=== PATIENT | female | born 1955 | race Caucasian/White ===

== ENCOUNTER → 2016-09-25 | Outpatient (CLI) | payer OTHER ==
[~2016-09-25] MED LIST: BUDE10.2 IH; FLUT1DIS IH; HYDR-2666 PO; LORA-434 PO; MULT-650 PO; TIZA4TAB PO; TRAZ100T12 PO; methylPREDNISolone ACETATE 40 MG/ML VIAL. ONE; methylPREDNISolone ACETATE 80 MG/ML VIAL. ONE
--- NOTE | 2016-09-26 04:43 | PAIN ---
DATE OF SERVICE: ADDENDUM DIAGNOSES: Lumbar radiculopathy with lumbar degenerative disk disease. PROCEDURE: Lumbar epidural steroid injection: translaminar approach at the L4-5 level using C-arm fluoroscopic guidance under sterile prep and drape using local anesthetic. MEDICATIONS INJECTED: Depo-Medrol 120 mg plus 10 mL of preservative-free normal saline and 2-mL of Isovue for contrast. CONDITION AT DISCHARGE: Stable. The patient tolerated the procedure well, had no complications. BAUDILIO SCHWARTZ MD DR: PASCALE/néstor JOB#: [id number] / [id number]
--- NOTE | 2016-09-26 04:46 | PAIN ---
DATE OF SERVICE: 09/25/2016 DIAGNOSES: Lumbar radiculopathy with lumbar degenerative disk disease. HISTORY OF PRESENT ILLNESS: The patient is a 61-year-old female who returns for followup status post previous epidural steroid injections, last seen on 04/01/2016. The patient did very well, about 80% improvement overall with her injections. She reports that about a month ago, she fell at work, hit her head, ____ her back as well as her neck, had been doing very well, but has significant pain after the fall and reports now pain in the low back radiating to the right lower extremity as it was previously, mostly in the lateral anterior thigh across the low back and into the tailbone with some numbness and tingling across the back as well as in the right lateral and anterior thigh to the level of the knee or just slightly medial and inferior to this. The patient reports a burning, stabbing, sharp and constant, rated anywhere from a 7-8 on a scale 10, currently 7 on a scale of 10. The patient has been doing some stretching at home, but has not been helping much. She is trying to walk, but is becoming more difficult for her to do this because of the pain. Also, having difficulty staying on her feet at work and that she is required to do a lot of physical activities ____ walking, standing, bending, flexing, stooping, so forth at work. The patient reports it is becoming more and more difficult, reports no complete loss of motor function, but significant pain radiating to the right leg, now again as it was previously. The patient reports no new motor or sensory deficits, no new bowel or bladder incontinence. PAST MEDICAL HISTORY: Significant for asthma, cigarette smoking, sinus congestions, and arthritis. PREVIOUS SURGERY: Include cervical diskectomy and fusion in 2011, ____ 1986, compound fracture of the forearm with ORIF. CURRENT MEDICATIONS: Include tizanidine, trazodone, Ativan, hydrocodone, Symbicort, multivitamins and Advair. ALLERGIES: THE PATIENT IS ALLERGIC TO CONTRAST, IODINE, SULFA AND FLEXERIL. FAMILY HISTORY: Significant for lung cancer, brain cancer, diabetes and gallbladder disease. SOCIAL HISTORY: The patient continues to smoke about a half pack a day as for the past 41 years or so. Does not drink alcohol or use any other illegal or illicit drugs, is and lives on her own. REVIEW OF SYSTEMS: The patient's review of systems is positive for those items mentioned in history of present illness. It is completed in full, well documented on the patient's chart. PHYSICAL EXAMINATION: VITAL SIGNS: Today, the patient's blood pressure is 160/86, pulse is 90, respirations 18, temperature is 98.2 degrees Fahrenheit, and weight is 110 pounds. GENERAL: The patient is awake, alert, oriented, appropriate, very pleasant demeanor. HEENT: Head shows normocephalic and atraumatic. Extraocular movements are intact and symmetrical. Oral cavity, mucous membranes are moist and pink. Dentition is intact. NECK: Shows anterior throat supple without palpable lymphadenopathy noted. CHEST: Shows normal on inspection. Breath sounds clear to auscultation bilaterally. HEART: Shows S1, S2 clear. No murmurs auscultated. ABDOMEN: Soft, flat, nontender, nondistended. No palpable organomegaly is noted. No rebound or guarding demonstrated. BACK: Shows spine grossly midline. Lumbar paraspinous musculature shows with inspection, no obvious abnormalities or asymmetries. With palpation shows moderate tenderness throughout the upper, middle and lower distribution. The paraspinous muscles are very firm and tender, but normal muscle girth and symmetrical. No radiation. No trigger points. No tenderness over the sacrum or sacroiliac regions over the spinous processes. With palpation, the patient shows good rotation motion both laterally as well as extension and flexion of lumbar spine without significant pain or limited mobility. EXTREMITIES: Lower extremities showed deep tendon reflexes at 1+ in the patellar and tendo calcaneus tendons. Motor exam is strong with approximately 4-5 motor on the right with dorsiflexion, extension, quadriceps and hamstring flexion and 5/5 on the left. Peripheral pulses are 1+ posterior tibial and dorsalis pedis pulses. No peripheral edema is noted. No clubbing, no cyanosis. Options were discussed with the patient including conservative medical management, physical therapies and interventional techniques. The patient's old chart was reviewed as her current medication regimen updated. Current review of systems updated today again as noted. The patient would like to pursue with interventional techniques as she has done very well with these in the past. We discussed a lumbar epidural steroid injection using the description as well as anatomical models. We described the procedure. Risks were then discussed including, but not limited to bleeding, infection, possibility of epidural hematoma and subsequent neurologic compromise, dural puncture, headaches, spinal cord and/or nerve damage, side effects of steroid medication and poor results regarding pain control. The patient understands and wishes to proceed. The patient will return to clinic in approximately 2 weeks for followup. She was counseled on return appointment, activity level and side effects to be aware of. BAUDILIO SCHWARTZ MD DR: PASCALE/néstor JOB#: [id number] / [id number]
== END | disposition home or self-care (01) ==
LOC: PNCL 13:12
PROVIDERS: ATTEND Anesthesiology
DX: M51.16 Intervertebral disc disorders with radiculopathy, lumbar region (principal)
CPT/HCPCS: 62323; J1030; J1040

== ENCOUNTER → 2016-10-15 | Outpatient (CLI) | payer OTHER ==
--- NOTE | 2016-10-16 09:42 | PAIN ---
DATE OF SERVICE: 10/15/2016 DIAGNOSES: Lumbar radiculopathy with lumbar degenerative disk disease. HISTORY OF PRESENT ILLNESS: The patient is a 61-year-old female who returns for followup status post lumbar epidural steroid injection x 1. The patient did very well after the first injection, but the pain is returning now over the past week in the low back, right and left lower extremity, worse on the right side, radiating to the posterior lateral thigh, anterior thigh, medial thigh, into the medial lower leg, mostly posterior. The patient reports it is waking her from sleep about 4-5 times at night, ____ repositioning, getting out of bed, changing positions, still doing some stretching exercises which seems to help ____ every morning. The pain ranges anywhere from 5-7 on a scale 10. It is currently at 5 today. The patient reports no new motor or sensory deficits, describes the pain as sharp and shooting, stabbing, burning, it can become unbearable and radiating, but is on and off with her daily activities, worse with walking and standing, better with sitting. PHYSICAL EXAMINATION: VITAL SIGNS: The patient's blood pressure is 136/78, pulse is 88, respirations are 18, and temperature 97.9 degrees Fahrenheit. Height is 5 feet, weight is 116 pounds. GENERAL: The patient is awake, alert, oriented, appropriate, very pleasant demeanor. HEENT: Head shows normocephalic and atraumatic. Extraocular movements are intact and symmetrical. Oral cavity shows mucous membranes moist and pink. Dentition is intact. NECK: Shows anterior throat supple without palpable lymphadenopathy noted. Swallow reflex is symmetrical. Neck shows full rotational motion of the cervical spine without difficulty. CHEST: Shows breath sounds clear to auscultation bilaterally. HEART: Shows S1 and S2 clear. ABDOMEN: Soft, nontender, and nondistended. BACK: Shows spine grossly midline. Lumbar lordotic curvature is normal in appearance. Lumbar paraspinous musculature shows some post-symmetrical in appearance. Palpation shows moderate tenderness in the low lumbar distribution bilaterally and is firm, but with normal muscle girth, good rotational motion both laterally as well as extension and flexion without exacerbation of pain. EXTREMITIES: Lower extremities show deep tendon reflexes at 1+/4 in the patellar tendons. Motor exam is strong with approximately 4 on a scale 5 with right dorsiflexion dorsal extension and 5/5 on the left. Options were discussed with the patient and the patient's old chart was reviewed as her current medication regimen and updated. Current review of systems updated today as well. We will proceed with a second lumbar epidural steroid injection today with fluoroscopic guidance. Risks were again discussed including, but not limited to bleeding, infection, possibility of epidural hematoma, subsequent neurologic compromise, dural puncture, headaches, spinal cord and/or nerve damage, side effects of steroid medication and poor results regarding pain control. The patient understands and wishes to proceed. The patient will return to clinic in approximately 2 weeks for followup. She was counseled on return appointment, activity level and side effects to be aware of. DIAGNOSIS: Lumbar radiculopathy with lumbar degenerative disk disease. PROCEDURE: Lumbar epidural steroid injection in translaminar approach at L4-L5 level using C-arm fluoroscopic guidance under sterile prep and drape using local anesthetic. MEDICATIONS INJECTED: Depo-Medrol 120 mg plus 10 mL of preservative-free normal saline and 2 mL of Isovue for contrast. CONDITION AT DISCHARGE: Stable. The patient tolerated procedure well, had no complications. BAUDILOI SCHWARTZ MD DR: PASCALE/néstor JOB#: [id number] / [id number]
== END | disposition home or self-care (01) ==
LOC: PNCL 08:39
PROVIDERS: ATTEND Anesthesiology
DX: M51.16 Intervertebral disc disorders with radiculopathy, lumbar region (principal)
CPT/HCPCS: 62323; J1030; J1040

== ENCOUNTER → 2018-01-18 | Outpatient (CLI) | payer OTHER ==
[~2018-01-18] MED LIST changes: -HYDR-2666 PO; +HYDR-2758 PO; +TRAZ-86 PO; -TRAZ100T12 PO; -methylPREDNISolone ACETATE 40 MG/ML VIAL. ONE; -methylPREDNISolone ACETATE 80 MG/ML VIAL. ONE
--- NOTE | 2018-01-18 10:07 | KCIC ---
MRI of the lumbar spine without contrast 01/18/2018 CLINICAL HISTORY: Low back pain for the last week. TECHNIQUE: Unenhanced T1-weighted and T2-weighted sagittal and axial and inversion recovery sagittal images of the lumbar spine were obtained. FINDINGS: Comparison study dated 12/20/2015. Minimal S-shaped curvature of the thoracolumbar spine is seen. Degenerative signal changes are seen involving all of the disks of the lumbar spine. Degenerative signal changes are seen within the marrow scattered throughout these discs. The conus medullaris is normal in position and and signal characteristics. The L1-2 disc space is within normal limits. At the L2-3 disc space there is a mild generalized disc bulge. Degenerative changes are seen involving the facet joints bilaterally. There is mild ligamentum flavum hypertrophy bilaterally. These findings when combined do not result in significant central spinal canal or neural foraminal stenosis. At the L3-4 disc space there is a mild generalized disc bulge. Degenerative changes are seen involving the facet joints bilaterally. There is mild ligamentum flavum hypertrophy bilaterally. There are small facet joint effusions bilaterally. These findings when combined do not result in significant central spinal canal or neural foraminal stenosis. At the L4-5 disc space there is a mild generalized disc bulge. Superimposed on this disc bulge is a focal central disc protrusion. This measures 2 mm in AP diameter. Degenerative changes are seen involving the facet joints bilaterally. There is mild ligamentum flavum hypertrophy bilaterally. These findings when combined do not result in significant central spinal canal or neural foraminal stenosis. At the L5-S1 disc space there is a mild generalized disc bulge. Degenerative changes are seen involving the facet joints bilaterally. These findings when combined do not result in significant central spinal canal or neural foraminal stenosis. Since the previous examination there has been no significant interval change. IMPRESSION: The changes of degenerative disc disease are seen involving the lumbar spine. These findings do not result in significant central spinal canal or neural foraminal stenosis at any level. Electronically signed by: Adarsh Banks MD (01/18/2018 10:03 AM) [id number]
== END | disposition home or self-care (01) ==
LOC: KCIC MRI 08:18
PROVIDERS: ATTEND Physician Assistant Medical
DX: M51.36 Other intervertebral disc degeneration, lumbar region (principal); M25.48 Effusion, other site; J45.909 Unspecified asthma, uncomplicated; Z87.891 Personal history of nicotine dependence
CPT/HCPCS: 72148

== ENCOUNTER 2019-11-01 08:46 | Inpatient (IN) | payer BC, OTHER ==
[~2019-11-01] VITALS: Ht 152.4 cm; Wt 68.5 kg
[~2019-11-01 08:46] MED LIST changes: -HYDR-2758 PO; +HYDR-2761 PO; -TIZA4TAB PO; +TIZA4TAB2 PO; +TRAZ-123 PO; -TRAZ-86 PO
[2019-11-01] MEDS ORDERED: MORPHINE SULFATE 10 MG/ML VIAL. IV ONE ×2 (09:30→10:30)
[2019-11-01 09:56] LABS: ALBUMIN 3.5 g/dL (3.4-5.0); ALBUMIN/GLOBULIN RATIO 1.2 (1.0-1.7); CALCIUM 8.6 mg/dL (8.5-10.1); CREATININE 0.8 mg/dL (0.6-1.0); GFR 72.7; POTASSIUM 4.1 mmol/L (3.5-5.1); TOTAL BILIRUBIN 0.7 mg/dL (0.2-1.0); TOTAL PROTEIN 6.5 g/dL (6.4-8.2)
--- NOTE | 2019-11-01 09:57 | RAD ---
Examination: CHEST AP ONLY History: Shortness of breath and cough Comparison: None. Findings: AP portable supine frontal view of the chest was obtained. Postoperative cervical spine fusion noted. The cardiomediastinal silhouette is normal. Lungs are clear. There is no pneumothorax. No pleural effusion is appreciated. No acute bone abnormality. IMPRESSION: No acute cardiopulmonary process. Electronically signed by: Ranjan Singh MD (11/01/2019 9:54 AM) [id number]
--- NOTE | 2019-11-01 09:58 | RAD ---
Examination: HIP RIGHT 2 VIEW History: Fall, right hip pain Comparison/Correlation: None Findings: Markedly displaced oblique fracture through the lower intertrochanteric region is present. Right hip joint space is unremarkable. Mild degenerative changes of the symphysis pubis. Impression: Displaced right intertrochanteric fracture. Electronically signed by: Ranjan Singh MD (11/01/2019 9:55 AM) [id number]
[2019-11-01 10:00] LABS: C-REACTIVE PROTEIN 23.4 mg/L (0-3.3)
[2019-11-01 10:39] LABS: BASO # 0.1 x10^3/uL (0.0-0.2); BASO % 1 % (0-3); EOS # 0.1 x10^3/uL (0.0-0.7); EOS % 1 % (0-3); HEMATOCRIT 36.4 % (36.0-47.0); HEMOGLOBIN 12.5 g/dL (12.0-15.5); LYMPH # 2.4 x10^3/uL (1.0-4.8); LYMPH % 22 % (24-48); MEAN CORPUSCULAR HEMOGLOBIN 32 pg (25-35); MEAN CORPUSCULAR HGB CONC 35 g/dL (31-37); MEAN CORPUSCULAR VOLUME 94 fL (79-100); MONO # 0.7 x10^3/uL (0.0-1.1); MONO % 6 % (0-9); NEUT # 7.8 x10^3/uL (1.8-7.7); NEUT % 71 % (31-73); PLATELET COUNT 179 x10^3/uL (140-400); RED BLOOD COUNT 3.87 x10^6/uL (3.50-5.40); RED CELL DISTRIBUTION WIDTH 13.9 % (11.5-14.5); WHITE BLOOD COUNT 10.9 x10^3/uL (4.0-11.0)
--- NOTE | 2019-11-01 11:10 | EKG ---
[facility] [address] [place] [address] Test Date: 2019-11-01 Test Time: 09:09:13 Pat Name: STONE PAVON Department: Room: Gender: F [employer]: : 1955 Requested By: JOSE SLATER Order Number: [id number] Reading MD: Francisco J Frias Measurements Intervals [place] Rate: 99 P: 90 AL: 144 QRS: 90 QRSD: 84 T: 71 QT: 344 QTc: 447 Interpretive Statements SINUS RHYTHM Electronically Signed On 11-01-2019 15:53:08 CDT by Francisco J Frias
--- NOTE | 2019-11-01 11:50 | PDOC1 ---
History and Physical Date of Admission Date of Admission DATE: 11/01/19 TIME: 11:49 Identification/Chief Complaint Chief Complaint SEEN IN ER WITH HIP FRACURE, FALL 64 year old female with a history of COPD who presents with severe right hip pain. Patient was walking to the bathroom and socks on and slipped falling and landing on her right hip. She has had severe pain since that time. She denies any other injuries. She has been having a hard time with her COPD for the last 6 weeks. 10/30 finished a 1 month prescription of prednisone. She does not typically require oxygen. NOTES increase in shortness of breath and wheezing. She recently was treated for pneumonia as well. She has not had any fever, cough, Past Medical History Past Medical History Past Medical History Past Medical History Past Medical History: Asthma, COPD, High Cholesterol, Hypertension Past Surgical History: Other Additional Past Surgical Histo: LOWER BACK Smoking Status: Current Every Day Smoker Alcohol Use: None FHX COPD Cardiovascular: Hyperlipidemia Pulmonary: COPD Family History Family History: Chronic Bronchitis, High Cholestrol, Hypertension Social History Smoke: 1 pack per day ALCOHOL: none Drugs: None Current Medications Current Medications Current Medications Morphine Sulfate (Morphine Sulfate) 5 mg 1X ONCE IV Last administered on 11/01/19at 09:24; Start 11/01/19 at 09:30; Stop 11/01/19 at 09:31; Status DC Morphine Sulfate (Morphine Sulfate) 5 mg 1X ONCE IV Last administered on 11/01/19at 10:33; Start 11/01/19 at 10:30; Stop 11/01/19 at 10:31; Status DC Active Scripts Active Reported Advair 100-50 Diskus (Fluticasone/Salmeterol) 1 Each Disk.w.dev 1 Puff IH BID Symbicort 160-4.5 Mcg Inhaler (Budesonide/Formoterol Fumarate) 10.2 Gm Hfa.aer.ad 2 Puff IH BID Centrum Silver Women Tablet (Multivits-Min/Iron/FA/Lutein) 1 Each Tablet 1 Each PO Hydrocodone-Apap 5-325 (Hydrocodone Bit/Acetaminophen) 1 Each Tablet 1 Tab PO PRN Q6HRS PRN Ativan (Lorazepam) 1 Mg Tablet 1 Mg PO TID Trazodone Hcl 100 Mg Tablet 100 Mg PO HS Tizanidine Hcl 4 Mg Tablet 1 Tab PO QHS Allergies Allergies: Coded Allergies: Iodine and Iodide Containing Produc (Verified Allergy, Severe, anaphalaxis, 02/26/16) Milk Containing Products (Verified Allergy, Intermediate, asthma, 02/26/16) Sulfa (Sulfonamide Antibiotics) (Verified Allergy, Intermediate, 02/26/16) cephalexin (Verified Allergy, Intermediate, 02/26/16) NSAIDS (Non-Steroidal Anti-Inflamma (Verified Adverse Reaction, Severe, esophageal erosion, 02/26/16) ROS Review of System Review of Systems: Review of Systems: General: Denies fever, chills, sweats, fatigue Eyes: Denies drainage, blurred vision HENT: Denies rhinorrhea, sore throat Respiratory: Reports cough, shortness of breath, wheezing Cardiac: Denies edema, palpitations, chest pain GI: Denies abdominal pain, N/V MSK: Denies back pain, neck pain reports hip pain Skin: Denies rash, jaundice Neuro: Denies headache, dizziness Psychiatric: Denies SI/HI 14 PT ROS OTHERWISE NEG PSYCHOLOGICAL ROS: No: Anxiety, Behavioral Disorder, Concentration difficultie, Decreased libido, Depression, Disorientation, Hallucinations, Hostility, Irritablity, Memory difficulties, Mood Swings, Obsessive thoughts, Physical abuse, Sexual abuse, Sleep disturbances, Suicidal ideation, Other Hematological and Lymphatic: No: Bleeding Problems, Blood Clots, Blood Transfusions, Brusing, Night Sweats, Pallor, Swollen Lymph Nodes, Other Respiratory: YES: Cough, Shortness of breath, SOB with excertion, Wheezing Gastrointestinal: No Nausea, No Vomiting, No Abdominal Pain, No Diarrhea, No Constipation, No Melena, No Hematochezia, No Other Musculoskeletal: Yes Gait Disturbance, Yes Joint Pain Neurological: Yes Gait Disturbance Physical Exam Physical Exam Physical Exam: PE: Constitutional: Well developed, well nourished, Cooperative, NAD, non-toxic appearing HEENT: Normocephalic, atraumatic, oropharynx moist, EOMI, PERRL, no drainage from eyes, normal conjunctiva Neck: Supple, normal range of motion, no stridor Cardiovascular: RRR, 2+ radial pulses bilaterally, no edema Respiratory: Decreased breath sounds with diffuse wheezing, normal effort Abdomen: Soft, nontender, nondistended, no masses Skin: Warm, dry, intact Extremities: Right hip deformity with internal rotation and shortening of the leg, intact sensation, distal movement intact, normal capillary refill Neurologic: Alert and Oriented x3, motor and sensory function grossly normal, no focal deficits Psychologic: Normal affect, normal judgment, normal mood. General: Alert, Oriented X3, Cooperative, mild distress HEENT: Atraumatic, EOMI, Mucous membr. moist/pink Lungs: Normal air movement Heart: RRR, no gallops Breasts: Not examined Abdomen: Normal bowel sounds, Soft Rectal Exam: not examined PELVIC: Examination not indicated Extremities: No cyanosis, No edema Neuro: Normal speech, Cranial nerves 3-12 NL Psych/Mental Status: Mental status NL, Mood NL Vitals Vitals Vital Signs Date Time Temp Pulse Resp B/P (MAP) Pulse Ox O2 Delivery O2 Flow Rate FiO2 11/01/19 11:24 104 18 97 11/01/19 10:33 Room Air 2.0 11/01/19 09:29 98.3 166/59 (94) 98.3 Labs Labs Laboratory Tests Test 11/01/19 09:10 11/01/19 10:25 D-Dimer (Luann) 3.11 ug/mlFEU (0.00-0.50) Sodium Level 133 mmol/L (136-145) Potassium Level 4.1 mmol/L (3.5-5.1) Chloride Level 101 mmol/L (98-107) Carbon Dioxide Level 26 mmol/L (21-32) Anion Gap 6 (6-14) Blood Urea Nitrogen 18 mg/dL (7-20) Creatinine 0.8 mg/dL (0.6-1.0) Estimated GFR (Cockcroft-Gault) 72.7 BUN/Creatinine Ratio 23 (6-20) Glucose Level 185 mg/dL (70-99) Calcium Level 8.6 mg/dL (8.5-10.1) Total Bilirubin 0.7 mg/dL (0.2-1.0) Aspartate Amino Transf (AST/SGOT) 21 U/L (15-37) Alanine Aminotransferase (ALT/SGPT) 42 U/L (14-59) Alkaline Phosphatase 107 U/L (46-116) Lactate Dehydrogenase 349 U/L (81-234) Creatine Kinase 137 U/L (26-192) C-Reactive Protein, Quantitative 23.4 mg/L (0-3.3) Total Protein 6.5 g/dL (6.4-8.2) Albumin 3.5 g/dL (3.4-5.0) Albumin/Globulin Ratio 1.2 (1.0-1.7) White Blood Count 10.9 x10^3/uL (4.0-11.0) Red Blood Count 3.87 x10^6/uL (3.50-5.40) Hemoglobin 12.5 g/dL (12.0-15.5) Hematocrit 36.4 % (36.0-47.0) Mean Corpuscular Volume 94 fL (79-100) Mean Corpuscular Hemoglobin 32 pg (25-35) Mean Corpuscular Hemoglobin Concent 35 g/dL (31-37) Red Cell Distribution Width 13.9 % (11.5-14.5) Platelet Count 179 x10^3/uL (140-400) Neutrophils (%) (Auto) 71 % (31-73) Lymphocytes (%) (Auto) 22 % (24-48) Monocytes (%) (Auto) 6 % (0-9) Eosinophils (%) (Auto) 1 % (0-3) Basophils (%) (Auto) 1 % (0-3) Neutrophils # (Auto) 7.8 x10^3/uL (1.8-7.7) Lymphocytes # (Auto) 2.4 x10^3/uL (1.0-4.8) Monocytes # (Auto) 0.7 x10^3/uL (0.0-1.1) Eosinophils # (Auto) 0.1 x10^3/uL (0.0-0.7) Basophils # (Auto) 0.1 x10^3/uL (0.0-0.2) Laboratory Tests Test 11/01/19 09:10 11/01/19 10:25 D-Dimer (Luann) 3.11 ug/mlFEU (0.00-0.50) Sodium Level 133 mmol/L (136-145) Potassium Level 4.1 mmol/L (3.5-5.1) Chloride Level 101 mmol/L (98-107) Carbon Dioxide Level 26 mmol/L (21-32) Anion Gap 6 (6-14) Blood Urea Nitrogen 18 mg/dL (7-20) Creatinine 0.8 mg/dL (0.6-1.0) Estimated GFR (Cockcroft-Gault) 72.7 BUN/Creatinine Ratio 23 (6-20) Glucose Level 185 mg/dL (70-99) Calcium Level 8.6 mg/dL (8.5-10.1) Total Bilirubin 0.7 mg/dL (0.2-1.0) Aspartate Amino Transf (AST/SGOT) 21 U/L (15-37) Alanine Aminotransferase (ALT/SGPT) 42 U/L (14-59) Alkaline Phosphatase 107 U/L (46-116) Lactate Dehydrogenase 349 U/L (81-234) Creatine Kinase 137 U/L (26-192) C-Reactive Protein, Quantitative 23.4 mg/L (0-3.3) Total Protein 6.5 g/dL (6.4-8.2) Albumin 3.5 g/dL (3.4-5.0) Albumin/Globulin Ratio 1.2 (1.0-1.7) White Blood Count 10.9 x10^3/uL (4.0-11.0) Red Blood Count 3.87 x10^6/uL (3.50-5.40) Hemoglobin 12.5 g/dL (12.0-15.5) Hematocrit 36.4 % (36.0-47.0) Mean Corpuscular Volume 94 fL (79-100) Mean Corpuscular Hemoglobin 32 pg (25-35) Mean Corpuscular Hemoglobin Concent 35 g/dL (31-37) Red Cell Distribution Width 13.9 % (11.5-14.5) Platelet Count 179 x10^3/uL (140-400) Neutrophils (%) (Auto) 71 % (31-73) Lymphocytes (%) (Auto) 22 % (24-48) Monocytes (%) (Auto) 6 % (0-9) Eosinophils (%) (Auto) 1 % (0-3) Basophils (%) (Auto) 1 % (0-3) Neutrophils # (Auto) 7.8 x10^3/uL (1.8-7.7) Lymphocytes # (Auto) 2.4 x10^3/uL (1.0-4.8) Monocytes # (Auto) 0.7 x10^3/uL (0.0-1.1) Eosinophils # (Auto) 0.1 x10^3/uL (0.0-0.7) Basophils # (Auto) 0.1 x10^3/uL (0.0-0.2) Images Images PATIENT: STONE PAVON ACCOUNT: [id number] : 1955 LOCATION: [address] [place] [address] AGE: 64 SEX: F EXAM STATUS: ADM IN ORD. PHYSICIAN: CARTER AMBROSIO MD REASON: elevated d- dimer PROCEDURE: PULMONARY PERFUSION IMG PARTIC PULMONARY PERFUSION IMG PARTIC History:Elevated d-dimer. Comparison: None Findings: Perfusion examination was performed. Ventilation imaging was not obtained due to Covid protocol. Perfusion images were acquired after the patient was injected with 5.3 mCi of technetium 99m MAA. Correlation with chest x-ray. Large mismatch perfusion defect within the right upper lobe. Heterogeneous perfusion bilaterally. Additional moderate perfusion defect within the left posterior lower lobe. Additional smaller perfusion defects bilaterally. Impression: 1. High probability for pulmonary embolic disease. FOR INTERNAL CODING PURPOSES Critical result: Findings discussed with patient's nurse at 11/01/2019 4:10 PM. RESULT CODE: (C) Electronically signed by: Alexx Nails DO (11/01/2019 4:11 PM) [id number] DICTATED and SIGNED BY: ALEXX NAILS DO DATE: 11/01/19 1611 Examination: CHEST AP ONLY History: Shortness of breath and cough Comparison: None. Findings: AP portable supine frontal view of the chest was obtained. Postoperative cervical spine fusion noted. The cardiomediastinal silhouette is normal. Lungs are clear. There is no pneumothorax. No pleural effusion is appreciated. No acute bone abnormality. IMPRESSION: No acute cardiopulmonary process. Electronically signed by: Ranjan Trevino MD (11/01/2019 9:54 AM) [id number] DICTATED and SIGNED BY: RANJAN TREVINO MD DATE: 11/01/19 0954 Examination: HIP RIGHT 2 VIEW History: Fall, right hip pain Comparison/Correlation: None Findings: Markedly displaced oblique fracture through the lower intertrochanteric region is present. Right hip joint space is unremarkable. Mild degenerative changes of the symphysis pubis. Impression: Displaced right intertrochanteric fracture. Electronically signed by: Ranjan Trevino MD (11/01/2019 9:55 AM) [id number] DICTATED and SIGNED BY: RANJAN TREVINO MD DATE: 11/01/19 0955 VTE Prophylaxis Ordered VTE Prophylaxis Devices: Yes VTE Pharmacological Prophylaxi: Yes Assessment/Plan Assessment/Plan Impression: Displaced right intertrochanteric fracture. severe COPD WITH HYPOXIC RESP FAILURE HYPERGLYCEMIA Elevated d- dimer R/O PE High probability for pulmonary embolic disease. by V/Q tobacco abuse disorder PLAN ADMIT NPO Consult PULM Consult ortho covid-19 screen v/q scan stat CVC BED HEPARIN // PE PROTOCOL gi prophylaxis 75 MIN PT exam, chart review, > 50% of time spent with exam, chart review, pt care coordination CARTER AMBROSIO MD November 01, 2019 11:50
[2019-11-01 12:04] LABS: BILIRUBIN,URINE NEGATIVE (NEG); CLARITY,URINE CLEAR; COLOR,URINE YELLOW; NITRITE,URINE NEGATIVE (NEG); PH,URINE 5.5 (<5.0-8.0); PROTEIN,URINE NEGATIVE (NEG-TRACE); UROBILINOGEN,URINE 0.2 mg/dL (0.2 mg/dL)
[2019-11-01 12:14] LABS: BACTERIA,URINE 0 /HPF (0-FEW); RBC,URINE 0 /HPF (0-2); WBC,URINE OCC /HPF (0-4)
[2019-11-01 12:30] VITALS: BP 180/87
[2019-11-01] MEDS ORDERED: HYDROmorphone 2 MG/ML VIAL IV ONE (12:30)
--- NOTE | 2019-11-01 13:25 | PHYS DOC ---
Past Medical History Past Medical History: Asthma, COPD, High Cholesterol, Hypertension Past Surgical History: Other Additional Past Surgical Histo: LOWER BACK Smoking Status: Current Every Day Smoker Alcohol Use: None General Adult EDM: Chief Complaint: MECHANICAL FALL HPI: HPI: Patient is a 64 year old female with a history of COPD who presents with severe right hip pain. Patient was walking to the bathroom and socks on and slipped falling and landing on her right hip. She has had severe pain since that time. She denies any other injuries. She has been having a hard time with her COPD for the last 6 weeks. Yesterday she finished a 1 month prescription of prednisone. She does not typically require oxygen. She has had an increase in shortness of breath and wheezing. She recently was treated for pneumonia as well. She has not had any fever, cough, URI symptoms. She does not have any numbness in her right leg. Review of Systems: Review of Systems: General: Denies fever, chills, sweats, fatigue Eyes: Denies drainage, blurred vision HENT: Denies rhinorrhea, sore throat Respiratory: Reports cough, shortness of breath, wheezing Cardiac: Denies edema, palpitations, chest pain GI: Denies abdominal pain, N/V MSK: Denies back pain, neck pain reports hip pain Skin: Denies rash, jaundice Neuro: Denies headache, dizziness Psychiatric: Denies SI/HI Heart Score: Risk Factors: Risk Factors: DM, Current or recent (<one month) smoker, HTN, HLP, family history of CAD, obesity. Risk Scores: Score 0 - 3: 2.5% MACE over next 6 weeks - Discharge Home Score 4 - 6: 20.3% MACE over next 6 weeks - Admit for Clinical Observation Score 7 - 10: 72.7% MACE over next 6 weeks - Early Invasive Strategies Current Medications: Current Medications Medications (Trade) Dose Ordered Sig/Lucía Start Time Stop Time Status Last Admin Dose Admin Morphine Sulfate (Morphine Sulfate) 5 mg 1X ONCE 11/01/19 10:30 11/01/19 10:31 DC 11/01/19 10:33 5 MG Allergies: Allergies: Allergies Coded Allergies Type Severity Reaction Last Updated Verified Iodine and Iodide Containing Produc Allergy Severe anaphalaxis 02/26/16 Yes Milk Containing Products Allergy Intermediate asthma 02/26/16 Yes Sulfa (Sulfonamide Antibiotics) Allergy Intermediate 02/26/16 Yes cephalexin Allergy Intermediate 02/26/16 Yes NSAIDS (Non-Steroidal Anti-Inflamma Adverse Reaction Severe esophageal erosion 02/26/16 Yes Physical Exam: PE: Constitutional: Well developed, well nourished, Cooperative, NAD, non-toxic appearing HEENT: Normocephalic, atraumatic, oropharynx moist, EOMI, PERRL, no drainage from eyes, normal conjunctiva Neck: Supple, normal range of motion, no stridor Cardiovascular: RRR, 2+ radial pulses bilaterally, no edema Respiratory: Decreased breath sounds with diffuse wheezing, normal effort Abdomen: Soft, nontender, nondistended, no masses Skin: Warm, dry, intact Extremities: Right hip deformity with internal rotation and shortening of the leg, intact sensation, distal movement intact, normal capillary refill Neurologic: Alert and Oriented x3, motor and sensory function grossly normal, no focal deficits Psychologic: Normal affect, normal judgment, normal mood. No SI/HI Current Patient Data: Labs: Laboratory Tests Test 11/01/19 09:05 11/01/19 09:10 11/01/19 10:25 Urine Collection Type U cath Urine Color Yellow Urine Clarity Clear Urine pH 5.5 (<5.0-8.0) Urine Specific [place] 1.010 (1.000-1.030) Urine Protein Negative mg/dL (NEG-TRACE) Urine Glucose (UA) Negative mg/dL (NEG) Urine Ketones (Stick) Negative mg/dL (NEG) Urine Blood Negative (NEG) Urine Nitrite Negative (NEG) Urine Bilirubin Negative (NEG) Urine Urobilinogen Dipstick 0.2 mg/dL (0.2 mg/dL) Urine Leukocyte Esterase Negative (NEG) Urine RBC 0 /HPF (0-2) Urine WBC Occ /HPF (0-4) Urine Bacteria 0 /HPF (0-FEW) D-Dimer (Luann) 3.11 ug/mlFEU (0.00-0.50) H Sodium Level 133 mmol/L (136-145) L Potassium Level 4.1 mmol/L (3.5-5.1) Chloride Level 101 mmol/L (98-107) Carbon Dioxide Level 26 mmol/L (21-32) Anion Gap 6 (6-14) Blood Urea Nitrogen 18 mg/dL (7-20) Creatinine 0.8 mg/dL (0.6-1.0) Estimated GFR (Cockcroft-Gault) 72.7 BUN/Creatinine Ratio 23 (6-20) H Glucose Level 185 mg/dL (70-99) H Calcium Level 8.6 mg/dL (8.5-10.1) Total Bilirubin 0.7 mg/dL (0.2-1.0) Aspartate Amino Transferase (AST) 21 U/L (15-37) Alanine Aminotransferase (ALT) 42 U/L (14-59) Alkaline Phosphatase 107 U/L (46-116) Lactate Dehydrogenase 349 U/L (81-234) H Creatine Kinase 137 U/L (26-192) C-Reactive Protein, Quantitative 23.4 mg/L (0-3.3) H Total Protein 6.5 g/dL (6.4-8.2) Albumin 3.5 g/dL (3.4-5.0) Albumin/Globulin Ratio 1.2 (1.0-1.7) White Blood Count 10.9 x10^3/uL (4.0-11.0) Red Blood Count 3.87 x10^6/uL (3.50-5.40) Hemoglobin 12.5 g/dL (12.0-15.5) Hematocrit 36.4 % (36.0-47.0) Mean Corpuscular Volume 94 fL (79-100) Mean Corpuscular Hemoglobin 32 pg (25-35) Mean Corpuscular Hemoglobin Concent 35 g/dL (31-37) Red Cell Distribution Width 13.9 % (11.5-14.5) Platelet Count 179 x10^3/uL (140-400) Neutrophils (%) (Auto) 71 % (31-73) Lymphocytes (%) (Auto) 22 % (24-48) L Monocytes (%) (Auto) 6 % (0-9) Eosinophils (%) (Auto) 1 % (0-3) Basophils (%) (Auto) 1 % (0-3) Neutrophils # (Auto) 7.8 x10^3/uL (1.8-7.7) H Lymphocytes # (Auto) 2.4 x10^3/uL (1.0-4.8) Monocytes # (Auto) 0.7 x10^3/uL (0.0-1.1) Eosinophils # (Auto) 0.1 x10^3/uL (0.0-0.7) Basophils # (Auto) 0.1 x10^3/uL (0.0-0.2) Laboratory Tests 11/01/19 10:25 Laboratory Tests 11/01/19 09:10 Vital Signs: Vital Signs Date Time Temp Pulse Resp B/P (MAP) Pulse Ox O2 Delivery O2 Flow Rate FiO2 11/01/19 12:30 18 98 Nasal Cannula 2.0 11/01/19 12:24 102 11/01/19 09:29 98.3 166/59 (94) 98.3 EKG: EKG: [] Radiology/Procedures: Radiology/Procedures: [] Course & Med Decision Making: Course & Med Decision Making Pertinent Labs and Imaging studies reviewed. (See chart for details) Patient is a 64-year-old female who presents to the emergency room with right hip pain. X-ray was done and patient has a hip fracture. Patient also appears to be having a COPD exacerbation. She is requiring oxygen and has diffuse wheezing at this time. This is been ongoing for several weeks. She has no concerns for coronavirus. She has not had any fever or cough. She will be swabbed for coronavirus as she will likely need surgery. D-dimer is elevated and a VQ scan will be done. Patient will be admitted to the hospitalist and orthopedic surgery will be consulted. Pulmonology was also consulted per recommendation of the hospitalist for surgical clearance. Dragon Disclaimer: Dragon Disclaimer: This electronic medical record was generated, in whole or in part, using a voice recognition dictation system. Departure Departure Impression: Primary Impression: Displaced intertrochanteric fracture of right femur Additional Impressions: COPD (chronic obstructive pulmonary disease) Hypoxia Disposition: ADMITTED INPATIENT Condition: STABLE Referrals: KEYONNA GILES (PCP) JOSE SLATER MD November 01, 2019 13:25
[2019-11-01] MEDS ORDERED: ONDANSETRON PF 4 MG/2 ML VIAL. IVP PRN (13:45)
[2019-11-01] MEDS ORDERED: ACETAMINOPHEN 325 MG TABLET. PO PRN ×2 (13:45→14:30)
[2019-11-01] MEDS: NICOTINE 21MG PATCH. TD SCH ×2 (13:53→13:59)
[2019-11-01] MEDS ORDERED: ALBUTEROL SULFATE 2.5 MG/3 ML NEBU. NEB SCH (14:00)
[2019-11-01] MEDS ORDERED: LORazepam 1 MG TABLET PO SCH (14:00)
[2019-11-01] MEDS ORDERED: ZOLPIDEM 5 MG TABLET. PO PRN (14:30)
[2019-11-01] MEDS ORDERED: SODIUM PHOSPHATES 19/7GM 133 ML ENEMA. PR PRN (14:30)
[2019-11-01] MEDS ORDERED: ONDANSETRON PF 4 MG/2 ML VIAL. IV PRN (14:30)
[2019-11-01] MEDS ORDERED: ENOXAPARIN 40 MG/0.4 ML SYRINGE. SQ SCH (14:30)
[2019-11-01] MEDS ORDERED: DOCUSATE SODIUM 100 MG CAPSULE. PO PRN (14:30)
[2019-11-01] MEDS ORDERED: 0.9 % SODIUM CHLORIDE 10 ML DISP.SYRIN. IV PRN (14:30)
[2019-11-01] MEDS ORDERED: hydrALAZINE 20 MG/ML VIAL. IVP PRN (14:30)
[2019-11-01] MEDS ORDERED: MAG HYDROX/ALUMINUM HYD/SIMETH 30 ML ORAL.SUSP PO PRN (14:30)
[2019-11-01] MEDS ORDERED: guaiFENesin ORAL 200 MG/10 ML LIQUID. PO PRN (14:30)
[2019-11-01] MEDS ORDERED: cloNIDine HCL 0.1 MG TABLET PO PRN (14:30)
[2019-11-01 15:00] VITALS: BP 197/86
--- NOTE | 2019-11-01 15:41 | RAD ---
Examination: Bilateral Lower Extremity Venous Doppler Ultrasound History: Bilateral lower extremity pain, elevated d-dimer Comparison: None Procedure: Leavitt scale, color flow 2D and spectal waveform analysis images are obtained with and without compression in the area of the common femoral vein, superficial femoral vein - femoral vein junction, main femoral vein (superficial femoral vein) and popliteal vein. Veins of the proximal calf are also imaged. Findings: There is normal duplex flow, color flow and compressibility of all visualized vein segments. No evidence of deep venous thrombus is present. Impression: No evidence of DVT in the bilateral lower extremity venous system. Electronically signed by: Vic Santamaria MD (11/01/2019 3:38 PM) [id number]
[2019-11-01] MEDS: IPRATRPIUM/ALBUTEROL 0.5/2.5MG 3 ML NEBU. NEB SCH ×2 (16:13→20:26)
--- NOTE | 2019-11-01 16:13 | RAD ---
PULMONARY PERFUSION IMG PARTIC History:Elevated d-dimer. Comparison: None Findings: Perfusion examination was performed. Ventilation imaging was not obtained due to Covid protocol. Perfusion images were acquired after the patient was injected with 5.3 mCi of technetium 99m MAA. Correlation with chest x-ray. Large mismatch perfusion defect within the right upper lobe. Heterogeneous perfusion bilaterally. Additional moderate perfusion defect within the left posterior lower lobe. Additional smaller perfusion defects bilaterally. Impression: 1. High probability for pulmonary embolic disease. FOR INTERNAL CODING PURPOSES Critical result: Findings discussed with patient's nurse at 11/01/2019 4:10 PM. RESULT CODE: (C) Electronically signed by: Alexx Nails DO (11/01/2019 4:11 PM) [id number]
[2019-11-01] MEDS: HEPARIN for IV BOLUS 10,000 UNIT/10 ML VIAL. IV ONE ×2 (16:30→17:04)
[2019-11-01] MEDS ORDERED: HEPARIN for IV BOLUS 10,000 UNIT/10 ML VIAL. IV PRN (16:30)
[2019-11-01] MEDS: IV NORMAL SALINE 1000ML BAG 1,000 ML IV SCH (16:36)
[2019-11-01] MEDS: HEPARIN 25,000UTS/250ML PREMIX 250 ML IV PRN (16:50)
[2019-11-01] MEDS ORDERED: CARV25TA PO (17:19)
[2019-11-01] MEDS ORDERED: ALPR0.254 PO (17:19)
[2019-11-01] MEDS ORDERED: HYDR-3135 PO (17:19)
[2019-11-01] MEDS ORDERED: BUDE10.2 IH (17:19)
[2019-11-01] MEDS ORDERED: GABA800T5 PO (17:19)
[2019-11-01] MEDS ORDERED: TRAM100T36 PO (17:19)
[2019-11-01] MEDS ORDERED: TRAMADOL HCL 50 MG PO SCH (17:30)
[2019-11-01] MEDS: CARVEDILOL 12.5 MG TABLET. PO SCH (17:46)
[2019-11-01] MEDS: HYDROmorphone 2 MG/ML VIAL IV PRN ×2 (17:48→21:01)
[2019-11-01 19:25] VITALS: BP 171/78
[2019-11-01] MEDS: tiZANidine 4 MG TABLET. PO SCH (20:14)
[2019-11-01] MEDS: GABAPENTIN 300 MG CAPSULE. PO SCH (20:15)
[2019-11-01] MEDS: HYDROcodone/APAP 7.5/325MG 1 TAB TABLET PO SCH (20:15)
[2019-11-01] MEDS: BUDESONIDE 0.5 MG/2 ML NEBU. NEB SCH (20:26)
[2019-11-01] MEDS ORDERED: ALBUTEROL SULFATE 2.5 MG/3 ML NEBU. NEB PRN (20:45)
[2019-11-01] MEDS ORDERED: HYDROcodone/APAP 10/325 1 TAB TABLET PO SCH (21:00)
[2019-11-01] MEDS ORDERED: NON FORMULARY ITEM (Budesonide/Formoterol Fumarate (Symbicort 160-4.5 Mcg Inhaler) 2 PUFF) IH SCH (21:00)
[2019-11-01] MEDS ORDERED: traZODone 100 MG TABLET. PO SCH (21:00)
[2019-11-01] MEDS ORDERED: NON FORMULARY ITEM (Fluticasone/Salmeterol (Advair 100-50 Diskus) 1 PUFF) IH SCH (21:00)
--- NOTE | 2019-11-01 21:33 | CONS ---
DATE OF CONSULTATION: 11/01/2019 EMERGENCY DEPARTMENT CONSULTATION REQUESTING PHYSICIAN: Dr. Sweeney, Emergency Department physician. REASON FOR CONSULTATION: Right hip fracture. HISTORY OF PRESENT ILLNESS: The patient is a 64-year-old female who was walking to the bathroom in socks and slipped, falling, landing on her right hip. She denies any other injury. Denies any head injury, loss of consciousness, other joint pain, but does have the median onset of severe right hip pain, inability to bear weight and a lot of muscle spasm. She is better, somewhat with rest, but still has some severe pain and spasm even lying in the bed at rest. PAST MEDICAL HISTORY: Significant for COPD, hypercholesterolemia, hypertension, asthma. PAST SURGICAL HISTORY: Significant for low back surgery in the past. ALLERGIES: INCLUDE KEFLEX, SULFA, IODINE, AND NONSTEROIDAL ANTI-INFLAMMATORIES WELL A FOOD ALLERGY TO MILK. MEDICATIONS: List is reviewed. FAMILY HISTORY: COPD, hyperlipidemia, chronic bronchitis, hypertension. SOCIAL HISTORY: She is a 1 pack per day smoker. Denies alcohol or drug use. REVIEW OF SYSTEMS: She denies any current chest pain. She does have what she explains is mildly exacerbated shortness of breath compared to her normal symptoms. She denies any recent fever or chills. No recent illness. No productive cough, loss of smell. She does, however, indicate some shortness of breath, which she thinks might be a combination of some of her pain medications. She denies focal weakness, numbness, tingling, radiating pain, change in bowel or bladder habits and chronic low back pain is at baseline. PHYSICAL EXAMINATION: VITAL SIGNS: Per her admission sheet. She is afebrile. HEENT: Atraumatic, normocephalic. MUSCULOSKELETAL: She can move both shoulders, elbow and wrists bilaterally without any difficulty. The right hip is held in some flexion and external rotation in a position of comfort. The left hip has normal range of motion. She has good ligament stability of both knees. She is tender over the left ankle somewhat globally, has no gross instability and some slight swelling and she has been wearing an ankle brace for some chronic left ankle injury. She has normal examination of the contralateral right ankle with overall intact motor function, distal pulses, sensation in both upper and lower extremities throughout. IMAGING: X-rays show a displaced subtrochanteric-intertrochanteric fracture of the right hip. IMPRESSION: 1. Right subtrochanteric intertrochanteric displaced hip fracture. 2. Exacerbation of baseline chronic obstructive pulmonary disease. TREATMENT PLAN: I did go over with her the hip fracture and the need for operative stabilization if this would not be expected to heal in a reasonable position, sometimes even with traction and nonoperative extensive immobilization. We talked about the risks of immobilization in her case, especially pulmonary and the risks, benefits, postoperative course of surgical treatment including the possibility of infection, nerve or blood vessel damage, nonhealing, medical or other and anesthetic complications among others. The need for possible anticoagulation as well and her higher risk for nonhealing based on her smoking history and pulmonary difficulties. She does wish to proceed with surgical evaluation and treatment as soon as possible. At this point, we are held up by policy regarding COVID testing. She was placed in the Emergency Department according to the Emergency Department doctor, but tentatively, I am going to plan on surgery tomorrow following medical workup and hopeful results of the COVID testing. All her questions were answered at this time. IVET MACIAS MD DR: LILY/néstor JOB#: [id number] / [id number]
[2019-11-01] MEDS ORDERED: PANTOPRAZOLE IV PUSH 40 MG VIAL. IVP ONE (22:00)
[2019-11-01 22:38] VITALS: BP 176/69
[2019-11-01] MEDS: traMADol 50 MG TABLET PO PRN (23:05)
[2019-11-02] MEDS: HYDROmorphone 2 MG/ML VIAL IV PRN ×6 (00:25→20:33)
[2019-11-02] MEDS: IPRATRPIUM/ALBUTEROL 0.5/2.5MG 3 ML NEBU. NEB SCH ×6 (00:35→20:00)
[2019-11-02 02:37] VITALS: BP 172/85
[2019-11-02] MEDS: IV NORMAL SALINE 1000ML BAG 1,000 ML IV SCH ×2 (03:28→22:24)
[2019-11-02 06:30] VITALS: BP 169/70
[2019-11-02 06:37] LABS: BASO % 0 % (0-3); EOS # 0.1 x10^3/uL (0.0-0.7); EOS % 1 % (0-3); HEMATOCRIT 29.9 % (36.0-47.0); HEMOGLOBIN 10.2 g/dL (12.0-15.5); LYMPH # 2.7 x10^3/uL (1.0-4.8); LYMPH % 23 % (24-48); MEAN CORPUSCULAR HEMOGLOBIN 32 pg (25-35); MEAN CORPUSCULAR HGB CONC 34 g/dL (31-37); MEAN CORPUSCULAR VOLUME 94 fL (79-100); MONO # 0.8 x10^3/uL (0.0-1.1); MONO % 7 % (0-9); NEUT # 8.1 x10^3/uL (1.8-7.7); NEUT % 69 % (31-73); PLATELET COUNT 136 x10^3/uL (140-400); RED BLOOD COUNT 3.17 x10^6/uL (3.50-5.40); RED CELL DISTRIBUTION WIDTH 14.3 % (11.5-14.5); WHITE BLOOD COUNT 11.7 x10^3/uL (4.0-11.0)
[2019-11-02 06:48] LABS: ALBUMIN 2.8 g/dL (3.4-5.0); ALBUMIN/GLOBULIN RATIO 1.1 (1.0-1.7); CALCIUM 7.7 mg/dL (8.5-10.1); CREATININE 0.9 mg/dL (0.6-1.0); GFR 63.4; POTASSIUM 3.9 mmol/L (3.5-5.1); TOTAL BILIRUBIN 0.6 mg/dL (0.2-1.0); TOTAL PROTEIN 5.3 g/dL (6.4-8.2)
[2019-11-02] MEDS ORDERED: PROCHLORPERAZINE 10 MG/2 ML VIAL. IV PRN (07:00)
[2019-11-02] MEDS ORDERED: fentaNYL PF VIAL 100 MCG/2 ML VIAL IV PRN ×2 (07:00)
[2019-11-02] MEDS ORDERED: HYDROmorphone 2 MG/ML VIAL IV PRN (07:00)
[2019-11-02] MEDS ORDERED: MORPHINE SULFATE 2 MG/ML VIAL. IV PRN (07:00)
[2019-11-02] MEDS ORDERED: IV RINGERS,LACTATED 1000ML 1,000 ML IV SCH (07:00)
[2019-11-02] MEDS ORDERED: LIDOCAINE 1% PF 2 ML VIAL. ID PRN (07:00)
[2019-11-02] MEDS ORDERED: ONDANSETRON PF 4 MG/2 ML VIAL. IV PRN (07:00)
[2019-11-02] MEDS: BUDESONIDE 0.5 MG/2 ML NEBU. NEB SCH ×2 (07:51→20:00)
[2019-11-02] MEDS ORDERED: CARVEDILOL 12.5 MG TABLET. PO SCH (09:00)
[2019-11-02] MEDS: CARVEDILOL 12.5 MG TABLET. PO SCH (09:00)
[2019-11-02] MEDS: ALPRAZolam 0.25 MG TABLET PO SCH (09:00)
[2019-11-02] MEDS: GABAPENTIN 300 MG CAPSULE. PO SCH ×3 (09:00→19:42)
[2019-11-02] MEDS: PANTOPRAZOLE IV PUSH 40 MG VIAL. IVP SCH (09:03)
[2019-11-02] MEDS: NICOTINE 21MG PATCH. TD SCH (09:05)
--- NOTE | 2019-11-02 09:08 | CONS ---
DATE OF CONSULTATION: PULMONARY CONSULTATION ATTENDING PHYSICIAN: Dr. Goldberg. REASON FOR CONSULTATION: Pulmonary embolism, COPD and preop clearance for hip fracture. HISTORY OF PRESENT ILLNESS: The patient is a 64-year-old female who has been a smoker since age 21 and continues to smoke cigarettes. She also has been on and off on steroids. She has recently finished a course yesterday. The patient presented to the hospital after she slipped and fell and suffered right hip fracture and surgery is scheduled for some time today. The patient states that 3 days prior to fall she was having increased shortness of breath. She was evaluated in the Emergency Room where a D-dimer was elevated at 3.11. As a result, a V/Q scan was performed. THE PATIENT HAS ALLERGY TO THE IODINE. I have reviewed the V/Q scan. There is a large mismatch defect within the right upper lobe. There is also additional moderate perfusion defect within the left posterior lower lobe as well as smaller perfusion defects bilaterally. The patient was started on heparin yesterday afternoon. Venous Dopplers did not reveal any definite clots. The patient has no prior history of thromboembolic disease. She says she has occasional exertional dyspnea. She is not on home oxygen. She had no chest pain, no headaches, no dizziness. No nausea, vomiting, no diarrhea. She did have hip pain. She wants to have the surgery done. PAST MEDICAL HISTORY: Suspected COPD with ongoing tobaccoism since age 21, history of hypercholesterolemia, hypertension. PAST SURGICAL HISTORY: Low back surgery. ALLERGIES: KEFLEX, SULFA, IODINE, NONSTEROIDAL ANTI-INFLAMMATORIES WELL ALLERGY TO MILK. MEDICATIONS: All reviewed as listed in the MRAD including heparin per protocol. REVIEW OF SYSTEMS: Twelve-point system obtained. Pertinent positives discussed in my present illness, otherwise noncontributory. All systems that were negative were reviewed as well. SOCIAL HISTORY: Smoker since age 21, less than 1 pack per day and still smokes cigarettes until coming to the hospital, currently on a nicotine patch. FAMILY HISTORY: Noncontributory to lungs. PHYSICAL EXAMINATION: VITAL SIGNS: Reviewed. T-max of 100.1, pulse ox 97% on 2 liters, blood pressure 169/70. NECK: Supple. LUNGS: With faint expiratory wheezes. CARDIOVASCULAR: With a regular rate. ABDOMEN: Soft, nontender. EXTREMITIES: With no pitting edema. LABORATORY DATA: Reviewed. Her white cell count 11.7, hemoglobin 10.2 and platelets are 136. BUN 15, creatinine 0.9. IMPRESSION: 1. Dyspnea with acute hypoxic respiratory failure secondary to combination of acute pulmonary embolism and chronic obstructive pulmonary disease with mild exacerbation. 2. Status post fall with right hip fracture, in need for surgery. 3. Long history of tobaccoism and on and off on steroids since age 21. Just quit tobacco a day before hospitalization. Suspect underlying chronic obstructive pulmonary disease, could be moderate with mild exacerbation. She has faint bronchospasm. 4. Acute pulmonary embolism. Risk factors being immobility. No known cancers. Not on any estrogen or hormonal pills. May benefit from a hypercoagulable workup as an outpatient. RECOMMENDATIONS: 1. I have discussed with the patient that she does carry moderate risk for postop hypoxia and risk for worsening pulmonary embolism post-surgery. She had to be kept off of anticoagulation 2 hours before surgery, and in addition, she was still smoking prior to surgery and still has faint wheezing. However, the benefits of surgery, does exceed the risk and I recommend to proceed with surgery and we will follow very closely postoperatively. She wants to go ahead and proceed with surgery and understands the risks and benefits. 2. We will increase the nebulizer treatments with DuoNeb to q.4 hours and add Pulmicort. 3. Hold systemic steroids at present. 4. Monitor fever. No respiratory symptoms to suggest acute infection. Add empiric antibiotic. 5. Follow orthopedic recommendations. Once the patient's COVID test is negative, she will be able to proceed with surgery. 6. Discussed with RN and we will follow up postoperatively. EVELYN HART MD DR: KHALIF/néstor JOB#: [id number] / [id number]
[2019-11-02] MEDS ORDERED: ANTI-COAG MONITOR BY PHARMACY. MC PRN (10:00)
[2019-11-02] MEDS: HYDROcodone/APAP 7.5/325MG 1 TAB TABLET PO SCH ×2 (10:18→19:43)
[2019-11-02 11:21] VITALS: BP 156/67
[2019-11-02] MEDS: DOXYCYCLINE HYCLATE 100 MG in IV DEXTROSE 5% 100ML 100 ML IV SCH ×2 (11:32→22:11)
--- NOTE | 2019-11-02 12:48 | PDOC ---
[facility] PROGRESS NOTE Chief Complaint Chief Complaint Displaced right intertrochanteric fracture. severe COPD WITH HYPOXIC RESP FAILURE HYPERGLYCEMIA Elevated d- dimer R/O PE High probability for pulmonary embolic disease. by V/Q tobacco abuse disorder History of Present Illness History of Present Illness 11/02/2019 Patient seen and examined Discussed with RN Chart reviewed Patient on heparin Vitals/I&O Vitals/I&O: Vital Signs Date Time Temp Pulse Resp B/P (MAP) Pulse Ox O2 Delivery O2 Flow Rate FiO2 11/02/19 11:27 Nasal Cannula 2.0 11/02/19 11:21 98.9 98 20 156/67 (96) 98 98.9 I & O 11/01/19 11/01/19 11/02/19 15:00 23:00 07:00 Intake Total 0 ml 1137 ml Output Total 0 ml Balance 0 ml 1137 ml Physical Exam General: Alert, Oriented X3, Cooperative, mild distress Heart: Regular rate Lungs: Clear, Other (Diminished breath sounds) Abdomen: Normal bowel sounds, Soft Extremities: No cyanosis, No edema, Other (Left lower extremity externally rotated right lower extremity internally rotated) Skin: No rashes Labs Labs: Laboratory Tests Test 11/01/19 22:50 11/02/19 06:15 Heparin Anti-Xa Act, Unfractionated > 1.10 IU/mL (0.30-0.70) 0.41 IU/mL (0.30-0.70) White Blood Count 11.7 x10^3/uL (4.0-11.0) Red Blood Count 3.17 x10^6/uL (3.50-5.40) Hemoglobin 10.2 g/dL (12.0-15.5) Hematocrit 29.9 % (36.0-47.0) Mean Corpuscular Volume 94 fL (79-100) Mean Corpuscular Hemoglobin 32 pg (25-35) Mean Corpuscular Hemoglobin Concent 34 g/dL (31-37) Red Cell Distribution Width 14.3 % (11.5-14.5) Platelet Count 136 x10^3/uL (140-400) Neutrophils (%) (Auto) 69 % (31-73) Lymphocytes (%) (Auto) 23 % (24-48) Monocytes (%) (Auto) 7 % (0-9) Eosinophils (%) (Auto) 1 % (0-3) Basophils (%) (Auto) 0 % (0-3) Neutrophils # (Auto) 8.1 x10^3/uL (1.8-7.7) Lymphocytes # (Auto) 2.7 x10^3/uL (1.0-4.8) Monocytes # (Auto) 0.8 x10^3/uL (0.0-1.1) Eosinophils # (Auto) 0.1 x10^3/uL (0.0-0.7) Basophils # (Auto) 0.0 x10^3/uL (0.0-0.2) Sodium Level 135 mmol/L (136-145) Potassium Level 3.9 mmol/L (3.5-5.1) Chloride Level 101 mmol/L (98-107) Carbon Dioxide Level 30 mmol/L (21-32) Anion Gap 4 (6-14) Blood Urea Nitrogen 15 mg/dL (7-20) Creatinine 0.9 mg/dL (0.6-1.0) Estimated GFR (Cockcroft-Gault) 63.4 BUN/Creatinine Ratio 17 (6-20) Glucose Level 174 mg/dL (70-99) Calcium Level 7.7 mg/dL (8.5-10.1) Total Bilirubin 0.6 mg/dL (0.2-1.0) Aspartate Amino Transf (AST/SGOT) 20 U/L (15-37) Alanine Aminotransferase (ALT/SGPT) 34 U/L (14-59) Alkaline Phosphatase 83 U/L (46-116) Total Protein 5.3 g/dL (6.4-8.2) Albumin 2.8 g/dL (3.4-5.0) Albumin/Globulin Ratio 1.1 (1.0-1.7) Review of Systems Review of Systems: Complains of pain Assessment and Plan Assessmemt and Plan Problems Medical Problems: (1) COPD (chronic obstructive pulmonary disease) Status: Acute (2) Displaced intertrochanteric fracture of right femur Status: Acute (3) Hypoxia Status: Acute Displaced right intertrochanteric fracture. Severe COPD Hypoxic respiratory failure Hyperglycemia Pulmonary embolism Elevated d- dimer R/O PE High probability for pulmonary embolic disease. by V/Q Continued tobacco abuse although she states she quit yesterday? Plan Heparin protocol We will stop the heparin later today if she is going to surgery Cigarette cessation education Steroids Duo nebs Oxygen Home meds Trend lab Appreciate subspecialist input Comment Review of Relevant I have reviewed the following items renee (where applicable) has been applied. Medications: Current Medications Medications (Trade) Dose Ordered Sig/Lucía Route PRN Reason Start Time Stop Time Status Last Admin Dose Admin Hydromorphone HCl (Dilaudid) 1 mg PRN Q3HRS PRN IV PAIN 11/01/19 13:45 11/02/19 06:54 Ondansetron HCl (Zofran) 4 mg PRN Q4HRS PRN IVP NAUSEA/VOMITING 11/01/19 13:45 11/01/19 13:54 Acetaminophen (Tylenol) 650 mg PRN Q6HRS PRN PO FEVER/HEADACHE 11/01/19 13:45 11/02/19 09:56 DC 11/01/19 13:54 Nicotine (Nicoderm Cq 21mg) 1 patch DAILY TD 11/01/19 14:00 11/02/19 09:05 Lorazepam (Ativan) 1 mg TID PO 11/01/19 14:00 11/01/19 17:22 DC 11/01/19 13:53 Tizanidine HCl (Zanaflex) 4 mg QHS PO 11/01/19 21:00 11/01/19 20:14 Budesonide (Pulmicort) 0.5 mg RTBID NEB 11/01/19 20:00 11/02/19 07:51 Sodium Chloride 1,000 ml @ 80 mls/hr [id number] IV 11/01/19 14:16 11/02/19 03:28 Albuterol/ Ipratropium (Duoneb) 3 ml Q4H NEB 11/01/19 14:30 11/02/19 11:27 Fentanyl Citrate (Fentanyl 2ml Vial) 25 mcg PRN Q5MIN PRN IV MILD PAIN 1-3 11/02/19 07:00 11/02/19 20:00 11/02/19 09:04 Hydralazine HCl (Apresoline Inj) 10 mg PRN Q4HRS PRN IVP ELEVATED BP, SEE COMMENTS 11/01/19 14:30 11/01/19 16:51 Heparin Sodium (Porcine) (Heparin Sodium) 4,800 unit 1X ONCE IV 11/01/19 16:30 11/01/19 16:31 DC 11/01/19 17:04 Heparin Sodium/ Dextrose 250 ml @ 9.568 mls/ hr CONT PRN IV PER PROTOCOL 11/01/19 16:30 11/01/19 16:50 Gabapentin (Neurontin) 900 mg TID PO 11/01/19 21:00 11/01/19 20:15 Carvedilol (Coreg) 25 mg DAILY PO 11/01/19 17:45 11/01/19 17:46 Tramadol HCl (Ultram) 50 mg PRN BID PRN PO PAIN 11/01/19 17:45 11/01/19 23:05 Acetaminophen/ Hydrocodone Bitart (Lortab 7.5/325) 1 tab BID PO 11/01/19 21:00 11/02/19 10:18 Pantoprazole Sodium (PROTONIX VIAL for IV PUSH) 40 mg DAILYAC IVP 11/02/19 07:30 11/02/19 09:03 Pantoprazole Sodium (PROTONIX VIAL for IV PUSH) 40 mg 1X ONCE IVP 11/01/19 22:00 11/01/19 22:01 DC 11/01/19 23:06 Doxycycline Hyclate 100 mg/ Dextrose 100 ml @ 50 mls/hr Q12HR IV 11/02/19 10:00 11/02/19 11:32 VJ CALLAHAN III DO November 02, 2019 12:48
[2019-11-02 14:40] VITALS: BP 148/64
--- NOTE | 2019-11-02 14:51 | NUR ---
SS following for discharge planning. SS reviewed pt chart and discussed with pt RN. Pt is from home and is currently requiring oxygen. PT/OT ordered. Pt having surgery tomorrow, 11/03/2019, for right hip fracture pending COVID19 test results. Pt is COVID19 pending at this time. SS will continue to follow for discharge planning.
[2019-11-02] MEDS: HYDROcodone/APAP 5/325MG 1 TAB TABLET PO PRN (16:05)
--- NOTE | 2019-11-02 18:20 | NUR ---
PATIENT TRANSFERRED TO ROOM 440 PER BED, ALL PERSONAL BELONGINGS SENT WITH PATIENT INCLUDING CELL PHONE AND EYEGLASSES, REPORT CALLED TO OLINDA MUÑOZ ON 4TH FLOOR, QUESTIONS AND CONCERNS ANSWERED, RECEIVING NURSE INFORMED TO STOP HEPARIN DRIP AT 0330 ON 11/03/19 AND TO MAKE PATIENT NPO AT MIDNIGHT TONIGHT.
--- NOTE | 2019-11-02 18:40 | NUR ---
Transferred from 202 to room 440 by bed. Received report from Mary MUÑOZ.
[2019-11-02] MEDS: tiZANidine 4 MG TABLET. PO SCH (19:42)
[2019-11-02 19:43] VITALS: BP 142/70
[2019-11-02] MEDS: HEPARIN 25,000UTS/250ML PREMIX 250 ML IV PRN (19:46)
[2019-11-02 22:40] VITALS: BP 155/61
[2019-11-03] VITALS (10 sets, daily range): BP systolic 128–160; BP diastolic 41–106
[2019-11-03] MEDS: HYDROmorphone 2 MG/ML VIAL IV PRN ×3 (00:16→10:39)
[2019-11-03] MEDS: IPRATRPIUM/ALBUTEROL 0.5/2.5MG 3 ML NEBU. NEB SCH ×6 (00:48→22:30)
[2019-11-03 05:39] LABS: HEMATOCRIT 25.2 % (36.0-47.0); HEMOGLOBIN 8.7 g/dL (12.0-15.5); RED BLOOD COUNT 2.66 x10^6/uL (3.50-5.40); RED CELL DISTRIBUTION WIDTH 14.1 % (11.5-14.5); WHITE BLOOD COUNT 7.9 x10^3/uL (4.0-11.0)
--- NOTE | 2019-11-03 06:49 | NUR ---
IP: Pt is COVID negative.
[2019-11-03] MEDS ORDERED: CLINDAMYCIN 900MG PREMIX 50 ML IV ONE (06:54)
[2019-11-03] MEDS ORDERED: fentaNYL PF VIAL 100 MCG/2 ML VIAL ONE ×2 (06:54→07:03)
[2019-11-03] MEDS ORDERED: CLINDAMYCIN PREMIX 900 MG/50 ML BAG IV ONE (07:00)
[2019-11-03] MEDS ORDERED: MIDAZOLAM HCL/PF 2 MG/2 ML VIAL. ONE (07:03)
[2019-11-03] MEDS ORDERED: SEVOFLURANE 61 TO 120 MINUTES. IH ONE (07:03)
[2019-11-03] MEDS ORDERED: PROPOFOL 10 MG/ML (20ML) VIAL. IV ONE (07:04)
[2019-11-03] MEDS ORDERED: LIDOCAINE 2% PF 5 ML VIAL. ONE (07:04)
[2019-11-03] MEDS ORDERED: DEXAMETHASONE SOD PHOS 4 MG/ML VIAL ONE (07:04)
[2019-11-03] MEDS ORDERED: ONDANSETRON PF 4 MG/2 ML VIAL. ONE (07:04)
[2019-11-03] MEDS ORDERED: fentaNYL PF VIAL 100 MCG/2 ML VIAL IVP ONE (07:15)
[2019-11-03] MEDS: PANTOPRAZOLE IV PUSH 40 MG VIAL. IVP SCH (07:30)
[2019-11-03] MEDS ORDERED: PHENYLEPHRINE in 0.9% NACL PF 1 MG/10 ML SYRINGE. IV ONE (07:33)
[2019-11-03] MEDS: BUDESONIDE 0.5 MG/2 ML NEBU. NEB SCH ×3 (07:44→20:16)
[2019-11-03] MEDS ORDERED: DEXTROSE 50% 25 GM / 50ML DISP.SYRIN. IV PRN ×2 (08:30→10:15)
--- NOTE | 2019-11-03 08:31 | PDOC ---
PROGRESS NOTES Chief Complaint Chief Complaint Displaced right intertrochanteric fracture. Severe COPD WITH HYPOXIC RESP FAILURE HYPERGLYCEMIA Elevated d- dimer - PE High probability for pulmonary embolic disease. by V/Q Tobacco abuse disorder History of Present Illness History of Present Illness Ms Bañuelos is a 64 yo F w/ PMHx HTN, HLD, smoker who presented to the hospital after she slipped and fell and suffered right hip fracture. With SOB and increased HR and d dimer she underwent VQ scan and noted a large mismatch defect within the right upper lobe. There is also additional moderate perfusion defect within the left posterior lower lobe as well as smaller perfusion defects bilat erally. The patient was started on heparin. Venous Dopplers did not reveal any definite clots. 11/01: Patient on heparin s/p ORIF displaced intertrochanteric subtrochanteric right hip fracture with long intramedullary nail this morning. Back on heparin GTT. She is upset about glucose checks. Advised hemoglobin A1c has been ordered. Counseled on smoking cessation. No CP or SOB. Some postop pain. Vitals Vitals Vital Signs Date Time Temp Pulse Resp B/P (MAP) Pulse Ox O2 Delivery O2 Flow Rate FiO2 11/03/19 07:21 99.4 124 15 187/84 93 Nasal Cannula 2.0 99.4 Physical Exam General: Alert, Oriented X3, Cooperative, mild distress Heart: Regular rate Lungs: Clear, Other (Diminished breath sounds) Abdomen: Normal bowel sounds, Soft Extremities: No cyanosis, No edema, Other (Left lower extremity externally rotated right lower extremity internally rotated) Skin: No rashes Labs LABS Laboratory Tests Test 11/02/19 12:00 11/03/19 04:43 Heparin Anti-Xa Act, Unfractionated 0.36 IU/mL (0.30-0.70) 0.13 IU/mL (0.30-0.70) White Blood Count 7.9 x10^3/uL (4.0-11.0) Red Blood Count 2.66 x10^6/uL (3.50-5.40) Hemoglobin 8.7 g/dL (12.0-15.5) Hematocrit 25.2 % (36.0-47.0) Mean Corpuscular Volume 95 fL (79-100) Mean Corpuscular Hemoglobin 33 pg (25-35) Mean Corpuscular Hemoglobin Concent 35 g/dL (31-37) Red Cell Distribution Width 14.1 % (11.5-14.5) Platelet Count 117 x10^3/uL (140-400) Assessment and Plan Assessmemt and Plan Problems Medical Problems: (1) COPD (chronic obstructive pulmonary disease) Status: Acute (2) Displaced intertrochanteric fracture of right femur Status: Acute (3) Hypoxia Status: Acute Comment Review of Relevant I have reviewed the following items renee (where applicable) has been applied. Labs Laboratory Tests Test 11/01/19 09:05 11/01/19 09:10 11/01/19 10:25 11/01/19 10:35 Urine Collection Type U cath Urine Color Yellow Urine Clarity Clear Urine pH 5.5 (<5.0-8.0) Urine Specific Gilbert 1.010 (1.000-1.030) Urine Protein Negative mg/dL (NEG-TRACE) Urine Glucose (UA) Negative mg/dL (NEG) Urine Ketones (Stick) Negative mg/dL (NEG) Urine Blood Negative (NEG) Urine Nitrite Negative (NEG) Urine Bilirubin Negative (NEG) Urine Urobilinogen Dipstick 0.2 mg/dL (0.2 mg/dL) Urine Leukocyte Esterase Negative (NEG) Urine RBC 0 /HPF (0-2) Urine WBC Occ /HPF (0-4) Urine Bacteria 0 /HPF (0-FEW) D-Dimer (Luann) 3.11 ug/mlFEU (0.00-0.50) Sodium Level 133 mmol/L (136-145) Potassium Level 4.1 mmol/L (3.5-5.1) Chloride Level 101 mmol/L (98-107) Carbon Dioxide Level 26 mmol/L (21-32) Anion Gap 6 (6-14) Blood Urea Nitrogen 18 mg/dL (7-20) Creatinine 0.8 mg/dL (0.6-1.0) Estimated GFR (Cockcroft-Gault) 72.7 BUN/Creatinine Ratio 23 (6-20) Glucose Level 185 mg/dL (70-99) Calcium Level 8.6 mg/dL (8.5-10.1) Total Bilirubin 0.7 mg/dL (0.2-1.0) Aspartate Amino Transf (AST/SGOT) 21 U/L (15-37) Alanine Aminotransferase (ALT/SGPT) 42 U/L (14-59) Alkaline Phosphatase 107 U/L (46-116) Lactate Dehydrogenase 349 U/L (81-234) Creatine Kinase 137 U/L (26-192) C-Reactive Protein, Quantitative 23.4 mg/L (0-3.3) Total Protein 6.5 g/dL (6.4-8.2) Albumin 3.5 g/dL (3.4-5.0) Albumin/Globulin Ratio 1.2 (1.0-1.7) White Blood Count 10.9 x10^3/uL (4.0-11.0) Red Blood Count 3.87 x10^6/uL (3.50-5.40) Hemoglobin 12.5 g/dL (12.0-15.5) Hematocrit 36.4 % (36.0-47.0) Mean Corpuscular Volume 94 fL (79-100) Mean Corpuscular Hemoglobin 32 pg (25-35) Mean Corpuscular Hemoglobin Concent 35 g/dL (31-37) Red Cell Distribution Width 13.9 % (11.5-14.5) Platelet Count 179 x10^3/uL (140-400) Neutrophils (%) (Auto) 71 % (31-73) Lymphocytes (%) (Auto) 22 % (24-48) Monocytes (%) (Auto) 6 % (0-9) Eosinophils (%) (Auto) 1 % (0-3) Basophils (%) (Auto) 1 % (0-3) Neutrophils # (Auto) 7.8 x10^3/uL (1.8-7.7) Lymphocytes # (Auto) 2.4 x10^3/uL (1.0-4.8) Monocytes # (Auto) 0.7 x10^3/uL (0.0-1.1) Eosinophils # (Auto) 0.1 x10^3/uL (0.0-0.7) Basophils # (Auto) 0.1 x10^3/uL (0.0-0.2) Coronavirus (COVID-19)(PCR) See separate report Test 11/01/19 22:50 11/02/19 06:15 11/02/19 12:00 11/03/19 04:43 Heparin Anti-Xa Act, Unfractionated > 1.10 IU/mL (0.30-0.70) 0.41 IU/mL (0.30-0.70) 0.36 IU/mL (0.30-0.70) 0.13 IU/mL (0.30-0.70) White Blood Count 11.7 x10^3/uL (4.0-11.0) 7.9 x10^3/uL (4.0-11.0) Red Blood Count 3.17 x10^6/uL (3.50-5.40) 2.66 x10^6/uL (3.50-5.40) Hemoglobin 10.2 g/dL (12.0-15.5) 8.7 g/dL (12.0-15.5) Hematocrit 29.9 % (36.0-47.0) 25.2 % (36.0-47.0) Mean Corpuscular Volume 94 fL (79-100) 95 fL (79-100) Mean Corpuscular Hemoglobin 32 pg (25-35) 33 pg (25-35) Mean Corpuscular Hemoglobin Concent 34 g/dL (31-37) 35 g/dL (31-37) Red Cell Distribution Width 14.3 % (11.5-14.5) 14.1 % (11.5-14.5) Platelet Count 136 x10^3/uL (140-400) 117 x10^3/uL (140-400) Neutrophils (%) (Auto) 69 % (31-73) Lymphocytes (%) (Auto) 23 % (24-48) Monocytes (%) (Auto) 7 % (0-9) Eosinophils (%) (Auto) 1 % (0-3) Basophils (%) (Auto) 0 % (0-3) Neutrophils # (Auto) 8.1 x10^3/uL (1.8-7.7) Lymphocytes # (Auto) 2.7 x10^3/uL (1.0-4.8) Monocytes # (Auto) 0.8 x10^3/uL (0.0-1.1) Eosinophils # (Auto) 0.1 x10^3/uL (0.0-0.7) Basophils # (Auto) 0.0 x10^3/uL (0.0-0.2) Sodium Level 135 mmol/L (136-145) Potassium Level 3.9 mmol/L (3.5-5.1) Chloride Level 101 mmol/L (98-107) Carbon Dioxide Level 30 mmol/L (21-32) Anion Gap 4 (6-14) Blood Urea Nitrogen 15 mg/dL (7-20) Creatinine 0.9 mg/dL (0.6-1.0) Estimated GFR (Cockcroft-Gault) 63.4 BUN/Creatinine Ratio 17 (6-20) Glucose Level 174 mg/dL (70-99) Calcium Level 7.7 mg/dL (8.5-10.1) Total Bilirubin 0.6 mg/dL (0.2-1.0) Aspartate Amino Transf (AST/SGOT) 20 U/L (15-37) Alanine Aminotransferase (ALT/SGPT) 34 U/L (14-59) Alkaline Phosphatase 83 U/L (46-116) Total Protein 5.3 g/dL (6.4-8.2) Albumin 2.8 g/dL (3.4-5.0) Albumin/Globulin Ratio 1.1 (1.0-1.7) Laboratory Tests Test 11/02/19 12:00 11/03/19 04:43 Heparin Anti-Xa Act, Unfractionated 0.36 IU/mL (0.30-0.70) 0.13 IU/mL (0.30-0.70) White Blood Count 7.9 x10^3/uL (4.0-11.0) Red Blood Count 2.66 x10^6/uL (3.50-5.40) Hemoglobin 8.7 g/dL (12.0-15.5) Hematocrit 25.2 % (36.0-47.0) Mean Corpuscular Volume 95 fL (79-100) Mean Corpuscular Hemoglobin 33 pg (25-35) Mean Corpuscular Hemoglobin Concent 35 g/dL (31-37) Red Cell Distribution Width 14.1 % (11.5-14.5) Platelet Count 117 x10^3/uL (140-400) Medications Current Medications Morphine Sulfate (Morphine Sulfate) 5 mg 1X ONCE IV Last administered on at 09:24; Start 11/01/19 at 09:30; Stop 11/01/19 at 09:31; Status DC Morphine Sulfate (Morphine Sulfate) 5 mg 1X ONCE IV Last administered on 11/01/19at 10:33; Start 11/01/19 at 10:30; Stop 11/01/19 at 10:31; Status DC Hydromorphone HCl (Dilaudid) 1 mg 1X ONCE IV Last administered on 11/01/19at 12:30; Start 11/01/19 at 12:30; Stop 11/01/19 at 12:31; Status DC Hydromorphone HCl (Dilaudid) 1 mg PRN Q3HRS PRN IV PAIN Last administered on 11/03/19at 03:23; Start 11/01/19 at 13:45 Enoxaparin Sodium (Lovenox 80mg Syringe) 70 mg Q12HR SQ ; Start 11/01/19 at 21:00; Stop 11/01/19 at 16:26; Status DC Ondansetron HCl (Zofran) 4 mg PRN Q4HRS PRN IVP NAUSEA/VOMITING Last administered on 11/01/19at 13:54; Start 11/01/19 at 13:45; Stop 11/02/19 at 12:52; Status DC Acetaminophen (Tylenol) 650 mg PRN Q6HRS PRN PO FEVER/HEADACHE Last administered on 11/01/19at 13:54; Start 11/01/19 at 13:45; Stop 11/02/19 at 09:56; Status DC Nicotine (Nicoderm Cq 21mg) 1 patch DAILY TD Last administered on 11/02/19at 09:05; Start 11/01/19 at 14:00 Acetaminophen/ Hydrocodone Bitart (Lortab 5/325) 1 tab PRN Q6HRS PRN PO SEVERE PAIN Last administered on 11/02/19at 16:05; Start 11/01/19 at 13:45 Lorazepam (Ativan) 1 mg TID PO Last administered on 11/01/19at 13:53; Start 11/01/19 at 14:00; Stop 11/01/19 at 17:22; Status DC Tizanidine HCl (Zanaflex) 4 mg QHS PO Last administered on 11/02/19at 19:42; Start 11/01/19 at 21:00 Trazodone HCl (Desyrel) 100 mg HS PO ; Start 11/01/19 at 21:00; Stop 11/01/19 at 17:22; Status DC Non-Formulary Medication (Budesonide/ Formoterol Fumarate (Symbicort 160-4.5 Mcg Inhaler)) 2 puff BID IH ; Start 11/01/19 at 21:00; Status UNV Non-Formulary Medication (Fluticasone/ Salmeterol (Advair 100-50 Diskus)) 1 puff BID IH ; Start 11/01/19 at 21:00; Status UNV Albuterol Sulfate (Ventolin Neb Soln) 2.5 mg Q6HRS NEB ; Start 11/01/19 at 14:00; Stop 11/01/19 at 20:35; Status DC Budesonide (Pulmicort) 0.5 mg RTBID NEB Last administered on 11/02/19at 20:00; Start 11/01/19 at 20:00 Sodium Chloride (Normal Saline Flush) 3 ml QSHIFT PRN IV AFTER MEDS AND BLOOD DRAWS; Start 11/01/19 at 14:30 Sodium Chloride 1,000 ml @ 80 mls/hr [id number] IV Last administered on 11/02/19at 22:24; Start 11/01/19 at 14:16 Ondansetron HCl (Zofran) 4 mg PRN Q4HRS PRN IV NAUSEA/VOMITING; Start 11/01/19 at 14:30 Zolpidem Tartrate (Ambien) 5 mg PRN QHS PRN PO INSOMNIA; Start 11/01/19 at 14:30 Acetaminophen (Tylenol) 650 mg PRN Q4HRS PRN PO TEMP OVER 100.4F OR MILD PAIN; Start 11/01/19 at 14:30 Al Hydroxide/Mg Hydroxide (Mylanta Plus Xs) 30 ml PRN DAILY PRN PO HEARTBURN / GAS; Start 11/01/19 at 14:30 Clonidine HCl (Catapres) 0.1 mg PRN Q6HRS PRN PO SBP>160 OR DBP>90; Start 11/01/19 at 14:30 Sodium Monofluorophosphate (Fleet Adult) 133 ml PRN DAILY PRN MI CONSTIPATION; Start 11/01/19 at 14:30 Docusate Sodium (Colace) 100 mg PRN BID PRN PO HARD STOOLS; Start 11/01/19 at 14:30 Albuterol/ Ipratropium (Duoneb) 3 ml Q4H NEB Last administered on 11/03/19at 07:13; Start 11/01/19 at 14:30 Guaifenesin (Robitussin) 200 mg PRN Q4HRS PRN PO COUGH; Start 11/01/19 at 14:30 Enoxaparin Sodium (Lovenox 40mg Syringe) 40 mg Q24H SQ ; Start 11/01/19 at 14:30; Stop 11/01/19 at 14:22; Status DC Ondansetron HCl (Zofran) 4 mg PRN Q6HRS PRN IV NAUSEA/VOMITING; Start 11/02/19 at 07:00; Stop 11/03/19 at 06:59; Status DC Fentanyl Citrate (Fentanyl 2ml Vial) 25 mcg PRN Q5MIN PRN IV MILD PAIN 1-3 Last administered on 11/02/19at 09:04; Start 11/02/19 at 07:00; Stop 11/02/19 at 20:00; Status DC Fentanyl Citrate (Fentanyl 2ml Vial) 50 mcg PRN Q5MIN PRN IV MODERATE TO SEVERE PAIN; Start 11/02/19 at 07:00; Stop 11/02/19 at 20:00; Status DC Morphine Sulfate (Morphine Sulfate) 1 mg PRN Q10MIN PRN IV SEVERE PAIN 7-10; Start 11/02/19 at 07:00; Stop 11/02/19 at 20:00; Status DC Ringer's Solution 1,000 ml @ 30 mls/hr Q24H IV ; Start 11/02/19 at 07:00; Stop 11/02/19 at 18:59; Status DC Lidocaine HCl (Xylocaine-Mpf 1% 2ml Vial) 2 ml PRN 1X PRN ID PRIOR TO IV START; Start 11/02/19 at 07:00; Stop 11/02/19 at 20:00; Status DC Hydromorphone HCl (Dilaudid) 0.5 mg PRN Q10MIN PRN IV SEV PAIN, Second choice; Start 11/02/19 at 07:00; Stop 11/02/19 at 20:00; Status DC Prochlorperazine Edisylate (Compazine) 5 mg PACU PRN PRN IV NAUSEA, MRX1; Start 11/02/19 at 07:00; Stop 11/02/19 at 20:00; Status DC Hydralazine HCl (Apresoline Inj) 10 mg PRN Q4HRS PRN IVP ELEVATED BP, SEE COMMENTS Last administered on 11/01/19at 16:51; Start 11/01/19 at 14:30; Stop 11/02/19 at 12:53; Status DC Hydralazine HCl (Apresoline Inj) 10 mg PRN Q4HRS PRN IVP ELEVATED BP, SEE COMMENTS; Start 11/01/19 at 16:00 Heparin Sodium (Porcine) (Heparin Sodium) 4,800 unit 1X ONCE IV Last administered on 11/01/19at 17:04; Start 11/01/19 at 16:30; Stop 11/01/19 at 16:31; Status DC Heparin Sodium/ Dextrose 250 ml @ 9.568 mls/ hr CONT PRN IV PER PROTOCOL Last administered on 11/02/19at 19:46; Start 11/01/19 at 16:30 Heparin Sodium (Porcine) (Heparin Sodium) 1,800 unit PRN Q6HRS PRN IV FOR UFH LEVEL LESS THAN 0.2; Start 11/01/19 at 16:30 Heparin Sodium (Porcine) (Heparin Sodium) 900 unit PRN Q6HRS PRN IV FOR UFH LEVEL 0.2 - 0.29; Start 11/01/19 at 16:30 Alprazolam (Xanax) 0.25 mg DAILY PO ; Start 11/02/19 at 09:00 Acetaminophen/ Hydrocodone Bitart (Lortab 10/325) 7.5 tab BID PO ; Start 11/01/19 at 21:00; Status Cancel Carvedilol (Coreg) 25 mg DAILY PO ; Start 11/02/19 at 09:00; Stop 11/01/19 at 17:34; Status DC Gabapentin (Neurontin) 900 mg TID PO Last administered on 11/02/19at 19:42; Start 11/01/19 at 21:00 Non-Formulary Medication (Tramadol HCl ) 50 mg PRN PO ; Start 11/01/19 at 17:30; Stop 11/01/19 at 17:37; Status DC Carvedilol (Coreg) 25 mg DAILY PO Last administered on 11/01/19at 17:46; Start 11/01/19 at 17:45 Tramadol HCl (Ultram) 50 mg PRN BID PRN PO MODERATE PAIN Last administered on 11/01/19at 23:05; Start 11/01/19 at 17:45 Acetaminophen/ Hydrocodone Bitart (Lortab 7.5/325) 1 tab BID PO Last administered on 11/02/19at 19:43; Start 11/01/19 at 21:00 Albuterol Sulfate (Ventolin Neb Soln) 2.5 mg PRN Q6HRS PRN NEB WHEEZING; Start 11/01/19 at 20:45 Pantoprazole Sodium (PROTONIX VIAL for IV PUSH) 40 mg DAILYAC IVP Last administered on 11/02/19at 09:03; Start 11/02/19 at 07:30 Pantoprazole Sodium (PROTONIX VIAL for IV PUSH) 40 mg 1X ONCE IVP Last administered on 11/01/19at 23:06; Start 11/01/19 at 22:00; Stop 11/01/19 at 22:01; Status DC Doxycycline Hyclate 100 mg/ Dextrose 100 ml @ 50 mls/hr Q12HR IV Last administered on 11/02/19at 22:11; Start 11/02/19 at 10:00 Info (Anti-Coagulation Monitoring By Pharmacy) 1 each PRN DAILY PRN MC SEE COMMENTS; Start 11/02/19 at 10:00 Clindamycin Phosphate 50 ml @ As Directed STK-MED ONCE IV ; Start 11/03/19 at 06:54; Stop 11/03/19 at 06:54; Status DC Fentanyl Citrate (Fentanyl 2ml Vial) 100 mcg STK-MED ONCE .ROUTE ; Start 11/03/19 at 06:54; Stop 11/03/19 at 06:54; Status DC Sevoflurane (Ultane) 60 ml STK-MED ONCE IH ; Start 11/03/19 at 07:03; Stop 11/03/19 at 07:03; Status DC Fentanyl Citrate (Fentanyl 2ml Vial) 100 mcg STK-MED ONCE .ROUTE ; Start 11/03/19 at 07:03; Stop 11/03/19 at 07:04; Status DC Midazolam HCl (Versed) 2 mg STK-MED ONCE .ROUTE ; Start 11/03/19 at 07:03; Stop 11/03/19 at 07:04; Status DC Propofol (Diprivan) 200 mg STK-MED ONCE IV ; Start 11/03/19 at 07:04; Stop 11/03/19 at 07:04; Status DC Lidocaine HCl (Lidocaine Pf 2% Vial) 5 ml STK-MED ONCE .ROUTE ; Start 11/03/19 at 07:04; Stop 11/03/19 at 07:04; Status DC Ondansetron HCl (Zofran) 4 mg STK-MED ONCE .ROUTE ; Start 11/03/19 at 07:04; Stop 11/03/19 at 07:04; Status DC Dexamethasone Sodium Phosphate (Decadron) 4 mg STK-MED ONCE .ROUTE ; Start 11/03/19 at 07:04; Stop 11/03/19 at 07:04; Status DC Fentanyl Citrate (Fentanyl 2ml Vial) 100 mcg 1X ONCE IVP Last administered on 11/03/19at 07:15; Start 11/03/19 at 07:15; Stop 11/03/19 at 07:16; Status DC Phenylephrine HCl (PHENYLEPHRINE in 0.9% NACL PF) 1 mg STK-MED ONCE IV ; Start 11/03/19 at 07:33; Stop 11/03/19 at 07:34; Status DC Active Scripts Active Reported [place] 10-325 Tablet (Acetaminophen/Hydrocodone Bitart) 1 Each Tablet 7.5 Mg PO BID Gabapentin 800 Mg Tablet 900 Mg PO TID Alprazolam 0.25 Mg Tablet 1 Tab PO DAILY Symbicort 160-4.5 Mcg Inhaler (Budesonide/Formoterol Fumarate) 10.2 Gm Hfa.aer.ad 2 Puff IH BID Tramadol HCl 100 Mg Tablet 50 Mg PO PRN Coreg (Carvedilol) 25 Mg Tablet 25 Mg PO DAILY Advair 100-50 Diskus (Fluticasone/Salmeterol) 1 Each Disk.w.dev 1 Puff IH BID Symbicort 160-4.5 Mcg Inhaler (Budesonide/Formoterol Fumarate) 10.2 Gm Hfa.aer.ad 2 Puff IH BID Centrum Silver Women Tablet (Multivits-Min/Iron/FA/Lutein) 1 Each Tablet 1 Each PO Tizanidine Hcl 4 Mg Tablet 1 Tab PO QHS Vitals/I & O Vital Sign - Last 24 Hours 511/02/19 11/02/19 11/02/19 09:00 09:04 09:45 10:18 Pulse 98 Resp 20 20 20 B/P (MAP) 148/64 Pulse Ox 93 94 93 O2 Delivery Nasal Cannula Nasal Cannula Nasal Cannula O2 Flow Rate 2.0 2.0 2.0 11/02/19 11/02/19 11/02/19 11/02/19 11:21 11:27 11:30 13:34 Temp 98.9 98.9 Pulse 98 Resp 20 20 20 B/P (MAP) 156/67 (96) Pulse Ox 98 94 O2 Delivery Nasal Cannula Nasal Cannula Nasal Cannula Nasal Cannula O2 Flow Rate 2.0 2.0 2.0 2.0 11/02/19 11/02/19 11/02/19 11/02/19 14:16 14:40 15:54 16:05 Temp 98.9 98.9 Pulse 98 Resp 19 18 20 B/P (MAP) 148/64 (92) Pulse Ox 93 98 2 O2 Delivery Nasal Cannula Nasal Cannula Nasal Cannula Nasal Cannula O2 Flow Rate 2.0 2.0 2.0 11/02/19 11/02/19 11/02/19 11/02/19 17:21 19:43 19:43 20:00 Temp 99.9 99.9 Pulse 111 Resp 20 18 20 B/P (MAP) 142/70 (94) Pulse Ox 94 98 94 O2 Delivery Nasal Cannula Nasal Cannula Nasal Cannula Nasal Cannula O2 Flow Rate 2.0 2.0 2.0 2.0 11/02/19 11/02/19 11/02/19 11/02/19 20:02 20:04 20:33 20:43 Resp 20 20 Pulse Ox 97 97 97 97 O2 Delivery Nasal Cannula Nasal Cannula Nasal Cannula Nasal Cannula O2 Flow Rate 2.0 2.0 2.0 2.0 11/02/19 11/02/19 11/03/19 11/03/19 21:03 22:40 00:16 00:46 Temp 99.6 99.6 Pulse 117 Resp 20 18 20 20 B/P (MAP) 155/61 (92) Pulse Ox 97 93 93 98 O2 Delivery Nasal Cannula Nasal Cannula Nasal Cannula Nasal Cannula O2 Flow Rate 2.0 2.0 2.0 2.0 11/03/19 11/03/19 11/03/19 11/03/19 00:48 02:52 03:23 03:53 Temp 99.4 99.4 Pulse 124 Resp 18 20 20 B/P (MAP) 160/74 (102) Pulse Ox 98 93 93 93 O2 Delivery Nasal Cannula Nasal Cannula Nasal Cannula Nasal Cannula O2 Flow Rate 2.0 2.0 2.0 2.0 11/03/19 11/03/19 07:15 07:21 Temp 99.4 99.4 Pulse 124 Resp 15 15 B/P (MAP) 187/84 Pulse Ox 93 93 O2 Delivery Nasal Cannula Nasal Cannula O2 Flow Rate 2.0 2.0 Intake and Output 11/02/19 11/02/19 11/03/19 15:00 23:00 07:00 Intake Total 240 ml 0 ml Balance 240 ml 0 ml ABDULAZIZ WILD MD November 03, 2019 08:31
[2019-11-03] MEDS: CARVEDILOL 12.5 MG TABLET. PO SCH (09:00)
[2019-11-03] MEDS: NICOTINE 21MG PATCH. TD SCH ×2 (09:00→10:39)
[2019-11-03] MEDS: HYDROcodone/APAP 7.5/325MG 1 TAB TABLET PO SCH ×2 (09:00→21:00)
[2019-11-03] MEDS: ALPRAZolam 0.25 MG TABLET PO SCH (09:00)
[2019-11-03] MEDS: DOXYCYCLINE HYCLATE 100 MG in IV DEXTROSE 5% 100ML 100 ML IV SCH ×2 (09:00→20:33)
[2019-11-03] MEDS: GABAPENTIN 300 MG CAPSULE. PO SCH ×3 (09:00→21:59)
[2019-11-03] MEDS ORDERED: PROCHLORPERAZINE 10 MG/2 ML VIAL. ONE (09:32)
[2019-11-03] MEDS ORDERED: HYDROmorphone 2 MG/ML VIAL ONE (09:32)
[2019-11-03] MEDS ORDERED: IV RINGERS,LACTATED 1000ML 1,000 ML IV SCH (09:53)
[2019-11-03] MEDS ORDERED: ONDANSETRON PF 4 MG/2 ML VIAL. IV PRN (10:00)
[2019-11-03] MEDS ORDERED: fentaNYL PF VIAL 100 MCG/2 ML VIAL IV PRN ×2 (10:00)
[2019-11-03] MEDS ORDERED: MORPHINE SULFATE 2 MG/ML VIAL. IV PRN (10:00)
[2019-11-03] MEDS ORDERED: PROCHLORPERAZINE 10 MG/2 ML VIAL. IV PRN (10:00)
[2019-11-03] MEDS ORDERED: HYDROmorphone 2 MG/ML VIAL IV PRN (10:00)
[2019-11-03] MEDS ORDERED: ONDANSETRON PF 4 MG/2 ML VIAL. IVP PRN (10:15)
--- NOTE | 2019-11-03 10:23 | PDOC4 ---
Operative Note Operative Note Date of surgery: 11/03/2019 Preoperative diagnosis: Displaced intertrochanteric subtrochanteric right hip fracture Postoperative diagnosis: Same with medial collateral ligament sprain left knee Operative procedure: Examination under anesthesia left knee and ORIF displaced intertrochanteric subtrochanteric right hip fracture with long intramedullary nail Surgeon: Esteban Sales Advisory Manager: Andrzej castañeda assist Anesthesia: General Estimated blood loss: 100 cc Complications: None Operative indications: Please see my orthopedic consultation for detailed operative indications and indicate that also patient complained of some left knee pain and I told her we would plan on examining her knee intraoperatively under anesthesia due to the extreme pain that she has with any movement of the right hip. We talked through the rationale of fixation of her hip fracture due to the poor alignment and muscle deforming forces and the desirability of getting her up and around with some stabilization of the fracture to alleviate some immobility concerns. All her questions were answered she wishes to proceed with surgical evaluation and treatment. Operative text: Patient was identified procedure verified patient placed in the supine position on the fracture table after adequate amounts of general anesthesia were administered. First the left knee was examined under anesthesia and found to have some grade 2 opening with valgus stress but otherwise ligamentously stable full range of motion normal patellofemoral tracking. The right lower extremity was placed in the traction boot and left lower extremity placed in the well-leg morales all bony prominences were well-padded and the subtrochanteric fracture was reduced under fluoroscopic guidance. The right hip was then prepped and draped in the standard sterile fashion and after timeout was performed patient procedure identified and verified an incision was made proximal to the greater trochanteric entry point and the entry awl was used to place a long guidewire across the reduced fracture site. Reaming was carried out to a size 13-1/2 mm and a [employer] nail 11-1/2 x 32 cm was inserted. Lateral incision was made and guidewire was placed centrally in the femoral head under multiple fluoroscopic views. Antirotation screw area cortex was drilled and the antirotation bar placed. Then the lag screw was drilled to a size 95 and a 95 lag screw with compression screw was placed for extra support but no compression indicated due to the subtrochanteric nature of the fracture. The lag screw was then locked down insertion hardware removed traction was removed and a distal locking screw placed in the dynamic hole under fluoroscopic guidance. Excellent alignment of the fracture and hardware were noted under multiple fluoroscopic views but note that there was some splaying of the lateral wall of one small lateral fragment around the area of the leg screws. Thorough irrigation carried out normal saline solution, fascial closure with #1 Vicryl subcutaneous closure with buried Vicryl suture skin closure with evens sterile dressings were applied patient was returned to recovery room in stable condition having tolerated procedure well. Andrzej lam was present for the procedure and assisted in the positioning reduction draping retraction and closure IVET MACIAS MD November 03, 2019 10:23
--- NOTE | 2019-11-03 10:31 | RAD ---
EXAM: Right hip, 12 views. HISTORY: Fracture fixation. COMPARISON: None. FINDINGS: 12 fluoroscopic images were obtained during internal fixation of a proximal right femoral fracture. The total fluoroscopy time is 0.6 minutes. IMPRESSION: Sonographic imaging for procedural guidance during internal fixation of a proximal femoral fracture. Electronically signed by: Jane Norton MD (11/03/2019 10:28 AM) [id number]
[2019-11-03] MEDS: INSULIN LISPRO 300 UNITS/3 ML VIAL. SQ SCH ×3 (11:30→21:00)
--- NOTE | 2019-11-03 11:34 | PDOC ---
PULMONARY PROGRESS NOTES Subjective s/p hip surgery no soa Vitals Vital Signs Date Time Temp Pulse Resp B/P (MAP) Pulse Ox O2 Delivery O2 Flow Rate FiO2 11/03/19 11:23 94 Nasal Cannula 3.0 11/03/19 10:20 98 18 128/106 (113) 11/03/19 10:03 99.4 99.4 ROS: No Chest Pain, No Abdominal Pain General: Alert, No acute distress Lungs: Wheezing (faint) Cardiovascular: S1 Abdomen: Soft Neuro Exam: Alert Extremities: No Edema Skin: Warm Labs Laboratory Tests Test 11/01/19 22:50 11/02/19 06:15 11/02/19 12:00 11/03/19 04:43 Heparin Anti-Xa Act, Unfractionated > 1.10 IU/mL (0.30-0.70) 0.41 IU/mL (0.30-0.70) 0.36 IU/mL (0.30-0.70) 0.13 IU/mL (0.30-0.70) White Blood Count 11.7 x10^3/uL (4.0-11.0) 7.9 x10^3/uL (4.0-11.0) Red Blood Count 3.17 x10^6/uL (3.50-5.40) 2.66 x10^6/uL (3.50-5.40) Hemoglobin 10.2 g/dL (12.0-15.5) 8.7 g/dL (12.0-15.5) Hematocrit 29.9 % (36.0-47.0) 25.2 % (36.0-47.0) Mean Corpuscular Volume 94 fL (79-100) 95 fL (79-100) Mean Corpuscular Hemoglobin 32 pg (25-35) 33 pg (25-35) Mean Corpuscular Hemoglobin Concent 34 g/dL (31-37) 35 g/dL (31-37) Red Cell Distribution Width 14.3 % (11.5-14.5) 14.1 % (11.5-14.5) Platelet Count 136 x10^3/uL (140-400) 117 x10^3/uL (140-400) Neutrophils (%) (Auto) 69 % (31-73) Lymphocytes (%) (Auto) 23 % (24-48) Monocytes (%) (Auto) 7 % (0-9) Eosinophils (%) (Auto) 1 % (0-3) Basophils (%) (Auto) 0 % (0-3) Neutrophils # (Auto) 8.1 x10^3/uL (1.8-7.7) Lymphocytes # (Auto) 2.7 x10^3/uL (1.0-4.8) Monocytes # (Auto) 0.8 x10^3/uL (0.0-1.1) Eosinophils # (Auto) 0.1 x10^3/uL (0.0-0.7) Basophils # (Auto) 0.0 x10^3/uL (0.0-0.2) Sodium Level 135 mmol/L (136-145) Potassium Level 3.9 mmol/L (3.5-5.1) Chloride Level 101 mmol/L (98-107) Carbon Dioxide Level 30 mmol/L (21-32) Anion Gap 4 (6-14) Blood Urea Nitrogen 15 mg/dL (7-20) Creatinine 0.9 mg/dL (0.6-1.0) Estimated GFR (Cockcroft-Gault) 63.4 BUN/Creatinine Ratio 17 (6-20) Glucose Level 174 mg/dL (70-99) Calcium Level 7.7 mg/dL (8.5-10.1) Total Bilirubin 0.6 mg/dL (0.2-1.0) Aspartate Amino Transf (AST/SGOT) 20 U/L (15-37) Alanine Aminotransferase (ALT/SGPT) 34 U/L (14-59) Alkaline Phosphatase 83 U/L (46-116) Total Protein 5.3 g/dL (6.4-8.2) Albumin 2.8 g/dL (3.4-5.0) Albumin/Globulin Ratio 1.1 (1.0-1.7) Laboratory Tests Test 11/02/19 12:00 11/03/19 04:43 Heparin Anti-Xa Act, Unfractionated 0.36 IU/mL (0.30-0.70) 0.13 IU/mL (0.30-0.70) White Blood Count 7.9 x10^3/uL (4.0-11.0) Red Blood Count 2.66 x10^6/uL (3.50-5.40) Hemoglobin 8.7 g/dL (12.0-15.5) Hematocrit 25.2 % (36.0-47.0) Mean Corpuscular Volume 95 fL (79-100) Mean Corpuscular Hemoglobin 33 pg (25-35) Mean Corpuscular Hemoglobin Concent 35 g/dL (31-37) Red Cell Distribution Width 14.1 % (11.5-14.5) Platelet Count 117 x10^3/uL (140-400) Medications Active Scripts Medications Dose Route/Sig Max Daily Dose Days Date Category [place] 10-325 Tablet (Acetaminophen/Hydrocodone Bitart) 1 Each Tablet 7.5 Mg PO BID 11/01/19 Reported Gabapentin 800 Mg Tablet 900 Mg PO TID 11/01/19 Reported Alprazolam 0.25 Mg Tablet 1 Tab PO DAILY 11/01/19 Reported Symbicort 160-4.5 Mcg Inhaler (Budesonide/Formoterol Fumarate) 10.2 Gm Hfa.aer.ad 2 Puff IH BID 11/01/19 Reported Tramadol HCl 100 Mg Tablet 50 Mg PO PRN 11/01/19 Reported Coreg (Carvedilol) 25 Mg Tablet 25 Mg PO DAILY 11/01/19 Reported Advair 100-50 Diskus (Fluticasone/Salmeterol) 1 Each Disk.w.dev 1 Puff IH BID 02/26/16 Reported Symbicort 160-4.5 Mcg Inhaler (Budesonide/Formoterol Fumarate) 10.2 Gm Hfa.aer.ad 2 Puff IH BID 02/26/16 Reported Centrum Silver Women Tablet (Multivits-Min/Iron/FA/Lutein) 1 Each Tablet 1 Each PO 02/26/16 Reported Tizanidine Hcl 4 Mg Tablet 1 Tab PO QHS 02/26/16 Reported Impression . 1. Dyspnea with acute hypoxic respiratory failure secondary to combination of acute pulmonary embolism and chronic obstructive pulmonary disease with mild exacerbation. 2. Status post fall with right hip fracture, in need for surgery. 3. Long history of tobaccoism and on and off on steroids since age 21. Just quit tobacco a day before hospitalization. Suspect underlying chronic obstructive pulmonary disease, could be moderate with mild exacerbation. She has faint bronchospasm. 4. Acute pulmonary embolism. Risk factors being immobility. No known cancers. Not on any estrogen or hormonal pills. May benefit from a hypercoagulable workup as an outpatient. Plan . 1. s/p hip surgery 2. DuoNeb /Pulmicort. 3. Hold systemic steroids at present. 4. Monitor fever. No respiratory symptoms to suggest acute infection. Added empiric antibiotic.11/01 5. Follow orthopedic recommendations. 6. Re start heparin.. will soon switched to Eliquis 6. Discussed with RN and we will follow up postoperatively. EVELYN HART MD November 03, 2019 11:34
[2019-11-03] MEDS: HEPARIN 25,000UTS/250ML PREMIX 250 ML IV PRN (11:43)
[2019-11-03] MEDS: HYDROcodone/APAP 5/325MG 1 TAB TABLET PO PRN ×2 (13:07→20:40)
[2019-11-03] MEDS: IV NORMAL SALINE 1000ML BAG 1,000 ML IV SCH (15:18)
[2019-11-03] MEDS: CLINDAMYCIN 900MG PREMIX 50 ML IV SCH ×2 (15:19→20:32)
[2019-11-03] MEDS ORDERED: WARFARIN 5 MG TABLET. PO SCH (16:00)
--- NOTE | 2019-11-03 16:08 | NUR ---
SS following up with discharge planning. SS reviewed pt chart and discussed with pt RN. Pt is currently requiring oxygen. PT/OT ordered and currently on hold. Pt had surgery today. SS will continue to follow for discharge planning.
[2019-11-03] MEDS: HEPARIN for IV BOLUS 10,000 UNIT/10 ML VIAL. IV PRN (20:30)
[2019-11-03] MEDS: tiZANidine 4 MG TABLET. PO SCH (20:32)
[2019-11-04] VITALS (7 sets, daily range): BP systolic 108–160; BP diastolic 47–62
[2019-11-04] MEDS: HYDROcodone/APAP 5/325MG 1 TAB TABLET PO PRN ×3 (01:41→12:43)
[2019-11-04] MEDS: IPRATRPIUM/ALBUTEROL 0.5/2.5MG 3 ML NEBU. NEB SCH ×6 (02:30→22:30)
[2019-11-04] MEDS: HYDROmorphone 2 MG/ML VIAL IV PRN ×2 (03:18→17:46)
[2019-11-04] MEDS: CLINDAMYCIN 900MG PREMIX 50 ML IV SCH (03:29)
[2019-11-04 04:08] LABS: HEMOGLOBIN A1C 7.4 % (4.8-5.6)
[2019-11-04] MEDS: HEPARIN for IV BOLUS 10,000 UNIT/10 ML VIAL. IV PRN (04:20)
[2019-11-04] MEDS ORDERED: MAG HYDROX/ALUMINUM HYD/SIMETH 30 ML ORAL.SUSP PO PRN (04:30)
[2019-11-04] MEDS: PANTOPRAZOLE IV PUSH 40 MG VIAL. IVP SCH (05:05)
[2019-11-04] MEDS: IV NORMAL SALINE 1000ML BAG 1,000 ML IV SCH ×2 (06:08→07:00)
[2019-11-04] MEDS: BUDESONIDE 0.5 MG/2 ML NEBU. NEB SCH ×2 (07:08→19:57)
[2019-11-04] MEDS: INSULIN LISPRO 300 UNITS/3 ML VIAL. SQ SCH ×4 (07:30→21:00)
[2019-11-04] MEDS: ALPRAZolam 0.25 MG TABLET PO SCH (08:00)
[2019-11-04] MEDS: NICOTINE 21MG PATCH. TD SCH (08:00)
[2019-11-04] MEDS: HYDROcodone/APAP 7.5/325MG 1 TAB TABLET PO SCH ×2 (08:01→21:00)
[2019-11-04] MEDS: GABAPENTIN 300 MG CAPSULE. PO SCH ×3 (08:01→21:00)
[2019-11-04] MEDS: CARVEDILOL 12.5 MG TABLET. PO SCH (08:01)
[2019-11-04] MEDS: DOXYCYCLINE HYCLATE 100 MG in IV DEXTROSE 5% 100ML 100 ML IV SCH ×2 (08:05→21:00)
--- NOTE | 2019-11-04 08:46 | PDOC ---
PROGRESS NOTES Chief Complaint Chief Complaint Displaced right intertrochanteric fracture - 11/02: ORIF displaced intertrochanteric subtrochanteric right hip fracture with long intramedullary nail Severe COPD WITH HYPOXIC RESP FAILURE DM2 with HYPERGLYCEMIA - A1c returned 7.4. Basal bolus plus insulin ordered Elevated d- dimer - PE High probability for pulmonary embolic disease. by V/Q Tobacco abuse disorder Thrombocytopenia History of Present Illness History of Present Illness Ms Bañuelos is a 64 yo F w/ PMHx HTN, HLD, smoker who presented to the hospital af ter she slipped and fell and suffered right hip fracture. With SOB and increased HR and d dimer she underwent VQ scan and noted a large mismatch defect within the right upper lobe. There is also additional moderate perfusion defect within the left posterior lower lobe as well as smaller perfusion defects bilaterally. The patient was started on heparin. Venous Dopplers did not reveal any definite clots. 11/01: Patient on heparin 11/02: s/p ORIF displaced intertrochanteric subtrochanteric right hip fracture with long intramedullary nail this morning. Back on heparin GTT. She is upset about glucose checks. Advised hemoglobin A1c has been ordered. Counseled on smoking cessation. No CP or SOB. Postop pain. A1c 7.4. Platelets 117 from 179. Hb 7.2. Counseled on diabetes, she is frustrated but amenable to insulin therapy and outpatient oral hypoglycemic agents. Discussed with pulmonology to change to Eliquis 10 mg twice daily for 7 days and then 5 mg twice daily thereafter for her pulmonary embolism. Vitals Vitals Vital Signs Date Time Temp Pulse Resp B/P (MAP) Pulse Ox O2 Delivery O2 Flow Rate FiO2 11/04/19 08:01 94 Nasal Cannula 3.0 11/04/19 08:01 132/53 11/04/19 07:00 97.9 93 18 97.9 Physical Exam General: Alert, Oriented X3, Cooperative, mild distress Heart: Regular rate Lungs: Wheezing (faint) Abdomen: Normal bowel sounds, Soft Extremities: No cyanosis, No edema, Other (Left lower extremity externally rotated right lower extremity internally rotated) Skin: No rashes Labs LABS Laboratory Tests Test 11/03/19 11:53 11/03/19 16:48 11/03/19 19:00 11/03/19 21:31 Glucose (Fingerstick) 214 mg/dL (70-99) 254 mg/dL (70-99) 268 mg/dL (70-99) Heparin Anti-Xa Act, Unfractionated < 0.10 IU/mL (0.30-0.70) Test 11/04/19 03:30 11/04/19 07:57 Heparin Anti-Xa Act, Unfractionated < 0.10 IU/mL (0.30-0.70) Glucose (Fingerstick) 191 mg/dL (70-99) Assessment and Plan Assessmemt and Plan Problems Medical Problems: (1) COPD (chronic obstructive pulmonary disease) Status: Acute (2) Displaced intertrochanteric fracture of right femur Status: Acute (3) Hypoxia Status: Acute Comment Review of Relevant I have reviewed the following items renee (where applicable) has been applied. Labs Laboratory Tests Test 11/02/19 12:00 11/03/19 04:43 11/03/19 11:53 11/03/19 16:48 Heparin Anti-Xa Act, Unfractionated 0.36 IU/mL (0.30-0.70) 0.13 IU/mL (0.30-0.70) White Blood Count 7.9 x10^3/uL (4.0-11.0) Red Blood Count 2.66 x10^6/uL (3.50-5.40) Hemoglobin 8.7 g/dL (12.0-15.5) Hematocrit 25.2 % (36.0-47.0) Mean Corpuscular Volume 95 fL (79-100) Mean Corpuscular Hemoglobin 33 pg (25-35) Mean Corpuscular Hemoglobin Concent 35 g/dL (31-37) Red Cell Distribution Width 14.1 % (11.5-14.5) Platelet Count 117 x10^3/uL (140-400) Hemoglobin A1c 7.4 % (4.8-5.6) Glucose (Fingerstick) 214 mg/dL (70-99) 254 mg/dL (70-99) Test 11/03/19 19:00 11/03/19 21:31 11/04/19 03:30 11/04/19 07:57 Heparin Anti-Xa Act, Unfractionated < 0.10 IU/mL (0.30-0.70) < 0.10 IU/mL (0.30-0.70) Glucose (Fingerstick) 268 mg/dL (70-99) 191 mg/dL (70-99) Laboratory Tests Test 11/03/19 11:53 11/03/19 16:48 11/03/19 19:00 11/03/19 21:31 Glucose (Fingerstick) 214 mg/dL (70-99) 254 mg/dL (70-99) 268 mg/dL (70-99) Heparin Anti-Xa Act, Unfractionated < 0.10 IU/mL (0.30-0.70) Test 11/04/19 03:30 11/04/19 07:57 Heparin Anti-Xa Act, Unfractionated < 0.10 IU/mL (0.30-0.70) Glucose (Fingerstick) 191 mg/dL (70-99) Medications Current Medications Morphine Sulfate (Morphine Sulfate) 5 mg 1X ONCE IV Last administered on 11/01/19at 09:24; Start 11/01/19 at 09:30; Stop 11/01/19 at 09:31; Status DC Morphine Sulfate (Morphine Sulfate) 5 mg 1X ONCE IV Last administered on 11/01/19at 10:33; Start 11/01/19 at 10:30; Stop 11/01/19 at 10:31; Status DC Hydromorphone HCl (Dilaudid) 1 mg 1X ONCE IV Last administered on 11/01/19at 12:30; Start 11/01/19 at 12:30; Stop 11/01/19 at 12:31; Status DC Hydromorphone HCl (Dilaudid) 1 mg PRN Q3HRS PRN IV PAIN Last administered on 11/04/19at 03:18; Start 11/01/19 at 13:45 Enoxaparin Sodium (Lovenox 80mg Syringe) 70 mg Q12HR SQ ; Start 11/01/19 at 21:00; Stop 11/01/19 at 16:26; Status DC Ondansetron HCl (Zofran) 4 mg PRN Q4HRS PRN IVP NAUSEA/VOMITING Last administered on 11/01/19at 13:54; Start 11/01/19 at 13:45; Stop 11/02/19 at 1 2:52; Status DC Acetaminophen (Tylenol) 650 mg PRN Q6HRS PRN PO FEVER/HEADACHE Last administered on 11/01/19at 13:54; Start 11/01/19 at 13:45; Stop 11/02/19 at 09:56; Status DC Nicotine (Nicoderm Cq 21mg) 1 patch DAILY TD Last administered on 11/04/19at 08:00; Start 11/01/19 at 14:00 Acetaminophen/ Hydrocodone Bitart (Lortab 5/325) 1 tab PRN Q6HRS PRN PO SEVERE PAIN Last administered on 11/04/19at 06:35; Start 11/01/19 at 13:45 Lorazepam (Ativan) 1 mg TID PO Last administered on 11/01/19at 13:53; Start at 14:00; Stop 11/01/19 at 17:22; Status DC Tizanidine HCl (Zanaflex) 4 mg QHS PO Last administered on 11/03/19at 20:32; Start 11/01/19 at 21:00 Trazodone HCl (Desyrel) 100 mg HS PO ; Start 11/01/19 at 21:00; Stop 11/01/19 at 17:22; Status DC Non-Formulary Medication (Budesonide/ Formoterol Fumarate (Symbicort 160-4.5 Mcg Inhaler)) 2 puff BID IH ; Start 11/01/19 at 21:00; Status UNV Non-Formulary Medication (Fluticasone/ Salmeterol (Advair 100-50 Diskus)) 1 puff BID IH ; Start 11/01/19 at 21:00; Status UNV Albuterol Sulfate (Ventolin Neb Soln) 2.5 mg Q6HRS NEB ; Start 11/01/19 at 14:00; Stop 11/01/19 at 20:35; Status DC Budesonide (Pulmicort) 0.5 mg RTBID NEB Last administered on 11/04/19at 07:08; Start 11/01/19 at 20:00 Sodium Chloride (Normal Saline Flush) 3 ml QSHIFT PRN IV AFTER MEDS AND BLOOD DRAWS; Start 11/01/19 at 14:30 Sodium Chloride 1,000 ml @ 80 mls/hr [id number] IV Last administered on 11/04/19at 07:00; Start 11/01/19 at 14:16 Ondansetron HCl (Zofran) 4 mg PRN Q4HRS PRN IV NAUSEA/VOMITING; Start 11/01/19 at 14:30 Zolpidem Tartrate (Ambien) 5 mg PRN QHS PRN PO INSOMNIA; Start 11/01/19 at 14:30 Acetaminophen (Tylenol) 650 mg PRN Q4HRS PRN PO TEMP OVER 100.4F OR MILD PAIN; Start 11/01/19 at 14:30 Al Hydroxide/Mg Hydroxide (Mylanta Plus Xs) 30 ml PRN DAILY PRN PO HEARTBURN / GAS; Start 11/01/19 at 14:30; Stop 11/04/19 at 04:31; Status DC Clonidine HCl (Catapres) 0.1 mg PRN Q6HRS PRN PO SBP>160 OR DBP>90; Start 11/01/19 at 14:30 Sodium Monofluorophosphate (Fleet Adult) 133 ml PRN DAILY PRN PA CONSTIPATION; Start 11/01/19 at 14:30 Docusate Sodium (Colace) 100 mg PRN BID PRN PO HARD STOOLS; Start 11/01/19 at 14:30 Albuterol/ Ipratropium (Duoneb) 3 ml Q4H NEB Last administered on 11/04/19at 07:08; Start 11/01/19 at 14:30 Guaifenesin (Robitussin) 200 mg PRN Q4HRS PRN PO COUGH; Start 11/01/19 at 14:30 Enoxaparin Sodium (Lovenox 40mg Syringe) 40 mg Q24H SQ ; Start 11/01/19 at 14:30; Stop 11/01/19 at 14:22; Status DC Ondansetron HCl (Zofran) 4 mg PRN Q6HRS PRN IV NAUSEA/VOMITING; Start 11/02/19 at 07:00; Stop 11/03/19 at 06:59; Status DC Fentanyl Citrate (Fentanyl 2ml Vial) 25 mcg PRN Q5MIN PRN IV MILD PAIN 1-3 Last administered on 11/02/19at 09:04; Start 11/02/19 at 07:00; Stop 11/02/19 at 20:00; Status DC Fentanyl Citrate (Fentanyl 2ml Vial) 50 mcg PRN Q5MIN PRN IV MODERATE TO SEVERE PAIN; Start 11/02/19 at 07:00; Stop 11/02/19 at 20:00; Status DC Morphine Sulfate (Morphine Sulfate) 1 mg PRN Q10MIN PRN IV SEVERE PAIN 7-10; Start 11/02/19 at 07:00; Stop 11/02/19 at 20:00; Status DC Ringer's Solution 1,000 ml @ 30 mls/hr Q24H IV ; Start 11/02/19 at 07:00; Stop 11/02/19 at 18:59; Status DC Lidocaine HCl (Xylocaine-Mpf 1% 2ml Vial) 2 ml PRN 1X PRN ID PRIOR TO IV START; Start 11/02/19 at 07:00; Stop 11/02/19 at 20:00; Status DC Hydromorphone HCl (Dilaudid) 0.5 mg PRN Q10MIN PRN IV SEV PAIN, Second choice; Start 11/02/19 at 07:00; Stop 11/02/19 at 20:00; Status DC Prochlorperazine Edisylate (Compazine) 5 mg PACU PRN PRN IV NAUSEA, MRX1; Start 11/02/19 at 07:00; Stop 11/02/19 at 20:00; Status DC Hydralazine HCl (Apresoline Inj) 10 mg PRN Q4HRS PRN IVP ELEVATED BP, SEE COMMENTS Last administered on 11/01/19at 16:51; Start 11/01/19 at 14:30; Stop 11/02/19 at 12:53; Status DC Hydralazine HCl (Apresoline Inj) 10 mg PRN Q4HRS PRN IVP ELEVATED BP, SEE COMMENTS; Start 11/01/19 at 16:00 Heparin Sodium (Porcine) (Heparin Sodium) 4,800 unit 1X ONCE IV Last administered on 11/01/19at 17:04; Start 11/01/19 at 16:30; Stop 11/01/19 at 16:31; Status DC Heparin Sodium/ Dextrose 250 ml @ 9.568 mls/ hr CONT PRN IV PER PROTOCOL Last administered on 11/03/19at 11:43; Start 11/01/19 at 16:30 Heparin Sodium (Porcine) (Heparin Sodium) 1,800 unit PRN Q6HRS PRN IV FOR UFH LEVEL LESS THAN 0.2 Last administered on 11/04/19at 04:20; Start 11/01/19 at 16:30 Heparin Sodium (Porcine) (Heparin Sodium) 900 unit PRN Q6HRS PRN IV FOR UFH LEVEL 0.2 - 0.29; Start 11/01/19 at 16:30 Alprazolam (Xanax) 0.25 mg DAILY PO Last administered on 11/04/19at 08:00; Start 11/02/19 at 09:00 Acetaminophen/ Hydrocodone Bitart (Lortab 10/325) 7.5 tab BID PO ; Start 11/01/19 at 21:00; Status Cancel Carvedilol (Coreg) 25 mg DAILY PO ; Start 11/02/19 at 09:00; Stop 11/01/19 at 17:34; Status DC Gabapentin (Neurontin) 900 mg TID PO Last administered on 11/03/19at 13:07; Start 11/01/19 at 21:00; Stop 11/03/19 at 17:13; Status DC Non-Formulary Medication (Tramadol HCl ) 50 mg PRN PO ; Start 11/01/19 at 17:30; Stop 11/01/19 at 17:37; Status DC Carvedilol (Coreg) 25 mg DAILY PO Last administered on 11/04/19at 08:01; Start 11/01/19 at 17:45 Tramadol HCl (Ultram) 50 mg PRN BID PRN PO MODERATE PAIN Last administered on 11/01/19at 23:05; Start 11/01/19 at 17:45 Acetaminophen/ Hydrocodone Bitart (Lortab 7.5/325) 1 tab BID PO Last administered on 11/04/19at 08:01; Start 11/01/19 at 21:00 Albuterol Sulfate (Ventolin Neb Soln) 2.5 mg PRN Q6HRS PRN NEB WHEEZING; Start 11/01/19 at 20:45 Pantoprazole Sodium (PROTONIX VIAL for IV PUSH) 40 mg DAILYAC IVP Last administered on 11/04/19at 05:05; Start 11/02/19 at 07:30 Pantoprazole Sodium (PROTONIX VIAL for IV PUSH) 40 mg 1X ONCE IVP Last administered on 11/01/19at 23:06; Start 11/01/19 at 22:00; Stop 5/26/20 at 22:01; Status DC Doxycycline Hyclate 100 mg/ Dextrose 100 ml @ 50 mls/hr Q12HR IV Last administered on 11/04/19at 08:05; Start 11/02/19 at 10:00 Info (Anti-Coagulation Monitoring By Pharmacy) 1 each PRN DAILY PRN MC SEE COMMENTS; Start 11/02/19 at 10:00 Clindamycin Phosphate 50 ml @ As Directed STK-MED ONCE IV ; Start 11/03/19 at 06:54; Stop 11/03/19 at 06:54; Status DC Fentanyl Citrate (Fentanyl 2ml Vial) 100 mcg STK-MED ONCE .ROUTE ; Start 11/03/19 at 06:54; Stop 11/03/19 at 06:54; Status DC Sevoflurane (Ultane) 60 ml STK-MED ONCE IH ; Start 11/03/19 at 07:03; Stop 11/03/19 at 07:03; Status DC Fentanyl Citrate (Fentanyl 2ml Vial) 100 mcg STK-MED ONCE .ROUTE ; Start 11/03/19 at 07:03; Stop 11/03/19 at 07:04; Status DC Midazolam HCl (Versed) 2 mg STK-MED ONCE .ROUTE ; Start 11/03/19 at 07:03; Stop 11/03/19 at 07:04; Status DC Propofol (Diprivan) 200 mg STK-MED ONCE IV ; Start 11/03/19 at 07:04; Stop 11/03/19 at 07:04; Status DC Lidocaine HCl (Lidocaine Pf 2% Vial) 5 ml STK-MED ONCE .ROUTE ; Start 11/03/19 at 07:04; Stop 11/03/19 at 07:04; Status DC Ondansetron HCl (Zofran) 4 mg STK-MED ONCE .ROUTE ; Start 11/03/19 at 07:04; Stop 11/03/19 at 07:04; Status DC Dexamethasone Sodium Phosphate (Decadron) 4 mg STK-MED ONCE .ROUTE ; Start 11/03/19 at 07:04; Stop 11/03/19 at 07:04; Status DC Fentanyl Citrate (Fentanyl 2ml Vial) 100 mcg 1X ONCE IVP Last administered on 11/03/19at 07:15; Start 11/03/19 at 07:15; Stop 11/03/19 at 07:16; Status DC Phenylephrine HCl (PHENYLEPHRINE in 0.9% NACL PF) 1 mg STK-MED ONCE IV ; Start 11/03/19 at 07:33; Stop 11/03/19 at 07:34; Status DC Insulin Human Lispro (HumaLOG) 0-7 UNITS TIDACHC SQ ; Start 11/03/19 at 11:30 Dextrose (Dextrose 50%-Water Syringe) 12.5 gm PRN Q15MIN PRN IV SEE COMMENTS; Start 11/03/19 at 08:30 Hydromorphone HCl (Dilaudid) 2 mg STK-MED ONCE .ROUTE ; Start 11/03/19 at 09:32; Stop 11/03/19 at 09:32; Status DC Prochlorperazine Edisylate (Compazine) 10 mg STK-MED ONCE .ROUTE ; Start 11/03/19 at 09:32; Stop 11/03/19 at 09:32; Status DC Ondansetron HCl (Zofran) 4 mg PRN Q6HRS PRN IV NAUSEA/VOMITING; Start 11/03/19 at 10:00; Stop 11/03/19 at 10:33; Status DC Fentanyl Citrate (Fentanyl 2ml Vial) 25 mcg PRN Q5MIN PRN IV MILD PAIN 1-3; Start 11/03/19 at 10:00; Stop 11/03/19 at 10:33; Status DC Fentanyl Citrate (Fentanyl 2ml Vial) 50 mcg PRN Q5MIN PRN IV MODERATE TO SEVERE PAIN; Start 11/03/19 at 10:00; Stop 11/03/19 at 10:33; Status DC Morphine Sulfate (Morphine Sulfate) 1 mg PRN Q10MIN PRN IV SEVERE PAIN 7-10; Start 11/03/19 at 10:00; Stop 11/03/19 at 10:33; Status DC Ringer's Solution 1,000 ml @ 30 mls/hr Q24H IV ; Start 11/03/19 at 09:53; Stop 11/03/19 at 10:33; Status DC Hydromorphone HCl (Dilaudid) 0.5 mg PRN Q10MIN PRN IV SEV PAIN, Second choice Last administered on 11/03/19at 10:10; Start 11/03/19 at 10:00; Stop 11/03/19 at 10:33; Status DC Prochlorperazine Edisylate (Compazine) 5 mg PACU PRN PRN IV NAUSEA, MRX1 Last administered on 11/03/19at 09:58; Start 11/03/19 at 10:00; Stop 11/03/19 at 10:33; Status DC Clindamycin Phosphate 50 ml @ 100 mls/hr Q6H IV Last administered on 11/04/19at 03:29; Start 11/03/19 at 15:00; Stop 11/04/19 at 03:29; Status DC Ondansetron HCl (Zofran) 4 mg PRN Q4HRS PRN IVP NAUSEA/VOMITING; Start 11/03/19 at 10:15 Dextrose (Dextrose 50%-Water Syringe) 12.5 gm PRN Q15MIN PRN IV SEE COMMENTS; Start 11/03/19 at 10:15 Warfarin Sodium (Coumadin Per Pharmacy) 1 each PRN DAILY PRN MC SEE COMMENTS; Start 11/03/19 at 14:00 Warfarin Sodium (Coumadin) 5 mg DAILY16 PO Last administered on 11/03/19at 16:20; Start 11/03/19 at 16:00 Gabapentin (Neurontin) 300 mg TID PO Last administered on 11/04/19at 08:01; Start 11/03/19 at 21:00 Al Hydroxide/Mg Hydroxide (Mylanta Plus Xs) 30 ml PRN Q6HRS PRN PO DYSPEPSIA Last administered on 11/04/19at 05:05; Start 11/04/19 at 04:30 Active Scripts Active Reported [place] 10-325 Tablet (Acetaminophen/Hydrocodone Bitart) 1 Each Tablet 7.5 Mg PO BID Gabapentin 800 Mg Tablet 900 Mg PO TID Alprazolam 0.25 Mg Tablet 1 Tab PO DAILY Symbicort 160-4.5 Mcg Inhaler (Budesonide/Formoterol Fumarate) 10.2 Gm Hfa.aer.ad 2 Puff IH BID Tramadol HCl 100 Mg Tablet 50 Mg PO PRN Coreg (Carvedilol) 25 Mg Tablet 25 Mg PO DAILY Advair 100-50 Diskus (Fluticasone/Salmeterol) 1 Each Disk.w.dev 1 Puff IH BID Symbicort 160-4.5 Mcg Inhaler (Budesonide/Formoterol Fumarate) 10.2 Gm Hfa.aer.ad 2 Puff IH BID Centrum Silver Women Tablet (Multivits-Min/Iron/FA/Lutein) 1 Each Tablet 1 Each PO Tizanidine Hcl 4 Mg Tablet 1 Tab PO QHS Vitals/I & O Vital Sign - Last 24 Hours 11/03/19 11/03/19 11/03/19 11/03/19 09:18 09:18 09:33 09:48 Temp 99.4 99.4 99.4 99.4 99.4 99.4 Pulse 110 112 112 Resp 15 15 15 B/P (MAP) 145/67 138/81 156/64 Pulse Ox 100 95 95 O2 Delivery Nasal Cannula Nasal Cannula Simple Mask Simple Mask O2 Flow Rate 2.0 2.0 2.0 2.0 11/03/19 11/03/19 11/03/19 11/03/19 10:03 10:10 10:20 10:35 Temp 99.4 99.4 Pulse 112 98 123 Resp 15 15 18 18 B/P (MAP) 158/68 128/106 (113) 155/67 (96) Pulse Ox 95 95 90 92 O2 Delivery Simple Mask Nasal Cannula Nasal Cannula Nasal Cannula O2 Flow Rate 3 2.0 3.0 3.0 11/03/19 11/03/19 11/03/19 11/03/19 10:41 10:55 11:10 11:23 Pulse 122 120 Resp 18 B/P (MAP) 148/78 (101) 152/80 (104) Pulse Ox 90 90 94 O2 Delivery Nasal Cannula Nasal Cannula Nasal Cannula Nasal Cannula O2 Flow Rate 3.0 3.0 2.0 3.0 11/03/19 11/03/19 11/03/19 11/03/19 11:25 11:55 15:00 15:30 Temp 98.2 98.2 Pulse 76 116 98 Resp 18 B/P (MAP) 140/76 (97) 152/68 (96) 154/80 (104) Pulse Ox 90 92 91 O2 Delivery Nasal Cannula Nasal Cannula Nasal Cannula Nasal Cannula O2 Flow Rate 3.0 3.0 3.0 3.0 11/03/19 11/03/19 11/03/19 11/03/19 19:30 20:00 20:16 20:19 Temp 99.6 99.6 Pulse 109 Resp 18 B/P (MAP) 133/41 (71) Pulse Ox 92 92 92 O2 Delivery Nasal Cannula Nasal Cannula Nasal Cannula Nasal Cannula O2 Flow Rate 3.0 3.0 3.0 3.0 11/03/19 11/03/19 11/03/19 11/04/19 20:40 21:40 23:00 00:03 Temp 98.7 98.7 98.7 98.7 Pulse 109 100 Resp 20 20 18 18 B/P (MAP) 130/62 (84) 130/62 (84) Pulse Ox 92 99 93 93 O2 Delivery Nasal Cannula Nasal Cannula Nasal Cannula Nasal Cannula O2 Flow Rate 3.0 2.0 3.0 2.0 11/04/19 11/04/19 11/04/19 11/04/19 00:41 01:41 02:41 03:18 Resp 20 20 20 Pulse Ox 92 92 99 92 O2 Delivery Nasal Cannula Nasal Cannula Nasal Cannula Nasal Cannula O2 Flow Rate 3.0 3.0 2.0 3.0 11/04/19 11/04/19 11/04/19 11/04/19 03:35 03:48 04:37 06:35 Temp 98.1 98.1 Pulse 59 Resp 18 20 18 B/P (MAP) 118/50 (72) Pulse Ox 99 99 92 92 O2 Delivery Nasal Cannula Nasal Cannula Nasal Cannula Nasal Cannula O2 Flow Rate 2.0 2.0 3.0 3.0 11/04/19 11/04/19 11/04/19 11/04/19 07:00 07:10 07:30 08:01 Temp 97.9 97.9 Pulse 93 Resp 18 B/P (MAP) 132/53 (79) 132/53 Pulse Ox 97 94 94 O2 Delivery Nasal Cannula Nasal Cannula Nasal Cannula O2 Flow Rate 2.0 3.0 3.0 11/04/19 08:01 Pulse Ox 94 O2 Delivery Nasal Cannula O2 Flow Rate 3.0 Intake and Output 11/03/19 11/03/19 11/04/19 15:00 23:00 07:00 Intake Total 1170 ml 0 ml 500 ml Output Total 700 ml 800 ml Balance 470 ml 0 ml -300 ml ABDULAZIZ WILD MD November 04, 2019 08:46
[2019-11-04] MEDS: HEPARIN 25,000UTS/250ML PREMIX 250 ML IV PRN (08:50)
--- NOTE | 2019-11-04 10:01 | PDOC ---
PULMONARY PROGRESS NOTES Subjective s/p hip surgery no soa Vitals Vital Signs Date Time Temp Pulse Resp B/P (MAP) Pulse Ox O2 Delivery O2 Flow Rate FiO2 11/04/19 09:00 94 Nasal Cannula 3.0 11/04/19 08:01 132/53 11/04/19 07:00 97.9 93 18 97.9 ROS: No Chest Pain, No Abdominal Pain General: Alert, No acute distress Lungs: Wheezing (faint) Cardiovascular: S1 Abdomen: Soft Neuro Exam: Alert Extremities: No Edema Skin: Warm Labs Laboratory Tests Test 11/02/19 12:00 11/03/19 04:43 11/03/19 11:53 11/03/19 16:48 Heparin Anti-Xa Act, Unfractionated 0.36 IU/mL (0.30-0.70) 0.13 IU/mL (0.30-0.70) White Blood Count 7.9 x10^3/uL (4.0-11.0) Red Blood Count 2.66 x10^6/uL (3.50-5.40) Hemoglobin 8.7 g/dL (12.0-15.5) Hematocrit 25.2 % (36.0-47.0) Mean Corpuscular Volume 95 fL (79-100) Mean Corpuscular Hemoglobin 33 pg (25-35) Mean Corpuscular Hemoglobin Concent 35 g/dL (31-37) Red Cell Distribution Width 14.1 % (11.5-14.5) Platelet Count 117 x10^3/uL (140-400) Hemoglobin A1c 7.4 % (4.8-5.6) Glucose (Fingerstick) 214 mg/dL (70-99) 254 mg/dL (70-99) Test 11/03/19 19:00 11/03/19 21:31 11/04/19 03:30 11/04/19 07:57 Heparin Anti-Xa Act, Unfractionated < 0.10 IU/mL (0.30-0.70) < 0.10 IU/mL (0.30-0.70) Glucose (Fingerstick) 268 mg/dL (70-99) 191 mg/dL (70-99) Laboratory Tests Test 11/03/19 11:53 11/03/19 16:48 11/03/19 19:00 11/03/19 21:31 Glucose (Fingerstick) 214 mg/dL (70-99) 254 mg/dL (70-99) 268 mg/dL (70-99) Heparin Anti-Xa Act, Unfractionated < 0.10 IU/mL (0.30-0.70) Test 11/04/19 03:30 11/04/19 07:57 Heparin Anti-Xa Act, Unfractionated < 0.10 IU/mL (0.30-0.70) Glucose (Fingerstick) 191 mg/dL (70-99) Medications Active Scripts Medications Dose Route/Sig Max Daily Dose Days Date Category Wheeler 10-325 Tablet (Acetaminophen/Hydrocodone Bitart) 1 Each Tablet 7.5 Mg PO BID 11/01/19 Reported Gabapentin 800 Mg Tablet 900 Mg PO TID 11/01/19 Reported Alprazolam 0.25 Mg Tablet 1 Tab PO DAILY 11/01/19 Reported Symbicort 160-4.5 Mcg Inhaler (Budesonide/Formoterol Fumarate) 10.2 Gm Hfa.aer.ad 2 Puff IH BID 11/01/19 Reported Tramadol HCl 100 Mg Tablet 50 Mg PO PRN 11/01/19 Reported Coreg (Carvedilol) 25 Mg Tablet 25 Mg PO DAILY 11/01/19 Reported Advair 100-50 Diskus (Fluticasone/Salmeterol) 1 Each Disk.w.dev 1 Puff IH BID 02/26/16 Reported Symbicort 160-4.5 Mcg Inhaler (Budesonide/Formoterol Fumarate) 10.2 Gm Hfa.aer.ad 2 Puff IH BID 02/26/16 Reported Centrum Silver Women Tablet (Multivits-Min/Iron/FA/Lutein) 1 Each Tablet 1 Each PO 02/26/16 Reported Tizanidine Hcl 4 Mg Tablet 1 Tab PO QHS 02/26/16 Reported Impression . 1. Dyspnea with acute hypoxic respiratory failure secondary to combination of acute pulmonary embolism and chronic obstructive pulmonary disease with mild exacerbation. 2. Status post fall with right hip fracture, in need for surgery. 3. Long history of tobaccoism and on and off on steroids since age 21. Just quit tobacco a day before hospitalization. Suspect underlying chronic obstructive pulmonary disease, could be moderate with mild exacerbation. She has faint bronchospasm. 4. Acute pulmonary embolism. Risk factors being immobility. No known cancers. Not on any estrogen or hormonal pills. May benefit from a hypercoagulable workup as an outpatient. 5. Post -op anemia Plan . 1. s/p hip surgery 2. DuoNeb /Pulmicort. 3. Hold systemic steroids at present. 4. Monitor fever. No respiratory symptoms to suggest acute infection. Added empiric antibiotic.11/01 5. Follow orthopedic recommendations. 6. heparin per protocol..Hb trending down. repeat level today. Hold off on Eliquis till Hb stable 7. Discussed with RN 8. repeat VQ in 4-6 weeks EVELYN HART MD November 04, 2019 10:01
[2019-11-04 10:43] LABS: HEMOGLOBIN 7.2 g/dL (12.0-15.5); RED BLOOD COUNT 2.2 x10^6/uL (3.50-5.40); RED CELL DISTRIBUTION WIDTH 14.4 % (11.5-14.5); WHITE BLOOD COUNT 7.8 x10^3/uL (4.0-11.0)
[2019-11-04 10:54] LABS: PROTHROMBIN TIME PATIENT 16.4 SEC (11.7-14.0)
[2019-11-04 10:55] LABS: UNFRACTIONATED HEPARIN TESTING 0.95 IU/mL (0.30-0.70)
[2019-11-04 11:00] LABS: HEMATOCRIT 20.9 % (36.0-47.0)
--- NOTE | 2019-11-04 12:08 | NUR ---
SS following up with discharge planning. SS reviewed pt chart and discussed with pt RN. PT/OT evaluated and recommended acute rehabilitation. SS met with pt and discussed acute rehabilitation and discharge planning. Pt reported that she was unsure. She reported that she would like her sister, Asya, , to decide. SS contacted pt's sister and left voicemail requesting return call. SS will continue to follow for discharge planning.
--- NOTE | 2019-11-04 13:18 | NUR ---
Critical hematocrit spoken to Dr Hayden around 1115 and other labs read off to him as well. Order to discontinue heparin drip and to discontinue coumadin placed. Eliquis to be started at 10mg for seven days BID. Patient accidently ripped out her IV in her right hand this afternoon around 1300, direct pressure held and bandaid placed. Another IV infusing in right forearm so the doctor stated to not start a new one at this time. No further complications. PRN pain medication given as well as scheduled medications. Will continue to monitor.
[2019-11-04] MEDS: APIXABAN 5 MG TABLET. PO SCH ×2 (13:22→21:01)
[2019-11-04] MEDS: INSULIN GLARGINE SYRINGE. SQ SCH (21:00)
[2019-11-04] MEDS: tiZANidine 4 MG TABLET. PO SCH (21:01)
[2019-11-04] MEDS: LACTOBACILLUS RHAMNOSUS GG 1 CAPSULE. PO SCH (21:01)
[2019-11-05] VITALS (12 sets, daily range): BP systolic 110–176; BP diastolic 42–75
[2019-11-05] MEDS: IV NORMAL SALINE 1000ML BAG 1,000 ML IV SCH ×3 (00:08→18:16)
[2019-11-05] MEDS: IPRATRPIUM/ALBUTEROL 0.5/2.5MG 3 ML NEBU. NEB SCH ×6 (02:30→22:30)
[2019-11-05 02:59] LABS: BASO % 0 % (0-3); EOS % 1 % (0-3); LYMPH # 1.5 x10^3/uL (1.0-4.8); LYMPH % 29 % (24-48); MEAN CORPUSCULAR HEMOGLOBIN 33 pg (25-35); MEAN CORPUSCULAR HGB CONC 34 g/dL (31-37); MEAN CORPUSCULAR VOLUME 95 fL (79-100); MONO # 0.5 x10^3/uL (0.0-1.1); MONO % 11 % (0-9); NEUT # 2.9 x10^3/uL (1.8-7.7); NEUT % 59 % (31-73); PLATELET COUNT 125 x10^3/uL (140-400); RED BLOOD COUNT 1.92 x10^6/uL (3.50-5.40); RED CELL DISTRIBUTION WIDTH 14.5 % (11.5-14.5)
[2019-11-05 03:02] LABS: HEMATOCRIT 18.3 % (36.0-47.0); HEMOGLOBIN 6.3 g/dL (12.0-15.5)
[2019-11-05 03:15] LABS: CALCIUM 7.3 mg/dL (8.5-10.1); CREATININE 0.8 mg/dL (0.6-1.0); GFR 72.7
[2019-11-05 05:00] LABS: PROTHROMBIN TIME PATIENT 19.3 SEC (11.7-14.0)
[2019-11-05] MEDS: PANTOPRAZOLE IV PUSH 40 MG VIAL. IVP SCH (07:30)
[2019-11-05] MEDS: INSULIN LISPRO 300 UNITS/3 ML VIAL. SQ SCH ×4 (07:30→21:00)
[2019-11-05] MEDS: BUDESONIDE 0.5 MG/2 ML NEBU. NEB SCH ×2 (07:31→19:55)
[2019-11-05 07:36] LABS: RED BLOOD COUNT 2.01 x10^6/uL (3.50-5.40); WHITE BLOOD COUNT 5.3 x10^3/uL (4.0-11.0)
--- NOTE | 2019-11-05 07:44 | PDOC ---
PROGRESS NOTES Chief Complaint Chief Complaint Displaced right intertrochanteric fracture - 11/02: ORIF displaced intertrochanteric subtrochanteric right hip fracture with long intramedullary nail Severe COPD WITH HYPOXIC RESP FAILURE DM2 with HYPERGLYCEMIA - A1c returned 7.4. Basal bolus plus insulin ordered Elevated d- dimer - PE High probability for pulmonary embolic disease. by V/Q - eliquis Bronchitis - nebs + doxycycline. Pulm consulted Tobacco abuse disorder Thrombocytopenia FEN - ADA diet PPX - eliquis FULL CODE Dispo - inpatient History of Present Illness History of Present Illness Ms Bañuelos is a 64 yo F w/ PMHx HTN, HLD, smoker who presented to the hospital after she slipped and fell and suffered right hip fracture. With SOB and increased HR and d dimer she underwent VQ scan and noted a large mismatch defect within the right upper lobe. There is also additional moderate perfusion defect within the left posterior lower lobe as well as smaller perfusion defects bilaterally. The patient was started on heparin. Venous Dopplers did not reveal any definite clots. 11/01: Patient on heparin 11/02: s/p ORIF displaced intertrochanteric subtrochanteric right hip fracture with long intramedullary nail this morning. Back on heparin GTT. She is upset about glucose checks. Advised hemoglobin A1c has been ordered. Counseled on smoking cessation. No CP or SOB. Postop pain. 11/03: A1c 7.4. Platelets 117 from 179. Hb 7.2. Counseled on DM2 she is frustrated but amenable to insulin therapy and outpatient oral hypoglycemic agents. D/w pulmonology to change to Eliquis 10 mg twice daily for 7 days and then 5 mg twice daily thereafter for her pulmonary embolism. Afebrile overnight, Hb 6.3, platelets 125. Glucose controlled. No CP. She is anxious about a blood transfusion, anxious about her new diagnosis of diabetes. She is asking for a shower, she is amenable to having her Falcon catheter removed today. Hip pain is reasonably controlled. Vitals Vitals Vital Signs Date Time Temp Pulse Resp B/P (MAP) Pulse Ox O2 Delivery O2 Flow Rate FiO2 11/05/19 07:33 99 Nasal Cannula 3.0 11/05/19 03:45 98.3 80 18 110/56 (74) 98.3 Physical Exam General: Alert, Oriented X3, Cooperative, mild distress Heart: Regular rate Lungs: Wheezing (faint) Abdomen: Normal bowel sounds, Soft Extremities: No cyanosis, No edema, Other (Left lower extremity externally rotated right lower extremity internally rotated) Skin: No rashes Labs LABS Laboratory Tests Test 11/04/19 07:57 11/04/19 10:20 11/04/19 11:33 11/04/19 16:56 Glucose (Fingerstick) 191 mg/dL (70-99) 174 mg/dL (70-99) 136 mg/dL (70-99) White Blood Count 7.8 x10^3/uL (4.0-11.0) Red Blood Count 2.20 x10^6/uL (3.50-5.40) Hemoglobin 7.2 g/dL (12.0-15.5) Hematocrit 20.9 % (36.0-47.0) Mean Corpuscular Volume 95 fL (79-100) Mean Corpuscular Hemoglobin 33 pg (25-35) Mean Corpuscular Hemoglobin Concent 34 g/dL (31-37) Red Cell Distribution Width 14.4 % (11.5-14.5) Platelet Count 118 x10^3/uL (140-400) Prothrombin Time 16.4 SEC (11.7-14.0) Prothromb Time International Ratio 1.4 (0.8-1.1) Heparin Anti-Xa Act, Unfractionated 0.95 IU/mL (0.30-0.70) Test 11/04/19 21:04 11/05/19 02:45 11/05/19 07:28 Glucose (Fingerstick) 166 mg/dL (70-99) 120 mg/dL (70-99) White Blood Count 5.0 x10^3/uL (4.0-11.0) Red Blood Count 1.92 x10^6/uL (3.50-5.40) Hemoglobin 6.3 g/dL (12.0-15.5) Hematocrit 18.3 % (36.0-47.0) Mean Corpuscular Volume 95 fL (79-100) Mean Corpuscular Hemoglobin 33 pg (25-35) Mean Corpuscular Hemoglobin Concent 34 g/dL (31-37) Red Cell Distribution Width 14.5 % (11.5-14.5) Platelet Count 125 x10^3/uL (140-400) Neutrophils (%) (Auto) 59 % (31-73) Lymphocytes (%) (Auto) 29 % (24-48) Monocytes (%) (Auto) 11 % (0-9) Eosinophils (%) (Auto) 1 % (0-3) Basophils (%) (Auto) 0 % (0-3) Neutrophils # (Auto) 2.9 x10^3/uL (1.8-7.7) Lymphocytes # (Auto) 1.5 x10^3/uL (1.0-4.8) Monocytes # (Auto) 0.5 x10^3/uL (0.0-1.1) Eosinophils # (Auto) 0.0 x10^3/uL (0.0-0.7) Basophils # (Auto) 0.0 x10^3/uL (0.0-0.2) Prothrombin Time 19.3 SEC (11.7-14.0) Prothromb Time International Ratio 1.7 (0.8-1.1) Sodium Level 140 mmol/L (136-145) Potassium Level 4.0 mmol/L (3.5-5.1) Chloride Level 106 mmol/L (98-107) Carbon Dioxide Level 30 mmol/L (21-32) Anion Gap 4 (6-14) Blood Urea Nitrogen 12 mg/dL (7-20) Creatinine 0.8 mg/dL (0.6-1.0) Estimated GFR (Cockcroft-Gault) 72.7 Glucose Level 142 mg/dL (70-99) Calcium Level 7.3 mg/dL (8.5-10.1) Assessment and Plan Assessmemt and Plan Problems Medical Problems: (1) COPD (chronic obstructive pulmonary disease) Status: Acute (2) Displaced intertrochanteric fracture of right femur Status: Acute (3) Hypoxia Status: Acute Comment Review of Relevant I have reviewed the following items renee (where applicable) has been applied. Labs Laboratory Tests Test 11/03/19 11:53 11/03/19 16:48 11/03/19 19:00 11/03/19 21:31 Glucose (Fingerstick) 214 mg/dL (70-99) 254 mg/dL (70-99) 268 mg/dL (70-99) Heparin Anti-Xa Act, Unfractionated < 0.10 IU/mL (0.30-0.70) Test 11/04/19 03:30 11/04/19 07:57 11/04/19 10:20 11/04/19 11:33 Heparin Anti-Xa Act, Unfractionated < 0.10 IU/mL (0.30-0.70) 0.95 IU/mL (0.30-0.70) Glucose (Fingerstick) 191 mg/dL (70-99) 174 mg/dL (70-99) White Blood Count 7.8 x10^3/uL (4.0-11.0) Red Blood Count 2.20 x10^6/uL (3.50-5.40) Hemoglobin 7.2 g/dL (12.0-15.5) Hematocrit 20.9 % (36.0-47.0) Mean Corpuscular Volume 95 fL (79-100) Mean Corpuscular Hemoglobin 33 pg (25-35) Mean Corpuscular Hemoglobin Concent 34 g/dL (31-37) Red Cell Distribution Width 14.4 % (11.5-14.5) Platelet Count 118 x10^3/uL (140-400) Prothrombin Time 16.4 SEC (11.7-14.0) Prothromb Time International Ratio 1.4 (0.8-1.1) Test 11/04/19 16:56 11/04/19 21:04 11/05/19 02:45 11/05/19 07:28 Glucose (Fingerstick) 136 mg/dL (70-99) 166 mg/dL (70-99) 120 mg/dL (70-99) White Blood Count 5.0 x10^3/uL (4.0-11.0) Red Blood Count 1.92 x10^6/uL (3.50-5.40) Hemoglobin 6.3 g/dL (12.0-15.5) Hematocrit 18.3 % (36.0-47.0) Mean Corpuscular Volume 95 fL (79-100) Mean Corpuscular Hemoglobin 33 pg (25-35) Mean Corpuscular Hemoglobin Concent 34 g/dL (31-37) Red Cell Distribution Width 14.5 % (11.5-14.5) Platelet Count 125 x10^3/uL (140-400) Neutrophils (%) (Auto) 59 % (31-73) Lymphocytes (%) (Auto) 29 % (24-48) Monocytes (%) (Auto) 11 % (0-9) Eosinophils (%) (Auto) 1 % (0-3) Basophils (%) (Auto) 0 % (0-3) Neutrophils # (Auto) 2.9 x10^3/uL (1.8-7.7) Lymphocytes # (Auto) 1.5 x10^3/uL (1.0-4.8) Monocytes # (Auto) 0.5 x10^3/uL (0.0-1.1) Eosinophils # (Auto) 0.0 x10^3/uL (0.0-0.7) Basophils # (Auto) 0.0 x10^3/uL (0.0-0.2) Prothrombin Time 19.3 SEC (11.7-14.0) Prothromb Time International Ratio 1.7 (0.8-1.1) Sodium Level 140 mmol/L (136-145) Potassium Level 4.0 mmol/L (3.5-5.1) Chloride Level 106 mmol/L (98-107) Carbon Dioxide Level 30 mmol/L (21-32) Anion Gap 4 (6-14) Blood Urea Nitrogen 12 mg/dL (7-20) Creatinine 0.8 mg/dL (0.6-1.0) Estimated GFR (Cockcroft-Gault) 72.7 Glucose Level 142 mg/dL (70-99) Calcium Level 7.3 mg/dL (8.5-10.1) Laboratory Tests Test 11/04/19 07:57 11/04/19 10:20 11/04/19 11:33 11/04/19 16:56 Glucose (Fingerstick) 191 mg/dL (70-99) 174 mg/dL (70-99) 136 mg/dL (70-99) White Blood Count 7.8 x10^3/uL (4.0-11.0) Red Blood Count 2.20 x10^6/uL (3.50-5.40) Hemoglobin 7.2 g/dL (12.0-15.5) Hematocrit 20.9 % (36.0-47.0) Mean Corpuscular Volume 95 fL (79-100) Mean Corpuscular Hemoglobin 33 pg (25-35) Mean Corpuscular Hemoglobin Concent 34 g/dL (31-37) Red Cell Distribution Width 14.4 % (11.5-14.5) Platelet Count 118 x10^3/uL (140-400) Prothrombin Time 16.4 SEC (11.7-14.0) Prothromb Time International Ratio 1.4 (0.8-1.1) Heparin Anti-Xa Act, Unfractionated 0.95 IU/mL (0.30-0.70) Test 11/04/19 21:04 11/05/19 02:45 11/05/19 07:28 Glucose (Fingerstick) 166 mg/dL (70-99) 120 mg/dL (70-99) White Blood Count 5.0 x10^3/uL (4.0-11.0) Red Blood Count 1.92 x10^6/uL (3.50-5.40) Hemoglobin 6.3 g/dL (12.0-15.5) Hematocrit 18.3 % (36.0-47.0) Mean Corpuscular Volume 95 fL (79-100) Mean Corpuscular Hemoglobin 33 pg (25-35) Mean Corpuscular Hemoglobin Concent 34 g/dL (31-37) Red Cell Distribution Width 14.5 % (11.5-14.5) Platelet Count 125 x10^3/uL (140-400) Neutrophils (%) (Auto) 59 % (31-73) Lymphocytes (%) (Auto) 29 % (24-48) Monocytes (%) (Auto) 11 % (0-9) Eosinophils (%) (Auto) 1 % (0-3) Basophils (%) (Auto) 0 % (0-3) Neutrophils # (Auto) 2.9 x10^3/uL (1.8-7.7) Lymphocytes # (Auto) 1.5 x10^3/uL (1.0-4.8) Monocytes # (Auto) 0.5 x10^3/uL (0.0-1.1) Eosinophils # (Auto) 0.0 x10^3/uL (0.0-0.7) Basophils # (Auto) 0.0 x10^3/uL (0.0-0.2) Prothrombin Time 19.3 SEC (11.7-14.0) Prothromb Time International Ratio 1.7 (0.8-1.1) Sodium Level 140 mmol/L (136-145) Potassium Level 4.0 mmol/L (3.5-5.1) Chloride Level 106 mmol/L (98-107) Carbon Dioxide Level 30 mmol/L (21-32) Anion Gap 4 (6-14) Blood Urea Nitrogen 12 mg/dL (7-20) Creatinine 0.8 mg/dL (0.6-1.0) Estimated GFR (Cockcroft-Gault) 72.7 Glucose Level 142 mg/dL (70-99) Calcium Level 7.3 mg/dL (8.5-10.1) Medications Current Medications Morphine Sulfate (Morphine Sulfate) 5 mg 1X ONCE IV Last administered on 11/01/19at 09:24; Start 11/01/19 at 09:30; Stop 11/01/19 at 09:31; Status DC Morphine Sulfate (Morphine Sulfate) 5 mg 1X ONCE IV Last administered on 11/01/19at 10:33; Start 11/01/19 at 10:30; Stop 11/01/19 at 10:31; Status DC Hydromorphone HCl (Dilaudid) 1 mg 1X ONCE IV Last administered on 11/01/19at 12:30; Start 11/01/19 at 12:30; Stop 11/01/19 at 12:31; Status DC Hydromorphone HCl (Dilaudid) 1 mg PRN Q3HRS PRN IV PAIN Last administered on 11/04/19at 17:46; Start 11/01/19 at 13:45 Enoxaparin Sodium (Lovenox 80mg Syringe) 70 mg Q12HR SQ ; Start 11/01/19 at 21:00; Stop 11/01/19 at 16:26; Status DC Ondansetron HCl (Zofran) 4 mg PRN Q4HRS PRN IVP NAUSEA/VOMITING Last administered on 11/01/19at 13:54; Start 11/01/19 at 13:45; Stop 11/02/19 at 12:52; Status DC Acetaminophen (Tylenol) 650 mg PRN Q6HRS PRN PO FEVER/HEADACHE Last administered on 11/01/19at 13:54; Start 11/01/19 at 13:45; Stop 11/02/19 at 09:56; Status DC Nicotine (Nicoderm Cq 21mg) 1 patch DAILY TD Last administered on 11/04/19at 08:00; Start 11/01/19 at 14:00 Acetaminophen/ Hydrocodone Bitart (Lortab 5/325) 1 tab PRN Q6HRS PRN PO SEVERE PAIN Last administered on 11/04/19at 12:43; Start 11/01/19 at 13:45 Lorazepam (Ativan) 1 mg TID PO Last administered on 11/01/19at 13:53; Start 11/01/19 at 14:00; Stop 11/01/19 at 17:22; Status DC Tizanidine HCl (Zanaflex) 4 mg QHS PO Last administered on 11/04/19at 21:01; Start 11/01/19 at 21:00 Trazodone HCl (Desyrel) 100 mg HS PO ; Start 11/01/19 at 21:00; Stop 11/01/19 at 17:22; Status DC Non-Formulary Medication (Budesonide/ Formoterol Fumarate (Symbicort 160-4.5 Mcg Inhaler)) 2 puff BID IH ; Start 11/01/19 at 21:00; Status UNV Non-Formulary Medication (Fluticasone/ Salmeterol (Advair 100-50 Diskus)) 1 puff BID IH ; Start 11/01/19 at 21:00; Status UNV Albuterol Sulfate (Ventolin Neb Soln) 2.5 mg Q6HRS NEB ; Start 11/01/19 at 14:00; Stop 11/01/19 at 20:35; Status DC Budesonide (Pulmicort) 0.5 mg RTBID NEB Last administered on 11/05/19at 07:31; Start 11/01/19 at 20:00 Sodium Chloride (Normal Saline Flush) 3 ml QSHIFT PRN IV AFTER MEDS AND BLOOD DRAWS; Start 11/01/19 at 14:30 Sodium Chloride 1,000 ml @ 80 mls/hr [id number] IV Last administered on 11/05/19at 00:08; Start 11/01/19 at 14:16 Ondansetron HCl (Zofran) 4 mg PRN Q4HRS PRN IV NAUSEA/VOMITING; Start 11/01/19 at 14:30 Zolpidem Tartrate (Ambien) 5 mg PRN QHS PRN PO INSOMNIA Last administered on 11/04/19at 22:09; Start 11/01/19 at 14:30 Acetaminophen (Tylenol) 650 mg PRN Q4HRS PRN PO TEMP OVER 100.4F OR MILD PAIN; Start 11/01/19 at 14:30 Al Hydroxide/Mg Hydroxide (Mylanta Plus Xs) 30 ml PRN DAILY PRN PO HEARTBURN / GAS; Start 11/01/19 at 14:30; Stop 11/04/19 at 04:31; Status DC Clonidine HCl (Catapres) 0.1 mg PRN Q6HRS PRN PO SBP>160 OR DBP>90; Start 11/01/19 at 14:30 Sodium Monofluorophosphate (Fleet Adult) 133 ml PRN DAILY PRN MO CONSTIPATION; Start 11/01/19 at 14:30 Docusate Sodium (Colace) 100 mg PRN BID PRN PO HARD STOOLS; Start 11/01/19 at 14:30 Albuterol/ Ipratropium (Duoneb) 3 ml Q4H NEB Last administered on 11/05/19at 07:31; Start 11/01/19 at 14:30 Guaifenesin (Robitussin) 200 mg PRN Q4HRS PRN PO COUGH; Start 11/01/19 at 14:30 Enoxaparin Sodium (Lovenox 40mg Syringe) 40 mg Q24H SQ ; Start 11/01/19 at 14:30; Stop 11/01/19 at 14:22; Status DC Ondansetron HCl (Zofran) 4 mg PRN Q6HRS PRN IV NAUSEA/VOMITING; Start 11/02/19 at 07:00; Stop 11/03/19 at 06:59; Status DC Fentanyl Citrate (Fentanyl 2ml Vial) 25 mcg PRN Q5MIN PRN IV MILD PAIN 1-3 Last administered on 11/02/19at 09:04; Start 11/02/19 at 07:00; Stop 11/02/19 at 20:00; Status DC Fentanyl Citrate (Fentanyl 2ml Vial) 50 mcg PRN Q5MIN PRN IV MODERATE TO SEVERE PAIN; Start 11/02/19 at 07:00; Stop 11/02/19 at 20:00; Status DC Morphine Sulfate (Morphine Sulfate) 1 mg PRN Q10MIN PRN IV SEVERE PAIN 7-10; Start 11/02/19 at 07:00; Stop 11/02/19 at 20:00; Status DC Ringer's Solution 1,000 ml @ 30 mls/hr Q24H IV ; Start 11/02/19 at 07:00; Stop 11/02/19 at 18:59; Status DC Lidocaine HCl (Xylocaine-Mpf 1% 2ml Vial) 2 ml PRN 1X PRN ID PRIOR TO IV START; Start 11/02/19 at 07:00; Stop 11/02/19 at 20:00; Status DC Hydromorphone HCl (Dilaudid) 0.5 mg PRN Q10MIN PRN IV SEV PAIN, Second choice; Start 11/02/19 at 07:00; Stop 11/02/19 at 20:00; Status DC Prochlorperazine Edisylate (Compazine) 5 mg PACU PRN PRN IV NAUSEA, MRX1; Start 11/02/19 at 07:00; Stop 11/02/19 at 20:00; Status DC Hydralazine HCl (Apresoline Inj) 10 mg PRN Q4HRS PRN IVP ELEVATED BP, SEE COMMENTS Last administered on 11/01/19at 16:51; Start 11/01/19 at 14:30; Stop 11/02/19 at 12:53; Status DC Hydralazine HCl (Apresoline Inj) 10 mg PRN Q4HRS PRN IVP ELEVATED BP, SEE COMMENTS; Start 11/01/19 at 16:00 Heparin Sodium (Porcine) (Heparin Sodium) 4,800 unit 1X ONCE IV Last admini stered on 11/01/19at 17:04; Start 11/01/19 at 16:30; Stop 11/01/19 at 16:31; Status DC Heparin Sodium/ Dextrose 250 ml @ 9.568 mls/ hr CONT PRN IV PER PROTOCOL Last administered on 11/04/19at 08:50; Start 11/01/19 at 16:30; Stop 11/04/19 at 11:30; Status DC Heparin Sodium (Porcine) (Heparin Sodium) 1,800 unit PRN Q6HRS PRN IV FOR UFH LEVEL LESS THAN 0.2 Last administered on 11/04/19at 04:20; Start 11/01/19 at 16:30; Stop 11/04/19 at 11:37; Status DC Heparin Sodium (Porcine) (Heparin Sodium) 900 unit PRN Q6HRS PRN IV FOR UFH LEVEL 0.2 - 0.29; Start 11/01/19 at 16:30; Stop 11/04/19 at 11:37; Status DC Alprazolam (Xanax) 0.25 mg DAILY PO Last administered on 11/04/19at 08:00; Start 11/02/19 at 09:00 Acetaminophen/ Hydrocodone Bitart (Lortab 10/325) 7.5 tab BID PO ; Start 11/01/19 at 21:00; Status Cancel Carvedilol (Coreg) 25 mg DAILY PO ; Start 11/02/19 at 09:00; Stop 11/01/19 at 17:34; Status DC Gabapentin (Neurontin) 900 mg TID PO Last administered on 11/03/19at 13:07; Start 11/01/19 at 21:00; Stop 11/03/19 at 17:13; Status DC Non-Formulary Medication (Tramadol HCl ) 50 mg PRN PO ; Start 11/01/19 at 17:30; Stop 11/01/19 at 17:37; Status DC Carvedilol (Coreg) 25 mg DAILY PO Last administered on 11/04/19at 08:01; Start 11/01/19 at 17:45 Tramadol HCl (Ultram) 50 mg PRN BID PRN PO MODERATE PAIN Last administered on 11/01/19at 23:05; Start 11/01/19 at 17:45 Acetaminophen/ Hydrocodone Bitart (Lortab 7.5/325) 1 tab BID PO Last administered on 11/04/19at 21:00; Start 11/01/19 at 21:00 Albuterol Sulfate (Ventolin Neb Soln) 2.5 mg PRN Q6HRS PRN NEB WHEEZING; Start 11/01/19 at 20:45 Pantoprazole Sodium (PROTONIX VIAL for IV PUSH) 40 mg DAILYAC IVP Last administered on 11/04/19at 05:05; Start 11/02/19 at 07:30 Pantoprazole Sodium (PROTONIX VIAL for IV PUSH) 40 mg 1X ONCE IVP Last administered on 11/01/19at 23:06; Start 11/01/19 at 22:00; Stop 11/01/19 at 22:01; Status DC Doxycycline Hyclate 100 mg/ Dextrose 100 ml @ 50 mls/hr Q12HR IV Last administered on 11/04/19at 21:00; Start 11/02/19 at 10:00 Info (Anti-Coagulation Monitoring By Pharmacy) 1 each PRN DAILY PRN MC SEE COMMENTS; Start 11/02/19 at 10:00 Clindamycin Phosphate 50 ml @ As Directed STK-MED ONCE IV ; Start 11/03/19 at 06:54; Stop 11/03/19 at 06:54; Status DC Fentanyl Citrate (Fentanyl 2ml Vial) 100 mcg STK-MED ONCE .ROUTE ; Start 11/03/19 at 06:54; Stop 11/03/19 at 06:54; Status DC Sevoflurane (Ultane) 60 ml STK-MED ONCE IH ; Start 11/03/19 at 07:03; Stop 11/03/19 at 07:03; Status DC Fentanyl Citrate (Fentanyl 2ml Vial) 100 mcg STK-MED ONCE .ROUTE ; Start 11/03/19 at 07:03; Stop 11/03/19 at 07:04; Status DC Midazolam HCl (Versed) 2 mg STK-MED ONCE .ROUTE ; Start 11/03/19 at 07:03; Stop 11/03/19 at 07:04; Status DC Propofol (Diprivan) 200 mg STK-MED ONCE IV ; Start 11/03/19 at 07:04; Stop 11/03/19 at 07:04; Status DC Lidocaine HCl (Lidocaine Pf 2% Vial) 5 ml STK-MED ONCE .ROUTE ; Start 11/03/19 at 07:04; Stop 11/03/19 at 07:04; Status DC Ondansetron HCl (Zofran) 4 mg STK-MED ONCE .ROUTE ; Start 11/03/19 at 07:04; Stop 11/03/19 at 07:04; Status DC Dexamethasone Sodium Phosphate (Decadron) 4 mg STK-MED ONCE .ROUTE ; Start 11/03/19 at 07:04; Stop 11/03/19 at 07:04; Status DC Fentanyl Citrate (Fentanyl 2ml Vial) 100 mcg 1X ONCE IVP Last administered on 11/03/19at 07:15; Start 11/03/19 at 07:15; Stop 11/03/19 at 07:16; Status DC Phenylephrine HCl (PHENYLEPHRINE in 0.9% NACL PF) 1 mg STK-MED ONCE IV ; Start 11/03/19 at 07:33; Stop 11/03/19 at 07:34; Status DC Insulin Human Lispro (HumaLOG) 0-7 UNITS TIDACHC SQ Last administered on 11/04/19at 12:50; Start 11/03/19 at 11:30 Dextrose (Dextrose 50%-Water Syringe) 12.5 gm PRN Q15MIN PRN IV SEE COMMENTS; Start 11/03/19 at 08:30; Status Cancel Hydromorphone HCl (Dilaudid) 2 mg STK-MED ONCE .ROUTE ; Start 11/03/19 at 09:32; Stop 11/03/19 at 09:32; Status DC Prochlorperazine Edisylate (Compazine) 10 mg STK-MED ONCE .ROUTE ; Start 11/03/19 at 09:32; Stop 11/03/19 at 09:32; Status DC Ondansetron HCl (Zofran) 4 mg PRN Q6HRS PRN IV NAUSEA/VOMITING; Start 11/03/19 at 10:00; Stop 11/03/19 at 10:33; Status DC Fentanyl Citrate (Fentanyl 2ml Vial) 25 mcg PRN Q5MIN PRN IV MILD PAIN 1-3; Start 11/03/19 at 10:00; Stop 11/03/19 at 10:33; Status DC Fentanyl Citrate (Fentanyl 2ml Vial) 50 mcg PRN Q5MIN PRN IV MODERATE TO SEVERE PAIN; Start 11/03/19 at 10:00; Stop 11/03/19 at 10:33; Status DC Morphine Sulfate (Morphine Sulfate) 1 mg PRN Q10MIN PRN IV SEVERE PAIN 7-10; Start 11/03/19 at 10:00; Stop 11/03/19 at 10:33; Status DC Ringer's Solution 1,000 ml @ 30 mls/hr Q24H IV ; Start 11/03/19 at 09:53; Stop 11/03/19 at 10:33; Status DC Hydromorphone HCl (Dilaudid) 0.5 mg PRN Q10MIN PRN IV SEV PAIN, Second choice Last administered on 11/03/19at 10:10; Start 11/03/19 at 10:00; Stop 11/03/19 at 10:33; Status DC Prochlorperazine Edisylate (Compazine) 5 mg PACU PRN PRN IV NAUSEA, MRX1 Last administered on 11/03/19at 09:58; Start 11/03/19 at 10:00; Stop 11/03/19 at 10:33; Status DC Clindamycin Phosphate 50 ml @ 100 mls/hr Q6H IV Last administered on 11/04/19at 03:29; Start 11/03/19 at 15:00; Stop 11/04/19 at 03:29; Status DC Ondansetron HCl (Zofran) 4 mg PRN Q4HRS PRN IVP NAUSEA/VOMITING; Start 11/03/19 at 10:15 Dextrose (Dextrose 50%-Water Syringe) 12.5 gm PRN Q15MIN PRN IV SEE COMMENTS; Start 11/03/19 at 10:15 Warfarin Sodium (Coumadin Per Pharmacy) 1 each PRN DAILY PRN MC SEE COMMENTS; Start 11/03/19 at 14:00; Stop 11/04/19 at 11:39; Status DC Warfarin Sodium (Coumadin) 5 mg DAILY16 PO Last administered on 11/03/19at 16:20; Start 11/03/19 at 16:00; Stop 11/04/19 at 11:15; Status DC Gabapentin (Neurontin) 300 mg TID PO Last administered on 11/04/19at 21:00; Start 11/03/19 at 21:00 Al Hydroxide/Mg Hydroxide (Mylanta Plus Xs) 30 ml PRN Q6HRS PRN PO DYSPEPSIA Last administered on 11/04/19at 05:05; Start 11/04/19 at 04:30 Insulin Glargine (Lantus Syringe) 10 unit QHS SQ ; Start 11/04/19 at 21:00 Clindamycin Phosphate (Cleocin 900mg Premix) 900 mg STK-MED ONCE IV ; Start 11/03/19 at 07:00; Stop 11/04/19 at 09:06; Status DC Apixaban (Eliquis) 10 mg BID PO Last administered on 11/04/19at 21:01; Start 11/04/19 at 13:03; Stop 11/10/19 at 21:01 Lactobacillus Rhamnosus (Culturelle) 1 cap BID PO Last administered on 11/04/19at 21:01; Start 11/04/19 at 21:00 Apixaban (Eliquis) 5 mg BID PO ; Start 11/11/19 at 21:00 Active Scripts Active Reported [place] 10-325 Tablet (Acetaminophen/Hydrocodone Bitart) 1 Each Tablet 7.5 Mg PO BID Gabapentin 800 Mg Tablet 900 Mg PO TID Alprazolam 0.25 Mg Tablet 1 Tab PO DAILY Symbicort 160-4.5 Mcg Inhaler (Budesonide/Formoterol Fumarate) 10.2 Gm Hfa.aer.ad 2 Puff IH BID Tramadol HCl 100 Mg Tablet 50 Mg PO PRN Coreg (Carvedilol) 25 Mg Tablet 25 Mg PO DAILY Advair 100-50 Diskus (Fluticasone/Salmeterol) 1 Each Disk.w.dev 1 Puff IH BID Symbicort 160-4.5 Mcg Inhaler (Budesonide/Formoterol Fumarate) 10.2 Gm Hfa.aer.ad 2 Puff IH BID Centrum Silver Women Tablet (Multivits-Min/Iron/FA/Lutein) 1 Each Tablet 1 Each PO Tizanidine Hcl 4 Mg Tablet 1 Tab PO QHS Vitals/I & O Vital Sign - Last 24 Hours 11/04/19 11/04/19 11/04/19 11/04/19 07:50 08:01 08:01 09:00 B/P (MAP) 132/53 Pulse Ox 94 94 O2 Delivery Nasal Cannula Nasal Cannula Nasal Cannula O2 Flow Rate 3.0 3.0 3.0 11/04/19 11/04/19 11/04/19 11/04/19 11:00 11:05 12:43 13:43 Temp 98.0 98.0 Pulse 86 Resp 18 B/P (MAP) 130/50 (76) Pulse Ox 94 93 93 93 O2 Delivery Nasal Cannula Nasal Cannula Nasal Cannula Nasal Cannula O2 Flow Rate 2.0 3.0 3.0 3.0 11/04/19 11/04/19 11/04/19 11/04/19 15:00 17:46 18:10 19:35 Temp 98.1 98.1 98.1 98.1 Pulse 82 101 Resp 18 22 B/P (MAP) 145/62 (89) 160/62 (94) Pulse Ox 94 94 94 99 O2 Delivery Room Air Nasal Cannula Nasal Cannula Nasal Cannula O2 Flow Rate 3.0 3.0 3.0 11/04/19 11/04/19 11/04/19 11/04/19 19:59 20:00 20:00 21:00 Resp 20 Pulse Ox 100 100 O2 Delivery Nasal Cannula Nasal Cannula Nasal Cannula Nasal Cannula O2 Flow Rate 3.0 3.0 3.0 2.0 11/04/19 11/04/19 11/05/19 11/05/19 22:00 23:34 00:01 03:45 Temp 98.3 98.3 98.3 98.3 Pulse 84 80 Resp 20 18 18 B/P (MAP) 108/47 (67) 110/56 (74) Pulse Ox 98 100 98 O2 Delivery Nasal Cannula Nasal Cannula Nasal Cannula Room Air O2 Flow Rate 3.0 3.0 11/05/19 07:33 Pulse Ox 99 O2 Delivery Nasal Cannula O2 Flow Rate 3.0 Intake and Output 11/04/19 11/04/19 11/05/19 15:00 23:00 07:00 Intake Total 640 ml 100 ml 1720 ml Output Total 1350 ml Balance 640 ml 100 ml 370 ml ABDULAZIZ WILD MD November 05, 2019 07:44
[2019-11-05 07:56] LABS: HEMATOCRIT 19.2 % (36.0-47.0); HEMOGLOBIN 6.6 g/dL (12.0-15.5)
[2019-11-05] MEDS: DOXYCYCLINE HYCLATE 100 MG in IV DEXTROSE 5% 100ML 100 ML IV SCH ×2 (08:46→21:25)
[2019-11-05] MEDS: NICOTINE 21MG PATCH. TD SCH (08:46)
[2019-11-05] MEDS: LACTOBACILLUS RHAMNOSUS GG 1 CAPSULE. PO SCH ×2 (08:47→21:22)
[2019-11-05] MEDS: ALPRAZolam 0.25 MG TABLET PO SCH (08:47)
[2019-11-05] MEDS: GABAPENTIN 300 MG CAPSULE. PO SCH ×3 (08:47→21:21)
[2019-11-05] MEDS: APIXABAN 5 MG TABLET. PO SCH ×2 (08:48→21:21)
[2019-11-05] MEDS: HYDROcodone/APAP 7.5/325MG 1 TAB TABLET PO SCH ×2 (08:48→21:00)
[2019-11-05] MEDS: CARVEDILOL 12.5 MG TABLET. PO SCH (08:49)
[2019-11-05] MEDS ORDERED: traZODone 50 MG TABLET. PO PRN (11:00)
--- NOTE | 2019-11-05 11:18 | PDOC ---
PULMONARY PROGRESS NOTES Subjective s/p hip surgery no soa, on RA, has occ cough Vitals Vital Signs Date Time Temp Pulse Resp B/P (MAP) Pulse Ox O2 Delivery O2 Flow Rate FiO2 11/05/19 09:50 Room Air 11/05/19 08:49 92 130/55 11/05/19 08:48 3.0 11/05/19 07:53 98.2 18 98 98.2 ROS: No Chest Pain, No Abdominal Pain General: Alert, No acute distress Lungs: Crackles Cardiovascular: S1, S2 Abdomen: Soft Neuro Exam: Alert Extremities: No Edema Skin: Warm Labs Laboratory Tests Test 11/03/19 11:53 11/03/19 16:48 11/03/19 19:00 11/03/19 21:31 Glucose (Fingerstick) 214 mg/dL (70-99) 254 mg/dL (70-99) 268 mg/dL (70-99) Heparin Anti-Xa Act, Unfractionated < 0.10 IU/mL (0.30-0.70) Test 11/04/19 03:30 11/04/19 07:57 11/04/19 10:20 11/04/19 11:33 Heparin Anti-Xa Act, Unfractionated < 0.10 IU/mL (0.30-0.70) 0.95 IU/mL (0.30-0.70) Glucose (Fingerstick) 191 mg/dL (70-99) 174 mg/dL (70-99) White Blood Count 7.8 x10^3/uL (4.0-11.0) Red Blood Count 2.20 x10^6/uL (3.50-5.40) Hemoglobin 7.2 g/dL (12.0-15.5) Hematocrit 20.9 % (36.0-47.0) Mean Corpuscular Volume 95 fL (79-100) Mean Corpuscular Hemoglobin 33 pg (25-35) Mean Corpuscular Hemoglobin Concent 34 g/dL (31-37) Red Cell Distribution Width 14.4 % (11.5-14.5) Platelet Count 118 x10^3/uL (140-400) Prothrombin Time 16.4 SEC (11.7-14.0) Prothromb Time International Ratio 1.4 (0.8-1.1) Test 11/04/19 16:56 11/04/19 21:04 11/05/19 02:45 11/05/19 06:38 Glucose (Fingerstick) 136 mg/dL (70-99) 166 mg/dL (70-99) White Blood Count 5.0 x10^3/uL (4.0-11.0) 5.3 x10^3/uL (4.0-11.0) Red Blood Count 1.92 x10^6/uL (3.50-5.40) 2.01 x10^6/uL (3.50-5.40) Hemoglobin 6.3 g/dL (12.0-15.5) 6.6 g/dL (12.0-15.5) Hematocrit 18.3 % (36.0-47.0) 19.2 % (36.0-47.0) Mean Corpuscular Volume 95 fL (79-100) 96 fL (79-100) Mean Corpuscular Hemoglobin 33 pg (25-35) 33 pg (25-35) Mean Corpuscular Hemoglobin Concent 34 g/dL (31-37) 34 g/dL (31-37) Red Cell Distribution Width 14.5 % (11.5-14.5) 15.0 % (11.5-14.5) Platelet Count 125 x10^3/uL (140-400) 135 x10^3/uL (140-400) Neutrophils (%) (Auto) 59 % (31-73) Lymphocytes (%) (Auto) 29 % (24-48) Monocytes (%) (Auto) 11 % (0-9) Eosinophils (%) (Auto) 1 % (0-3) Basophils (%) (Auto) 0 % (0-3) Neutrophils # (Auto) 2.9 x10^3/uL (1.8-7.7) Lymphocytes # (Auto) 1.5 x10^3/uL (1.0-4.8) Monocytes # (Auto) 0.5 x10^3/uL (0.0-1.1) Eosinophils # (Auto) 0.0 x10^3/uL (0.0-0.7) Basophils # (Auto) 0.0 x10^3/uL (0.0-0.2) Prothrombin Time 19.3 SEC (11.7-14.0) Prothromb Time International Ratio 1.7 (0.8-1.1) Sodium Level 140 mmol/L (136-145) Potassium Level 4.0 mmol/L (3.5-5.1) Chloride Level 106 mmol/L (98-107) Carbon Dioxide Level 30 mmol/L (21-32) Anion Gap 4 (6-14) Blood Urea Nitrogen 12 mg/dL (7-20) Creatinine 0.8 mg/dL (0.6-1.0) Estimated GFR (Cockcroft-Gault) 72.7 Glucose Level 142 mg/dL (70-99) Calcium Level 7.3 mg/dL (8.5-10.1) Test 11/05/19 07:28 Glucose (Fingerstick) 120 mg/dL (70-99) Laboratory Tests Test 11/04/19 11:33 11/04/19 16:56 11/04/19 21:04 11/05/19 02:45 Glucose (Fingerstick) 174 mg/dL (70-99) 136 mg/dL (70-99) 166 mg/dL (70-99) White Blood Count 5.0 x10^3/uL (4.0-11.0) Red Blood Count 1.92 x10^6/uL (3.50-5.40) Hemoglobin 6.3 g/dL (12.0-15.5) Hematocrit 18.3 % (36.0-47.0) Mean Corpuscular Volume 95 fL (79-100) Mean Corpuscular Hemoglobin 33 pg (25-35) Mean Corpuscular Hemoglobin Concent 34 g/dL (31-37) Red Cell Distribution Width 14.5 % (11.5-14.5) Platelet Count 125 x10^3/uL (140-400) Neutrophils (%) (Auto) 59 % (31-73) Lymphocytes (%) (Auto) 29 % (24-48) Monocytes (%) (Auto) 11 % (0-9) Eosinophils (%) (Auto) 1 % (0-3) Basophils (%) (Auto) 0 % (0-3) Neutrophils # (Auto) 2.9 x10^3/uL (1.8-7.7) Lymphocytes # (Auto) 1.5 x10^3/uL (1.0-4.8) Monocytes # (Auto) 0.5 x10^3/uL (0.0-1.1) Eosinophils # (Auto) 0.0 x10^3/uL (0.0-0.7) Basophils # (Auto) 0.0 x10^3/uL (0.0-0.2) Prothrombin Time 19.3 SEC (11.7-14.0) Prothromb Time International Ratio 1.7 (0.8-1.1) Sodium Level 140 mmol/L (136-145) Potassium Level 4.0 mmol/L (3.5-5.1) Chloride Level 106 mmol/L (98-107) Carbon Dioxide Level 30 mmol/L (21-32) Anion Gap 4 (6-14) Blood Urea Nitrogen 12 mg/dL (7-20) Creatinine 0.8 mg/dL (0.6-1.0) Estimated GFR (Cockcroft-Gault) 72.7 Glucose Level 142 mg/dL (70-99) Calcium Level 7.3 mg/dL (8.5-10.1) Test 11/05/19 06:38 11/05/19 07:28 White Blood Count 5.3 x10^3/uL (4.0-11.0) Red Blood Count 2.01 x10^6/uL (3.50-5.40) Hemoglobin 6.6 g/dL (12.0-15.5) Hematocrit 19.2 % (36.0-47.0) Mean Corpuscular Volume 96 fL (79-100) Mean Corpuscular Hemoglobin 33 pg (25-35) Mean Corpuscular Hemoglobin Concent 34 g/dL (31-37) Red Cell Distribution Width 15.0 % (11.5-14.5) Platelet Count 135 x10^3/uL (140-400) Glucose (Fingerstick) 120 mg/dL (70-99) Medications Active Scripts Medications Dose Route/Sig Max Daily Dose Days Date Category Sparks 10-325 Tablet (Acetaminophen/Hydrocodone Bitart) 1 Each Tablet 7.5 Mg PO BID 11/01/19 Reported Gabapentin 800 Mg Tablet 900 Mg PO TID 11/01/19 Reported Alprazolam 0.25 Mg Tablet 1 Tab PO DAILY 11/01/19 Reported Symbicort 160-4.5 Mcg Inhaler (Budesonide/Formoterol Fumarate) 10.2 Gm Hfa.aer.ad 2 Puff IH BID 11/01/19 Reported Tramadol HCl 100 Mg Tablet 50 Mg PO PRN 11/01/19 Reported Coreg (Carvedilol) 25 Mg Tablet 25 Mg PO DAILY 11/01/19 Reported Advair 100-50 Diskus (Fluticasone/Salmeterol) 1 Each Disk.w.dev 1 Puff IH BID 02/26/16 Reported Symbicort 160-4.5 Mcg Inhaler (Budesonide/Formoterol Fumarate) 10.2 Gm Hfa.aer.ad 2 Puff IH BID 02/26/16 Reported Centrum Silver Women Tablet (Multivits-Min/Iron/FA/Lutein) 1 Each Tablet 1 Each PO 02/26/16 Reported Tizanidine Hcl 4 Mg Tablet 1 Tab PO QHS 02/26/16 Reported Impression . 1. Dyspnea with acute hypoxic respiratory failure secondary to combination of acute pulmonary embolism and chronic obstructive pulmonary disease with mild exacerbation. 2. Status post fall with right hip fracture, in need for surgery. 3. Long history of tobaccoism and on and off on steroids since age 21. Just quit tobacco a day before hospitalization. Suspect underlying chronic obstructive pulmonary disease, could be moderate with mild exacerbation. She has faint bronchospasm. 4. Acute pulmonary embolism. Risk factors being immobility. No known cancers. Not on any estrogen or hormonal pills. May benefit from a hypercoagulable workup as an outpatient. 5. Post -op anemia Plan . 1. s/p hip surgery 2. DuoNeb /Pulmicort. 3. Hold systemic steroids at present. 4. Monitor fever. No respiratory symptoms to suggest acute infection. Added empiric antibiotic.11/01 5. Follow orthopedic recommendations. 6. back on Eliquis by primary monitor h/h 7. Discussed with RN, pt 8. repeat VQ in 4-6 weeks CHARI FREEMAN MD November 05, 2019 11:18
[2019-11-05] MEDS: HYDROcodone/APAP 5/325MG 1 TAB TABLET PO PRN ×2 (14:17→20:23)
[2019-11-05 16:53] LABS: HEMATOCRIT 25.7 % (36.0-47.0); HEMOGLOBIN 8.9 g/dL (12.0-15.5)
[2019-11-05] MEDS: INSULIN GLARGINE SYRINGE. SQ SCH (21:00)
[2019-11-05] MEDS: diphenhydrAMINE HCL 25 MG CAPSULE PO PRN (21:21)
[2019-11-05] MEDS: tiZANidine 4 MG TABLET. PO SCH (21:22)
[2019-11-06] VITALS (17 sets, daily range): BP systolic 131–211; BP diastolic 59–97
[2019-11-06] MEDS: IPRATRPIUM/ALBUTEROL 0.5/2.5MG 3 ML NEBU. NEB SCH ×6 (00:34→19:13)
[2019-11-06] MEDS: HYDROcodone/APAP 5/325MG 1 TAB TABLET PO PRN ×2 (04:27→12:58)
[2019-11-06] MEDS: IV NORMAL SALINE 1000ML BAG 1,000 ML IV SCH ×2 (06:46→21:31)
[2019-11-06 07:16] LABS: PROTHROMBIN TIME PATIENT 19.1 SEC (11.7-14.0)
[2019-11-06] MEDS: PANTOPRAZOLE IV PUSH 40 MG VIAL. IVP SCH ×2 (07:30→07:32)
[2019-11-06] MEDS: INSULIN LISPRO 300 UNITS/3 ML VIAL. SQ SCH ×4 (07:30→21:29)
[2019-11-06] MEDS: BUDESONIDE 0.5 MG/2 ML NEBU. NEB SCH ×4 (07:40→20:00)
--- NOTE | 2019-11-06 07:57 | PDOC ---
PROGRESS NOTES Chief Complaint Chief Complaint A/P: Displaced right intertrochanteric fracture - 11/02: ORIF displaced intertrochanteric subtrochanteric right hip fracture with long intramedullary nail Severe COPD WITH HYPOXIC RESP FAILURE DM2 with HYPERGLYCEMIA - A1c returned 7.4. Basal bolus plus insulin ordered Elevated d- dimer - PE High probability for pulmonary embolic disease. by V/Q - eliquis Bronchitis - nebs + doxycycline. Pulm consulted Tobacco abuse disorder Thrombocytopenia Acute anemia - required transfusion. FEN - ADA diet PPX - eliquis FULL CODE Dispo - inpatient. Transferred to ICU 11/06/2019 History of Present Illness History of Present Illness Ms Bañuelos is a 64 yo F w/ PMHx HTN, HLD, smoker who presented to the hospital after she slipped and fell and suffered right hip fracture. With SOB and increased HR and d dimer she underwent VQ scan and noted a large mismatch defect within the right upper lobe. There is also additional moderate perfusion defect within the left posterior lower lobe as well as smaller perfusion defects bilaterally. The patient was started on heparin. Venous Dopplers did not reveal any definite clots. 11/01: Patient on heparin 11/02: s/p ORIF displaced intertrochanteric subtrochanteric right hip fracture with long intramedullary nail this morning. Back on heparin GTT. She is upset about glucose checks. Advised hemoglobin A1c has been ordered. Counseled on smoking cessation. No CP or SOB. Postop pain. 11/03: A1c 7.4. Platelets 117 from 179. Hb 7.2. Counseled on DM2 she is frustrated but amenable to insulin therapy and outpatient oral hypoglycemic agents. D/w pulmonology to change to Eliquis 10 mg twice daily for 7 days and then 5 mg twice daily thereafter for her pulmonary embolism. 11/04: Afebrile overnight, Hb 6.3, platelets 125. Glucose controlled. No CP. She is anxious about a blood transfusion, anxious about her new diagnosis of diabetes. She is asking for a shower, she is amenable to having her Falcon catheter removed today. Hip pain is reasonably controlled. Afebrile overnight. Posttransfusion hemoglobin 8.9. This morning with very elevated BP 211/81, still on 3 L NC O2, very short of breath. Plethora noted, in obvious respiratory distress. Rapid response called. CXR unchanged. ABG pH 7.36/ PCO2 46/ PO2 64. Hydralazine 10mg IV given for BP. Given 125mg solumedrol and 25mg benadryl. Vasotec 1.25mg ordered for BP 240/96. EKG sinus tachycardia Placed on 05/12 BiPAP at 35% FiO2 and rate 12bpm with patient increasingly comfortable. Transferred to ICU with nursing staff and RT. CC time 73 minutes Vitals Vitals Vital Signs Date Time Temp Pulse Resp B/P (MAP) Pulse Ox O2 Delivery O2 Flow Rate FiO2 11/06/19 07:45 98 Nasal Cannula 3.0 11/06/19 03:00 98.3 85 18 158/59 (92) 98.3 Physical Exam General: Alert, Oriented X3, Cooperative, mild distress Heart: Regular rate Lungs: Crackles Abdomen: Normal bowel sounds, Soft Extremities: No cyanosis, No edema, Other (Left lower extremity externally rotated right lower extremity internally rotated) Skin: No rashes Labs LABS Laboratory Tests Test 11/05/19 12:02 11/05/19 16:45 11/05/19 16:50 11/05/19 19:49 Glucose (Fingerstick) 139 mg/dL (70-99) 145 mg/dL (70-99) 152 mg/dL (70-99) Hemoglobin 8.9 g/dL (12.0-15.5) Hematocrit 25.7 % (36.0-47.0) Mean Corpuscular Hemoglobin Concent 35 g/dL (31-37) Test 11/06/19 06:15 11/06/19 07:43 Prothrombin Time 19.1 SEC (11.7-14.0) Prothromb Time International Ratio 1.6 (0.8-1.1) Glucose (Fingerstick) 116 mg/dL (70-99) Assessment and Plan Assessmemt and Plan Problems Medical Problems: (1) COPD (chronic obstructive pulmonary disease) Status: Acute (2) Displaced intertrochanteric fracture of right femur Status: Acute (3) Hypoxia Status: Acute Comment Review of Relevant I have reviewed the following items renee (where applicable) has been applied. Labs Laboratory Tests Test 11/04/19 07:57 11/04/19 10:20 11/04/19 11:33 11/04/19 16:56 Glucose (Fingerstick) 191 mg/dL (70-99) 174 mg/dL (70-99) 136 mg/dL (70-99) White Blood Count 7.8 x10^3/uL (4.0-11.0) Red Blood Count 2.20 x10^6/uL (3.50-5.40) Hemoglobin 7.2 g/dL (12.0-15.5) Hematocrit 20.9 % (36.0-47.0) Mean Corpuscular Volume 95 fL (79-100) Mean Corpuscular Hemoglobin 33 pg (25-35) Mean Corpuscular Hemoglobin Concent 34 g/dL (31-37) Red Cell Distribution Width 14.4 % (11.5-14.5) Platelet Count 118 x10^3/uL (140-400) Prothrombin Time 16.4 SEC (11.7-14.0) Prothromb Time International Ratio 1.4 (0.8-1.1) Heparin Anti-Xa Act, Unfractionated 0.95 IU/mL (0.30-0.70) Test 11/04/19 21:04 11/05/19 02:45 11/05/19 06:38 11/05/19 07:28 Glucose (Fingerstick) 166 mg/dL (70-99) 120 mg/dL (70-99) White Blood Count 5.0 x10^3/uL (4.0-11.0) 5.3 x10^3/uL (4.0-11.0) Red Blood Count 1.92 x10^6/uL (3.50-5.40) 2.01 x10^6/uL (3.50-5.40) Hemoglobin 6.3 g/dL (12.0-15.5) 6.6 g/dL (12.0-15.5) Hematocrit 18.3 % (36.0-47.0) 19.2 % (36.0-47.0) Mean Corpuscular Volume 95 fL (79-100) 96 fL (79-100) Mean Corpuscular Hemoglobin 33 pg (25-35) 33 pg (25-35) Mean Corpuscular Hemoglobin Concent 34 g/dL (31-37) 34 g/dL (31-37) Red Cell Distribution Width 14.5 % (11.5-14.5) 15.0 % (11.5-14.5) Platelet Count 125 x10^3/uL (140-400) 135 x10^3/uL (140-400) Neutrophils (%) (Auto) 59 % (31-73) Lymphocytes (%) (Auto) 29 % (24-48) Monocytes (%) (Auto) 11 % (0-9) Eosinophils (%) (Auto) 1 % (0-3) Basophils (%) (Auto) 0 % (0-3) Neutrophils # (Auto) 2.9 x10^3/uL (1.8-7.7) Lymphocytes # (Auto) 1.5 x10^3/uL (1.0-4.8) Monocytes # (Auto) 0.5 x10^3/uL (0.0-1.1) Eosinophils # (Auto) 0.0 x10^3/uL (0.0-0.7) Basophils # (Auto) 0.0 x10^3/uL (0.0-0.2) Prothrombin Time 19.3 SEC (11.7-14.0) Prothromb Time International Ratio 1.7 (0.8-1.1) Sodium Level 140 mmol/L (136-145) Potassium Level 4.0 mmol/L (3.5-5.1) Chloride Level 106 mmol/L (98-107) Carbon Dioxide Level 30 mmol/L (21-32) Anion Gap 4 (6-14) Blood Urea Nitrogen 12 mg/dL (7-20) Creatinine 0.8 mg/dL (0.6-1.0) Estimated GFR (Cockcroft-Gault) 72.7 Glucose Level 142 mg/dL (70-99) Calcium Level 7.3 mg/dL (8.5-10.1) Test 11/05/19 12:02 11/05/19 16:45 11/05/19 16:50 11/05/19 19:49 Glucose (Fingerstick) 139 mg/dL (70-99) 145 mg/dL (70-99) 152 mg/dL (70-99) Hemoglobin 8.9 g/dL (12.0-15.5) Hematocrit 25.7 % (36.0-47.0) Mean Corpuscular Hemoglobin Concent 35 g/dL (31-37) Test 11/06/19 06:15 11/06/19 07:43 Prothrombin Time 19.1 SEC (11.7-14.0) Prothromb Time International Ratio 1.6 (0.8-1.1) Glucose (Fingerstick) 116 mg/dL (70-99) Laboratory Tests Test 11/05/19 12:02 11/05/19 16:45 11/05/19 16:50 11/05/19 19:49 Glucose (Fingerstick) 139 mg/dL (70-99) 145 mg/dL (70-99) 152 mg/dL (70-99) Hemoglobin 8.9 g/dL (12.0-15.5) Hematocrit 25.7 % (36.0-47.0) Mean Corpuscular Hemoglobin Concent 35 g/dL (31-37) Test 11/06/19 06:15 11/06/19 07:43 Prothrombin Time 19.1 SEC (11.7-14.0) Prothromb Time International Ratio 1.6 (0.8-1.1) Glucose (Fingerstick) 116 mg/dL (70-99) Medications Current Medications Morphine Sulfate (Morphine Sulfate) 5 mg 1X ONCE IV Last administered on 11/01/19at 09:24; Start 11/01/19 at 09:30; Stop 11/01/19 at 09:31; Status DC Morphine Sulfate (Morphine Sulfate) 5 mg 1X ONCE IV Last administered on 11/01/19at 10:33; Start 11/01/19 at 10:30; Stop 11/01/19 at 10:31; Status DC Hydromorphone HCl (Dilaudid) 1 mg 1X ONCE IV Last administered on 11/01/19at 12:30; Start 11/01/19 at 12:30; Stop 11/01/19 at 12:31; Status DC Hydromorphone HCl (Dilaudid) 1 mg PRN Q3HRS PRN IV PAIN Last administered on 11/04/19at 17:46; Start 11/01/19 at 13:45 Enoxaparin Sodium (Lovenox 80mg Syringe) 70 mg Q12HR SQ ; Start 11/01/19 at 21:00; Stop 11/01/19 at 16:26; Status DC Ondansetron HCl (Zofran) 4 mg PRN Q4HRS PRN IVP NAUSEA/VOMITING Last administered on 11/01/19at 13:54; Start 11/01/19 at 13:45; Stop 11/02/19 at 12:52; Status DC Acetaminophen (Tylenol) 650 mg PRN Q6HRS PRN PO FEVER/HEADACHE Last adm inistered on 11/01/19at 13:54; Start 11/01/19 at 13:45; Stop 11/02/19 at 09:56; Status DC Nicotine (Nicoderm Cq 21mg) 1 patch DAILY TD Last administered on 11/05/19at 08:46; Start 11/01/19 at 14:00 Acetaminophen/ Hydrocodone Bitart (Lortab 5/325) 1 tab PRN Q6HRS PRN PO SEVERE PAIN Last administered on 11/06/19at 04:27; Start 11/01/19 at 13:45 Lorazepam (Ativan) 1 mg TID PO Last administered on 11/01/19at 13:53; Start 11/01/19 at 14:00; Stop 11/01/19 at 17:22; Status DC Tizanidine HCl (Zanaflex) 4 mg QHS PO Last administered on 11/05/19at 21:22; Start 11/01/19 at 21:00 Trazodone HCl (Desyrel) 100 mg HS PO ; Start 11/01/19 at 21:00; Stop 11/01/19 at 17:22; Status DC Non-Formulary Medication (Budesonide/ Formoterol Fumarate (Symbicort 160-4.5 Mcg Inhaler)) 2 puff BID IH ; Start 11/01/19 at 21:00; Status UNV Non-Formulary Medication (Fluticasone/ Salmeterol (Advair 100-50 Diskus)) 1 puff BID IH ; Start 11/01/19 at 21:00; Status UNV Albuterol Sulfate (Ventolin Neb Soln) 2.5 mg Q6HRS NEB ; Start 11/01/19 at 14: 00; Stop 11/01/19 at 20:35; Status DC Budesonide (Pulmicort) 0.5 mg RTBID NEB Last administered on 11/06/19at 07:40; Start 11/01/19 at 20:00 Sodium Chloride (Normal Saline Flush) 3 ml QSHIFT PRN IV AFTER MEDS AND BLOOD DRAWS; Start 11/01/19 at 14:30 Sodium Chloride 1,000 ml @ 80 mls/hr [id number] IV Last administered on 11/05/19at 18:16; Start 11/01/19 at 14:16 Ondansetron HCl (Zofran) 4 mg PRN Q4HRS PRN IV NAUSEA/VOMITING; Start 11/01/19 at 14:30; Stop 11/05/19 at 12:44; Status DC Zolpidem Tartrate (Ambien) 5 mg PRN QHS PRN PO INSOMNIA Last administered on 11/04/19at 22:09; Start 11/01/19 at 14:30; Stop 11/05/19 at 10:58; Status DC Acetaminophen (Tylenol) 650 mg PRN Q4HRS PRN PO TEMP OVER 100.4F OR MILD PAIN; Start 11/01/19 at 14:30 Al Hydroxide/Mg Hydroxide (Mylanta Plus Xs) 30 ml PRN DAILY PRN PO HEARTBURN / GAS; Start 11/01/19 at 14:30; Stop 11/04/19 at 04:31; Status DC Clonidine HCl (Catapres) 0.1 mg PRN Q6HRS PRN PO SBP>160 OR DBP>90; Start 11/01/19 at 14:30 Sodium Monofluorophosphate (Fleet Adult) 133 ml PRN DAILY PRN MT CONSTIPATION; Start 11/01/19 at 14:30 Docusate Sodium (Colace) 100 mg PRN BID PRN PO HARD STOOLS; Start 11/01/19 at 14:30 Albuterol/ Ipratropium (Duoneb) 3 ml Q4H NEB Last administered on 11/06/19at 06:30; Start 11/01/19 at 14:30 Guaifenesin (Robitussin) 200 mg PRN Q4HRS PRN PO COUGH; Start 11/01/19 at 14:30 Enoxaparin Sodium (Lovenox 40mg Syringe) 40 mg Q24H SQ ; Start 11/01/19 at 14:30; Stop 11/01/19 at 14:22; Status DC Ondansetron HCl (Zofran) 4 mg PRN Q6HRS PRN IV NAUSEA/VOMITING; Start 11/02/19 at 07:00; Stop 11/03/19 at 06:59; Status DC Fentanyl Citrate (Fentanyl 2ml Vial) 25 mcg PRN Q5MIN PRN IV MILD PAIN 1-3 Last administered on 11/02/19at 09:04; Start 11/02/19 at 07:00; Stop 11/02/19 at 20:00; Status DC Fentanyl Citrate (Fentanyl 2ml Vial) 50 mcg PRN Q5MIN PRN IV MODERATE TO SEVERE PAIN; Start 11/02/19 at 07:00; Stop 11/02/19 at 20:00; Status DC Morphine Sulfate (Morphine Sulfate) 1 mg PRN Q10MIN PRN IV SEVERE PAIN 7-10; Start 11/02/19 at 07:00; Stop 11/02/19 at 20:00; Status DC Ringer's Solution 1,000 ml @ 30 mls/hr Q24H IV ; Start 11/02/19 at 07:00; Stop 11/02/19 at 18:59; Status DC Lidocaine HCl (Xylocaine-Mpf 1% 2ml Vial) 2 ml PRN 1X PRN ID PRIOR TO IV START; Start 11/02/19 at 07:00; Stop 11/02/19 at 20:00; Status DC Hydromorphone HCl (Dilaudid) 0.5 mg PRN Q10MIN PRN IV SEV PAIN, Second choice; Start 11/02/19 at 07:00; Stop 11/02/19 at 20:00; Status DC Prochlorperazine Edisylate (Compazine) 5 mg PACU PRN PRN IV NAUSEA, MRX1; Start 11/02/19 at 07:00; Stop 11/02/19 at 20:00; Status DC Hydralazine HCl (Apresoline Inj) 10 mg PRN Q4HRS PRN IVP ELEVATED BP, SEE COMMENTS Last administered on 11/01/19at 16:51; Start 11/01/19 at 14:30; Stop 11/02/19 at 12:53; Status DC Hydralazine HCl (Apresoline Inj) 10 mg PRN Q4HRS PRN IVP ELEVATED BP, SEE COMMENTS; Start 11/01/19 at 16:00 Heparin Sodium (Porcine) (Heparin Sodium) 4,800 unit 1X ONCE IV Last administered on 11/01/19at 17:04; Start 11/01/19 at 16:30; Stop 11/01/19 at 16:31; Status DC Heparin Sodium/ Dextrose 250 ml @ 9.568 mls/ hr CONT PRN IV PER PROTOCOL Last administered on 11/04/19at 08:50; Start 11/01/19 at 16:30; Stop 11/04/19 at 11:30; Status DC Heparin Sodium (Porcine) (Heparin Sodium) 1,800 unit PRN Q6HRS PRN IV FOR UFH LEVEL LESS THAN 0.2 Last administered on 11/04/19at 04:20; Start 11/01/19 at 16:30; Stop 11/04/19 at 11:37; Status DC Heparin Sodium (Porcine) (Heparin Sodium) 900 unit PRN Q6HRS PRN IV FOR UFH LEVEL 0.2 - 0.29; Start 11/01/19 at 16:30; Stop 11/04/19 at 11:37; Status DC Alprazolam (Xanax) 0.25 mg DAILY PO Last administered on 11/05/19at 08:47; Start 11/02/19 at 09:00 Acetaminophen/ Hydrocodone Bitart (Lortab 10/325) 7.5 tab BID PO ; Start 11/01/19 at 21:00; Status Cancel Carvedilol (Coreg) 25 mg DAILY PO ; Start 11/02/19 at 09:00; Stop 11/01/19 at 17:34; Status DC Gabapentin (Neurontin) 900 mg TID PO Last administered on 11/03/19at 13:07; Start 11/01/19 at 21:00; Stop 11/03/19 at 17:13; Status DC Non-Formulary Medication (Tramadol HCl ) 50 mg PRN PO ; Start 11/01/19 at 17:30; Stop 11/01/19 at 17:37; Status DC Carvedilol (Coreg) 25 mg DAILY PO Last administered on 11/05/19at 08:49; Start 11/01/19 at 17:45 Tramadol HCl (Ultram) 50 mg PRN BID PRN PO MODERATE PAIN Last administered on 11/01/19at 23:05; Start 11/01/19 at 17:45 Acetaminophen/ Hydrocodone Bitart (Lortab 7.5/325) 1 tab BID PO Last administered on 11/05/19at 08:48; Start 11/01/19 at 21:00 Albuterol Sulfate (Ventolin Neb Soln) 2.5 mg PRN Q6HRS PRN NEB WHEEZING; Start 11/01/19 at 20:45 Pantoprazole Sodium (PROTONIX VIAL for IV PUSH) 40 mg DAILYAC IVP Last administered on 11/04/19at 05:05; Start 11/02/19 at 07:30 Pantoprazole Sodium (PROTONIX VIAL for IV PUSH) 40 mg 1X ONCE IVP Last administered on 11/01/19at 23:06; Start 11/01/19 at 22:00; Stop 11/01/19 at 22:01; Status DC Doxycycline Hyclate 100 mg/ Dextrose 100 ml @ 50 mls/hr Q12HR IV Last administered on 11/05/19at 21:25; Start 11/02/19 at 10:00 Info (Anti-Coagulation Monitoring By Pharmacy) 1 each PRN DAILY PRN MC SEE COMMENTS; Start 11/02/19 at 10:00 Clindamycin Phosphate 50 ml @ As Directed STK-MED ONCE IV ; Start 11/03/19 at 06:54; Stop 11/03/19 at 06:54; Status DC Fentanyl Citrate (Fentanyl 2ml Vial) 100 mcg STK-MED ONCE .ROUTE ; Start 11/03/19 at 06:54; Stop 11/03/19 at 06:54; Status DC Sevoflurane (Ultane) 60 ml STK-MED ONCE IH ; Start 11/03/19 at 07:03; Stop 11/03/19 at 07:03; Status DC Fentanyl Citrate (Fentanyl 2ml Vial) 100 mcg STK-MED ONCE .ROUTE ; Start 11/03/19 at 07:03; Stop 11/03/19 at 07:04; Status DC Midazolam HCl (Versed) 2 mg STK-MED ONCE .ROUTE ; Start 11/03/19 at 07:03; Stop 11/03/19 at 07:04; Status DC Propofol (Diprivan) 200 mg STK-MED ONCE IV ; Start 11/03/19 at 07:04; Stop 11/03/19 at 07:04; Status DC Lidocaine HCl (Lidocaine Pf 2% Vial) 5 ml STK-MED ONCE .ROUTE ; Start 11/03/19 at 07:04; Stop 11/03/19 at 07:04; Status DC Ondansetron HCl (Zofran) 4 mg STK-MED ONCE .ROUTE ; Start 11/03/19 at 07:04; Stop 11/03/19 at 07:04; Status DC Dexamethasone Sodium Phosphate (Decadron) 4 mg STK-MED ONCE .ROUTE ; Start 11/03/19 at 07:04; Stop 11/03/19 at 07:04; Status DC Fentanyl Citrate (Fentanyl 2ml Vial) 100 mcg 1X ONCE IVP Last administered on 11/03/19at 07:15; Start 11/03/19 at 07:15; Stop 11/03/19 at 07:16; Status DC Phenylephrine HCl (PHENYLEPHRINE in 0.9% NACL PF) 1 mg STK-MED ONCE IV ; Start 11/03/19 at 07:33; Stop 11/03/19 at 07:34; Status DC Insulin Human Lispro (HumaLOG) 0-7 UNITS TIDACHC SQ Last administered on 11/03at 12:50; Start 11/03/19 at 11:30 Dextrose (Dextrose 50%-Water Syringe) 12.5 gm PRN Q15MIN PRN IV SEE COMMENTS; Start 11/03/19 at 08:30; Status Cancel Hydromorphone HCl (Dilaudid) 2 mg STK-MED ONCE .ROUTE ; Start 11/03/19 at 09:32; Stop 11/03/19 at 09:32; Status DC Prochlorperazine Edisylate (Compazine) 10 mg STK-MED ONCE .ROUTE ; Start 11/03/19 at 09:32; Stop 11/03/19 at 09:32; Status DC Ondansetron HCl (Zofran) 4 mg PRN Q6HRS PRN IV NAUSEA/VOMITING; Start 11/03/19 at 10:00; Stop 11/03/19 at 10:33; Status DC Fentanyl Citrate (Fentanyl 2ml Vial) 25 mcg PRN Q5MIN PRN IV MILD PAIN 1-3; Start 11/03/19 at 10:00; Stop 11/03/19 at 10:33; Status DC Fentanyl Citrate (Fentanyl 2ml Vial) 50 mcg PRN Q5MIN PRN IV MODERATE TO SEVERE PAIN; Start 11/03/19 at 10:00; Stop 11/03/19 at 10:33; Status DC Morphine Sulfate (Morphine Sulfate) 1 mg PRN Q10MIN PRN IV SEVERE PAIN 7-10; Start 11/03/19 at 10:00; Stop 11/03/19 at 10:33; Status DC Ringer's Solution 1,000 ml @ 30 mls/hr Q24H IV ; Start 11/03/19 at 09:53; Stop 11/03/19 at 10:33; Status DC Hydromorphone HCl (Dilaudid) 0.5 mg PRN Q10MIN PRN IV SEV PAIN, Second choice Last administered on 11/03/19at 10:10; Start 11/03/19 at 10:00; Stop 11/03/19 at 10:33; Status DC Prochlorperazine Edisylate (Compazine) 5 mg PACU PRN PRN IV NAUSEA, MRX1 Last administered on 11/03/19at 09:58; Start 11/03/19 at 10:00; Stop 11/03/19 at 10:33; Status DC Clindamycin Phosphate 50 ml @ 100 mls/hr Q6H IV Last administered on 11/04/19at 03:29; Start 11/03/19 at 15:00; Stop 11/04/19 at 03:29; Status DC Ondansetron HCl (Zofran) 4 mg PRN Q4HRS PRN IVP NAUSEA/VOMITING; Start 11/03/19 at 10:15 Dextrose (Dextrose 50%-Water Syringe) 12.5 gm PRN Q15MIN PRN IV SEE COMMENTS; Start 11/03/19 at 10:15 Warfarin Sodium (Coumadin Per Pharmacy) 1 each PRN DAILY PRN MC SEE COMMENTS; Start 11/03/19 at 14:00; Stop 11/04/19 at 11:39; Status DC Warfarin Sodium (Coumadin) 5 mg DAILY16 PO Last administered on 11/03/19at 16:20; Start 11/03/19 at 16:00; Stop 11/04/19 at 11:15; Status DC Gabapentin (Neurontin) 300 mg TID PO Last administered on 11/05/19at 21:21; Start 11/03/19 at 21:00 Al Hydroxide/Mg Hydroxide (Mylanta Plus Xs) 30 ml PRN Q6HRS PRN PO DYSPEPSIA Last administered on 11/04/19at 05:05; Start 11/04/19 at 04:30 Insulin Glargine (Lantus Syringe) 10 unit QHS SQ ; Start 11/04/19 at 21:00 Clindamycin Phosphate (Cleocin 900mg Premix) 900 mg STK-MED ONCE IV ; Start 11/03/19 at 07:00; Stop 11/04/19 at 09:06; Status DC Apixaban (Eliquis) 10 mg BID PO Last administered on 11/05/19at 21:21; Start 11/04/19 at 13:03; Stop 11/10/19 at 21:01 Lactobacillus Rhamnosus (Culturelle) 1 cap BID PO Last administered on 11/05/19at 21:22; Start 11/04/19 at 21:00 Apixaban (Eliquis) 5 mg BID PO ; Start 11/11/19 at 21:00 Diphenhydramine HCl (Benadryl) 25 mg PRN QHS PRN PO INSOMNIA Last administered on 11/05/19at 21:21; Start 11/05/19 at 11:00 Trazodone HCl (Desyrel) 50 mg PRN QHS PRN PO INSOMNIA; Start 11/05/19 at 11:00 Active Scripts Active Reported [place] 10-325 Tablet (Acetaminophen/Hydrocodone Bitart) 1 Each Tablet 7.5 Mg PO BID Gabapentin 800 Mg Tablet 900 Mg PO TID Alprazolam 0.25 Mg Tablet 1 Tab PO DAILY Symbicort 160-4.5 Mcg Inhaler (Budesonide/Formoterol Fumarate) 10.2 Gm Hfa.aer.ad 2 Puff IH BID Tramadol HCl 100 Mg Tablet 50 Mg PO PRN Coreg (Carvedilol) 25 Mg Tablet 25 Mg PO DAILY Advair 100-50 Diskus (Fluticasone/Salmeterol) 1 Each Disk.w.dev 1 Puff IH BID Symbicort 160-4.5 Mcg Inhaler (Budesonide/Formoterol Fumarate) 10.2 Gm Hfa.aer.ad 2 Puff IH BID Centrum Silver Women Tablet (Multivits-Min/Iron/FA/Lutein) 1 Each Tablet 1 Each PO Tizanidine Hcl 4 Mg Tablet 1 Tab PO QHS Vitals/I & O Vital Sign - Last 24 Hours 11/05/19 11/05/19 11/05/19 11/05/19 08:00 08:48 08:49 09:50 Pulse 92 B/P (MAP) 130/55 O2 Delivery Nasal Cannula Nasal Cannula Room Air O2 Flow Rate 3.0 3.0 11/05/19 11/05/19 11/05/19 11/05/19 11:40 11:43 12:10 12:25 Temp 98.0 98.8 98.2 98.0 98.8 98.2 Pulse 88 93 94 Resp 18 16 B/P (MAP) 131/52 (78) 135/42 140/62 Pulse Ox 99 98 O2 Delivery Nasal Cannula Room Air O2 Flow Rate 3.0 11/05/19 11/05/19 11/05/19 11/05/19 13:10 14:10 14:17 15:00 Temp 98.7 98.5 98.0 98.7 98.5 98.0 Pulse 88 90 94 Resp 16 18 B/P (MAP) 121/52 141/62 122/65 (84) Pulse Ox 94 O2 Delivery Room Air Room Air 11/05/19 11/05/19 11/05/19 11/05/19 15:10 15:17 15:27 16:10 Temp 98.0 98.1 98.0 98.1 Pulse 92 Resp 16 B/P (MAP) 122/65 151/75 Pulse Ox 95 O2 Delivery Room Air Nasal Cannula O2 Flow Rate 3.0 11/05/19 11/05/19 11/05/19 11/05/19 19:40 19:55 20:00 20:23 Temp 98.5 98.5 Pulse 97 Resp 18 B/P (MAP) 158/70 (99) Pulse Ox 95 98 O2 Delivery Nasal Cannula Nasal Cannula Room Air Nasal Cannula O2 Flow Rate 3.0 3.0 2.0 11/05/19 11/05/19 11/06/19 11/06/19 21:28 23:00 00:21 03:00 Temp 98.8 98.3 98.8 98.3 Pulse 96 85 Resp 18 18 B/P (MAP) 176/71 (106) 158/59 (92) Pulse Ox 97 99 98 O2 Delivery Nasal Cannula Room Air Nasal Cannula Room Air O2 Flow Rate 2.0 3.0 5/31/11/06/19 11/06/19 11/06/19 04:09 04:27 05:27 07:42 Pulse Ox 97 O2 Delivery Nasal Cannula Nasal Cannula Nasal Cannula Nasal Cannula O2 Flow Rate 3.0 3.0 3.0 3.0 11/06/19 11/06/19 07:44 07:45 Pulse Ox 98 98 O2 Delivery Nasal Cannula Nasal Cannula O2 Flow Rate 3.0 3.0 Intake and Output 11/05/19 11/05/19 11/06/19 15:00 23:00 07:00 Intake Total 100 ml 300 ml Balance 100 ml 300 ml ABDULAZIZ WILD MD November 06, 2019 07:57
[2019-11-06] MEDS ORDERED: hydrALAZINE 20 MG/ML VIAL. IVP PRN (08:00)
[2019-11-06] MEDS: hydrALAZINE 20 MG/ML VIAL. IVP PRN ×2 (08:03→16:11)
[2019-11-06] MEDS: CARVEDILOL 12.5 MG TABLET. PO SCH (08:09)
[2019-11-06] MEDS: DOXYCYCLINE HYCLATE 100 MG in IV DEXTROSE 5% 100ML 100 ML IV SCH ×2 (08:09→21:31)
[2019-11-06] MEDS: LACTOBACILLUS RHAMNOSUS GG 1 CAPSULE. PO SCH ×2 (08:11→21:35)
[2019-11-06] MEDS: GABAPENTIN 300 MG CAPSULE. PO SCH ×4 (08:12→21:35)
[2019-11-06 08:13] LABS: ALBUMIN 2.3 g/dL (3.4-5.0); CALCIUM 7.7 mg/dL (8.5-10.1); CREATININE 0.7 mg/dL (0.6-1.0); GFR 84.8; POTASSIUM 3.8 mmol/L (3.5-5.1); TOTAL BILIRUBIN 0.6 mg/dL (0.2-1.0); TOTAL PROTEIN 4.6 g/dL (6.4-8.2)
[2019-11-06 08:20] LABS: BASO % 0 % (0-3); EOS % 1 % (0-3); HEMATOCRIT 23.9 % (36.0-47.0); HEMOGLOBIN 8.2 g/dL (12.0-15.5); LYMPH # 1.7 x10^3/uL (1.0-4.8); LYMPH % 29 % (24-48); MEAN CORPUSCULAR HEMOGLOBIN 32 pg (25-35); MEAN CORPUSCULAR HGB CONC 35 g/dL (31-37); MEAN CORPUSCULAR VOLUME 93 fL (79-100); MONO # 0.5 x10^3/uL (0.0-1.1); MONO % 10 % (0-9); NEUT # 3.4 x10^3/uL (1.8-7.7); NEUT % 60 % (31-73); PLATELET COUNT 146 x10^3/uL (140-400); RED BLOOD COUNT 2.56 x10^6/uL (3.50-5.40); RED CELL DISTRIBUTION WIDTH 15.5 % (11.5-14.5); WHITE BLOOD COUNT 5.7 x10^3/uL (4.0-11.0)
--- NOTE | 2019-11-06 08:29 | RAD ---
Examination: CHEST AP ONLY History: Reason: Shortness of breath / Spl. Instructions: / History: Comparison: 11/01/2019 AP view of the chest. Findings: AP portable upright frontal view of the chest was obtained. Postoperative cervical spine fusion noted. The cardiomediastinal silhouette is normal. No focal infiltrate. Subtle interstitial thickening in the lung morrell is noted especially at the upper thoracic level similar to the prior exam. There is no pneumothorax. No pleural effusion is appreciated. No acute bone abnormality. IMPRESSION: No focal infiltrate. No significant change. Electronically signed by: Ranjan Singh MD (11/06/2019 8:26 AM) [id number]
[2019-11-06] MEDS ORDERED: methylPREDNISolone SOD SUCC PF 125 MG/2 ML VIAL. IV ONE (08:45)
[2019-11-06] MEDS ORDERED: diphenhydrAMINE 50 MG/ML VIAL IVP PRN (08:45)
[2019-11-06 08:46] LABS: BASE EXCESS ABG 0 mmol/L (-3-3); FIO2 ABG 3L NC; HCO3 ABG 25 mmol/L (21-28); PCO2 ABG 46 mmHg (35-46); PO2 ABG 64 mmHg (65-108); SAT O2 ABG 91 % (92-99)
[2019-11-06] MEDS ORDERED: ENALAPRILAT 1.25 MG/ML VIAL. IVP ONE (09:15)
[2019-11-06] MEDS: APIXABAN 5 MG TABLET. PO SCH ×2 (09:25→21:35)
[2019-11-06] MEDS: ALPRAZolam 0.25 MG TABLET PO SCH (09:25)
[2019-11-06] MEDS: HYDROcodone/APAP 7.5/325MG 1 TAB TABLET PO SCH ×2 (09:26→21:35)
[2019-11-06] MEDS: NICOTINE 21MG PATCH. TD SCH (09:26)
--- NOTE | 2019-11-06 09:30 | NUR ---
Rapid response called. Pt is having severe difficulty breathing. BP 207/114 HR 128 93% on 3L. EKG ST; ABG drawn. Pt transferred to CVICU. Report given to WANDA Sky. All belongings were packed and taken to new room.
--- NOTE | 2019-11-06 11:55 | PDOC ---
PULMONARY PROGRESS NOTES Subjective s/p hip surgery transferred to icu due to resp distress, ? stridor, started on bipap, now better, has chest tightness Vitals Vital Signs Date Time Temp Pulse Resp B/P (MAP) Pulse Ox O2 Delivery O2 Flow Rate FiO2 11/06/19 11:24 98 BiPAP/CPAP 11/06/19 11:00 87 13 135/62 (86) 11/06/19 07:45 3.0 11/06/19 07:00 98.0 98.0 Comments ros as mentioned as above other sys otherwise neg ROS: No Nausea General: Alert, Mild Distress HEENT: Other (nc at perrl nose throat clear neck no lad no thyromegaly) Lungs: Wheezing, Other (deminshed bs) Cardiovascular: S1, S2 Abdomen: Soft, Non-tender, Other (no mass) Neuro Exam: Alert, Oriented Extremities: No Edema Skin: Warm Labs Laboratory Tests Test 11/04/19 16:56 11/04/19 21:04 11/05/19 02:45 11/05/19 06:38 Glucose (Fingerstick) 136 mg/dL (70-99) 166 mg/dL (70-99) White Blood Count 5.0 x10^3/uL (4.0-11.0) 5.3 x10^3/uL (4.0-11.0) Red Blood Count 1.92 x10^6/uL (3.50-5.40) 2.01 x10^6/uL (3.50-5.40) Hemoglobin 6.3 g/dL (12.0-15.5) 6.6 g/dL (12.0-15.5) Hematocrit 18.3 % (36.0-47.0) 19.2 % (36.0-47.0) Mean Corpuscular Volume 95 fL (79-100) 96 fL (79-100) Mean Corpuscular Hemoglobin 33 pg (25-35) 33 pg (25-35) Mean Corpuscular Hemoglobin Concent 34 g/dL (31-37) 34 g/dL (31-37) Red Cell Distribution Width 14.5 % (11.5-14.5) 15.0 % (11.5-14.5) Platelet Count 125 x10^3/uL (140-400) 135 x10^3/uL (140-400) Neutrophils (%) (Auto) 59 % (31-73) Lymphocytes (%) (Auto) 29 % (24-48) Monocytes (%) (Auto) 11 % (0-9) Eosinophils (%) (Auto) 1 % (0-3) Basophils (%) (Auto) 0 % (0-3) Neutrophils # (Auto) 2.9 x10^3/uL (1.8-7.7) Lymphocytes # (Auto) 1.5 x10^3/uL (1.0-4.8) Monocytes # (Auto) 0.5 x10^3/uL (0.0-1.1) Eosinophils # (Auto) 0.0 x10^3/uL (0.0-0.7) Basophils # (Auto) 0.0 x10^3/uL (0.0-0.2) Prothrombin Time 19.3 SEC (11.7-14.0) Prothromb Time International Ratio 1.7 (0.8-1.1) Sodium Level 140 mmol/L (136-145) Potassium Level 4.0 mmol/L (3.5-5.1) Chloride Level 106 mmol/L (98-107) Carbon Dioxide Level 30 mmol/L (21-32) Anion Gap 4 (6-14) Blood Urea Nitrogen 12 mg/dL (7-20) Creatinine 0.8 mg/dL (0.6-1.0) Estimated GFR (Cockcroft-Gault) 72.7 Glucose Level 142 mg/dL (70-99) Calcium Level 7.3 mg/dL (8.5-10.1) Test 11/05/19 07:28 11/05/19 12:02 11/05/19 16:45 11/05/19 16:50 Glucose (Fingerstick) 120 mg/dL (70-99) 139 mg/dL (70-99) 145 mg/dL (70-99) Hemoglobin 8.9 g/dL (12.0-15.5) Hematocrit 25.7 % (36.0-47.0) Mean Corpuscular Hemoglobin Concent 35 g/dL (31-37) Test 11/05/19 19:49 11/06/19 06:15 11/06/19 07:43 11/06/19 08:35 Glucose (Fingerstick) 152 mg/dL (70-99) 116 mg/dL (70-99) White Blood Count 5.7 x10^3/uL (4.0-11.0) Red Blood Count 2.56 x10^6/uL (3.50-5.40) Hemoglobin 8.2 g/dL (12.0-15.5) Hematocrit 23.9 % (36.0-47.0) Mean Corpuscular Volume 93 fL (79-100) Mean Corpuscular Hemoglobin 32 pg (25-35) Mean Corpuscular Hemoglobin Concent 35 g/dL (31-37) Red Cell Distribution Width 15.5 % (11.5-14.5) Platelet Count 146 x10^3/uL (140-400) Neutrophils (%) (Auto) 60 % (31-73) Lymphocytes (%) (Auto) 29 % (24-48) Monocytes (%) (Auto) 10 % (0-9) Eosinophils (%) (Auto) 1 % (0-3) Basophils (%) (Auto) 0 % (0-3) Neutrophils # (Auto) 3.4 x10^3/uL (1.8-7.7) Lymphocytes # (Auto) 1.7 x10^3/uL (1.0-4.8) Monocytes # (Auto) 0.5 x10^3/uL (0.0-1.1) Eosinophils # (Auto) 0.0 x10^3/uL (0.0-0.7) Basophils # (Auto) 0.0 x10^3/uL (0.0-0.2) Prothrombin Time 19.1 SEC (11.7-14.0) Prothromb Time International Ratio 1.6 (0.8-1.1) Sodium Level 144 mmol/L (136-145) Potassium Level 3.8 mmol/L (3.5-5.1) Chloride Level 107 mmol/L (98-107) Carbon Dioxide Level 29 mmol/L (21-32) Anion Gap 8 (6-14) Blood Urea Nitrogen 12 mg/dL (7-20) Creatinine 0.7 mg/dL (0.6-1.0) Estimated GFR (Cockcroft-Gault) 84.8 BUN/Creatinine Ratio 17 (6-20) Glucose Level 119 mg/dL (70-99) Calcium Level 7.7 mg/dL (8.5-10.1) Total Bilirubin 0.6 mg/dL (0.2-1.0) Aspartate Amino Transf (AST/SGOT) 40 U/L (15-37) Alanine Aminotransferase (ALT/SGPT) 50 U/L (14-59) Alkaline Phosphatase 86 U/L (46-116) Troponin I Quantitative 0.020 ng/mL (0.000-0.055) Total Protein 4.6 g/dL (6.4-8.2) Albumin 2.3 g/dL (3.4-5.0) Albumin/Globulin Ratio 1.0 (1.0-1.7) O2 Saturation 91 % (92-99) Arterial Blood pH 7.36 (7.35-7.45) Arterial Blood pCO2 at Patient Temp 46 mmHg (35-46) Arterial Blood pO2 at Patient Temp 64 mmHg (65-108) Arterial Blood HCO3 25 mmol/L (21-28) Arterial Blood Base Excess 0 mmol/L (-3-3) FiO2 3l nc Laboratory Tests Test 11/05/19 12:02 11/05/19 16:45 11/05/19 16:50 11/05/19 19:49 Glucose (Fingerstick) 139 mg/dL (70-99) 145 mg/dL (70-99) 152 mg/dL (70-99) Hemoglobin 8.9 g/dL (12.0-15.5) Hematocrit 25.7 % (36.0-47.0) Mean Corpuscular Hemoglobin Concent 35 g/dL (31-37) Test 11/06/19 06:15 11/06/19 07:43 11/06/19 08:35 White Blood Count 5.7 x10^3/uL (4.0-11.0) Red Blood Count 2.56 x10^6/uL (3.50-5.40) Hemoglobin 8.2 g/dL (12.0-15.5) Hematocrit 23.9 % (36.0-47.0) Mean Corpuscular Volume 93 fL (79-100) Mean Corpuscular Hemoglobin 32 pg (25-35) Mean Corpuscular Hemoglobin Concent 35 g/dL (31-37) Red Cell Distribution Width 15.5 % (11.5-14.5) Platelet Count 146 x10^3/uL (140-400) Neutrophils (%) (Auto) 60 % (31-73) Lymphocytes (%) (Auto) 29 % (24-48) Monocytes (%) (Auto) 10 % (0-9) Eosinophils (%) (Auto) 1 % (0-3) Basophils (%) (Auto) 0 % (0-3) Neutrophils # (Auto) 3.4 x10^3/uL (1.8-7.7) Lymphocytes # (Auto) 1.7 x10^3/uL (1.0-4.8) Monocytes # (Auto) 0.5 x10^3/uL (0.0-1.1) Eosinophils # (Auto) 0.0 x10^3/uL (0.0-0.7) Basophils # (Auto) 0.0 x10^3/uL (0.0-0.2) Prothrombin Time 19.1 SEC (11.7-14.0) Prothromb Time International Ratio 1.6 (0.8-1.1) Sodium Level 144 mmol/L (136-145) Potassium Level 3.8 mmol/L (3.5-5.1) Chloride Level 107 mmol/L (98-107) Carbon Dioxide Level 29 mmol/L (21-32) Anion Gap 8 (6-14) Blood Urea Nitrogen 12 mg/dL (7-20) Creatinine 0.7 mg/dL (0.6-1.0) Estimated GFR (Cockcroft-Gault) 84.8 BUN/Creatinine Ratio 17 (6-20) Glucose Level 119 mg/dL (70-99) Calcium Level 7.7 mg/dL (8.5-10.1) Total Bilirubin 0.6 mg/dL (0.2-1.0) Aspartate Amino Transf (AST/SGOT) 40 U/L (15-37) Alanine Aminotransferase (ALT/SGPT) 50 U/L (14-59) Alkaline Phosphatase 86 U/L (46-116) Troponin I Quantitative 0.020 ng/mL (0.000-0.055) Total Protein 4.6 g/dL (6.4-8.2) Albumin 2.3 g/dL (3.4-5.0) Albumin/Globulin Ratio 1.0 (1.0-1.7) Glucose (Fingerstick) 116 mg/dL (70-99) O2 Saturation 91 % (92-99) Arterial Blood pH 7.36 (7.35-7.45) Arterial Blood pCO2 at Patient Temp 46 mmHg (35-46) Arterial Blood pO2 at Patient Temp 64 mmHg (65-108) Arterial Blood HCO3 25 mmol/L (21-28) Arterial Blood Base Excess 0 mmol/L (-3-3) FiO2 3l nc Medications Active Scripts Medications Dose Route/Sig Max Daily Dose Days Date Category [place] 10-325 Tablet (Acetaminophen/Hydrocodone Bitart) 1 Each Tablet 7.5 Mg PO BID 11/01/19 Reported Gabapentin 800 Mg Tablet 900 Mg PO TID 11/01/19 Reported Alprazolam 0.25 Mg Tablet 1 Tab PO DAILY 11/01/19 Reported Symbicort 160-4.5 Mcg Inhaler (Budesonide/Formoterol Fumarate) 10.2 Gm Hfa.aer.ad 2 Puff IH BID 11/01/19 Reported Tramadol HCl 100 Mg Tablet 50 Mg PO PRN 11/01/19 Reported Coreg (Carvedilol) 25 Mg Tablet 25 Mg PO DAILY 11/01/19 Reported Advair 100-50 Diskus (Fluticasone/Salmeterol) 1 Each Disk.w.dev 1 Puff IH BID 02/26/16 Reported Symbicort 160-4.5 Mcg Inhaler (Budesonide/Formoterol Fumarate) 10.2 Gm Hfa.aer.ad 2 Puff IH BID 02/26/16 Reported Centrum Silver Women Tablet (Multivits-Min/Iron/FA/Lutein) 1 Each Tablet 1 Each PO 02/26/16 Reported Tizanidine Hcl 4 Mg Tablet 1 Tab PO QHS 02/26/16 Reported Comments cxr reviewed no infilt Impression . 1. Dyspnea with acute hypoxic respiratory failure secondary to combination of acute pulmonary embolism and chronic obstructive pulmonary disease with exacerbation. suspect worsening is due to ae of copd and bronchospasm, will add steroid 2. Status post fall with right hip fracture, s/p surgery. 3. Long history of tobaccoism and on and off on steroids since age 21. Just quit tobacco a day before hospitalization. Suspect underlying chronic obstructive pulmonary disease, 4. Acute pulmonary embolism. Risk factors being immobility. No known cancers. Not on any estrogen or hormonal pills. May benefit from a hypercoagulable workup as an outpatient. 5. Post -op anemia Plan . 1. cont bipap prn during day, cont at night. 02 titration 2. DuoNeb /Pulmicort. 3. add solumedrol. use bipap prn during day, cont at night 4. Monitor fever. resolved. on empiric antibiotic.11/01 5. Follow orthopedic recommendations. 6. back on Eliquis by primary monitor h/h 7. Discussed with RN, pt 8. repeat VQ in 4-6 weeks CHARI FREEMAN MD November 06, 2019 11:55
[2019-11-06] MEDS: methylPREDNISolone SOD SUCC PF 40 MG/ML VIAL. IV SCH ×2 (12:20→21:34)
--- NOTE | 2019-11-06 14:45 | EKG ---
[facility] [address] [place] [address] Test Date: 2019-11-06 Test Time: 08:38:18 Pat Name: STONE PAVON Department: Room: 271 1 Gender: F [employer] Captain: : 1955 Requested By: ABDULAZIZ WILD Order Number: [id number] Reading MD: Jeff Rivers MD Measurements Intervals [place] Rate: 127 P: 56 HI: 134 QRS: 100 QRSD: 74 T: 47 QT: 284 QTc: 418 Interpretive Statements SINUS TACHYCARDIA NON-SPECIFIC ST/T CHANGES Electronically Signed On 11-07-2019 12:22:45 CDT by Jeff Rivers MD
[2019-11-06] MEDS: traMADol 50 MG TABLET PO PRN (20:12)
[2019-11-06] MEDS: INSULIN GLARGINE SYRINGE. SQ SCH (21:29)
[2019-11-06] MEDS: tiZANidine 4 MG TABLET. PO SCH (21:35)
[2019-11-07] VITALS (13 sets, daily range): BP systolic 138–171; BP diastolic 56–78
[2019-11-07] MEDS: HYDROcodone/APAP 5/325MG 1 TAB TABLET PO PRN ×3 (00:56→15:47)
[2019-11-07] MEDS: IPRATRPIUM/ALBUTEROL 0.5/2.5MG 3 ML NEBU. NEB SCH ×5 (04:40→19:36)
[2019-11-07 04:52] LABS: HEMATOCRIT 23.9 % (36.0-47.0); HEMOGLOBIN 8.4 g/dL (12.0-15.5); RED BLOOD COUNT 2.58 x10^6/uL (3.50-5.40); RED CELL DISTRIBUTION WIDTH 15.1 % (11.5-14.5); WHITE BLOOD COUNT 7.8 x10^3/uL (4.0-11.0)
[2019-11-07] MEDS: traMADol 50 MG TABLET PO PRN ×2 (05:00→14:15)
[2019-11-07] MEDS: PANTOPRAZOLE IV PUSH 40 MG VIAL. IVP SCH ×2 (07:30→08:36)
[2019-11-07] MEDS: IV NORMAL SALINE 1000ML BAG 1,000 ML IV SCH ×2 (07:46→22:03)
[2019-11-07] MEDS ORDERED: POLYVINYL ALCOHOL 1.4% OPHTH SOLUTION 15ML BOTTLE. OU PRN (08:00)
[2019-11-07] MEDS: BUDESONIDE 0.5 MG/2 ML NEBU. NEB SCH ×3 (08:05→19:36)
[2019-11-07] MEDS: HYDROcodone/APAP 7.5/325MG 1 TAB TABLET PO SCH ×2 (08:33→21:50)
[2019-11-07] MEDS: CARVEDILOL 12.5 MG TABLET. PO SCH (08:34)
[2019-11-07] MEDS: ALPRAZolam 0.25 MG TABLET PO SCH (08:34)
[2019-11-07] MEDS: LACTOBACILLUS RHAMNOSUS GG 1 CAPSULE. PO SCH ×2 (08:34→21:51)
[2019-11-07] MEDS: GABAPENTIN 300 MG CAPSULE. PO SCH ×3 (08:34→21:52)
[2019-11-07] MEDS: APIXABAN 5 MG TABLET. PO SCH ×2 (08:35→21:52)
[2019-11-07] MEDS: methylPREDNISolone SOD SUCC PF 40 MG/ML VIAL. IV SCH ×2 (08:35→21:53)
[2019-11-07] MEDS: NICOTINE 21MG PATCH. TD SCH (08:36)
[2019-11-07] MEDS: DOXYCYCLINE HYCLATE 100 MG in IV DEXTROSE 5% 100ML 100 ML IV SCH ×2 (08:36→21:53)
[2019-11-07] MEDS: INSULIN LISPRO 300 UNITS/3 ML VIAL. SQ SCH ×4 (08:51→22:00)
--- NOTE | 2019-11-07 11:17 | PDOC ---
[employer] PROGRESS NOTE Chief Complaint Chief Complaint Displaced right intertrochanteric fracture Severe COPD WITH HYPOXIC RESP FAILURE DM2 with HYPERGLYCEMIA Elevated d- dimer - PE Bronchitis Tobacco abuse disorder Thrombocytopenia Acute anemia Left Achilles tendon pain History of Present Illness History of Present Illness 11/07/2019 Patient seen and examined in the ICU Chart reviewed Discussed with RN Patient complains of left Achilles tendon pain Consulted Dr. Braun Patient on O2 per nasal cannula and getting nebulizers Ms Bañuelos is a 64 yo F w/ PMHx HTN, HLD, smoker who presented to the hospital after she slipped and fell and suffered right hip fracture. With SOB and incre ased HR and d dimer she underwent VQ scan and noted a large mismatch defect within the right upper lobe. There is also additional moderate perfusion defect within the left posterior lower lobe as well as smaller perfusion defects bilaterally. The patient was started on heparin. Venous Dopplers did not reveal any definite clots. 11/01: Patient on heparin 11/02: s/p ORIF displaced intertrochanteric subtrochanteric right hip fracture with long intramedullary nail this morning. Back on heparin GTT. She is upset about glucose checks. Advised hemoglobin A1c has been ordered. Counseled on smoking cessation. No CP or SOB. Postop pain. 11/03: A1c 7.4. Platelets 117 from 179. Hb 7.2. Counseled on DM2 she is frustrated but amenable to insulin therapy and outpatient oral hypoglycemic agents. D/w pulmonology to change to Eliquis 10 mg twice daily for 7 days and then 5 mg twice daily thereafter for her pulmonary embolism. 11/04: Afebrile overnight, Hb 6.3, platelets 125. Glucose controlled. No CP. She is anxious about a blood transfusion, anxious about her new diagnosis of diabetes. She is asking for a shower, she is amenable to having her Falcon catheter removed today. Hip pain is reasonably controlled. Afebrile overnight. Posttransfusion hemoglobin 8.9. This morning with very elevated BP 211/81, still on 3 L NC O2, very short of breath. Plethora noted, in obvious respiratory distress. Rapid response called. CXR unchanged. ABG pH 7.36/ PCO2 46/ PO2 64. Hydralazine 10mg IV given for BP. Given 125mg solumedrol and 25mg benadryl. Vasotec 1.25mg ordered for BP 240/96. EKG sinus tachycardia Placed on 05/12 BiPAP at 35% FiO2 and rate 12bpm with patient increasingly comfortable. Transferred to ICU with nursing staff and RT. CC time 73 minutes Vitals/I&O Vitals/I&O: Vital Signs Date Time Temp Pulse Resp B/P (MAP) Pulse Ox O2 Delivery O2 Flow Rate FiO2 11/07/19 08:34 100 166/67 11/07/19 08:22 98.3 98.3 11/07/19 08:20 41 96 Nasal Cannula 2.0 I & O 11/06/19 11/06/19 11/07/19 15:00 23:00 07:00 Intake Total 100 ml 400 ml Output Total 875 ml 400 ml Balance 100 ml -475 ml -400 ml Physical Exam General: Alert, Oriented X3, Cooperative, mild distress Heart: Regular rate Lungs: Wheezing, Other (deminshed bs) Abdomen: Normal bowel sounds, Soft Extremities: No cyanosis, No edema, Other (Left lower extremity externally rotated right lower extremity internally rotated) Skin: No rashes Labs Labs: Laboratory Tests Test 11/06/19 12:12 11/06/19 16:20 11/06/19 21:27 11/07/19 04:40 Glucose (Fingerstick) 164 mg/dL (70-99) 234 mg/dL (70-99) 214 mg/dL (70-99) White Blood Count 7.8 x10^3/uL (4.0-11.0) Red Blood Count 2.58 x10^6/uL (3.50-5.40) Hemoglobin 8.4 g/dL (12.0-15.5) Hematocrit 23.9 % (36.0-47.0) Mean Corpuscular Volume 93 fL (79-100) Mean Corpuscular Hemoglobin 33 pg (25-35) Mean Corpuscular Hemoglobin Concent 35 g/dL (31-37) Red Cell Distribution Width 15.1 % (11.5-14.5) Platelet Count 171 x10^3/uL (140-400) Prothrombin Time 18.0 SEC (11.7-14.0) Prothromb Time International Ratio 1.5 (0.8-1.1) Test 11/07/19 08:18 Glucose (Fingerstick) 213 mg/dL (70-99) Assessment and Plan Assessmemt and Plan Problems Medical Problems: (1) COPD (chronic obstructive pulmonary disease) Status: Acute (2) Displaced intertrochanteric fracture of right femur Status: Acute (3) Hypoxia Status: Acute Displaced right intertrochanteric fracture - 11/02: ORIF displaced intertrochanteric subtrochanteric right hip fracture with long intramedullary nail Severe COPD WITH HYPOXIC RESP FAILURE DM2 with HYPERGLYCEMIA - A1c returned 7.4. Basal bolus plus insulin ordered Elevated d- dimer - PE High probability for pulmonary embolic disease. by V/Q - eliquis Bronchitis - nebs + doxycycline. Pulm consulted Tobacco abuse disorder Thrombocytopenia Acute anemia - required transfusion. Left Achilles tendon pain will consult Dr. Sepideh st DVT prophylaxis Trend labs Appreciate subspecialist input Comment Review of Relevant I have reviewed the following items renee (where applicable) has been applied. Medications: Current Medications Medications (Trade) Dose Ordered Sig/Lucía Route PRN Reason Start Time Stop Time Status Last Admin Dose Admin Methylprednisolone Sodium Succinate (SOLU-Medrol 40MG VIAL) 40 mg Q12HR IV 11/06/19 12:00 11/07/19 08:35 Artificial Tears (Artificial Tears) 1 drop PRN Q15MIN PRN OU DRY EYE 11/07/19 08:00 11/07/19 08:33 Justicifation of Admission Dx: Justifications for Admission: Justification of Admission Dx: Yes CHF: Hemodynamic Instability Respiratory Failure: Airway Obstruction VJ CALLAHAN III DO Nov 07, 2019 11:16
--- NOTE | 2019-11-07 12:45 | NUR ---
SS following for discharge planning. SS reviewed pt chart and discussed with pt RN. Pt's sister notified SS that they would like pt to go to [facility], ; fax [phone]. SS phoned and faxed referral. Pt accepted pending insurance authorization. Pt had rapid last night and was transferred to CVICU. Per RN, pt should transfer back up today. SS will continue to follow for discharge planning.
--- NOTE | 2019-11-07 13:40 | PDOC ---
PULMONARY PROGRESS NOTES Subjective s/p hip surgery transferred to icu due to resp distress,used BIPAP, much better now Vitals Vital Signs Date Time Temp Pulse Resp B/P (MAP) Pulse Ox O2 Delivery O2 Flow Rate FiO2 11/07/19 11:55 97 Nasal Cannula 3.0 11/07/19 11:00 100 18 161/67 (98) 11/07/19 08:22 98.3 98.3 Comments ros as mentioned as above other sys otherwise neg ROS: No Nausea General: Alert, Mild Distress HEENT: Other (nc at perrl nose throat clear neck no lad no thyromegaly) Lungs: Other (deminshed bs) Cardiovascular: S1, S2 Abdomen: Soft, Non-tender, Other (no mass) Neuro Exam: Alert, Oriented Extremities: No Edema Skin: Warm Labs Laboratory Tests Test 11/05/19 16:45 11/05/19 16:50 11/05/19 19:49 11/06/19 06:15 Hemoglobin 8.9 g/dL (12.0-15.5) 8.2 g/dL (12.0-15.5) Hematocrit 25.7 % (36.0-47.0) 23.9 % (36.0-47.0) Mean Corpuscular Hemoglobin Concent 35 g/dL (31-37) 35 g/dL (31-37) Glucose (Fingerstick) 145 mg/dL (70-99) 152 mg/dL (70-99) White Blood Count 5.7 x10^3/uL (4.0-11.0) Red Blood Count 2.56 x10^6/uL (3.50-5.40) Mean Corpuscular Volume 93 fL (79-100) Mean Corpuscular Hemoglobin 32 pg (25-35) Red Cell Distribution Width 15.5 % (11.5-14.5) Platelet Count 146 x10^3/uL (140-400) Neutrophils (%) (Auto) 60 % (31-73) Lymphocytes (%) (Auto) 29 % (24-48) Monocytes (%) (Auto) 10 % (0-9) Eosinophils (%) (Auto) 1 % (0-3) Basophils (%) (Auto) 0 % (0-3) Neutrophils # (Auto) 3.4 x10^3/uL (1.8-7.7) Lymphocytes # (Auto) 1.7 x10^3/uL (1.0-4.8) Monocytes # (Auto) 0.5 x10^3/uL (0.0-1.1) Eosinophils # (Auto) 0.0 x10^3/uL (0.0-0.7) Basophils # (Auto) 0.0 x10^3/uL (0.0-0.2) Prothrombin Time 19.1 SEC (11.7-14.0) Prothromb Time International Ratio 1.6 (0.8-1.1) Sodium Level 144 mmol/L (136-145) Potassium Level 3.8 mmol/L (3.5-5.1) Chloride Level 107 mmol/L (98-107) Carbon Dioxide Level 29 mmol/L (21-32) Anion Gap 8 (6-14) Blood Urea Nitrogen 12 mg/dL (7-20) Creatinine 0.7 mg/dL (0.6-1.0) Estimated GFR (Cockcroft-Gault) 84.8 BUN/Creatinine Ratio 17 (6-20) Glucose Level 119 mg/dL (70-99) Calcium Level 7.7 mg/dL (8.5-10.1) Total Bilirubin 0.6 mg/dL (0.2-1.0) Aspartate Amino Transf (AST/SGOT) 40 U/L (15-37) Alanine Aminotransferase (ALT/SGPT) 50 U/L (14-59) Alkaline Phosphatase 86 U/L (46-116) Troponin I Quantitative 0.020 ng/mL (0.000-0.055) Total Protein 4.6 g/dL (6.4-8.2) Albumin 2.3 g/dL (3.4-5.0) Albumin/Globulin Ratio 1.0 (1.0-1.7) Test 11/06/19 07:43 11/06/19 08:35 11/06/19 12:12 11/06/19 16:20 Glucose (Fingerstick) 116 mg/dL (70-99) 164 mg/dL (70-99) 234 mg/dL (70-99) O2 Saturation 91 % (92-99) Arterial Blood pH 7.36 (7.35-7.45) Arterial Blood pCO2 at Patient Temp 46 mmHg (35-46) Arterial Blood pO2 at Patient Temp 64 mmHg (65-108) Arterial Blood HCO3 25 mmol/L (21-28) Arterial Blood Base Excess 0 mmol/L (-3-3) FiO2 3l nc Test 11/06/19 21:27 11/07/19 04:40 11/07/19 08:18 11/07/19 12:23 Glucose (Fingerstick) 214 mg/dL (70-99) 213 mg/dL (70-99) 209 mg/dL (70-99) White Blood Count 7.8 x10^3/uL (4.0-11.0) Red Blood Count 2.58 x10^6/uL (3.50-5.40) Hemoglobin 8.4 g/dL (12.0-15.5) Hematocrit 23.9 % (36.0-47.0) Mean Corpuscular Volume 93 fL (79-100) Mean Corpuscular Hemoglobin 33 pg (25-35) Mean Corpuscular Hemoglobin Concent 35 g/dL (31-37) Red Cell Distribution Width 15.1 % (11.5-14.5) Platelet Count 171 x10^3/uL (140-400) Prothrombin Time 18.0 SEC (11.7-14.0) Prothromb Time International Ratio 1.5 (0.8-1.1) Laboratory Tests Test 11/06/19 16:20 11/06/19 21:27 11/07/19 04:40 11/07/19 08:18 Glucose (Fingerstick) 234 mg/dL (70-99) 214 mg/dL (70-99) 213 mg/dL (70-99) White Blood Count 7.8 x10^3/uL (4.0-11.0) Red Blood Count 2.58 x10^6/uL (3.50-5.40) Hemoglobin 8.4 g/dL (12.0-15.5) Hematocrit 23.9 % (36.0-47.0) Mean Corpuscular Volume 93 fL (79-100) Mean Corpuscular Hemoglobin 33 pg (25-35) Mean Corpuscular Hemoglobin Concent 35 g/dL (31-37) Red Cell Distribution Width 15.1 % (11.5-14.5) Platelet Count 171 x10^3/uL (140-400) Prothrombin Time 18.0 SEC (11.7-14.0) Prothromb Time International Ratio 1.5 (0.8-1.1) Test 11/07/19 12:23 Glucose (Fingerstick) 209 mg/dL (70-99) Medications Active Scripts Medications Dose Route/Sig Max Daily Dose Days Date Category [place] 10-325 Tablet (Acetaminophen/Hydrocodone Bitart) 1 Each Tablet 7.5 Mg PO BID 11/01/19 Reported Gabapentin 800 Mg Tablet 900 Mg PO TID 11/01/19 Reported Alprazolam 0.25 Mg Tablet 1 Tab PO DAILY 11/01/19 Reported Symbicort 160-4.5 Mcg Inhaler (Budesonide/Formoterol Fumarate) 10.2 Gm Hfa.aer.ad 2 Puff IH BID 11/01/19 Reported Tramadol HCl 100 Mg Tablet 50 Mg PO PRN 11/01/19 Reported Coreg (Carvedilol) 25 Mg Tablet 25 Mg PO DAILY 11/01/19 Reported Advair 100-50 Diskus (Fluticasone/Salmeterol) 1 Each Disk.w.dev 1 Puff IH BID 02/26/16 Reported Symbicort 160-4.5 Mcg Inhaler (Budesonide/Formoterol Fumarate) 10.2 Gm Hfa.aer.ad 2 Puff IH BID 02/26/16 Reported Centrum Silver Women Tablet (Multivits-Min/Iron/FA/Lutein) 1 Each Tablet 1 Each PO 02/26/16 Reported Tizanidine Hcl 4 Mg Tablet 1 Tab PO QHS 02/26/16 Reported Comments cxr reviewed no infilt Impression . 1. Dyspnea with acute hypoxic respiratory failure secondary to combination of acute pulmonary embolism and chronic obstructive pulmonary disease with exacerbation. suspect worsening is due to ae of copd and bronchospasm, on steroid 2. Status post fall with right hip fracture, s/p surgery. 3. Long history of tobaccoism and on and off on steroids since age 21. Just quit tobacco a day before hospitalization. Suspect underlying chronic obstructive pulmonary disease, 4. Acute pulmonary embolism. Risk factors being immobility. No known cancers. Not on any estrogen or hormonal pills. May benefit from a hypercoagulable workup as an outpatient. 5. Post -op anemia Plan . 1. off bipap. will use prn during day, cont at night. 02 titration 2. DuoNeb /Pulmicort. 3. solumedrol. 4. Monitor fever. resolved. on empiric antibiotic.11/01 5. Follow orthopedic recommendations. 6. back on Eliquis by primary monitor h/h 7. Discussed with RN, pt 8. repeat VQ in 4-6 weeks EVELYN HART MD Nov 07, 2019 13:39
[2019-11-07] MEDS: HYDROmorphone 2 MG/ML VIAL IV PRN (17:35)
--- NOTE | 2019-11-07 18:00 | NUR ---
Report given to WANDA Parker. pt transferred to room 428.
[2019-11-07] MEDS: diphenhydrAMINE HCL 25 MG CAPSULE PO PRN (21:51)
[2019-11-07] MEDS: tiZANidine 4 MG TABLET. PO SCH (21:52)
[2019-11-07] MEDS: INSULIN GLARGINE SYRINGE. SQ SCH (22:03)
[2019-11-08 03:00] VITALS: BP 138/68
[2019-11-08] MEDS: IPRATRPIUM/ALBUTEROL 0.5/2.5MG 3 ML NEBU. NEB SCH ×6 (04:30→15:36)
[2019-11-08] MEDS: HYDROcodone/APAP 5/325MG 1 TAB TABLET PO PRN ×2 (06:40→14:31)
[2019-11-08 07:00] VITALS: BP 152/67
[2019-11-08 07:22] LABS: BASO % 0 % (0-3); EOS % 0 % (0-3); HEMATOCRIT 25.2 % (36.0-47.0); HEMOGLOBIN 8.4 g/dL (12.0-15.5); LYMPH # 0.9 x10^3/uL (1.0-4.8); LYMPH % 9 % (24-48); MEAN CORPUSCULAR HEMOGLOBIN 32 pg (25-35); MEAN CORPUSCULAR HGB CONC 34 g/dL (31-37); MEAN CORPUSCULAR VOLUME 94 fL (79-100); MONO # 0.6 x10^3/uL (0.0-1.1); MONO % 6 % (0-9); NEUT # 8.7 x10^3/uL (1.8-7.7); NEUT % 85 % (31-73); PLATELET COUNT 224 x10^3/uL (140-400); RED BLOOD COUNT 2.67 x10^6/uL (3.50-5.40); RED CELL DISTRIBUTION WIDTH 15.3 % (11.5-14.5); WHITE BLOOD COUNT 10.3 x10^3/uL (4.0-11.0)
[2019-11-08] MEDS: PANTOPRAZOLE IV PUSH 40 MG VIAL. IVP SCH (07:30)
[2019-11-08] MEDS: BUDESONIDE 0.5 MG/2 ML NEBU. NEB SCH (07:32)
[2019-11-08 07:33] LABS: PROTHROMBIN TIME PATIENT 15.3 SEC (11.7-14.0)
[2019-11-08 08:01] LABS: % BANDS 2 % (0-9); % LYMPHS 13 % (24-48); % MONOS 4 % (0-10); % SEGS 81 % (35-66); PLT ESTIMATE ADEQUATE (ADEQUATE)
[2019-11-08] MEDS: APIXABAN 5 MG TABLET. PO SCH (08:30)
[2019-11-08] MEDS: LACTOBACILLUS RHAMNOSUS GG 1 CAPSULE. PO SCH (08:30)
[2019-11-08] MEDS: GABAPENTIN 300 MG CAPSULE. PO SCH ×2 (08:30→14:31)
[2019-11-08] MEDS: ALPRAZolam 0.25 MG TABLET PO SCH (08:30)
[2019-11-08] MEDS: HYDROcodone/APAP 7.5/325MG 1 TAB TABLET PO SCH (08:30)
[2019-11-08] MEDS: NICOTINE 21MG PATCH. TD SCH (08:31)
[2019-11-08] MEDS: CARVEDILOL 12.5 MG TABLET. PO SCH (08:31)
[2019-11-08] MEDS: methylPREDNISolone SOD SUCC PF 40 MG/ML VIAL. IV SCH (08:31)
[2019-11-08] MEDS: IV NORMAL SALINE 1000ML BAG 1,000 ML IV SCH (08:32)
[2019-11-08] MEDS: DOXYCYCLINE HYCLATE 100 MG in IV DEXTROSE 5% 100ML 100 ML IV SCH (08:32)
[2019-11-08] MEDS: INSULIN LISPRO 300 UNITS/3 ML VIAL. SQ SCH ×2 (08:37→12:17)
[2019-11-08 10:42] VITALS: BP 149/68
--- NOTE | 2019-11-08 11:21 | PDOC ---
PROGRESS NOTES Chief Complaint Chief Complaint DISCHARGE DX Displaced right intertrochanteric fracture Severe COPD WITH HYPOXIC RESP FAILURE DM2 with HYPERGLYCEMIA Elevated d- dimer - PE Bronchitis Tobacco abuse disorder Thrombocytopenia Acute anemia Left Achilles tendon pain 11/07 ok to d/c today per dr sánchez D/W RN D/C PLANNING 34 MIN History of Present Illness History of Present Illness 11/08/2019 Patient seen and examined Chart reviewed Discussed with RN Patient complains of left Achilles tendon pain Consulted Dr. Braun Patient on O2 per nasal cannula and getting nebulizers Ms Bañuelos is a 64 yo F w/ PMHx HTN, HLD, smoker who presented to the hospital a fter she slipped and fell and suffered right hip fracture. With SOB and increased HR and d dimer she underwent VQ scan and noted a large mismatch defect within the right upper lobe. There is also additional moderate perfusion defect within the left posterior lower lobe as well as smaller perfusion defects bilaterally. The patient was started on heparin. Venous Dopplers did not reveal any definite clots. 11/01: Patient on heparin 11/02: s/p ORIF displaced intertrochanteric subtrochanteric right hip fracture with long intramedullary nail this morning. Back on heparin GTT. She is upset about glucose checks. Advised hemoglobin A1c has been ordered. Counseled on smoking cessation. No CP or SOB. Postop pain. 11/03: A1c 7.4. Platelets 117 from 179. Hb 7.2. Counseled on DM2 she is frustrated but amenable to insulin therapy and outpatient oral hypoglycemic agents. D/w pulmonology to change to Eliquis 10 mg twice daily for 7 days and then 5 mg twice daily thereafter for her pulmonary embolism. 11/04: Afebrile overnight, Hb 6.3, platelets 125. Glucose controlled. No CP. She is anxious about a blood transfusion, anxious about her new diagnosis of diabetes. She is asking for a shower, she is amenable to having her Falcon catheter removed today. Hip pain is reasonably controlled. Afebrile overnight. Posttransfusion hemoglobin 8.9. This morning with very elevated BP 211/81, still on 3 L NC O2, very short of breath. Plethora noted, in obvious respiratory distress. Rapid response called. CXR unchanged. ABG pH 7.36/ PCO2 46/ PO2 64. Hydralazine 10mg IV given for BP. Given 125mg solumedrol and 25mg benadryl. Vasotec 1.25mg ordered for BP 240/96. EKG sinus tachycardia Placed on 12/5 BiPAP at 35% FiO2 and rate 12bpm with patient increasingly comfortable. Transferred to ICU with nursing staff and RT. CC time 73 minutes Vitals Vitals Vital Signs Date Time Temp Pulse Resp B/P (MAP) Pulse Ox O2 Delivery O2 Flow Rate FiO2 11/08/19 10:42 97.9 78 18 149/68 (95) 98 Nasal Cannula 3.0 97.9 Physical Exam General: Alert, Oriented X3, Cooperative, No acute distress Heart: Regular rate, Normal S1, Normal S2 Lungs: Other (deminshed bs) Abdomen: Normal bowel sounds, Soft Extremities: No clubbing, No cyanosis, No edema, Other (Left lower extremity externally rotated right lower extremity internally rotated) Skin: No rashes Labs LABS Laboratory Tests Test 11/07/19 12:23 11/07/19 16:38 11/07/19 21:18 11/08/19 06:25 Glucose (Fingerstick) 209 mg/dL (70-99) 178 mg/dL (70-99) 228 mg/dL (70-99) White Blood Count 10.3 x10^3/uL (4.0-11.0) Red Blood Count 2.67 x10^6/uL (3.50-5.40) Hemoglobin 8.4 g/dL (12.0-15.5) Hematocrit 25.2 % (36.0-47.0) Mean Corpuscular Volume 94 fL (79-100) Mean Corpuscular Hemoglobin 32 pg (25-35) Mean Corpuscular Hemoglobin Concent 34 g/dL (31-37) Red Cell Distribution Width 15.3 % (11.5-14.5) Platelet Count 224 x10^3/uL (140-400) Neutrophils (%) (Auto) 85 % (31-73) Lymphocytes (%) (Auto) 9 % (24-48) Monocytes (%) (Auto) 6 % (0-9) Eosinophils (%) (Auto) 0 % (0-3) Basophils (%) (Auto) 0 % (0-3) Neutrophils # (Auto) 8.7 x10^3/uL (1.8-7.7) Lymphocytes # (Auto) 0.9 x10^3/uL (1.0-4.8) Monocytes # (Auto) 0.6 x10^3/uL (0.0-1.1) Eosinophils # (Auto) 0.0 x10^3/uL (0.0-0.7) Basophils # (Auto) 0.0 x10^3/uL (0.0-0.2) Segmented Neutrophils % 81 % (35-66) Band Neutrophils % 2 % (0-9) Lymphocytes % 13 % (24-48) Monocytes % 4 % (0-10) Platelet Estimate Adequate (ADEQUATE) Prothrombin Time 15.3 SEC (11.7-14.0) Prothromb Time International Ratio 1.3 (0.8-1.1) Test 11/08/19 07:21 11/08/19 07:51 Glucose (Fingerstick) 182 mg/dL (70-99) 195 mg/dL (70-99) Assessment and Plan Assessmemt and Plan Problems Medical Problems: (1) COPD (chronic obstructive pulmonary disease) Status: Acute (2) Displaced intertrochanteric fracture of right femur Status: Acute (3) Hypoxia Status: Acute Comment Review of Relevant I have reviewed the following items renee (where applicable) has been applied. Labs Laboratory Tests Test 11/06/19 12:12 11/06/19 16:20 11/06/19 21:27 11/07/19 04:40 Glucose (Fingerstick) 164 mg/dL (70-99) 234 mg/dL (70-99) 214 mg/dL (70-99) White Blood Count 7.8 x10^3/uL (4.0-11.0) Red Blood Count 2.58 x10^6/uL (3.50-5.40) Hemoglobin 8.4 g/dL (12.0-15.5) Hematocrit 23.9 % (36.0-47.0) Mean Corpuscular Volume 93 fL (79-100) Mean Corpuscular Hemoglobin 33 pg (25-35) Mean Corpuscular Hemoglobin Concent 35 g/dL (31-37) Red Cell Distribution Width 15.1 % (11.5-14.5) Platelet Count 171 x10^3/uL (140-400) Prothrombin Time 18.0 SEC (11.7-14.0) Prothromb Time International Ratio 1.5 (0.8-1.1) Test 11/07/19 08:18 11/07/19 12:23 11/07/19 16:38 11/07/19 21:18 Glucose (Fingerstick) 213 mg/dL (70-99) 209 mg/dL (70-99) 178 mg/dL (70-99) 228 mg/dL (70-99) Test 11/08/19 06:25 11/08/19 07:21 11/08/19 07:51 White Blood Count 10.3 x10^3/uL (4.0-11.0) Red Blood Count 2.67 x10^6/uL (3.50-5.40) Hemoglobin 8.4 g/dL (12.0-15.5) Hematocrit 25.2 % (36.0-47.0) Mean Corpuscular Volume 94 fL (79-100) Mean Corpuscular Hemoglobin 32 pg (25-35) Mean Corpuscular Hemoglobin Concent 34 g/dL (31-37) Red Cell Distribution Width 15.3 % (11.5-14.5) Platelet Count 224 x10^3/uL (140-400) Neutrophils (%) (Auto) 85 % (31-73) Lymphocytes (%) (Auto) 9 % (24-48) Monocytes (%) (Auto) 6 % (0-9) Eosinophils (%) (Auto) 0 % (0-3) Basophils (%) (Auto) 0 % (0-3) Neutrophils # (Auto) 8.7 x10^3/uL (1.8-7.7) Lymphocytes # (Auto) 0.9 x10^3/uL (1.0-4.8) Monocytes # (Auto) 0.6 x10^3/uL (0.0-1.1) Eosinophils # (Auto) 0.0 x10^3/uL (0.0-0.7) Basophils # (Auto) 0.0 x10^3/uL (0.0-0.2) Segmented Neutrophils % 81 % (35-66) Band Neutrophils % 2 % (0-9) Lymphocytes % 13 % (24-48) Monocytes % 4 % (0-10) Platelet Estimate Adequate (ADEQUATE) Prothrombin Time 15.3 SEC (11.7-14.0) Prothromb Time International Ratio 1.3 (0.8-1.1) Glucose (Fingerstick) 182 mg/dL (70-99) 195 mg/dL (70-99) Laboratory Tests Test 11/07/19 12:23 11/07/19 16:38 11/07/19 21:18 11/08/19 06:25 Glucose (Fingerstick) 209 mg/dL (70-99) 178 mg/dL (70-99) 228 mg/dL (70-99) White Blood Count 10.3 x10^3/uL (4.0-11.0) Red Blood Count 2.67 x10^6/uL (3.50-5.40) Hemoglobin 8.4 g/dL (12.0-15.5) Hematocrit 25.2 % (36.0-47.0) Mean Corpuscular Volume 94 fL (79-100) Mean Corpuscular Hemoglobin 32 pg (25-35) Mean Corpuscular Hemoglobin Concent 34 g/dL (31-37) Red Cell Distribution Width 15.3 % (11.5-14.5) Platelet Count 224 x10^3/uL (140-400) Neutrophils (%) (Auto) 85 % (31-73) Lymphocytes (%) (Auto) 9 % (24-48) Monocytes (%) (Auto) 6 % (0-9) Eosinophils (%) (Auto) 0 % (0-3) Basophils (%) (Auto) 0 % (0-3) Neutrophils # (Auto) 8.7 x10^3/uL (1.8-7.7) Lymphocytes # (Auto) 0.9 x10^3/uL (1.0-4.8) Monocytes # (Auto) 0.6 x10^3/uL (0.0-1.1) Eosinophils # (Auto) 0.0 x10^3/uL (0.0-0.7) Basophils # (Auto) 0.0 x10^3/uL (0.0-0.2) Segmented Neutrophils % 81 % (35-66) Band Neutrophils % 2 % (0-9) Lymphocytes % 13 % (24-48) Monocytes % 4 % (0-10) Platelet Estimate Adequate (ADEQUATE) Prothrombin Time 15.3 SEC (11.7-14.0) Prothromb Time International Ratio 1.3 (0.8-1.1) Test 11/08/19 07:21 11/08/19 07:51 Glucose (Fingerstick) 182 mg/dL (70-99) 195 mg/dL (70-99) Medications Current Medications Morphine Sulfate (Morphine Sulfate) 5 mg 1X ONCE IV Last administered on 11/01/19at 09:24; Start 11/01/19 at 09:30; Stop 11/01/19 at 09:31; Status DC Morphine Sulfate (Morphine Sulfate) 5 mg 1X ONCE IV Last administered on 11/01/19at 10:33; Start 11/01/19 at 10:30; Stop 11/01/19 at 10:31; Status DC Hydromorphone HCl (Dilaudid) 1 mg 1X ONCE IV Last administered on 11/01/19at 12:30; Start 11/01/19 at 12:30; Stop 11/01/19 at 12:31; Status DC Hydromorphone HCl (Dilaudid) 1 mg PRN Q3HRS PRN IV PAIN Last administered on 11/07/19at 17:35; Start 11/01/19 at 13:45 Enoxaparin Sodium (Lovenox 80mg Syringe) 70 mg Q12HR SQ ; Start 11/01/19 at 21:00; Stop 11/01/19 at 16:26; Status DC Ondansetron HCl (Zofran) 4 mg PRN Q4HRS PRN IVP NAUSEA/VOMITING Last administered on 11/01/19at 13:54; Start 11/01/19 at 13:45; Stop 11/02/19 at 12:52; Status DC Acetaminophen (Tylenol) 650 mg PRN Q6HRS PRN PO FEVER/HEADACHE Last administered on 11/01/19at 13:54; Start 11/01/19 at 13:45; Stop 11/02/19 at 09:56; Status DC Nicotine (Nicoderm Cq 21mg) 1 patch DAILY TD Last administered on 11/08/19at 08:31; Start 11/01/19 at 14:00 Acetaminophen/ Hydrocodone Bitart (Lortab 5/325) 1 tab PRN Q6HRS PRN PO SEVERE PAIN Last administered on 11/08/19at 06:40; Start 11/01/19 at 13:45 Lorazepam (Ativan) 1 mg TID PO Last administered on 11/01/19at 13:53; Start 11/01/19 at 14:00; Stop 11/01/19 at 17:22; Status DC Tizanidine HCl (Zanaflex) 4 mg QHS PO Last administered on 11/07/19at 21:52; Start 11/01/19 at 21:00 Trazodone HCl (Desyrel) 100 mg HS PO ; Start 11/01/19 at 21:00; Stop 11/01/19 at 17:22; Status DC Non-Formulary Medication (Budesonide/ Formoterol Fumarate (Symbicort 160-4.5 Mcg Inhaler)) 2 puff BID IH ; Start 11/01/19 at 21:00; Status UNV Non-Formulary Medication (Fluticasone/ Salmeterol (Advair 100-50 Diskus)) 1 puff BID IH ; Start 11/01/19 at 21:00; Status UNV Albuterol Sulfate (Ventolin Neb Soln) 2.5 mg Q6HRS NEB ; Start 11/01/19 at 14:00; Stop 11/01/19 at 20:35; Status DC Budesonide (Pulmicort) 0.5 mg RTBID NEB Last administered on 11/07/19at 08:05; Start 11/01/19 at 20:00; Stop 11/07/19 at 09:38; Status DC Sodium Chloride (Normal Saline Flush) 3 ml QSHIFT PRN IV AFTER MEDS AND BLOOD DRAWS; Start 11/01/19 at 14:30 Sodium Chloride 1,000 ml @ 80 mls/hr [id number] IV Last administered on 11/07/19at 22:03; Start 11/01/19 at 14:16 Ondansetron HCl (Zofran) 4 mg PRN Q4HRS PRN IV NAUSEA/VOMITING; Start 11/01/19 at 14:30; Stop 11/05/19 at 12:44; Status DC Zolpidem Tartrate (Ambien) 5 mg PRN QHS PRN PO INSOMNIA Last administered on 11/04/19at 22:09; Start 11/01/19 at 14:30; Stop 11/05/19 at 10:58; Status DC Acetaminophen (Tylenol) 650 mg PRN Q4HRS PRN PO TEMP OVER 100.4F OR MILD PAIN Last administered on 11/07/19at 23:48; Start 11/01/19 at 14:30 Al Hydroxide/Mg Hydroxide (Mylanta Plus Xs) 30 ml PRN DAILY PRN PO HEARTBURN / GAS; Start 11/01/19 at 14:30; Stop 11/04/19 at 04:31; Status DC Clonidine HCl (Catapres) 0.1 mg PRN Q6HRS PRN PO SBP>160 OR DBP>90 Last administered on 11/07/19at 23:44; Start 11/01/19 at 14:30 Sodium Monofluorophosphate (Fleet Adult) 133 ml PRN DAILY PRN OK CONSTIPATION; Start 11/01/19 at 14:30 Docusate Sodium (Colace) 100 mg PRN BID PRN PO HARD STOOLS; Start 11/01/19 at 14:30 Albuterol/ Ipratropium (Duoneb) 3 ml Q4H NEB Last administered on 11/08/19at 11:19; Start 11/01/19 at 14:30 Guaifenesin (Robitussin) 200 mg PRN Q4HRS PRN PO COUGH; Start 11/01/19 at 14:30 Enoxaparin Sodium (Lovenox 40mg Syringe) 40 mg Q24H SQ ; Start 11/01/19 at 14:30; Stop 11/01/19 at 14:22; Status DC Ondansetron HCl (Zofran) 4 mg PRN Q6HRS PRN IV NAUSEA/VOMITING; Start 11/02/19 at 07:00; Stop 11/03/19 at 06:59; Status DC Fentanyl Citrate (Fentanyl 2ml Vial) 25 mcg PRN Q5MIN PRN IV MILD PAIN 1-3 Last administered on 11/02/19at 09:04; Start 11/02/19 at 07:00; Stop 11/02/19 at 20:00; Status DC Fentanyl Citrate (Fentanyl 2ml Vial) 50 mcg PRN Q5MIN PRN IV MODERATE TO SEVERE PAIN; Start 11/02/19 at 07:00; Stop 11/02/19 at 20:00; Status DC Morphine Sulfate (Morphine Sulfate) 1 mg PRN Q10MIN PRN IV SEVERE PAIN 7-10; Start 11/02/19 at 07:00; Stop 11/02/19 at 20:00; Status DC Ringer's Solution 1,000 ml @ 30 mls/hr Q24H IV ; Start 11/02/19 at 07:00; Stop 11/02/19 at 18:59; Status DC Lidocaine HCl (Xylocaine-Mpf 1% 2ml Vial) 2 ml PRN 1X PRN ID PRIOR TO IV START; Start 11/02/19 at 07:00; Stop 11/02/19 at 20:00; Status DC Hydromorphone HCl (Dilaudid) 0.5 mg PRN Q10MIN PRN IV SEV PAIN, Second choice; Start 11/02/19 at 07:00; Stop 11/02/19 at 20:00; Status DC Prochlorperazine Edisylate (Compazine) 5 mg PACU PRN PRN IV NAUSEA, MRX1; Start 11/02/19 at 07:00; Stop 11/02/19 at 20:00; Status DC Hydralazine HCl (Apresoline Inj) 10 mg PRN Q4HRS PRN IVP ELEVATED BP, SEE COMMENTS Last administered on 11/01/19at 16:51; Start 11/01/19 at 14:30; Stop 11/02/19 at 12:53; Status DC Hydralazine HCl (Apresoline Inj) 10 mg PRN Q4HRS PRN IVP ELEVATED BP, SEE COMMENTS Last administered on 11/06/19at 16:11; Start 11/01/19 at 16:00; Stop 11/07/19 at 09:39; Status DC Heparin Sodium (Porcine) (Heparin Sodium) 4,800 unit 1X ONCE IV Last administered on 11/01/19at 17:04; Start 11/01/19 at 16:30; Stop 11/01/19 at 16:31; Status DC Heparin Sodium/ Dextrose 250 ml @ 9.568 mls/ hr CONT PRN IV PER PROTOCOL Last administered on 11/04/19at 08:50; Start 11/01/19 at 16:30; Stop 11/04/19 at 11:30; Status DC Heparin Sodium (Porcine) (Heparin Sodium) 1,800 unit PRN Q6HRS PRN IV FOR UFH LEVEL LESS THAN 0.2 Last administered on 11/04/19at 04:20; Start 11/01/19 at 16:30; Stop 11/04/19 at 11:37; Status DC Heparin Sodium (Porcine) (Heparin Sodium) 900 unit PRN Q6HRS PRN IV FOR UFH LEV EL 0.2 - 0.29; Start 11/01/19 at 16:30; Stop 11/04/19 at 11:37; Status DC Alprazolam (Xanax) 0.25 mg DAILY PO Last administered on 11/08/19at 08:30; Start 11/02/19 at 09:00 Acetaminophen/ Hydrocodone Bitart (Lortab 10/325) 7.5 tab BID PO ; Start 11/01/19 at 21:00; Status Cancel Carvedilol (Coreg) 25 mg DAILY PO ; Start 11/02/19 at 09:00; Stop 11/01/19 at 17:34; Status DC Gabapentin (Neurontin) 900 mg TID PO Last administered on 11/03/19at 13:07; Start 11/01/19 at 21:00; Stop 11/03/19 at 17:13; Status DC Non-Formulary Medication (Tramadol HCl ) 50 mg PRN PO ; Start 11/01/19 at 17:30; Stop 11/01/19 at 17:37; Status DC Carvedilol (Coreg) 25 mg DAILY PO Last administered on 11/08/19at 08:31; Start 11/01/19 at 17:45 Tramadol HCl (Ultram) 50 mg PRN BID PRN PO MODERATE PAIN Last administered on 11/07/19at 14:15; Start 11/01/19 at 17:45 Acetaminophen/ Hydrocodone Bitart (Lortab 7.5/325) 1 tab BID PO Last administered on 11/08/19at 08:30; Start 11/01/19 at 21:00 Albuterol Sulfate (Ventolin Neb Soln) 2.5 mg PRN Q6HRS PRN NEB WHEEZING; Start 11/01/19 at 20:45 Pantoprazole Sodium (PROTONIX VIAL for IV PUSH) 40 mg DAILYAC IVP Last administered on 11/04/19at 05:05; Start 11/02/19 at 07:30 Pantoprazole Sodium (PROTONIX VIAL for IV PUSH) 40 mg 1X ONCE IVP Last administered on 11/01/19at 23:06; Start 11/01/19 at 22:00; Stop 11/01/19 at 22:01; Status DC Doxycycline Hyclate 100 mg/ Dextrose 100 ml @ 50 mls/hr Q12HR IV Last administered on 11/08/19at 08:32; Start 11/02/19 at 10:00 Info (Anti-Coagulation Monitoring By Pharmacy) 1 each PRN DAILY PRN MC SEE COMMENTS; Start 11/02/19 at 10:00 Clindamycin Phosphate 50 ml @ As Directed STK-MED ONCE IV ; Start 11/03/19 at 06:54; Stop 11/03/19 at 06:54; Status DC Fentanyl Citrate (Fentanyl 2ml Vial) 100 mcg STK-MED ONCE .ROUTE ; Start 11/03/19 at 06:54; Stop 11/03/19 at 06:54; Status DC Sevoflurane (Ultane) 60 ml STK-MED ONCE IH ; Start 11/03/19 at 07:03; Stop 11/03/19 at 07:03; Status DC Fentanyl Citrate (Fentanyl 2ml Vial) 100 mcg STK-MED ONCE .ROUTE ; Start 11/03/19 at 07:03; Stop 11/03/19 at 07:04; Status DC Midazolam HCl (Versed) 2 mg STK-MED ONCE .ROUTE ; Start 11/03/19 at 07:03; Stop 11/03/19 at 07:04; Status DC Propofol (Diprivan) 200 mg STK-MED ONCE IV ; Start 11/03/19 at 07:04; Stop 11/03/19 at 07:04; Status DC Lidocaine HCl (Lidocaine Pf 2% Vial) 5 ml STK-MED ONCE .ROUTE ; Start 11/03/19 at 07:04; Stop 11/03/19 at 07:04; Status DC Ondansetron HCl (Zofran) 4 mg STK-MED ONCE .ROUTE ; Start 11/03/19 at 07:04; Stop 11/03/19 at 07:04; Status DC Dexamethasone Sodium Phosphate (Decadron) 4 mg STK-MED ONCE .ROUTE ; Start 11/03/19 at 07:04; Stop 5/28/20 at 07:04; Status DC Fentanyl Citrate (Fentanyl 2ml Vial) 100 mcg 1X ONCE IVP Last administered on 11/03/19at 07:15; Start 11/03/19 at 07:15; Stop 11/03/19 at 07:16; Status DC Phenylephrine HCl (PHENYLEPHRINE in 0.9% NACL PF) 1 mg STK-MED ONCE IV ; Start 11/03/19 at 07:33; Stop 11/03/19 at 07:34; Status DC Insulin Human Lispro (HumaLOG) 0-7 UNITS TIDACHC SQ Last administered on 11/08/19at 08:37; Start 11/03/19 at 11:30 Dextrose (Dextrose 50%-Water Syringe) 12.5 gm PRN Q15MIN PRN IV SEE COMMENTS; Start 11/03/19 at 08:30; Status Cancel Hydromorphone HCl (Dilaudid) 2 mg STK-MED ONCE .ROUTE ; Start 11/03/19 at 09:32; Stop 11/03/19 at 09:32; Status DC Prochlorperazine Edisylate (Compazine) 10 mg STK-MED ONCE .ROUTE ; Start 11/03/19 at 09:32; Stop 11/03/19 at 09:32; Status DC Ondansetron HCl (Zofran) 4 mg PRN Q6HRS PRN IV NAUSEA/VOMITING; Start 11/03/19 at 10:00; Stop 11/03/19 at 10:33; Status DC Fentanyl Citrate (Fentanyl 2ml Vial) 25 mcg PRN Q5MIN PRN IV MILD PAIN 1-3; Start 11/03/19 at 10:00; Stop 11/03/19 at 10:33; Status DC Fentanyl Citrate (Fentanyl 2ml Vial) 50 mcg PRN Q5MIN PRN IV MODERATE TO SEVERE PAIN; Start 11/03/19 at 10:00; Stop 11/03/19 at 10:33; Status DC Morphine Sulfate (Morphine Sulfate) 1 mg PRN Q10MIN PRN IV SEVERE PAIN 7-10; Start 11/03/19 at 10:00; Stop 11/03/19 at 10:33; Status DC Ringer's Solution 1,000 ml @ 30 mls/hr Q24H IV ; Start 11/03/19 at 09:53; Stop 11/03/19 at 10:33; Status DC Hydromorphone HCl (Dilaudid) 0.5 mg PRN Q10MIN PRN IV SEV PAIN, Second choice Last administered on 11/03/19at 10:10; Start 11/03/19 at 10:00; Stop 11/03/19 at 10:33; Status DC Prochlorperazine Edisylate (Compazine) 5 mg PACU PRN PRN IV NAUSEA, MRX1 Last administered on 11/03/19at 09:58; Start 11/03/19 at 10:00; Stop 11/03/19 at 10:33; Status DC Clindamycin Phosphate 50 ml @ 100 mls/hr Q6H IV Last administered on 11/04/19at 03:29; Start 11/03/19 at 15:00; Stop 11/04/19 at 03:29; Status DC Ondansetron HCl (Zofran) 4 mg PRN Q4HRS PRN IVP NAUSEA/VOMITING; Start 11/03/19 at 10:15 Dextrose (Dextrose 50%-Water Syringe) 12.5 gm PRN Q15MIN PRN IV SEE COMMENTS; Start 11/03/19 at 10:15 Warfarin Sodium (Coumadin Per Pharmacy) 1 each PRN DAILY PRN MC SEE COMMENTS; Start 11/03/19 at 14:00; Stop 11/04/19 at 11:39; Status DC Warfarin Sodium (Coumadin) 5 mg DAILY16 PO Last administered on 11/03/19at 16:20; Start 11/03/19 at 16:00; Stop 11/04/19 at 11:15; Status DC Gabapentin (Neurontin) 300 mg TID PO Last administered on 11/08/19at 08:30; Start 11/03/19 at 21:00 Al Hydroxide/Mg Hydroxide (Mylanta Plus Xs) 30 ml PRN Q6HRS PRN PO DYSPEPSIA Last administered on 11/04/19at 05:05; Start 11/04/19 at 04:30 Insulin Glargine (Lantus Syringe) 10 unit QHS SQ Last administered on 11/07/19at 22:03; Start 11/04/19 at 21:00 Clindamycin Phosphate (Cleocin 900mg Premix) 900 mg STK-MED ONCE IV ; Start 11/03/19 at 07:00; Stop 11/04/19 at 09:06; Status DC Apixaban (Eliquis) 10 mg BID PO Last administered on 11/08/19at 08:30; Start 11/04/19 at 13:03; Stop 11/10/19 at 21:01 Lactobacillus Rhamnosus (Culturelle) 1 cap BID PO Last administered on 11/08/19at 08:30; Start 11/04/19 at 21:00 Apixaban (Eliquis) 5 mg BID PO ; Start 11/11/19 at 21:00 Diphenhydramine HCl (Benadryl) 25 mg PRN QHS PRN PO INSOMNIA, 1st choice Last administered on 11/07/19at 21:51; Start 11/05/19 at 11:00 Trazodone HCl (Desyrel) 50 mg PRN QHS PRN PO INSOMNIA, 2nd choice; Start 11/05/19 at 11:00 Hydralazine HCl (Apresoline Inj) 10 mg PRN Q4HRS PRN IVP ELEVATED BP, SEE COMMENTS; Start 11/06/19 at 08:00 Budesonide (Pulmicort) 0.5 mg RTBID NEB Last administered on 11/08/19at 07:32; Start 11/06/19 at 08:00 Diphenhydramine HCl (Benadryl) 25 mg PRN Q6HRS PRN IVP ITCHING; Start 11/06/19 at 08:45 Methylprednisolone Sodium Succinate (SOLU-Medrol 125MG VIAL) 125 mg 1X ONCE IV Last administered on 11/06/19at 09:24; Start 11/06/19 at 08:45; Stop 11/06/19 at 08:46; Status DC Enalaprilat (Vasotec Inj) 1.25 mg 1X ONCE IVP Last administered on 11/06/19at 09:25; Start 11/06/19 at 09:15; Stop 11/06/19 at 09:17; Status DC Methylprednisolone Sodium Succinate (SOLU-Medrol 40MG VIAL) 40 mg Q12HR IV Last administered on 11/08/19at 08:31; Start 11/06/19 at 12:00 Artificial Tears (Artificial Tears) 1 drop PRN Q15MIN PRN OU DRY EYE Last administered on 11/07/19at 08:33; Start 11/07/19 at 08:00 Diclofenac Sodium (Voltaren) 1 mavis BID TP ; Start 11/08/19 at 21:00 Active Scripts Active Reported [place] 10-325 Tablet (Acetaminophen/Hydrocodone Bitart) 1 Each Tablet 7.5 Mg PO BID Gabapentin 800 Mg Tablet 900 Mg PO TID Alprazolam 0.25 Mg Tablet 1 Tab PO DAILY Symbicort 160-4.5 Mcg Inhaler (Budesonide/Formoterol Fumarate) 10.2 Gm Hfa.aer.ad 2 Puff IH BID Tramadol HCl 100 Mg Tablet 50 Mg PO PRN Coreg (Carvedilol) 25 Mg Tablet 25 Mg PO DAILY Advair 100-50 Diskus (Fluticasone/Salmeterol) 1 Each Disk.w.dev 1 Puff IH BID Symbicort 160-4.5 Mcg Inhaler (Budesonide/Formoterol Fumarate) 10.2 Gm Hfa.aer.ad 2 Puff IH BID Centrum Silver Women Tablet (Multivits-Min/Iron/FA/Lutein) 1 Each Tablet 1 Each PO Tizanidine Hcl 4 Mg Tablet 1 Tab PO QHS Vitals/I & O Vital Sign - Last 24 Hours 11/07/19 11/07/19 11/07/19 11/07/19 11:55 14:54 16:08 17:04 Pulse 100 Resp 18 B/P (MAP) 161/62 (95) Pulse Ox 97 96 96 O2 Delivery Nasal Cannula Nasal Cannula Nasal Cannula Room Air O2 Flow Rate 3.0 3.0 2.0 11/07/19 11/07/19 11/07/19 11/07/19 17:35 18:30 19:00 19:39 Temp 98.3 98.3 Pulse 105 Resp 16 B/P (MAP) 166/78 (107) Pulse Ox 99 92 O2 Delivery Room Air Room Air Nasal Cannula O2 Flow Rate 4.0 11/07/19 11/07/19 11/07/19 11/07/19 20:00 21:50 22:50 23:00 Temp 98.2 98.2 Pulse 73 Resp 16 B/P (MAP) 154/74 (100) Pulse Ox 100 O2 Delivery Nasal Cannula Room Air Room Air O2 Flow Rate 3.0 11/07/19 11/08/19 11/08/19 11/08/19 23:44 00:00 03:00 04:30 Temp 98.4 98.4 Pulse 105 71 Resp 16 B/P (MAP) 166/78 138/68 (91) Pulse Ox 95 O2 Delivery Nasal Cannula Nasal Cannula O2 Flow Rate 4.0 11/08/19 11/08/19 11/08/19 11/08/19 06:40 07:00 07:25 07:32 Temp 97.9 97.9 Pulse 75 Resp 18 B/P (MAP) 152/67 (95) Pulse Ox 97 100 O2 Delivery Room Air Nasal Cannula Nasal Cannula Nasal Cannula O2 Flow Rate 3.0 3.0 4.0 11/08/19 11/08/19 11/08/19 11/08/19 07:45 08:30 08:31 10:14 Pulse 75 B/P (MAP) 152/67 O2 Delivery Nasal Cannula Nasal Cannula Nasal Cannula O2 Flow Rate 3.0 3.0 3.0 11/08/19 10:42 Temp 97.9 97.9 Pulse 78 Resp 18 B/P (MAP) 149/68 (95) Pulse Ox 98 O2 Delivery Nasal Cannula O2 Flow Rate 3.0 Intake and Output 11/07/19 11/07/19 11/08/19 15:00 23:00 07:00 Intake Total 285 ml 300 ml Output Total 500 ml Balance -215 ml 300 ml CARTER AMBROSIO MD Nov 08, 2019 11:21
--- NOTE | 2019-11-08 11:45 | NUR ---
SW following. Discussed with RN, [facility] received insurance approval for pt to go to acute rehab. GRACIE met with pt (no isolation precautions at the time) to discuss difference between acute rehab, group home and home health. Pt would like to still go to [facility]. Awaiting confirmation of whether IV solumedrol can be stopped today. GRACIE will continue to follow. Discussed with RN and Dr. Goldberg. Addendum: 11/08/19 at 1524 by BLADIMIR BOWMAN Pt discharging between [id number] to [facility], all discharge paperwork faxed. RN notified.
--- NOTE | 2019-11-08 12:12 | PDOC ---
PULMONARY PROGRESS NOTES Subjective s/p hip surgery no soa doing well Vitals Vital Signs Date Time Temp Pulse Resp B/P (MAP) Pulse Ox O2 Delivery O2 Flow Rate FiO2 11/08/19 11:20 100 Nasal Cannula 3.0 11/08/19 10:42 97.9 78 18 149/68 (95) 97.9 Comments ros as mentioned as above other sys otherwise neg General: Alert, No acute distress HEENT: Other (nc at perrl nose throat clear neck no lad no thyromegaly) Lungs: Other (deminshed bs) Cardiovascular: S1, S2 Abdomen: Soft, Non-tender, Other (no mass) Neuro Exam: Alert, Oriented Extremities: No Edema Skin: Warm Labs Laboratory Tests Test 11/06/19 12:12 11/06/19 16:20 11/06/19 21:27 11/07/19 04:40 Glucose (Fingerstick) 164 mg/dL (70-99) 234 mg/dL (70-99) 214 mg/dL (70-99) White Blood Count 7.8 x10^3/uL (4.0-11.0) Red Blood Count 2.58 x10^6/uL (3.50-5.40) Hemoglobin 8.4 g/dL (12.0-15.5) Hematocrit 23.9 % (36.0-47.0) Mean Corpuscular Volume 93 fL (79-100) Mean Corpuscular Hemoglobin 33 pg (25-35) Mean Corpuscular Hemoglobin Concent 35 g/dL (31-37) Red Cell Distribution Width 15.1 % (11.5-14.5) Platelet Count 171 x10^3/uL (140-400) Prothrombin Time 18.0 SEC (11.7-14.0) Prothromb Time International Ratio 1.5 (0.8-1.1) Test 11/07/19 08:18 11/07/19 12:23 11/07/19 16:38 11/07/19 21:18 Glucose (Fingerstick) 213 mg/dL (70-99) 209 mg/dL (70-99) 178 mg/dL (70-99) 228 mg/dL (70-99) Test 11/08/19 06:25 11/08/19 07:21 11/08/19 07:51 11/08/19 11:26 White Blood Count 10.3 x10^3/uL (4.0-11.0) Red Blood Count 2.67 x10^6/uL (3.50-5.40) Hemoglobin 8.4 g/dL (12.0-15.5) Hematocrit 25.2 % (36.0-47.0) Mean Corpuscular Volume 94 fL (79-100) Mean Corpuscular Hemoglobin 32 pg (25-35) Mean Corpuscular Hemoglobin Concent 34 g/dL (31-37) Red Cell Distribution Width 15.3 % (11.5-14.5) Platelet Count 224 x10^3/uL (140-400) Neutrophils (%) (Auto) 85 % (31-73) Lymphocytes (%) (Auto) 9 % (24-48) Monocytes (%) (Auto) 6 % (0-9) Eosinophils (%) (Auto) 0 % (0-3) Basophils (%) (Auto) 0 % (0-3) Neutrophils # (Auto) 8.7 x10^3/uL (1.8-7.7) Lymphocytes # (Auto) 0.9 x10^3/uL (1.0-4.8) Monocytes # (Auto) 0.6 x10^3/uL (0.0-1.1) Eosinophils # (Auto) 0.0 x10^3/uL (0.0-0.7) Basophils # (Auto) 0.0 x10^3/uL (0.0-0.2) Segmented Neutrophils % 81 % (35-66) Band Neutrophils % 2 % (0-9) Lymphocytes % 13 % (24-48) Monocytes % 4 % (0-10) Platelet Estimate Adequate (ADEQUATE) Prothrombin Time 15.3 SEC (11.7-14.0) Prothromb Time International Ratio 1.3 (0.8-1.1) Glucose (Fingerstick) 182 mg/dL (70-99) 195 mg/dL (70-99) 151 mg/dL (70-99) Laboratory Tests Test 11/07/19 12:23 11/07/19 16:38 11/07/19 21:18 11/08/19 06:25 Glucose (Fingerstick) 209 mg/dL (70-99) 178 mg/dL (70-99) 228 mg/dL (70-99) White Blood Count 10.3 x10^3/uL (4.0-11.0) Red Blood Count 2.67 x10^6/uL (3.50-5.40) Hemoglobin 8.4 g/dL (12.0-15.5) Hematocrit 25.2 % (36.0-47.0) Mean Corpuscular Volume 94 fL (79-100) Mean Corpuscular Hemoglobin 32 pg (25-35) Mean Corpuscular Hemoglobin Concent 34 g/dL (31-37) Red Cell Distribution Width 15.3 % (11.5-14.5) Platelet Count 224 x10^3/uL (140-400) Neutrophils (%) (Auto) 85 % (31-73) Lymphocytes (%) (Auto) 9 % (24-48) Monocytes (%) (Auto) 6 % (0-9) Eosinophils (%) (Auto) 0 % (0-3) Basophils (%) (Auto) 0 % (0-3) Neutrophils # (Auto) 8.7 x10^3/uL (1.8-7.7) Lymphocytes # (Auto) 0.9 x10^3/uL (1.0-4.8) Monocytes # (Auto) 0.6 x10^3/uL (0.0-1.1) Eosinophils # (Auto) 0.0 x10^3/uL (0.0-0.7) Basophils # (Auto) 0.0 x10^3/uL (0.0-0.2) Segmented Neutrophils % 81 % (35-66) Band Neutrophils % 2 % (0-9) Lymphocytes % 13 % (24-48) Monocytes % 4 % (0-10) Platelet Estimate Adequate (ADEQUATE) Prothrombin Time 15.3 SEC (11.7-14.0) Prothromb Time International Ratio 1.3 (0.8-1.1) Test 11/08/19 07:21 11/08/19 07:51 11/08/19 11:26 Glucose (Fingerstick) 182 mg/dL (70-99) 195 mg/dL (70-99) 151 mg/dL (70-99) Medications Active Scripts Medications Dose Route/Sig Max Daily Dose Days Date Category [place] 10-325 Tablet (Acetaminophen/Hydrocodone Bitart) 1 Each Tablet 7.5 Mg PO BID 11/01/19 Reported Gabapentin 800 Mg Tablet 900 Mg PO TID 11/01/19 Reported Alprazolam 0.25 Mg Tablet 1 Tab PO DAILY 11/01/19 Reported Symbicort 160-4.5 Mcg Inhaler (Budesonide/Formoterol Fumarate) 10.2 Gm Hfa.aer.ad 2 Puff IH BID 11/01/19 Reported Tramadol HCl 100 Mg Tablet 50 Mg PO PRN 11/01/19 Reported Coreg (Carvedilol) 25 Mg Tablet 25 Mg PO DAILY 11/01/19 Reported Advair 100-50 Diskus (Fluticasone/Salmeterol) 1 Each Disk.w.dev 1 Puff IH BID 02/26/16 Reported Symbicort 160-4.5 Mcg Inhaler (Budesonide/Formoterol Fumarate) 10.2 Gm Hfa.aer.ad 2 Puff IH BID 02/26/16 Reported Centrum Silver Women Tablet (Multivits-Min/Iron/FA/Lutein) 1 Each Tablet 1 Each PO 02/26/16 Reported Tizanidine Hcl 4 Mg Tablet 1 Tab PO QHS 02/26/16 Reported Comments cxr reviewed no infilt Impression . 1. Dyspnea with acute hypoxic respiratory failure secondary to combination of acute pulmonary embolism and chronic obstructive pulmonary disease with exacerbation. resolved 2. Status post fall with right hip fracture, s/p surgery. 3. Long history of tobaccoism and on and off on steroids since age 21. Just quit tobacco a day before hospitalization. Suspect underlying chronic obstructive pulmonary disease, 4. Acute pulmonary embolism. Risk factors being immobility. No known cancers. Not on any estrogen or hormonal pills. May benefit from a hypercoagulable workup as an outpatient. 5. Post -op anemia, stable Plan . 1. nasal canula 2. DuoNeb /Pulmicort. 3. change to PO steroid taper 4. Monitor fever. resolved. on empiric antibiotic.11/01 5. Follow orthopedic recommendations. 6. on Eliquis, H/H stable 7. Discussed with RN, pt 8. f/u with me on November 22, V/Q prior to visit/ will order hypercoag w/u as EVELYN CAMPOS MD Nov 08, 2019 12:12
[2019-11-08] MEDS: traMADol 50 MG TABLET PO PRN ×2 (12:14→15:56)
--- NOTE | 2019-11-08 12:30 | NUR ---
Text page sent to Dr. Goldberg re: ok for d/c from Pulmonology.
--- NOTE | 2019-11-08 13:56 | CONS ---
DATE OF CONSULTATION: 11/08/2019 PULMONARY CONSULTATION ATTENDING PHYSICIAN: Dr. Goldberg. REASON FOR CONSULTATION: The patient was seen at the request of Dr. Goldberg for rehab evaluation. 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 The patient with known chronic obstructive pulmonary disease and also chronic lower back pain. She also had recent sprain of her left heel cord, had received a Cam boot, but does not feel comfortable to walk with it. On 11/01/2019 while walking to the bathroom with socks on, she slipped, falling on her right hip, had severe pain. The patient is dealing also with increased problems with her chronic obstructive pulmonary disease for the past 6 weeks prior to the hospitalization. The patient since admission was found with a displaced fractured neck, right hip intertrochanteric and had hip nailing done. Postop, she was on 50% weightbearing on her right foot. The patient also had some problems with the chest pain and she was found with questionable pulmonary emboli, and on anticoagulation. The patient admits pain in the right hip and left heel cord. She is participating in physical therapy and occupational therapy until she had a rapid response 2 days ago for which she was transferred to ICU. She is back on the orthopedic floor. PAST MEDICAL HISTORY: Also includes asthmatic bronchitis, hyperlipidemia, hypertension, chronic obstructive pulmonary disease. The patient is a current every day smoker. ALLERGIES: SHE IS KNOWN ALLERGIC TO IODINE AND IODIDE CONTAINING PRODUCTS AND MILK CONTAINING PRODUCTS, NONSTEROIDAL ANTI-INFLAMMATORY MEDICATION AND SULFA. FAMILY HISTORY: Chronic bronchitis, hypercholesterolemia and hypertension. REVIEW OF SYSTEMS: The patient denies any trouble with her bowel or bladder control. PHYSICAL EXAMINATION: Physical examination today revealed a middle-aged female. She is alert, oriented to time, place, person and circumstance, follows commands appropriately, moves all 4 extremities voluntarily where she had 4+/5 grade muscle strength. Deep tendon reflexes are 2+ and symmetrical and she had equal perception of touch and pinprick sensation bilaterally. She had edema and bruising of the skin around the right hip and thigh and both upper extremities. She had pain on attempted movement of her right hip and she had tenderness to palpation of left heel cord without any significant pain on range of motion of left ankle itself. The patient requires minimal assistance with bed mobility and transfers. Once up, she can walk using a roller walker. She limps on her feet. She gets tired easily with left ankle pain and right hip pain while weightbearing. She is using oxygen by nasal cannula. ASSESSMENT: A middle-aged female with chronic obstructive pulmonary disease with recent exacerbation, also being treated for probable pulmonary emboli. The patient with known hypertension, hyperlipidemia, chronic lower back pain and also recent sprain, left tendo Achilles and recent fall and displaced fracture of right hip intertrochanteric, status post nailing with 50% weightbearing status on her right foot. RECOMMENDATIONS: Agree with the plans for physical therapy and occupational therapy to get her up as tolerated. Hopefully, home with home health followup when medically stable in the next few days. She can go to inpatient rehab, but with her left ankle and right hip pain, I am not sure it might be too much on her to participate in the intensive rehab efforts. residential care facility might be a better option if she does not feel comfortable to go home at present time. Dr. Goldberg, I appreciate asking me to participate in the care of this interesting patient. I will be glad to see her for followup with you on as needed basis. VALERIANO WARNER MD DR: ELIOT/néstor JOB#: [id number] / [id number]
--- NOTE | 2019-11-08 14:03 | PDOC3 ---
Discharge Summary Date of Admission: November 01, 2019 Date of Discharge: Nov 08, 2019 Follow-Up: 1-2 days Admitting Diagnosis comment: DISCHARGE DX Displaced right intertrochanteric fracture Severe COPD WITH HYPOXIC RESP FAILURE DM2 with HYPERGLYCEMIA Elevated d- dimer - PE Bronchitis Tobacco abuse disorder Thrombocytopenia Acute anemia Left Achilles tendon pain 11/07 ok to d/c today per dr sánchez D/W RN D/C PLANNING 34 MIN History of Present Illness History of Present Illness 11/08/2019 Patient seen and examined Chart reviewed Discussed with RN Patient complains of left Achilles tendon pain Consulted Dr. Braun Patient on O2 per nasal cannula and getting nebulizers Ms Bañuelos is a 64 yo F w/ PMHx HTN, HLD, smoker who presented to the hospital after she slipped and fell and suffered right hip fracture. With SOB and increased HR and d dimer she underwent VQ scan and noted a large mismatch defect within the right upper lobe. There is also additional moderate perfusion defect within the left posterior lower lobe as well as smaller perfusion defects bilaterally. The patient was started on heparin. Venous Dopplers did not reveal any definite clots. 11/01: Patient on heparin 11/02: s/p ORIF displaced intertrochanteric subtrochanteric right hip fracture with long intramedullary nail this morning. Back on heparin GTT. She is upset about glucose checks. Advised hemoglobin A1c has been ordered. Counseled on smoking cessation. No CP or SOB. Postop pain. 11/03: A1c 7.4. Platelets 117 from 179. Hb 7.2. Counseled on DM2 she is frustrated but amenable to insulin therapy and outpatient oral hypoglycemic agents. D/w pulmonology to change to Eliquis 10 mg twice daily for 7 days and then 5 mg twice daily thereafter for her pulmonary embolism. 11/04: Afebrile overnight, Hb 6.3, platelets 125. Glucose controlled. No CP. She is anxious about a blood transfusion, anxious about her new diagnosis of diabetes. She is asking for a shower, she is amenable to having her Falcon catheter removed today. Hip pain is reasonably controlled. Afebrile overnight. Posttransfusion hemoglobin 8.9. This morning with very elevated BP 211/81, still on 3 L NC O2, very short of breath. Plethora noted, in obvious respiratory distress. Rapid response called. CXR unchanged. ABG pH 7.36/ PCO2 46/ PO2 64. Hydralazine 10mg IV given for BP. Given 125mg solumedrol and 25mg benadryl. Vasotec 1.25mg ordered for BP 240/96. EKG sinus tachycardia Placed on 05/12 BiPAP at 35% FiO2 and rate 12bpm with patient increasingly comfortable. Transferred to ICU with nursing staff and RT. Vitals Vitals Vital Signs Date Time Temp Pulse Resp B/P (MAP) Pulse Ox O2 Delivery O2 Flow Rate FiO2 11/08/19 10:42 97.9 78 18 149/68 (95) 98 Nasal Cannula 3.0 97.9 Physical Exam General: Alert, Oriented X3, Cooperative, No acute distress Heart: Regular rate, Normal S1, Normal S2 Lungs: Other (deminshed bs) Abdomen: Normal bowel sounds, Soft Extremities: No clubbing, No cyanosis, No edema, Other (Left lower extremity externally rotated right lower extremity internally rotated) Skin: No rashes FINAL DIAGNOSIS Problems Medical Problems: (1) COPD (chronic obstructive pulmonary disease) Status: Acute (2) Displaced intertrochanteric fracture of right femur Status: Acute (3) Hypoxia Status: Acute Brief Hospital Course Ms. Bañuelos is a 64 old [sex] who presented with [ACUTE HIP FRACTURE ] CONDITION AT DISCHARGE: Improved Discharge Medications Current Medications Morphine Sulfate (Morphine Sulfate) 5 mg 1X ONCE IV Last administered on 11/01/19at 09:24; Start 11/01/19 at 09:30; Stop 11/01/19 at 09:31; Status DC Morphine Sulfate (Morphine Sulfate) 5 mg 1X ONCE IV Last administered on 11/01/19at 10:33; Start 11/01/19 at 10:30; Stop 11/01/19 at 10:31; Status DC Hydromorphone HCl (Dilaudid) 1 mg 1X ONCE IV Last administered on 11/01/19at 12:30; Start 11/01/19 at 12:30; Stop 11/01/19 at 12:31; Status DC Hydromorphone HCl (Dilaudid) 1 mg PRN Q3HRS PRN IV PAIN Last administered on 11/07/19at 17:35; Start 11/01/19 at 13:45 Enoxaparin Sodium (Lovenox 80mg Syringe) 70 mg Q12HR SQ ; Start 11/01/19 at 21 :00; Stop 11/01/19 at 16:26; Status DC Ondansetron HCl (Zofran) 4 mg PRN Q4HRS PRN IVP NAUSEA/VOMITING Last administered on 11/01/19at 13:54; Start 11/01/19 at 13:45; Stop 11/02/19 at 12:52; Status DC Acetaminophen (Tylenol) 650 mg PRN Q6HRS PRN PO FEVER/HEADACHE Last administered on 11/01/19at 13:54; Start 11/01/19 at 13:45; Stop 11/02/19 at 09:56; Status DC Nicotine (Nicoderm Cq 21mg) 1 patch DAILY TD Last administered on 11/08/19at 08:31; Start 11/01/19 at 14:00 Acetaminophen/ Hydrocodone Bitart (Lortab 5/325) 1 tab PRN Q6HRS PRN PO SEVERE PAIN Last administered on 11/08/19at 06:40; Start 11/01/19 at 13:45 Lorazepam (Ativan) 1 mg TID PO Last administered on 11/01/19at 13:53; Start 11/01/19 at 14:00; Stop 11/01/19 at 17:22; Status DC Tizanidine HCl (Zanaflex) 4 mg QHS PO Last administered on 11/07/19at 21:52; Start 11/01/19 at 21:00 Trazodone HCl (Desyrel) 100 mg HS PO ; Start 11/01/19 at 21:00; Stop 11/01/19 at 17:22; Status DC Non-Formulary Medication (Budesonide/ Formoterol Fumarate (Symbicort 160-4.5 Mcg Inhaler)) 2 puff BID IH ; Start 11/01/19 at 21:00; Status UNV Non-Formulary Medication (Fluticasone/ Salmeterol (Advair 100-50 Diskus)) 1 puff BID IH ; Start 11/01/19 at 21:00; Status UNV Albuterol Sulfate (Ventolin Neb Soln) 2.5 mg Q6HRS NEB ; Start 11/01/19 at 14:00; Stop 11/01/19 at 20:35; Status DC Budesonide (Pulmicort) 0.5 mg RTBID NEB Last administered on 11/07/19at 08:05; Start 11/01/19 at 20:00; Stop 11/07/19 at 09:38; Status DC Sodium Chloride (Normal Saline Flush) 3 ml QSHIFT PRN IV AFTER MEDS AND BLOOD DRAWS; Start 11/01/19 at 14:30 Sodium Chloride 1,000 ml @ 80 mls/hr [id number] IV Last administered on 11/07/19at 22:03; Start 11/01/19 at 14:16 Ondansetron HCl (Zofran) 4 mg PRN Q4HRS PRN IV NAUSEA/VOMITING; Start 11/01/19 at 14:30; Stop 11/05/19 at 12:44; Status DC Zolpidem Tartrate (Ambien) 5 mg PRN QHS PRN PO INSOMNIA Last administered on 11/04/19at 22:09; Start 11/01/19 at 14:30; Stop 11/05/19 at 10:58; Status DC Acetaminophen (Tylenol) 650 mg PRN Q4HRS PRN PO TEMP OVER 100.4F OR MILD PAIN Last administered on 11/07/19at 23:48; Start 11/01/19 at 14:30 Al Hydroxide/Mg Hydroxide (Mylanta Plus Xs) 30 ml PRN DAILY PRN PO HEARTBURN / GAS; Start 11/01/19 at 14:30; Stop 11/04/19 at 04:31; Status DC Clonidine HCl (Catapres) 0.1 mg PRN Q6HRS PRN PO SBP>160 OR DBP>90 Last administered on 11/07/19at 23:44; Start 11/01/19 at 14:30 Sodium Monofluorophosphate (Fleet Adult) 133 ml PRN DAILY PRN OK CONSTIPATION; Start 11/01/19 at 14:30 Docusate Sodium (Colace) 100 mg PRN BID PRN PO HARD STOOLS; Start 11/01/19 at 14:30 Albuterol/ Ipratropium (Duoneb) 3 ml Q4H NEB Last administered on 11/08/19at 11:19; Start 11/01/19 at 14:30 Guaifenesin (Robitussin) 200 mg PRN Q4HRS PRN PO COUGH; Start 11/01/19 at 14:30 Enoxaparin Sodium (Lovenox 40mg Syringe) 40 mg Q24H SQ ; Start 11/01/19 at 14:30; Stop 11/01/19 at 14:22; Status DC Ondansetron HCl (Zofran) 4 mg PRN Q6HRS PRN IV NAUSEA/VOMITING; Start 11/02/19 at 07:00; Stop 11/03/19 at 06:59; Status DC Fentanyl Citrate (Fentanyl 2ml Vial) 25 mcg PRN Q5MIN PRN IV MILD PAIN 1-3 Last administered on 11/02/19at 09:04; Start 11/02/19 at 07:00; Stop 11/02/19 at 20:00; Status DC Fentanyl Citrate (Fentanyl 2ml Vial) 50 mcg PRN Q5MIN PRN IV MODERATE TO SEVERE PAIN; Start 11/02/19 at 07:00; Stop 11/02/19 at 20:00; Status DC Morphine Sulfate (Morphine Sulfate) 1 mg PRN Q10MIN PRN IV SEVERE PAIN 7-10; Start 11/02/19 at 07:00; Stop 11/02/19 at 20:00; Status DC Ringer's Solution 1,000 ml @ 30 mls/hr Q24H IV ; Start 11/02/19 at 07:00; Stop 11/02/19 at 18:59; Status DC Lidocaine HCl (Xylocaine-Mpf 1% 2ml Vial) 2 ml PRN 1X PRN ID PRIOR TO IV START; Start 11/02/19 at 07:00; Stop 11/02/19 at 20:00; Status DC Hydromorphone HCl (Dilaudid) 0.5 mg PRN Q10MIN PRN IV SEV PAIN, Second choice; Start 11/02/19 at 07:00; Stop 11/02/19 at 20:00; Status DC Prochlorperazine Edisylate (Compazine) 5 mg PACU PRN PRN IV NAUSEA, MRX1; Start 11/02/19 at 07:00; Stop 11/02/19 at 20:00; Status DC Hydralazine HCl (Apresoline Inj) 10 mg PRN Q4HRS PRN IVP ELEVATED BP, SEE COMMENTS Last administered on 11/01/19at 16:51; Start 11/01/19 at 14:30; Stop 11/02/19 at 12:53; Status DC Hydralazine HCl (Apresoline Inj) 10 mg PRN Q4HRS PRN IVP ELEVATED BP, SEE COMMENTS Last administered on 11/06/19at 16:11; Start 11/01/19 at 16:00; Stop 11/07/19 at 09:39; Status DC Heparin Sodium (Porcine) (Heparin Sodium) 4,800 unit 1X ONCE IV Last administered on 11/01/19at 17:04; Start 11/01/19 at 16:30; Stop 11/01/19 at 16:31; Status DC Heparin Sodium/ Dextrose 250 ml @ 9.568 mls/ hr CONT PRN IV PER PROTOCOL Last administered on 11/04/19at 08:50; Start 11/01/19 at 16:30; Stop 11/04/19 at 11:30; Status DC Heparin Sodium (Porcine) (Heparin Sodium) 1,800 unit PRN Q6HRS PRN IV FOR UFH LEVEL LESS THAN 0.2 Last administered on 11/04/19at 04:20; Start 11/01/19 at 16:30; Stop 11/04/19 at 11:37; Status DC Heparin Sodium (Porcine) (Heparin Sodium) 900 unit PRN Q6HRS PRN IV FOR UFH LEVEL 0.2 - 0.29; Start 11/01/19 at 16:30; Stop 11/04/19 at 11:37; Status DC Alprazolam (Xanax) 0.25 mg DAILY PO Last administered on 11/08/19at 08:30; Start 11/02/19 at 09:00 Acetaminophen/ Hydrocodone Bitart (Lortab 10/325) 7.5 tab BID PO ; Start 11/01/19 at 21:00; Status Cancel Carvedilol (Coreg) 25 mg DAILY PO ; Start 11/02/19 at 09:00; Stop 11/01/19 at 17:34; Status DC Gabapentin (Neurontin) 900 mg TID PO Last administered on 11/03/19at 13:07; Start 11/01/19 at 21:00; Stop 11/03/19 at 17:13; Status DC Non-Formulary Medication (Tramadol HCl ) 50 mg PRN PO ; Start 11/01/19 at 17:30; Stop 11/01/19 at 17:37; Status DC Carvedilol (Coreg) 25 mg DAILY PO Last administered on 11/08/19at 08:31; Start 11/01/19 at 17:45 Tramadol HCl (Ultram) 50 mg PRN BID PRN PO MODERATE PAIN Last administered on 11/08/19at 12:14; Start 11/01/19 at 17:45 Acetaminophen/ Hydrocodone Bitart (Lortab 7.5/325) 1 tab BID PO Last adminis tered on 11/08/19at 08:30; Start 11/01/19 at 21:00 Albuterol Sulfate (Ventolin Neb Soln) 2.5 mg PRN Q6HRS PRN NEB WHEEZING; Start 11/01/19 at 20:45 Pantoprazole Sodium (PROTONIX VIAL for IV PUSH) 40 mg DAILYAC IVP Last administered on 11/04/19at 05:05; Start 11/02/19 at 07:30 Pantoprazole Sodium (PROTONIX VIAL for IV PUSH) 40 mg 1X ONCE IVP Last administered on 11/01/19at 23:06; Start 11/01/19 at 22:00; Stop 11/01/19 at 22:01; Status DC Doxycycline Hyclate 100 mg/ Dextrose 100 ml @ 50 mls/hr Q12HR IV Last administered on 11/08/19at 08:32; Start 11/02/19 at 10:00 Info (Anti-Coagulation Monitoring By Pharmacy) 1 each PRN DAILY PRN MC SEE COMMENTS Last administered on 11/08/19at 12:39; Start 11/02/19 at 10:00 Clindamycin Phosphate 50 ml @ As Directed STK-MED ONCE IV ; Start 11/03/19 at 06:54; Stop 11/03/19 at 06:54; Status DC Fentanyl Citrate (Fentanyl 2ml Vial) 100 mcg STK-MED ONCE .ROUTE ; Start 11/03/19 at 06:54; Stop 11/03/19 at 06:54; Status DC Sevoflurane (Ultane) 60 ml STK-MED ONCE IH ; Start 11/03/19 at 07:03; Stop 11/03/19 at 07:03; Status DC Fentanyl Citrate (Fentanyl 2ml Vial) 100 mcg STK-MED ONCE .ROUTE ; Start 5/28/20 at 07:03; Stop 11/03/19 at 07:04; Status DC Midazolam HCl (Versed) 2 mg STK-MED ONCE .ROUTE ; Start 11/03/19 at 07:03; Stop 11/03/19 at 07:04; Status DC Propofol (Diprivan) 200 mg STK-MED ONCE IV ; Start 11/03/19 at 07:04; Stop 11/03/19 at 07:04; Status DC Lidocaine HCl (Lidocaine Pf 2% Vial) 5 ml STK-MED ONCE .ROUTE ; Start 11/03/19 at 07:04; Stop 11/03/19 at 07:04; Status DC Ondansetron HCl (Zofran) 4 mg STK-MED ONCE .ROUTE ; Start 11/03/19 at 07:04; Stop 11/03/19 at 07:04; Status DC Dexamethasone Sodium Phosphate (Decadron) 4 mg STK-MED ONCE .ROUTE ; Start 11/03/19 at 07:04; Stop 11/03/19 at 07:04; Status DC Fentanyl Citrate (Fentanyl 2ml Vial) 100 mcg 1X ONCE IVP Last administered on 11/03/19at 07:15; Start 11/03/19 at 07:15; Stop 11/03/19 at 07:16; Status DC Phenylephrine HCl (PHENYLEPHRINE in 0.9% NACL PF) 1 mg STK-MED ONCE IV ; Start 11/03/19 at 07:33; Stop 11/03/19 at 07:34; Status DC Insulin Human Lispro (HumaLOG) 0-7 UNITS TIDACHC SQ Last administered on 11/08/19at 12:17; Start 11/03/19 at 11:30 Dextrose (Dextrose 50%-Water Syringe) 12.5 gm PRN Q15MIN PRN IV SEE COMMENTS; Start 11/03/19 at 08:30; Status Cancel Hydromorphone HCl (Dilaudid) 2 mg STK-MED ONCE .ROUTE ; Start 11/03/19 at 09:32; Stop 11/03/19 at 09:32; Status DC Prochlorperazine Edisylate (Compazine) 10 mg STK-MED ONCE .ROUTE ; Start 11/03/19 at 09:32; Stop 11/03/19 at 09:32; Status DC Ondansetron HCl (Zofran) 4 mg PRN Q6HRS PRN IV NAUSEA/VOMITING; Start 11/03/19 at 10:00; Stop 11/03/19 at 10:33; Status DC Fentanyl Citrate (Fentanyl 2ml Vial) 25 mcg PRN Q5MIN PRN IV MILD PAIN 1-3; Start 11/03/19 at 10:00; Stop 11/03/19 at 10:33; Status DC Fentanyl Citrate (Fentanyl 2ml Vial) 50 mcg PRN Q5MIN PRN IV MODERATE TO SEVERE PAIN; Start 11/03/19 at 10:00; Stop 11/03/19 at 10:33; Status DC Morphine Sulfate (Morphine Sulfate) 1 mg PRN Q10MIN PRN IV SEVERE PAIN 7-10; Start 11/03/19 at 10:00; Stop 11/03/19 at 10:33; Status DC Ringer's Solution 1,000 ml @ 30 mls/hr Q24H IV ; Start 11/03/19 at 09:53; Stop 11/03/19 at 10:33; Status DC Hydromorphone HCl (Dilaudid) 0.5 mg PRN Q10MIN PRN IV SEV PAIN, Second choice Last administered on 11/03/19at 10:10; Start 11/03/19 at 10:00; Stop 11/03/19 at 10:33; Status DC Prochlorperazine Edisylate (Compazine) 5 mg PACU PRN PRN IV NAUSEA, MRX1 Last administered on 11/03/19at 09:58; Start 11/03/19 at 10:00; Stop 11/03/19 at 10:33; Status DC Clindamycin Phosphate 50 ml @ 100 mls/hr Q6H IV Last administered on 11/04/19at 03:29; Start 11/03/19 at 15:00; Stop 11/04/19 at 03:29; Status DC Ondansetron HCl (Zofran) 4 mg PRN Q4HRS PRN IVP NAUSEA/VOMITING; Start 11/03/19 at 10:15 Dextrose (Dextrose 50%-Water Syringe) 12.5 gm PRN Q15MIN PRN IV SEE COMMENTS; Start 11/03/19 at 10:15 Warfarin Sodium (Coumadin Per Pharmacy) 1 each PRN DAILY PRN MC SEE COMMENTS; Start 11/03/19 at 14:00; Stop 11/04/19 at 11:39; Status DC Warfarin Sodium (Coumadin) 5 mg DAILY16 PO Last administered on 11/03/19at 16:20; Start 11/03/19 at 16:00; Stop 11/04/19 at 11:15; Status DC Gabapentin (Neurontin) 300 mg TID PO Last administered on 11/08/19at 08:30; Start 11/03/19 at 21:00 Al Hydroxide/Mg Hydroxide (Mylanta Plus Xs) 30 ml PRN Q6HRS PRN PO DYSPEPSIA Last administered on 11/04/19at 05:05; Start 11/04/19 at 04:30 Insulin Glargine (Lantus Syringe) 10 unit QHS SQ Last administered on 11/07/19at 22:03; Start 11/04/19 at 21:00 Clindamycin Phosphate (Cleocin 900mg Premix) 900 mg STK-MED ONCE IV ; Start 11/03/19 at 07:00; Stop 11/04/19 at 09:06; Status DC Apixaban (Eliquis) 10 mg BID PO Last administered on 11/08/19at 08:30; Start 11/04/19 at 13:03; Stop 11/10/19 at 21:01 Lactobacillus Rhamnosus (Culturelle) 1 cap BID PO Last administered on 11/08/19at 08:30; Start 11/04/19 at 21:00 Apixaban (Eliquis) 5 mg BID PO ; Start 11/11/19 at 21:00 Diphenhydramine HCl (Benadryl) 25 mg PRN QHS PRN PO INSOMNIA, 1st choice Last administered on 11/07/19at 21:51; Start 11/05/19 at 11:00 Trazodone HCl (Desyrel) 50 mg PRN QHS PRN PO INSOMNIA, 2nd choice; Start 11/05/19 at 11:00 Hydralazine HCl (Apresoline Inj) 10 mg PRN Q4HRS PRN IVP ELEVATED BP, SEE COMMENTS; Start 11/06/19 at 08:00 Budesonide (Pulmicort) 0.5 mg RTBID NEB Last administered on 11/08/19at 07:32; Start 11/06/19 at 08:00 Diphenhydramine HCl (Benadryl) 25 mg PRN Q6HRS PRN IVP ITCHING; Start 11/06/19 at 08:45 Methylprednisolone Sodium Succinate (SOLU-Medrol 125MG VIAL) 125 mg 1X ONCE IV Last administered on 11/06/19at 09:24; Start 11/06/19 at 08:45; Stop 11/06/19 at 08:46; Status DC Enalaprilat (Vasotec Inj) 1.25 mg 1X ONCE IVP Last administered on 11/06/19at 09:25; Start 11/06/19 at 09:15; Stop 11/06/19 at 09:17; Status DC Methylprednisolone Sodium Succinate (SOLU-Medrol 40MG VIAL) 40 mg Q12HR IV Last administered on 11/08/19at 08:31; Start 11/06/19 at 12:00 Artificial Tears (Artificial Tears) 1 drop PRN Q15MIN PRN OU DRY EYE Last administered on 11/07/19at 08:33; Start 11/07/19 at 08:00 Diclofenac Sodium (Voltaren) 1 mavis BID TP ; Start 11/08/19 at 21:00 Active Scripts Active Reported [place] 10-325 Tablet (Acetaminophen/Hydrocodone Bitart) 1 Each Tablet 7.5 Mg PO BID Gabapentin 800 Mg Tablet 900 Mg PO TID Alprazolam 0.25 Mg Tablet 1 Tab PO DAILY Symbicort 160-4.5 Mcg Inhaler (Budesonide/Formoterol Fumarate) 10.2 Gm Hfa.aer.ad 2 Puff IH BID Tramadol HCl 100 Mg Tablet 50 Mg PO PRN Coreg (Carvedilol) 25 Mg Tablet 25 Mg PO DAILY Advair 100-50 Diskus (Fluticasone/Salmeterol) 1 Each Disk.w.dev 1 Puff IH BID Symbicort 160-4.5 Mcg Inhaler (Budesonide/Formoterol Fumarate) 10.2 Gm Hfa.aer.ad 2 Puff IH BID Centrum Silver Women Tablet (Multivits-Min/Iron/FA/Lutein) 1 Each Tablet 1 Each PO Tizanidine Hcl 4 Mg Tablet 1 Tab PO QHS Vital Signs Vital Signs Date Time Temp Pulse Resp B/P (MAP) Pulse Ox O2 Delivery O2 Flow Rate FiO2 11/08/19 13:14 Nasal Cannula 3.0 11/08/19 11:20 100 11/08/19 10:42 97.9 78 18 149/68 (95) 97.9 Labs Laboratory Tests Test 11/06/19 16:20 11/06/19 21:27 11/07/19 04:40 11/07/19 08:18 Glucose (Fingerstick) 234 mg/dL (70-99) 214 mg/dL (70-99) 213 mg/dL (70-99) White Blood Count 7.8 x10^3/uL (4.0-11.0) Red Blood Count 2.58 x10^6/uL (3.50-5.40) Hemoglobin 8.4 g/dL (12.0-15.5) Hematocrit 23.9 % (36.0-47.0) Mean Corpuscular Volume 93 fL (79-100) Mean Corpuscular Hemoglobin 33 pg (25-35) Mean Corpuscular Hemoglobin Concent 35 g/dL (31-37) Red Cell Distribution Width 15.1 % (11.5-14.5) Platelet Count 171 x10^3/uL (140-400) Prothrombin Time 18.0 SEC (11.7-14.0) Prothromb Time International Ratio 1.5 (0.8-1.1) Test 11/07/19 12:23 11/07/19 16:38 11/07/19 21:18 11/08/19 06:25 Glucose (Fingerstick) 209 mg/dL (70-99) 178 mg/dL (70-99) 228 mg/dL (70-99) White Blood Count 10.3 x10^3/uL (4.0-11.0) Red Blood Count 2.67 x10^6/uL (3.50-5.40) Hemoglobin 8.4 g/dL (12.0-15.5) Hematocrit 25.2 % (36.0-47.0) Mean Corpuscular Volume 94 fL (79-100) Mean Corpuscular Hemoglobin 32 pg (25-35) Mean Corpuscular Hemoglobin Concent 34 g/dL (31-37) Red Cell Distribution Width 15.3 % (11.5-14.5) Platelet Count 224 x10^3/uL (140-400) Neutrophils (%) (Auto) 85 % (31-73) Lymphocytes (%) (Auto) 9 % (24-48) Monocytes (%) (Auto) 6 % (0-9) Eosinophils (%) (Auto) 0 % (0-3) Basophils (%) (Auto) 0 % (0-3) Neutrophils # (Auto) 8.7 x10^3/uL (1.8-7.7) Lymphocytes # (Auto) 0.9 x10^3/uL (1.0-4.8) Monocytes # (Auto) 0.6 x10^3/uL (0.0-1.1) Eosinophils # (Auto) 0.0 x10^3/uL (0.0-0.7) Basophils # (Auto) 0.0 x10^3/uL (0.0-0.2) Segmented Neutrophils % 81 % (35-66) Band Neutrophils % 2 % (0-9) Lymphocytes % 13 % (24-48) Monocytes % 4 % (0-10) Platelet Estimate Adequate (ADEQUATE) Prothrombin Time 15.3 SEC (11.7-14.0) Prothromb Time International Ratio 1.3 (0.8-1.1) Test 11/08/19 07:21 11/08/19 07:51 11/08/19 11:26 Glucose (Fingerstick) 182 mg/dL (70-99) 195 mg/dL (70-99) 151 mg/dL (70-99) Laboratory Tests Test 11/07/19 16:38 11/07/19 21:18 11/08/19 06:25 11/08/19 07:21 Glucose (Fingerstick) 178 mg/dL (70-99) 228 mg/dL (70-99) 182 mg/dL (70-99) White Blood Count 10.3 x10^3/uL (4.0-11.0) Red Blood Count 2.67 x10^6/uL (3.50-5.40) Hemoglobin 8.4 g/dL (12.0-15.5) Hematocrit 25.2 % (36.0-47.0) Mean Corpuscular Volume 94 fL (79-100) Mean Corpuscular Hemoglobin 32 pg (25-35) Mean Corpuscular Hemoglobin Concent 34 g/dL (31-37) Red Cell Distribution Width 15.3 % (11.5-14.5) Platelet Count 224 x10^3/uL (140-400) Neutrophils (%) (Auto) 85 % (31-73) Lymphocytes (%) (Auto) 9 % (24-48) Monocytes (%) (Auto) 6 % (0-9) Eosinophils (%) (Auto) 0 % (0-3) Basophils (%) (Auto) 0 % (0-3) Neutrophils # (Auto) 8.7 x10^3/uL (1.8-7.7) Lymphocytes # (Auto) 0.9 x10^3/uL (1.0-4.8) Monocytes # (Auto) 0.6 x10^3/uL (0.0-1.1) Eosinophils # (Auto) 0.0 x10^3/uL (0.0-0.7) Basophils # (Auto) 0.0 x10^3/uL (0.0-0.2) Segmented Neutrophils % 81 % (35-66) Band Neutrophils % 2 % (0-9) Lymphocytes % 13 % (24-48) Monocytes % 4 % (0-10) Platelet Estimate Adequate (ADEQUATE) Prothrombin Time 15.3 SEC (11.7-14.0) Prothromb Time International Ratio 1.3 (0.8-1.1) Test 11/08/19 07:51 11/08/19 11:26 Glucose (Fingerstick) 195 mg/dL (70-99) 151 mg/dL (70-99) Allergies Allergies Coded Allergies Type Severity Reaction Last Updated Verified Iodine and Iodide Containing Produc Allergy Severe anaphalaxis 02/26/16 Yes Milk Containing Products Allergy Intermediate asthma 02/26/16 Yes Sulfa (Sulfonamide Antibiotics) Allergy Intermediate 02/26/16 Yes cephalexin Allergy Intermediate 02/26/16 Yes NSAIDS (Non-Steroidal Anti-Inflamma Adverse Reaction Severe esophageal erosion 02/26/16 Yes Disposition/Orders: Other (D/C TO REHAB) Justicifation of Admission Dx: Justifications for Admission: Justification of Admission Dx: Yes CHF: Hemodynamic Instability Respiratory Failure: Airway Obstruction CARTER AMBROSIO MD Nov 08, 2019 14:03
[2019-11-08] MEDS ORDERED: LACT1CAP19 PO (14:13)
[2019-11-08] MEDS ORDERED: POLY15DR27 OU (14:13)
[2019-11-08] MEDS ORDERED: ACET325T9 PO (14:13)
[2019-11-08] MEDS ORDERED: GUAI100L12 PO (14:13)
[2019-11-08] MEDS ORDERED: INSU100V8 SQ (14:13)
[2019-11-08] MEDS ORDERED: APIX5TAB PO (14:13)
[2019-11-08] MEDS ORDERED: IPRA3AMP29 NEB (14:13)
[2019-11-08] MEDS ORDERED: TRAZ-118 PO (14:13)
[2019-11-08] MEDS ORDERED: DOCU-153 PO (14:13)
[2019-11-08] MEDS ORDERED: GABA300C18 PO (14:13)
[2019-11-08] MEDS ORDERED: Nicotine 21MG TD (14:13)
[2019-11-08] MEDS ORDERED: INSU100I11 SQ (14:13)
[2019-11-08] MEDS ORDERED: MAG30ORA2 PO (14:13)
[2019-11-08] MEDS ORDERED: DOXY100C2 PO (14:13)
[2019-11-08 15:01] VITALS: BP 142/62
--- NOTE | 2019-11-08 16:26 | NUR ---
Pt. discharged to [facility] via per transportation service. R hip drsg CDI.
[2019-11-08] MEDS ORDERED: DICLOFENAC SODIUM 1% TOPICAL GEL 100GM TUBE. TP SCH (21:00)
[2019-11-11] MEDS ORDERED: APIXABAN 5 MG TABLET. PO SCH (21:00)
== END 2019-11-08 16:00 | DRG 480 ==
LOC: ER 08:46 → 2 NORTH 11:51 → 4 NORTH 11-02 18:40 → CVICU 11-06 08:50 → 4 NORTH 11-07 17:29
PROVIDERS: ADMIT Family Medicine; ATTEND Family Medicine
PROC: 0QS606Z Reposition Right Upper Femur with Intramedullary Internal Fixation Device, Open Approach (ICD-10-PCS; principal; 2019-11-03 07:30)
PROC: 5A09357 Assistance with Respiratory Ventilation, Less than 24 Consecutive Hours, Continuous Positive Airway Pressure (ICD-10-PCS; 2019-11-06)
PROC: 5A09357 Assistance with Respiratory Ventilation, Less than 24 Consecutive Hours, Continuous Positive Airway Pressure (ICD-10-PCS; 2019-11-07)
PROC: 30233N1 Transfusion of Nonautologous Red Blood Cells into Peripheral Vein, Percutaneous Approach (ICD-10-PCS; 2019-11-08)
DX: S72.141A Displaced intertrochanteric fracture of right femur, initial encounter for closed fracture (principal); J96.01 Acute respiratory failure with hypoxia; J44.0 Chronic obstructive pulmonary disease with (acute) lower respiratory infection; J44.1 Chronic obstructive pulmonary disease with (acute) exacerbation; E78.00 Pure hypercholesterolemia, unspecified; I10 Essential (primary) hypertension; F17.210 Nicotine dependence, cigarettes, uncomplicated; E11.65 Type 2 diabetes mellitus with hyperglycemia; G89.29 Other chronic pain; E78.5 Hyperlipidemia, unspecified; J44.9 Chronic obstructive pulmonary disease, unspecified; D69.6 Thrombocytopenia, unspecified; D64.9 Anemia, unspecified; J40 Bronchitis, not specified as acute or chronic; Z20.828 Contact with and (suspected) exposure to other viral communicable diseases; S83.92XA Sprain of unspecified site of left knee, initial encounter; W01.0XXA Fall on same level from slipping, tripping and stumbling without subsequent striking against object, initial encounter; Y93.01 Activity, walking, marching and hiking; Y92.098 Other place in other non-institutional residence as the place of occurrence of the external cause; Y99.8 Other external cause status; Z88.1 Allergy status to other antibiotic agents; Z88.2 Allergy status to sulfonamides; Z88.8 Allergy status to other drugs, medicaments and biological substances; Z91.041 Radiographic dye allergy status; Z79.01 Long term (current) use of anticoagulants; Z86.711 Personal history of pulmonary embolism; Z98.1 Arthrodesis status; Z91.011 Allergy to milk products; Z82.5 Family history of asthma and other chronic lower respiratory diseases; Z82.49 Family history of ischemic heart disease and other diseases of the circulatory system
CPT/HCPCS: 36415; 36600; 71045; 73502; 76000; 78580; 80048; 80053; 81001; 82550; 82805; 82962; 83036; 83615; 84484; 85007; 85014; 85018; 85025; 85027; 85379; 85520; 85610; 86140; 86850; 86900; 86901; 86920; 93005; 93970; 94640; 94660; 94760; 96374; 96376; 99285; A7015; A9540; C1713; C1887; C9113; J0360; J0780; J1100; J1170; J1644; J1815; J2250; J2270; J2370; J2405; J2704; J2920; J2930; J3010; J3490; J7030; J7060; J7120; P9016; 97110-GP; 97116-GP; 97530-GO; 97530-GP; 97535-GO; G0378; J7626; Q0163; U0003-CS

== ENCOUNTER → 2019-12-12 | Outpatient (CLI) | payer BC ==
[~2019-12-12] MED LIST changes: +ACET325T9 PO; +ALPR0.254 PO; +APIX5TAB PO; +CARV25TA PO; +DOCU-153 PO; +DOXY100C2 PO; +GABA300C18 PO; +GABA800T5 PO; +GUAI100L12 PO; +HYDR-3135 PO; +INSU100I11 SQ; +INSU100V8 SQ; +IPRA3AMP29 NEB; +LACT1CAP19 PO; +MAG30ORA2 PO; +Nicotine 21MG TD; +POLY15DR27 OU; +TRAM100T36 PO; +TRAZ-118 PO
--- NOTE | 2019-12-12 10:43 | RAD ---
NUCLEAR MEDICINE PERFUSION ONLY SCAN History: Pulmonary embolus November 03, 2019 after hip fracture. Comparison: Two-view chest, same day. Nuclear medicine pulmonary perfusion scan November 01, 2019. Technique: Perfusion portion performed after intravenous administration of 5.5 mCi Technetium 99m MAA. Multiple projection planar images of the lungs were obtained. Findings: Ventilation imaging is not performed due to aerosolized droplet precautions. Large perfusion defect in the posterior right upper lobe is unchanged. Small perfusion defect in the superior segment of the left lower lobe is unchanged. No correlate is seen on chest radiograph. Interpretation is limited without ventilation imaging. If the perfusion defects are matched the study is considered low probability for pulmonary embolus. If the perfusion defects are mismatched the study is considered intermediate probability. IMPRESSION: Pulmonary perfusion is unchanged. Electronically signed by: Max Luciano MD (12/12/2019 10:39 AM) [id number]
--- NOTE | 2019-12-12 14:15 | RAD ---
PA and lateral chest radiographs 12/12/2019 CLINICAL HISTORY: Chest pain. History of pulmonary embolism. PA and lateral digital radiographs of the chest were obtained. Comparison study dated 11/06/2019. An anterior plate and bone screws along with bone graft material is seen within the lower cervical spine, unchanged. The cardiac silhouette is normal in size. The thoracic aorta is minimally tortuous. No acute pulmonary infiltrate is seen. No pleural effusion or pneumothorax is noted. The osseous structures are unchanged. IMPRESSION: No acute abnormality is seen. Electronically signed by: Adarsh Banks MD (12/12/2019 2:12 PM) [id number]
== END | disposition home or self-care (01) ==
LOC: NM 08:51
PROVIDERS: ATTEND Internal Medicine Critical Care Medicine
DX: Q25.46 Tortuous aortic arch (principal); Z86.711 Personal history of pulmonary embolism
CPT/HCPCS: 71046; 78580; A9540

== ENCOUNTER → 2020-01-23 | Outpatient (CLI) | payer BC ==
[~2020-01-23] MED LIST changes: +IOHEXOL 350 MG/ML 100 ML VIAL. IV ONE; +diphenhydrAMINE HCL 25 MG CAPSULE PO ONE
--- NOTE | 2020-01-23 09:37 | RAD ---
CT angiography of the chest 01/23/2020 8:30 AM Indication: Reason: PULMONARY EMBOLI. / Spl. Instructions: IV OMNI 350 90 MLS / History: Technique: Multiple contiguous axial images were obtained through the chest after administration of intravenous iodinated contrast. Coronal, sagittal, and 3-D MIP reformations were created. Comparison: Chest radiograph, November 12, 2019 Findings: There is no filling defect within central pulmonary arteries or evidence of acute pulmonary embolism. Heart size is normal. No pericardial effusion is appreciated. No pathologically enlarged mediastinal lymph nodes are seen. . The thoracic aorta is grossly normal in course and contour. Partially visualized but appears to be a significant stenosis of the common carotid artery on the left measuring an estimated 80%. More mild approximately 50% narrowing is seen on the right. Dedicated CT angiography recommended. There is no pneumothorax or pleural effusion. Severe emphysematous changes are seen throughout the bilateral lungs. Multiple subpleural blebs are noted bilaterally. A very large subpleural bleb is noted, occupying the superior half of the right lower lobe. No acute appearing infiltrates are identified. No concerning nodules or masses are appreciated. No acute osseous abnormalities are appreciated. T11 compression deformity is similar to comparison study. Impression: 1. No evidence of acute pulmonary embolism 2. Limited visualization of the carotid arteries demonstrates an approximately 80% narrowing of the left common carotid artery and a lesser approximately 50% narrowing of the right common carotid artery. Dedicated CT angiography recommended. 3. Severe pulmonary emphysema with multiple subpleural blebs including a large bleb occupying approximately half of the right lower lobe CT DOSING PQRS STATEMENT: One or more of the following individualized dose reduction techniques were utilized for this examination: 1. Automated exposure control 2. Adjustment of the mA and/or kV according to patient size 3. Use of iterative reconstruction technique Electronically signed by: Steve Helms MD (01/23/2020 9:34 AM) [id number]
== END | disposition home or self-care (01) ==
LOC: CT 10:24
PROVIDERS: ATTEND Internal Medicine Pulmonary Disease
DX: J43.8 Other emphysema (principal); M43.8X4 Other specified deforming dorsopathies, thoracic region; Z86.711 Personal history of pulmonary embolism
CPT/HCPCS: 71275; Q9967; Q0163

== ENCOUNTER → 2020-03-07 | Outpatient (CLI) | payer BC ==
[~2020-03-07] MED LIST changes: -IOHEXOL 350 MG/ML 100 ML VIAL. IV ONE; -diphenhydrAMINE HCL 25 MG CAPSULE PO ONE
--- NOTE | 2020-03-07 16:12 | KCIC ---
Examination: MRI of the left knee without contrast HISTORY: History of left knee pain, lateral strain, fall Comparison: None available. TECHNIQUE: Multiplanar, multisequence MR imaging of the left knee was performed without contrast. FINDINGS: The anterior cruciate ligament, posterior cruciate ligament appears intact. The medial, lateral meniscus appears intact. The medial collateral ligament is intact. Lateral collateral ligamentous complex including the fibular collateral ligament, biceps femoris tendon, popliteus tendon appears intact. The extensor mechanism appears intact. There is a large serpiginous lesion identified in the distal femur extending to the medial and lateral condyles likely bone infarct.A smaller bone infarct identified in the proximal portion of the tibia. The medial, lateral retinaculum appears intact. Impression: 1. Large serpiginous lesion identified in the distal femur extending to the medial and lateral condyles likely bone infarct.A smaller bone infarct identified in the proximal portion of the tibia. Comparison to plain film radiograph is recommended. 2. No evidence of internal derangement of the knee. Electronically signed by: Vic Santamaria MD (03/07/2020 4:09 PM) [id number]
--- NOTE | 2020-03-07 16:41 | KCIC ---
MRI of the lumbar spine without contrast 03/07/2020 CLINICAL HISTORY: Chronic low back pain which radiates down the right leg. TECHNIQUE: Unenhanced T1-weighted and T2-weighted sagittal and axial and inversion recovery sagittal images of the lumbar spine were obtained. FINDINGS: Comparison study is dated 01/18/2018. Very mild S-shaped curvature of the thoracolumbar spine is seen. Degenerative signal changes are seen involving all of the disks of the lumbar spine. Degenerative signal changes are seen within the marrow surrounding these discs. The conus medullaris is normal morphology, position, and signal characteristics. An old compression deformity of the superior aspect of the T11 vertebral body is seen. No retropulsion of bone fragments into the central spinal canal is noted. No acute compression fracture of the lumbar vertebrae is seen. At the T11-12 disc space there is a mild generalized disc bulge. Superimposed on this disc bulge is a left paracentral focal disc protrusion. This measures 3 mm in AP diameter. Degenerative changes are seen involving the facet joints bilaterally. These findings result in mild left-sided central spinal canal stenosis without evidence of cord impingement. No neural foraminal stenosis is seen. At the T12-L1 and L1-2 disc spaces there are minimal generalized disc bulge. Degenerative changes are seen involving the facet joints bilaterally. There is mild ligamentum flavum hypertrophy bilaterally. These findings do not result in significant central spinal canal or neural foraminal stenosis. At the L2-3 disc space there is a mild to moderate generalized disc bulge. This is eccentric to the right. Degenerative changes are seen involving the facet joints bilaterally. There are small facet joint effusions bilaterally. There is mild ligamentum flavum hypertrophy bilaterally. These findings when combined do not result in significant central spinal canal or neural foraminal stenosis. At the L3-4 disc space there is a mild to moderate generalized disc bulge. This is eccentric to the left. Degenerative changes are seen involving the facet joints bilaterally. There is mild to moderate ligamentum flavum hypertrophy bilaterally. These findings when combined result in mild central spinal canal stenosis. No neural foraminal stenosis is seen. At the L4-5 disc space there is a mild generalized disc bulge. Degenerative changes are seen involving the facet joints bilaterally. There is mild ligament flavum hypertrophy bilaterally. These findings when combined do not result in significant central spinal canal or neural foraminal stenosis. At the L5-S1 disc space there is a mild generalized disc bulge. Degenerative changes are seen involving the facet joints bilaterally. These findings do not result in significant central spinal canal or neural foraminal stenosis. The degenerative changes have progressed slightly since the previous study. IMPRESSION: The changes of degenerative disc disease are seen involving lower thoracic and throughout the lumbar spine. These findings results in mild left-sided central spinal canal stenosis at T11-12 and mild central spinal canal stenosis at L3-4. No neural foraminal stenosis is seen. Electronically signed by: Adarsh Banks MD (03/07/2020 4:39 PM) [id number]
== END | disposition home or self-care (01) ==
LOC: KCIC MRI 14:20
PROVIDERS: ATTEND Physician Assistant
DX: S83.412A Sprain of medial collateral ligament of left knee, initial encounter (principal); M89.9 Disorder of bone, unspecified; M51.15 Intervertebral disc disorders with radiculopathy, thoracolumbar region; M47.27 Other spondylosis with radiculopathy, lumbosacral region; M48.05 Spinal stenosis, thoracolumbar region; X58.XXXA Exposure to other specified factors, initial encounter; Y93.89 Activity, other specified; Y92.89 Other specified places as the place of occurrence of the external cause; Y99.8 Other external cause status
CPT/HCPCS: 72148; 73721

== ENCOUNTER → 2020-03-13 | Outpatient (CLI) | payer BC ==
--- NOTE | 2020-03-13 15:40 | RAD ---
PA and lateral chest x-ray compared to similar exam dated December 112019 for shortness of air. FINDINGS: The lungs are clear. Cardiomediastinum is grossly unremarkable. There are postsurgical changes of the cervical spine. Chronic compression deformity of T11 is redemonstrated. There is a new compression deformity of T10 however. IMPRESSION: 1. No acute cardiopulmonary abnormality. 2. New superior endplate compression deformity of T10. If the patient has pain referrable to this region, further evaluation with MRI should be considered. Electronically signed by: Sathish Decker MD (03/13/2020 3:38 PM) [id number]
== END ==
LOC: RAD 11:15
PROVIDERS: ATTEND Internal Medicine Critical Care Medicine
DX: R06.02 Shortness of breath (principal); M43.8X4 Other specified deforming dorsopathies, thoracic region
CPT/HCPCS: 71046

== ENCOUNTER → 2020-03-21 | Outpatient (CLI) | payer BC ==
[~2020-03-21] MED LIST changes: +ASPI-630 PO; +DEXL60CA2 PO; +HYDR-2765 PO; +[UNRECOGNIZED DRUG - CODE] PO; +vitamin d
--- NOTE | 2020-03-21 15:19 | KCIC ---
MRI Thoracic Spine without contrast History: Nontraumatic compression fracture of T10, back pain Technique: Multiplanar, multi sequential noncontrast MR imaging was performed of the thoracic spine. Comparison: Chest radiographs January 12, 2020 Findings: There is recent T10 compression fracture with edema signified by STIR hyperintense and T1 hypointense signal, no solid or osseous retropulsion. There is old superior T11 compression deformity, no associated marrow edema or significant osseous retropulsion. Thoracic cord caliber is within normal limits without defined or expansile signal abnormality. There is moderate to severe degenerative disc disease greater anteriorly at T11-12, variable mild disc desiccation of more superior thoracic levels. There is no significant thoracic spinal stenosis. There is minimal disc osteophyte complex and bulge at T10-11 slightly indenting the ventral thecal sac. There is also negligible posterior bulge at T11-12. Facet degenerative change contributes to moderate to severe neural foramina compromise bilaterally at T9-10. There is [id number] narrowing of the right T11-12 neural foramen. There is other mild narrowing such as bilaterally at T8-T9 and T10-11 and on the left at T11-12. There has been anterior cervical fusion C5-6. Impression: 1. There is recent T10 compression fracture with associated marrow edema, not associated with significant osseous retropulsion. There is old T11 compression fracture. 2. There is inferior thoracic neural foramina compromise due to facet degenerative change greatest bilaterally at T9-10. Electronically signed by: Antoine Shin MD (03/21/2020 3:16 PM) [facility]
== END ==
LOC: KCIC MRI 12:46
PROVIDERS: ATTEND Physician Assistant
DX: M48.54XA Collapsed vertebra, not elsewhere classified, thoracic region, initial encounter for fracture (principal); M25.78 Osteophyte, vertebrae; M48.04 Spinal stenosis, thoracic region; M51.34 Other intervertebral disc degeneration, thoracic region
CPT/HCPCS: 72146

== ENCOUNTER → 2020-03-23 | Outpatient (CLI) | payer BC ==
[~2020-03-23] MED LIST changes: +IOHEXOL 180 MG/ML 10 ML VIAL. ONE; +methylPREDNISolone ACETATE 40 MG/ML VIAL. ONE; +methylPREDNISolone ACETATE 80 MG/ML VIAL. ONE
--- NOTE | 2020-03-23 09:49 | PDOC1 ---
INITIAL PAIN CONSULT DATE OF SERVICE: DOS: DATE: 03/23/20 TIME: 09:39 CHIEF COMPLAINT: Chief Complaint: Mid low back pain Low back and right lower extremity pain HISTORY OF PRESENT ILLNESS: 64-year-old female presents with history of fall January 2020 where she fell on the bathroom floor landed flat on her back she reports her body bounced up and down and was right hip dislocated and significant pain in the low and mid back. Patient since had multiple diagnostic studies including MRI scans thoracic spine showing a recent T10 compression fracture dated March 21, 2020 and MRI of the lumbar spine dated March 07, 2020 showing degenerative disc disease in the lower thoracic and throughout the lumbar spine with left-sided central canal stenosis at T11-12 and mild spinal canal stenosis centrally at L3-4. Patient reports the pain is getting worse with time she is done physical therapy she is doing exercise currently tried chiropractic treatment was not helpful patient reports getting worse of daily mid back upper back especially in the low back and mid back on the right side patient ports constant stabbing throbbing radiating in the right lower extremity posterior anterior thigh anteromedial thigh medial lower leg as well as the posterior lower leg and in the right hip and groin as well. Patient reports it wakes her from sleep at least 7-8 times a night can affect her bowel bladder control but does not cause any incontinence and she is using a walker currently to, she also has a cane but feels more stable with a walker. Patient rates her disability rating 0-10 10 being the worst is a 9 with family home responsibilities 10 with recreation social activity occupational activity 06 behavior 7 with self-care and 7 with life support activities. Patient is taking hydrocodone which does help by about 50% also has tried Tylenol as well as [id number] ibuprofen which was not significantly helpful. Patient reports no loss of motor function but significant fatigability of the right leg with walking for more than about 5 minutes. PAST MEDICAL HISTORY: PMH: COPD, hypertension, arthritis, headaches, vertigo, cigarette smoking PREVIOUS SURGERIES: Past Surgical Hx: Right hip surgery October 2019, C5-6 fusion, ORIF left forearm 2008, hardware removal 2009, soft tissue surgery on the hip 1994, bladder surgery with ureteral dilation 1997, cataract extraction 2017 CURRENT MEDICATIONS: Current Meds: Active Scripts Medications Dose Route/Sig Max Daily Dose Days Date Category Norel Ad Tablet (Phenylephrine/Acetaminophen/Cp) 1 Each Tablet 1 Tab PO Q4-6HRS 10 03/23/20 Reported Dexilant (Dexlansoprazole) 60 Mg Greg. 1 Cap PO DAILY 30 03/23/20 Reported [vitamin d] 50,000 Cap WEEKLY 03/23/20 Reported Aspirin 81 Mg Tab.chew 1 Tab PO DAILY 03/23/20 Reported Hydrocodone-Apap 7.5-325 (Hydrocodone Bit/Acetaminophen) 1 Tab Tablet 1 Tab PO PRN Q6HRS PRN 03/23/20 Reported Artificial Tears (Polyvinyl Alcohol) 15 Ml Drops 1 Drop OU PRN Q15MIN PRN 30 11/08/19 Rx Gabapentin 300 Mg Capsule 300 Mg PO TID 30 11/08/19 Rx Tylenol (Acetaminophen) 325 Mg Tablet 650 Mg PO PRN Q4HRS PRN 30 11/08/19 Rx [Nicotine 21MG] 1 PATCH Patch 1 Patch TD DAILY 30 11/08/19 Rx Tramadol HCl 100 Mg Tablet 50 Mg PO PRN 11/01/19 Reported Coreg (Carvedilol) 25 Mg Tablet 25 Mg PO DAILY 11/01/19 Reported Centrum Silver Women Tablet (Multivits-Min/Iron/FA/Lutein) 1 Each Tablet 1 Each PO 02/26/16 Reported Tizanidine Hcl 4 Mg Tablet 1 Tab PO QHS 02/26/16 Reported ALLERGIES; Allergies: Coded Allergies: Iodine and Iodide Containing Produc (Verified Allergy, Severe, anaphalaxis, 02/26/16) Milk Containing Products (Verified Allergy, Intermediate, asthma, 02/26/16) Sulfa (Sulfonamide Antibiotics) (Verified Allergy, Intermediate, 02/26/16) cephalexin (Verified Allergy, Intermediate, 02/26/16) NSAIDS (Non-Steroidal Anti-Inflamma (Verified Adverse Reaction, Severe, esophageal erosion, 02/26/16) Uncoded Allergies: eggs (Adverse Reaction, Intermediate, 03/23/20) FAMILY HISTORY: Family Hx: Cancer, diabetes, heart disease SOCIAL HISTORY: Social Hx: Patient does not drink alcohol does smoke about a fourth of a pack of cigarettes is in the process of weaning down and quitting but is smoked for over 40 years, patient does not use any illegal illicit or recreational drugs is single lives locally in 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 REVIEW OF SYSTEMS: ROS: Positive for those items mentioned in history of present illness, all systems are reviewed, otherwise negative, is complete full and well-documented on patient's chart PHYSICAL EXAM: VS: Blood pressure is 161/80 ,pulse 76, respirations 16, temperatures 98.6 F, height is 5 foot weight is 125 pounds PE: PHYSICAL EXAMINATION: GENERAL: The patient is awake, alert, oriented, appropriate, very pleasant demeanor HEENT: Shows normocephalic, atraumatic. Extraocular movements are intact and symmetrical. Oral cavity: Mucous membranes moist and pink. Dentition is intact. NECK: Shows anterior throat supple without palpable lymphadenopathy noted. Swallow reflex symmetrical. CHEST: Shows normal on inspection. Breath sounds are clear bilaterally, distant but no rales rhonchi or wheezes auscultated. HEART: Shows S1, S2 clear. No murmurs auscultated. ABDOMEN: Soft, nontender, nondistended, obese. No palpable organomegaly is noted. No rebound or guarding demonstrated. BACK: Shows spine grossly in the midline. Normal-appearing cervical lordotic curvature. There is slightly increased thoracic kyphosis, some minor flattening of the lumbar lordotic curvature. Thoracic paraspinous muscles show symmetrical on inspection with palpation some significant tenderness with severe tenderness in the mid to lower distribution of the thoracic paraspinous musculature. Also some significant tenderness over the spinous processes in the lower thoracic distribution as well very tender to palpation but without specific radiation. Lumbar paraspinous muscles show symmetrical on inspection, on palpation shows some moderate tenderness diffusely throughout the upper, middle and lower distribution of the paraspinous muscles bilaterally and also into the lower thoracic paraspinous musculature, firm and tender, but without specific trigger points, without radiation of pain. The patient has good rotational motion of the lumbar spine, both laterally as well as extension and flexion without significant difficulty. No tenderness over the lumbar spinous processes, sacrum or sacroiliac regions. EXTREMITIES: Lower extremities show deep tendon reflexes 1+ in the patellar and tendo calcaneus tendons. Motor exam is 4 on a scale of 5 with right dorsiflexion, extension, quadriceps and hamstring flexion and 5/5 on the left. Peripheral pulses are 1+ posterior tibial. No peripheral edema is noted bilaterally. Lower extremities are warm and dry to touch, equal in color and appearance. Straight leg raise noted to be positive on the right about 35 degrees, left side is negative. Gaenslen's and Car's maneuvers are negative as well. The patient is able to stand, has difficulty standing from a seated position uses both the arms of the chair to do so and is using a walker to ambulate with a significant favoring gait favoring the right lower extremity. Patient reports pain in the right hip as well with walking and getting to a standing position from seated. SKIN: Shows warm and dry, good turgor. No edema. No sores, rashes or bruising throughout. IMPRESSION: Impression: 64-year-old female with recent fall 2 months ago with significant pain mid back upper back low back and right lower extremity in a radicular fashion with T10 compression fracture Hypertension Arthritis Cigarette smoking COPD Plan: Options were discussed with the patient, including conservative medical management physical therapies interventional techniques. Patient would like to pursue interventional techniques we discussed a thoracic epidural steroid injection using description as well as anatomical models to describe the procedure. Risks were discussed including but not limited to: Bleeding, in fection, possibility of epidural hematoma and subsequent neurological compromise, dural puncture, headaches, spinal cord and/or nerve damage, side effects of steroid medication, and poor results regarding pain control. Patient understands wished to proceed. Return to clinic in approximate 2 weeks for follow-up was counseled as to return appointment activity level and side effects to be aware of. Procedure is thoracic epidural steroid injection under local anesthetic using sterile prep and drape at the T10-11 level using C-arm fluoroscopic guidance in both AP and lateral views medications injected is 120 mg Depo-Medrol + 10 mL pre servative-free normal saline and 2 mL contrast- condition at discharge is stable patient tolerated procedure well had no complications. BAUDILIO SCHWARTZ MD Mar 23, 2020 09:49
== END ==
LOC: PNCL 08:06
PROVIDERS: ATTEND Anesthesiology
DX: M48.54XA Collapsed vertebra, not elsewhere classified, thoracic region, initial encounter for fracture (principal); I10 Essential (primary) hypertension; M48.04 Spinal stenosis, thoracic region; M51.34 Other intervertebral disc degeneration, thoracic region; M19.90 Unspecified osteoarthritis, unspecified site; J44.9 Chronic obstructive pulmonary disease, unspecified; F17.210 Nicotine dependence, cigarettes, uncomplicated; Z83.3 Family history of diabetes mellitus; Z88.8 Allergy status to other drugs, medicaments and biological substances; Z88.2 Allergy status to sulfonamides; Z79.82 Long term (current) use of aspirin; Z79.899 Other long term (current) drug therapy
CPT/HCPCS: 62321; J1030; J1040; Q9965

== ENCOUNTER → 2020-04-06 | Outpatient (CLI) | payer BC ==
--- NOTE | 2020-04-06 09:52 | PDOC ---
Progress Note - Pain Clinic Date of Service: DOS: DATE: 04/06/20 TIME: 09:48 Diagnosis: Dx: Thoracic degenerative disc disease with thoracic compression fracture T10 Lumbar to colopathy with lumbar degenerative disc disease History or Present Illness: HPI: 64-year-old female returns follow-up status post thoracic epidural to injection x1. Patient with 90% improvement only for about a week and the pain began to return now is about 10% improved. Patient reports still pain in the mid back as well as some in the low back but the mid back radiating to the left side is most severe. Patient reports is a 9 on scale 10 is worse over the past week 9 on a verage 8 at its least and is a 9 today patient describes pain as aching sharp tight shooting stabbing burning cramping constant severe and unbearable. Patient been taking hydrocodone and reports that she is out of the medication she is given 50 tablets on 23 March. Patient reports difficulty with bending flexing changing positions getting up from a seated position walking and d isturbing her sleep were initially she was doing much better with all these activities but only for the first week or so. Patient reports no new motor or sensory deficits or other complaints. Physical Exam: VS: Blood pressure is 170/95 pulse 81 respirations are 20 temperature is 98.0 F height is 5 foot weight is 121 pounds PE: PHYSICAL EXAMINATION: GENERAL: The patient is awake, alert, oriented, appropriate, very pleasant demeanor HEENT: Shows normocephalic, atraumatic. Extraocular movements are intact and symmetrical. NECK: Shows anterior throat supple without palpable lymphadenopathy noted. Swallow reflex symmetrical. CHEST: Shows normal on inspection. Breath sounds are clear bilaterally, coarse but no rales rhonchi wheezes auscultated. HEART: Shows S1, S2 clear. No murmurs auscultated. ABDOMEN: Soft, nontender, nondistended, obese. No palpable organomegaly is noted. No rebound or guarding demonstrated. BACK: Shows spine grossly in the midline. Normal-appearing cervical lordotic curvature. There is slightly increased thoracic kyphosis, with palpation shows some moderate tenderness in the paraspinous musculature in the lower distribution of the thoracic paraspinous as well as significant tenderness over the spinous processes at around T-10 and 11 level. Some minor flattening of the lumbar lordotic curvature. Lumbar paraspinous muscles show symmetrical on inspection, on palpation shows some moderate tenderness diffusely throughout the upper, middle and lower distribution of the paraspinous muscles bilaterally and also into the lower thoracic paraspinous musculature, firm and tender, but without specific trigger points, without radiation of pain. The patient has good rotational motion of the lumbar spine, both laterally as well as extension and flexion without significant difficulty. No tenderness over the lumbar spino us processes, sacrum or sacroiliac regions. EXTREMITIES: Lower extremities show deep tendon reflexes 1+ in the patellar and tendo calcaneus tendons. Motor exam is 4 on a scale of 5 with right dorsiflexion, extension, quadriceps and hamstring flexion and 5/5 on the left. Peripheral pulses are 1+ posterior tibial. No peripheral edema is noted bilaterally. Lower extremities are warm and dry to touch, equal in color and appearance. SKIN: Shows warm and dry, good turgor. No edema. No sores, rashes or bruising throughout. Procedure: Procedure: Options were discussed with the patient. Patient will chart was reviewed as her current medication regimen updated current review of systems updated today as well. We will proceed with a second in the series thoracic epidural steroid injection today with fluoroscopic guidance. Risks were discussed including but not limited to: Bleeding, infection, possibility of epidural hematoma and subsequent neurological compromise, dural puncture, headaches, spinal cord and/or nerve damage, side effects of steroid medication, and poor results regarding pain control. Patient understands wished to proceed. Patient will return to clinic in approximate 2 weeks for follow-up was counseled as to return appointment activity level and side effects to be aware of. Given refill prescription for hydrocodone 7.5 mg #50, with instructions side effects be aware of discussed as well. Medication Injected: Med Injected: Procedure is thoracic epidural steroid injection under local anesthetic using sterile prep and drape at the T10-11 level using C-arm fluoroscopic guidance in both AP and lateral views medications injected is 120 mg Depo-Medrol + 10 mL preservative-free normal saline and 2 mL contrast- condition at discharge is stable patient tolerated procedure well had no complications. Condition at Discharge: Condition at Discharge: Condition at discharge is stable, patient tolerated procedure well had no complications. BAUDILIO SCHWARTZ MD Apr 06, 2020 09:52
== END ==
LOC: PNCL 09:02
PROVIDERS: ATTEND Anesthesiology
DX: M48.54XA Collapsed vertebra, not elsewhere classified, thoracic region, initial encounter for fracture (principal); M51.34 Other intervertebral disc degeneration, thoracic region; M51.36 Other intervertebral disc degeneration, lumbar region; M51.37 Other intervertebral disc degeneration, lumbosacral region; I10 Essential (primary) hypertension; J44.9 Chronic obstructive pulmonary disease, unspecified; F17.210 Nicotine dependence, cigarettes, uncomplicated; Z88.2 Allergy status to sulfonamides; Z88.8 Allergy status to other drugs, medicaments and biological substances; Z79.82 Long term (current) use of aspirin; Z79.899 Other long term (current) drug therapy; Z83.3 Family history of diabetes mellitus
CPT/HCPCS: 62321; J1030; J1040; Q9965

== ENCOUNTER 2020-04-12 08:14 | Outpatient (CLI) | payer BC ==
[~2020-04-12] VITALS: Ht 152.4 cm; Wt 55.8 kg
[2020-04-12] VITALS (8 sets, daily range): BP systolic 156–188; BP diastolic 77–96
[~2020-04-12 08:14] MED LIST changes: -IOHEXOL 180 MG/ML 10 ML VIAL. ONE; -methylPREDNISolone ACETATE 40 MG/ML VIAL. ONE; -methylPREDNISolone ACETATE 80 MG/ML VIAL. ONE
[2020-04-12 08:42] LABS: BASO % 0 % (0-3); EOS % 0 % (0-3); HEMATOCRIT 41.7 % (36.0-47.0); HEMOGLOBIN 14.1 g/dL (12.0-15.5); LYMPH # 1.3 x10^3/uL (1.0-4.8); LYMPH % 11 % (24-48); MEAN CORPUSCULAR HEMOGLOBIN 32 pg (25-35); MEAN CORPUSCULAR HGB CONC 34 g/dL (31-37); MEAN CORPUSCULAR VOLUME 94 fL (79-100); MONO # 0.7 x10^3/uL (0.0-1.1); MONO % 5 % (0-9); NEUT # 10.2 x10^3/uL (1.8-7.7); NEUT % 83 % (31-73); PLATELET COUNT 233 x10^3/uL (140-400); RED BLOOD COUNT 4.43 x10^6/uL (3.50-5.40); RED CELL DISTRIBUTION WIDTH 15.9 % (11.5-14.5); WHITE BLOOD COUNT 12.3 x10^3/uL (4.0-11.0)
[2020-04-12] MEDS ORDERED: BUSP30TA PO (08:47)
[2020-04-12 08:52] LABS: PROTHROMBIN TIME PATIENT 12.2 SEC (11.7-14.0)
[2020-04-12] MEDS ORDERED: LIDOCAINE WITH 8.4% SOD BICARB 3 ML DISP.SYRIN. ONE (09:25)
[2020-04-12] MEDS ORDERED: GADOTERATE 5 MMOL/10ML VIAL. ONE (09:25)
[2020-04-12] MEDS ORDERED: MIDAZOLAM HCL/PF 5 MG/5 ML VIAL. ONE (09:25)
[2020-04-12] MEDS ORDERED: fentaNYL PF VIAL 250 MCG/5 ML VIAL ONE (09:25)
[2020-04-12] MEDS ORDERED: fentaNYL PF VIAL 250 MCG/5 ML VIAL IV ONE (09:45)
[2020-04-12] MEDS ORDERED: GADOTERATE 5 MMOL/10ML VIAL. IVP ONE (09:45)
[2020-04-12] MEDS ORDERED: MIDAZOLAM HCL/PF 5 MG/5 ML VIAL. IV ONE (09:45)
[2020-04-12] MEDS ORDERED: VANCOMYCIN 1GM IVPB FOR OMNI 250 ML IV ONE (09:45)
[2020-04-12] MEDS ORDERED: LIDOCAINE WITH 8.4% SOD BICARB 3 ML DISP.SYRIN. IJ ONE (09:45)
[2020-04-12 09:54] LABS: % ATYL 3 % (0-0); % LYMPHS 10 % (24-48); % MONOS 3 % (0-10); % MYELOS 1 % (0-0); % SEGS 83 % (35-66)
[2020-04-12 09:55] LABS: PLT ESTIMATE ADEQUATE (ADEQUATE)
[2020-04-12] MEDS ORDERED: HYDROmorphone 2 MG/ML VIAL ONE (10:23)
[2020-04-12] MEDS ORDERED: HYDROmorphone 2 MG/ML VIAL IVP ONE (10:30)
--- NOTE | 2020-04-12 11:00 | PDOC ---
BRIEF OPERATIVE NOTE Pre-Op Diagnosis T10 acute compression fracture Post-Op Diagnosis same Procedure Performed T10 kyphoplasty Surgeon Brianne Anesthesia Type: Conscious Sedation Findings T10 kyphoplasty Complications no immediate MIGUEL ALFRED MD Apr 12, 2020 11:00
--- NOTE | 2020-04-12 11:00 | PDOC ---
MODERATE SEDATION ASSESSMENT RISKS/ALTERNATIVES Risks/Alternatives Risks and alternatives of this type of sedation and procedure discussed with: RISK/ALTERNATIVES: Patient H & P ON CHART H & P H & P on chart and reviewed for co-morbid conditions and appropriate labs. H&P ON CHART: Yes STATUS PREG STATUS ASSESSED: Yes MEDS/ALLERGIES REVIEWED Meds/Allergies Reviewed Medications and Allergies including time and route of recently administered narcotics and sedatives. MEDS/ALLERGIES REVIEWED: Yes ASA RATING ASA RATING: II AIRWAY ASSESSMENT Airway Assessment Airway patency, oral function limitations, presence of caps, crowns, dentures, partials, and ability to extend neck assessed. AIRWAY ASSESSMENT: Yes MALLAMPATI SCORE MALLAMPATI SCORE: II PRE-SEDATION ASSESSMENT PRE-SEDATION ASSESSMENT: Yes MIGUEL ALFRED MD Apr 12, 2020 11:00
--- NOTE | 2020-04-12 13:11 | NUR ---
Discharge Note: STONE PAVON Discharge instructions and discharge home medications reviewed with [ TATY.DC9] and a copy given. All questions have been answered and understanding verbalized. The following instructions and handouts were given: [] Discontinued lines and drains: [ TATY.DRNTYP][g IV.EMILY] intact. Patient discharged to [ TATY.DC3] with[ TATY.DC5]via [ TATY.DC4]
--- NOTE | 2020-04-13 09:14 | RAD ---
Procedure: Kyphoplasty T10 Clinical Indication: Debilitating insufficiency fracture of T10, acute, and refractory to conservative pain management. History of osteoporosis. Sedation: Conscious sedation was administered with a total intraprocedural [id number] time of 31 minutes. The patient was monitored by a qualified independent observer throughout the time of sedation. Please refer to the medical record for exact doses of medications utilized to achieve moderate sedation. Antibiotics: L an antibiotic Exposure: Kerma-Area Product: 9.6 Gycm2 Contrast: None Sterility: All elements of maximal sterile barrier technique including the use of a cap, mask, sterile gown, sterile gloves, large sterile sheet, appropriate hand hygiene, and 2% chlorhexidine for cutaneous antisepsis (or acceptable alternative antiseptic per current guidelines) were followed for this procedure. Consent: The procedure was explained in its entirety to the patient or the patients designated branch customer service representative by a member of the treatment team, including a discussion of the risks, benefits and commonly accepted alternatives to the procedure, as well as the expected consequences of no therapy whatsoever. Discussion of the risks included, but was not limited to, those that are most frequent and those that are rare but possibly severe or life-threatening, as well as the possibility of unforeseen complications. Technique and Findings: Following informed consent, the patient was prepped and draped in usual sterile fashion. Preliminary fluoroscopic spot view of the thoracic spine was performed demonstrating chronic healed compression fracture of T11, with an acute compression fracture T10. Incidentally noted is a new compression fracture involving the inferior endplate of T9 which was not evident on patient's MRI from 3 weeks prior. 1% lidocaine was used to achieve local anesthesia in the paraspinal soft tissues. A small dermatotomy was made. Under fluoroscopic guidance, a 10-gauge needle was advanced in a left transpedicular fashion to the anterior aspect of the T10 vertebral body. A balloon was then used to create a cavity in polymethyl methacrylate was then injected into the vertebral body. The needle was removed and hemostasis was achieved with manual compression. Complications: No immediate Impression: 1. Kyphoplasty of T10 as described. 2. Incidentally noted new acute osteoporotic compression fracture of T9, not present on the patient's MRI from 3 weeks prior. The patient will be managed conservatively and reevaluated following recovery from her T10 kyphoplasty. MRI will be obtained. If the patient continues to have pain, attributable to the T9 compression fracture, and MRI suggests adequate morphology for kyphoplasty, kyphoplasty will then be contemplated.
[2020-04-19] MEDS ORDERED: DOXY100C2 PO (12:23)
== END 2020-04-12 13:15 | disposition home or self-care (01) ==
LOC: INTRAD 08:14
PROVIDERS: ATTEND Anesthesiology
DX: M48.54XA Collapsed vertebra, not elsewhere classified, thoracic region, initial encounter for fracture (principal); M81.0 Age-related osteoporosis without current pathological fracture; I10 Essential (primary) hypertension; J44.9 Chronic obstructive pulmonary disease, unspecified; F41.9 Anxiety disorder, unspecified; F17.210 Nicotine dependence, cigarettes, uncomplicated; Z86.010 Personal history of colon polyps; Z79.899 Other long term (current) drug therapy; Z98.890 Other specified postprocedural states; Z79.82 Long term (current) use of aspirin; Z88.0 Allergy status to penicillin; Z88.1 Allergy status to other antibiotic agents; Z88.2 Allergy status to sulfonamides; Z88.8 Allergy status to other drugs, medicaments and biological substances; Z91.041 Radiographic dye allergy status; Z91.011 Allergy to milk products; Z91.012 Allergy to eggs
CPT/HCPCS: 22513; 36415; 85007; 85025; 85610; 85730; 99152; 99153; A9575; C1713; J1170; J2250; J3010; J3370; J3490

== ENCOUNTER 2020-04-17 05:56 | Inpatient (IN) | payer BC ==
[~2020-04-17] VITALS: Ht 152.4 cm; Wt 56.2 kg
[2020-04-17 05:30] VITALS: BP 155/75
--- NOTE | 2020-04-17 05:35 | NUR ---
The patient, STONE PAVON, 64 y/o, F admitted by HILARY ACUNA MD, was given written information regarding hospital policies, unit procedures and contact persons. RN received report from Regina MUÑOZ at [facility] at 0435, patient was then transported from [facility] to [place] [address] via EMS at 0535. Patients vital signs stable, afebrile, and pain rated 8/10. Bed is in lowest locked position and call light within reach. Valuables were checked and left in the room with the patient. RN will continue to monitor patient closely.
[~2020-04-17 05:56] MED LIST changes: +BUSP30TA PO
[2020-04-17 07:00] VITALS: BP 133/73
[2020-04-17] MEDS: MEROPENEM 1 GM in IV NORMAL SALINE 100ML 100 ML IV SCH ×3 (07:33→22:16)
[2020-04-17] MEDS ORDERED: POLYVINYL ALCOHOL 1.4% OPHTH SOLUTION 15ML BOTTLE. OU PRN (08:45)
--- NOTE | 2020-04-17 09:35 | NUR ---
GRACIE following. Discussed with RN, pt from home alone, 2L oxygen (does not use at home), NPO. Pt was a transfer from [facility]. Pt having surgery tomorrow (04/18/2020). GRACIE will continue to follow. Addendum: 04/17/20 at 1424 by BLADIMIR BOWMAN Pt transferring to [address] [place] [id number] for COIVD PUI, per Dr. Liriano. Ariana (GRACIE) notified of transfer and background info on patient.
--- NOTE | 2020-04-17 09:50 | HP ---
ADMIT DATE: 04/17/2020 HISTORY OF PRESENT ILLNESS: The patient is a 64-year-old female patient who presented to the Emergency Room of [facility] with a complaint of severe back pain. The patient stated that the pain is severe that she is unable to take a deep breath and makes her shortness of breath worse and obviously she continues to smoke and that does not help according to her. She apparently has an appointment to get her T9 compression fracture treated on as she apparently has T10 treated with vertebroplasty recently. She was extensively investigated in the Emergency Room. Her white cell count was slightly elevated at 13,900. Her chemistry was generally unremarkable and her blood gases showed a pH of 7.30, pCO2 of 64, pO2 158, bicarbonate 31, and oxygen saturation was 99% on FiO2 of 30%. Her prothrombin time, INR and APTT were normal. D-dimer slightly elevated at 1.62. Urinalysis, however, was unremarkable and urine drug screen was positive for opiates. She had a chest x-ray, which showed the patient has patchy bibasilar airspace disease, no pleural effusion and therefore, the patient was transferred to [facility] with [id number] hypoxic hypercapnic respiratory failure, COPD exacerbation, thoracic vertebral compression fracture of T9, T10 and T11. She was basically continued to have pain medication, continued with bronchodilator, IV antibiotic and we did consult Dr. Helms for further evaluation and treatment. PAST MEDICAL HISTORY: Significant for hypertension, hyperlipidemia, osteoporosis, osteoarthritis and COPD as well as headaches, vertigo, and nicotine dependence. PAST SURGICAL HISTORY: Significant for 4 surgeries on the left forearm, C5-C6 laminectomy, bilateral cataract extraction and T10 vertebroplasty. ALLERGIES: SHE IS ALLERGIC TO IODINE AND IODINATED CONTRAST MATERIAL. MEDICATIONS: She is currently on following medications: She is on albuterol sulfate 1 puff every 4 hours as needed. She is on cyclobenzaprine 10 mg 3 times a day, tizanidine 4 mg every 8 hours, hydrocodone/APAP 5/325 one to two tablets every 6 hours. She is on pregabalin 50 mg at bedtime. She is on Symbicort 80/4.5 one inhalation twice a day, ondansetron 4 mg every 8 hours, Protonix 40 mg once a day. She is also on prednisone. FAMILY HISTORY: Positive for cancer, diabetes and heart disease. She has 5 sisters, all older and seemingly healthy. Her father at the age of 63 because of lung cancer and COPD. Mother at the age of 63 because of lung cancer. 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 She does not drink alcohol; however, she continues to smoke a 4th of a pack of cigarettes and in the process of weaning down and eventually quitting, but has been a smoker for over 40 years. The patient does not use any illicit drugs or recreational drugs. PHYSICAL EXAMINATION: GENERAL: On arrival to the Emergency Room, the patient was tachypneic, but there was no pallor, jaundice, cyanosis or thyromegaly. No jugular venous distention. No limb edema. VITAL SIGNS: Her heart rate was 112, blood pressure was 184/124, temperature was 98.1, respiratory rate was 30, and oxygen saturation was 91%. HEAD, EYES, EARS, NOSE AND THROAT: Showed normocephalic, atraumatic. NECK: Supple. HEART: Normal first and second heart sounds. No gallop, rub or murmur. CHEST: Shows central trachea, equally reduced expansion, reduced air entry, vesicular sounds with bilateral scattered rhonchi. I could not appreciate any crepitation. ABDOMEN: Slightly distended, soft, nontender. NEUROLOGIC: She is grossly intact. LABORATORY DATA: Her lab work on arrival to the Emergency Room showed a white cell count of 13,900, hemoglobin 13.3, hematocrit 40, MCV 96, and platelet count of 241,000 with normal manual differential. Her chemistry showed serum sodium was 137, potassium 4.5, chloride 101, bicarbonate 30, anion gap of 6, BUN 18, creatinine 0.8, estimated GFR was 72 mL per minute, her glucose 141. Lactic acid 0.4, calcium was 9.1, magnesium was 1.9. Total bilirubin, AST, ALT, alkaline phosphatase were normal. CK was 83. C-reactive protein was 23. Beta natriuretic peptide was 218, total protein 7.4, albumin was 3.8 and lipase was 379. Her prothrombin time, INR and APTT were normal. D-dimer was slightly elevated at 1.62. Her blood gases showed a pH of 7.30, pCO2 of 64, pO2 of 158, bicarbonate 31, and oxygen saturation was 99% on FiO2 of 30%. Urinalysis essentially unremarkable and urine drug screen was positive for opiates. Her chest x-ray showed bilateral patchy airspace disease with the lung bases, may represent atypical viral infectious process. She had had a CT scan of the chest, abdomen and pelvis done on 04/14 which showed basically that the patient has no acute abnormality in the chest or abdomen, moderate pulmonary emphysema. ASSESSMENT: The patient was transferred to [facility] with [id number] hypoxic hypercapnic respiratory failure, chronic obstructive pulmonary disease exacerbation. She has mild leukocytosis, however, she was on steroids. She has also elevated D-dimer as well as elevated C-reactive protein. PLAN: My plan is to consult the computator as well as Dr. Helms to see whether she is a candidate for vertebroplasty. HILARY ACUNA MD DR: FLAKITA/néstor JOB#: [id number] / [id number]
[2020-04-17] MEDS: NICOTINE 21MG PATCH. TD SCH (10:53)
[2020-04-17] MEDS: ASPIRIN CHEWABLE 81 MG TABLET. PO SCH (10:54)
[2020-04-17] MEDS: PANTOPRAZOLE 40 MG TABLET.DR. PO SCH (10:55)
[2020-04-17] MEDS: CARVEDILOL 12.5 MG TABLET. PO SCH (10:55)
[2020-04-17] MEDS: GABAPENTIN 300 MG CAPSULE. PO SCH ×3 (10:55→20:14)
[2020-04-17] MEDS: busPIRone 10 MG TABLET. PO SCH (10:56)
[2020-04-17 11:00] VITALS: BP 138/74
[2020-04-17] MEDS: fentaNYL PF VIAL 100 MCG/2 ML VIAL IVP PRN ×4 (11:05→23:49)
[2020-04-17] MEDS: IPRATRPIUM/ALBUTEROL 0.5/2.5MG 3 ML NEBU. NEB SCH ×4 (11:18→20:43)
[2020-04-17 15:00] VITALS: BP 150/67
--- NOTE | 2020-04-17 15:30 | PDOC ---
PULMONARY PROGRESS NOTES DATE: 04/17/20 TIME: 15:30 Vitals Vital Signs Date Time Temp Pulse Resp B/P (MAP) Pulse Ox O2 Delivery O2 Flow Rate FiO2 04/17/20 15:00 98.0 77 24 150/67 (94) 100 Room Air 98.0 04/17/20 11:19 2.0 General: Alert, No acute distress HEENT: Other Lungs: Other Cardiovascular: S1, S2 Abdomen: Soft, Non-tender, Other Extremities: No Edema Medications Active Scripts Medications Dose Route/Sig Max Daily Dose Days Date Category Buspirone Hcl 30 Mg Tablet 1 Tab PO DAILY 04/12/20 Reported Dexilant (Dexlansoprazole) 60 Mg Cap.mp 1 Cap PO DAILY 30 03/23/20 Reported Aspirin 81 Mg Tab.chew 1 Tab PO DAILY 03/23/20 Reported Hydrocodone-Apap 7.5-325 (Hydrocodone Bit/Acetaminophen) 1 Tab Tablet 1 Tab PO PRN Q6HRS PRN 03/23/20 Reported Artificial Tears (Polyvinyl Alcohol) 15 Ml Drops 1 Drop OU PRN Q15MIN PRN 30 11/08/19 Rx Gabapentin 300 Mg Capsule 300 Mg PO TID 30 11/08/19 Rx [Nicotine 21MG] 1 PATCH Patch 1 Patch TD DAILY 30 11/08/19 Rx Coreg (Carvedilol) 25 Mg Tablet 25 Mg PO DAILY 11/01/19 Reported Tizanidine Hcl 4 Mg Tablet 1 Tab PO QHS 02/26/16 Reported Impression . Full consult dictated Abnormal chest x-ray possible COVID-19 Check SARS Covid 2, droplet isolation. VENKATA GAUTHIER MD Apr 17, 2020 15:30
--- NOTE | 2020-04-17 17:14 | CONS ---
DATE OF CONSULTATION: 04/17/2020 ATTENDING PHYSICIAN: Dr. Funk. REASON FOR CONSULTATION: The patient is seen in pulmonary consultation at the request of Dr. Funk for abnormal x-ray revealing bilateral patchy alveolar type of infiltrates. HISTORY OF PRESENT ILLNESS: The patient is a 64-year-old. During my evaluation, she was falling asleep quite frequently secondary to some pain medication. Apparently, she was scheduled to undergo kyphoplasty. She had an abnormal x-ray. In addition, she required some oxygen. I was asked to see her in consultation. The patient wears no oxygen at home. She does smoke, has underlying COPD. No fever, chills or night sweats. Once again, she had an abnormal x-ray. I was asked to see her in consultation. I do not think that she has been tested for SARS-CoV-2, the patient herself does not think so also. She did have a SARS-CoV-2 test way back on 10/31. PAST MEDICAL HISTORY: Hypertension, hyperlipidemia, chronic pain requiring kyphoplasty for compression fractures of T9-T10 area, headaches, vertigo, nicotine dependent. PAST SURGICAL HISTORY: Status post previous surgeries to the forearm, C5 and C6 laminectomy, T10 vertebroplasty. ALLERGIES: IODINE AND CONTRAST DYE. MEDICATIONS: List was reviewed. FAMILY HISTORY: Remarkable for cancer, diabetes and heart disease. SOCIAL HISTORY: She works part-time. Denies any alcohol. She does smoke. REVIEW OF SYSTEMS: CONSTITUTIONAL: No fever or chills. EYES: No change in visual acuity. HENT: No nasal congestion or sore throat. PULMONARY: As indicated above. CARDIOVASCULAR: No chest pain. No pressure. GASTROINTESTINAL: No nausea, vomiting, diarrhea. GENITOURINARY: No dysuria or frequency. MUSCULOSKELETAL: As indicated above. SKIN: No new skin rashes. PHYSICAL EXAMINATION: VITAL SIGNS: The patient was on 2 L of oxygen supplementation, saturation greater than 92%. HEENT: Eyes, the sclerae were nonicteric. NECK: Jugular venous distention was not elevated. No lymphadenopathy. CHEST: Full expansion. LUNGS: Adequate flow, no wheezes. CARDIOVASCULAR: Regular rate and rhythm with S1, S2, no S3. ABDOMEN: Soft, nontender, nondistended. EXTREMITIES: No clubbing, cyanosis, no pitting edema. LABORATORY DATA: Labs were reviewed from several days ago, she had a white count of 12,000. Actually INR was 0.9 on the 10/10. Chest x-ray as indicated above. IMPRESSION: 1. Abnormal x-ray, possibly compatible with COVID-19 viral pneumonia versus bacterial pneumonia. 2. Acute on chronic hypoxemic respiratory failure. 3. Acute exacerbation of chronic obstructive pulmonary disease. 4. Elevated D-dimer, C-reactive protein. PLAN: 1. Recommend holding off on surgery. 2. Perform rapid testing for SARS-CoV-2, in addition to PCR. 3. Transfer patient up to isolation room. 4. Treat acute exacerbation of chronic obstructive pulmonary disease with steroids and antibiotics. 5. Will follow clinical course and make further recommendations. VENKATA GAUTHIER MD DR: ZOEY/néstor JOB#: [id number] / [id number]
[2020-04-17 19:00] VITALS: BP 142/75
[2020-04-17] MEDS: ENOXAPARIN 40 MG/0.4 ML SYRINGE. SQ SCH (20:14)
[2020-04-17] MEDS: tiZANidine 4 MG TABLET. PO SCH (20:14)
[2020-04-17] MEDS: methylPREDNISolone SOD SUCC PF 40 MG/ML VIAL. IV SCH (20:15)
[2020-04-17] MEDS: IPRATROPIUM/ALBUTEROL 20/100mcg/INH INHALER. INH SCH (20:44)
[2020-04-17 22:57] VITALS: BP 158/69
[2020-04-18 03:00] VITALS: BP 142/62
[2020-04-18] MEDS: fentaNYL PF VIAL 100 MCG/2 ML VIAL IVP PRN ×5 (03:07→20:03)
[2020-04-18] MEDS: HYDROcodone/APAP 7.5/325MG 1 TAB TABLET PO PRN ×4 (03:47→23:04)
[2020-04-18 04:41] LABS: HEMATOCRIT 33.5 % (36.0-47.0); HEMOGLOBIN 11.5 g/dL (12.0-15.5); RED BLOOD COUNT 3.53 x10^6/uL (3.50-5.40); RED CELL DISTRIBUTION WIDTH 15.5 % (11.5-14.5); WHITE BLOOD COUNT 7.5 x10^3/uL (4.0-11.0)
[2020-04-18 05:05] LABS: CALCIUM 8.9 mg/dL (8.5-10.1); CREATININE 0.8 mg/dL (0.6-1.0); GFR 72.7; POTASSIUM 4.1 mmol/L (3.5-5.1); TOTAL BILIRUBIN 0.4 mg/dL (0.2-1.0)
[2020-04-18] MEDS: MEROPENEM 1 GM in IV NORMAL SALINE 100ML 100 ML IV SCH ×3 (06:04→23:04)
[2020-04-18 07:00] VITALS: BP 137/65
[2020-04-18] MEDS ORDERED: IV RINGERS,LACTATED 1000ML 1,000 ML IV SCH (07:00)
[2020-04-18] MEDS: PANTOPRAZOLE 40 MG TABLET.DR. PO SCH ×2 (07:30→09:11)
[2020-04-18] MEDS: NICOTINE 21MG PATCH. TD SCH (07:35)
[2020-04-18] MEDS: IPRATRPIUM/ALBUTEROL 0.5/2.5MG 3 ML NEBU. NEB SCH ×4 (08:00→22:04)
[2020-04-18] MEDS: IPRATROPIUM/ALBUTEROL 20/100mcg/INH INHALER. INH SCH ×4 (08:00→23:04)
[2020-04-18] MEDS: busPIRone 10 MG TABLET. PO SCH (09:11)
[2020-04-18] MEDS: AZITHROMYCIN 250 MG TABLET. PO SCH (09:11)
[2020-04-18] MEDS: methylPREDNISolone SOD SUCC PF 40 MG/ML VIAL. IV SCH ×2 (09:11→20:00)
[2020-04-18] MEDS: GABAPENTIN 300 MG CAPSULE. PO SCH ×3 (09:11→20:03)
[2020-04-18] MEDS: ASPIRIN CHEWABLE 81 MG TABLET. PO SCH (09:11)
[2020-04-18] MEDS: CARVEDILOL 12.5 MG TABLET. PO SCH (09:12)
--- NOTE | 2020-04-18 09:20 | PDOC ---
PULMONARY PROGRESS NOTES DATE: 04/18/20 TIME: 09:20 Subjective Patient reports feeling increased anxiety in relation to her procedure today Denies any increased shortness of breath or increased cough, remains on 2 L nasal cannula Hypertension Per nursing Plan for kyphoplasty today with IR Vitals Vital Signs Date Time Temp Pulse Resp B/P (MAP) Pulse Ox O2 Delivery O2 Flow Rate FiO2 04/18/20 09:13 18 96 Nasal Cannula 2.0 04/18/20 09:12 73 137/65 04/18/20 07:00 97.6 97.6 Comments Patient seen during COVID- pandemic, visual exam performed Regular rate and rhythm On nasal cannula oxygen No accessory muscle use No obvious edema or rash General: Alert, No acute distress Labs Laboratory Tests Test 04/17/20 13:35 04/18/20 04:10 SARS-CoV-2 Antigen (Rapid) Negative (NEGATIVE) White Blood Count 7.5 x10^3/uL (4.0-11.0) Red Blood Count 3.53 x10^6/uL (3.50-5.40) Hemoglobin 11.5 g/dL (12.0-15.5) Hematocrit 33.5 % (36.0-47.0) Mean Corpuscular Volume 95 fL (79-100) Mean Corpuscular Hemoglobin 33 pg (25-35) Mean Corpuscular Hemoglobin Concent 34 g/dL (31-37) Red Cell Distribution Width 15.5 % (11.5-14.5) Platelet Count 183 x10^3/uL (140-400) Sodium Level 143 mmol/L (136-145) Potassium Level 4.1 mmol/L (3.5-5.1) Chloride Level 104 mmol/L (98-107) Carbon Dioxide Level 31 mmol/L (21-32) Anion Gap 8 (6-14) Blood Urea Nitrogen 14 mg/dL (7-20) Creatinine 0.8 mg/dL (0.6-1.0) Estimated GFR (Cockcroft-Gault) 72.7 BUN/Creatinine Ratio 18 (6-20) Glucose Level 245 mg/dL (70-99) Calcium Level 8.9 mg/dL (8.5-10.1) Total Bilirubin 0.4 mg/dL (0.2-1.0) Aspartate Amino Transf (AST/SGOT) 16 U/L (15-37) Alanine Aminotransferase (ALT/SGPT) 24 U/L (14-59) Alkaline Phosphatase 91 U/L (46-116) Total Protein 6.0 g/dL (6.4-8.2) Albumin 3.0 g/dL (3.4-5.0) Albumin/Globulin Ratio 1.0 (1.0-1.7) Laboratory Tests Test 04/17/20 13:35 04/18/20 04:10 SARS-CoV-2 Antigen (Rapid) Negative (NEGATIVE) White Blood Count 7.5 x10^3/uL (4.0-11.0) Red Blood Count 3.53 x10^6/uL (3.50-5.40) Hemoglobin 11.5 g/dL (12.0-15.5) Hematocrit 33.5 % (36.0-47.0) Mean Corpuscular Volume 95 fL (79-100) Mean Corpuscular Hemoglobin 33 pg (25-35) Mean Corpuscular Hemoglobin Concent 34 g/dL (31-37) Red Cell Distribution Width 15.5 % (11.5-14.5) Platelet Count 183 x10^3/uL (140-400) Sodium Level 143 mmol/L (136-145) Potassium Level 4.1 mmol/L (3.5-5.1) Chloride Level 104 mmol/L (98-107) Carbon Dioxide Level 31 mmol/L (21-32) Anion Gap 8 (6-14) Blood Urea Nitrogen 14 mg/dL (7-20) Creatinine 0.8 mg/dL (0.6-1.0) Estimated GFR (Cockcroft-Gault) 72.7 BUN/Creatinine Ratio 18 (6-20) Glucose Level 245 mg/dL (70-99) Calcium Level 8.9 mg/dL (8.5-10.1) Total Bilirubin 0.4 mg/dL (0.2-1.0) Aspartate Amino Transf (AST/SGOT) 16 U/L (15-37) Alanine Aminotransferase (ALT/SGPT) 24 U/L (14-59) Alkaline Phosphatase 91 U/L (46-116) Total Protein 6.0 g/dL (6.4-8.2) Albumin 3.0 g/dL (3.4-5.0) Albumin/Globulin Ratio 1.0 (1.0-1.7) Medications Active Scripts Medications Dose Route/Sig Max Daily Dose Days Date Category Buspirone Hcl 30 Mg Tablet 1 Tab PO DAILY 04/12/20 Reported Dexilant (Dexlansoprazole) 60 Mg Cap. 1 Cap PO DAILY 30 03/23/20 Reported Aspirin 81 Mg Tab.chew 1 Tab PO DAILY 03/23/20 Reported Hydrocodone-Apap 7.5-325 (Hydrocodone Bit/Acetaminophen) 1 Tab Tablet 1 Tab PO PRN Q6HRS PRN 03/23/20 Reported Artificial Tears (Polyvinyl Alcohol) 15 Ml Drops 1 Drop OU PRN Q15MIN PRN 30 11/08/19 Rx Gabapentin 300 Mg Capsule 300 Mg PO TID 30 11/08/19 Rx [Nicotine 21MG] 1 PATCH Patch 1 Patch TD DAILY 30 11/08/19 Rx Coreg (Carvedilol) 25 Mg Tablet 25 Mg PO DAILY 11/01/19 Reported Tizanidine Hcl 4 Mg Tablet 1 Tab PO QHS 02/26/16 Reported Impression . IMPRESSION: 1. Abnormal x-ray, possibly compatible with COVID-19 viral pneumonia versus bacterial pneumonia. 2. Acute on chronic hypoxemic respiratory failure. 3. Acute exacerbation of chronic obstructive pulmonary disease. 4. Elevated D-dimer, C-reactive protein. Plan . Continue supplemental oxygen to keep oxygen saturations greater than 92%, currently on 2 L nasal cannula Continue antibiotics, currently on azithromycin and meropenem Continue steroids with slow taper Follow IR recommendations in regards to kyphoplasty scheduled for kyphoplasty today at 1300, okay to proceed with procedure today from a pulmonary standpoint Anxiety and HTN per primary care physician Await COVID-19 PCR, continue isolation precautions DVT/GI prophylaxis, Protonix and Lovenox, hold Lovenox for procedure today Discussed with RN and VENKATA Dobson MD Apr 18, 2020 09:20
--- NOTE | 2020-04-18 09:29 | PN ---
DATE: 04/18/2020 SUBJECTIVE: The patient is resting, slightly propped up in bed, in no apparent distress. She is on droplet isolation. Her rapid COVID test was negative; however, the PCR is still pending at the time of this dictation. She is scheduled for vertebroplasty this afternoon, although that might be doubtful. She continued to complain of back pain and difficulty taking a deep breath, but otherwise denied any other complaints, in particular denied any chills, rigors or fever. PHYSICAL EXAMINATION: GENERAL: When I examined her, she looked well and was clearly in no apparent respiratory distress, pale. No jaundice, cyanosis or thyromegaly. No jugular venous distention. No limb edema. VITAL SIGNS: Her heart rate was 73, blood pressure was 137/65, temperature 97.6, respiratory rate was 18 and oxygen saturation was 96% on 2 liters of oxygen. HEENT: Showed normocephalic, atraumatic. NECK: Supple. HEART: Showed normal first and second heart sounds. No gallop, rub or murmur. CHEST: Showed central trachea, equally reduced chest expansion, reduced air entry, vesicular sounds. I could not really appreciate any crepitation or rhonchi. ABDOMEN: Distended, soft, nontender. NEUROLOGIC: She is grossly intact. Her intake and output are incompletely recorded. LABORATORY WORK: This morning showed a white cell count 7500, hemoglobin 11.5, hematocrit 33.5, MCV 95, and platelet count of 183,000. Serum sodium 143, potassium 4.1, chloride 104, bicarbonate 31, anion gap of 8, BUN 14, creatinine 0.8, estimated GFR was 73 mL per minute. Her glucose was 245, calcium was 8.9. Total bilirubin, AST, ALT, alkaline phosphatase were normal. Her total protein was 6, albumin 3. Her SARS COVID antigen was negative. ASSESSMENT: 1. Acute on chronic hypoxic hypercapnic respiratory failure. 2. Chronic obstructive pulmonary disease exacerbation. 3. Mild leukocytosis; however, the patient was on steroids. 4. She does have elevated D-dimer and elevated C-reactive protein. 5. She has T9 compression fracture, for which she was supposed to have vertebroplasty done today. Her COVID-19 by PCR is still pending at the time of this dictation. Meanwhile, we will continue with bronchodilator, steroids and IV antibiotic. She is on meropenem as well as azithromycin. HILARY ACUNA MD DR: FLAKITA/néstor JOB#: [id number] / [id number]
[2020-04-18] MEDS ORDERED: ALPR0.5T PO (10:25)
[2020-04-18] MEDS ORDERED: BUSP15TA PO (10:25)
[2020-04-18] MEDS: ALPRAZolam 0.5 MG TABLET PO SCH (10:38)
[2020-04-18 11:00] VITALS: BP 124/65
[2020-04-18] MEDS ORDERED: GADOTERATE 7.5 MMOL/15ML VIAL. IVP ONE (12:45)
[2020-04-18] MEDS ORDERED: LIDOCAINE WITH 8.4% SOD BICARB 3 ML DISP.SYRIN. IJ ONE (12:45)
[2020-04-18] MEDS ORDERED: VANCOMYCIN 1GM IVPB FOR OMNI 250 ML IRR ONE (12:45)
[2020-04-18] MEDS ORDERED: IOHEXOL 240 MG/ML 50ML VIAL. ONE (13:01)
[2020-04-18] MEDS ORDERED: LIDOCAINE WITH 8.4% SOD BICARB 3 ML DISP.SYRIN. ONE (13:01)
[2020-04-18] MEDS ORDERED: VANCOMYCIN 1GM IVPB FOR OMNI 250 ML ONE (13:05)
[2020-04-18] MEDS ORDERED: GADOTERATE 5 MMOL/10ML VIAL. ONE (13:06)
--- NOTE | 2020-04-18 15:22 | NUR ---
GRACIE following for discharge planning. Spoke with RN and reviewed chart. Pt remains on 2l with no home . Pt NPO. Pt's COVID results came back negative. GRACIE following. Addendum: 04/19/20 at 1013 by DOMINIC BOWMAN Pt transferred to [facility] to follow.
[2020-04-18 16:12] VITALS: BP 163/70
--- NOTE | 2020-04-18 16:28 | RAD ---
Fluoroscopically guided kyphoplasty, T9 Indication:T9 compression fracture. Pathologic fracture secondary to bone demineralization. Patient experiencing severe pain which is refractory to conservative treatment measures and preventing normal activities of daily living Fluoro time: 9.9 minutes Dose area product: 13.7 Gycm2 Sedation was provided via the anesthesia department. Consent: The risks and benefits of the procedure were discussed with the patient. Informed consent was obtained. The patient was brought to the fluoroscopy suite and placed in the prone position. A timeout procedure was performed. Preprocedural antibiotics were administered. Procedure: The overlying skin was prepped and draped in the usual sterile fashion. All elements of maximal sterile barrier technique including the use of a cap, mask, sterile gown, sterile gloves, large sterile sheet, appropriate hand hygiene, and 2% chlorhexidine for cutaneous antisepsis (or acceptable alternative antiseptic per current guidelines) were followed for this procedure. Using a left transpedicular approach, and direct fluoroscopic guidance, a trocar needle was advanced to the posterior third of the targeted T9 vertebral body. Vertebral augmentation balloon was then coaxially introduced through the needle, into the more central vertebral body and was deployed. A curved cement delivery needle was advanced into the contralateral vertebral body. Contrast opacified polymethylmethacrylate was then very slowly and carefully introduced through the vertebral augmentation needle, using strict fluoroscopic control. Once adequate filling had been achieved the needles were removed and manual pressure was held. No significant extravasation or complication was identified. Sterile dressing was applied. Patient tolerated the procedure well, without apparent complication. Impression: Fluoroscopically guided kyphoplasty, T9
[2020-04-18] MEDS: CALCIUM CARBONATE 500 MG TAB.CHEW PO PRN (18:49)
[2020-04-18 19:00] VITALS: BP 136/61
[2020-04-18] MEDS: ENOXAPARIN 40 MG/0.4 ML SYRINGE. SQ SCH (20:02)
[2020-04-18] MEDS: LACTOBACILLUS RHAMNOSUS GG 1 CAPSULE. PO SCH (20:02)
[2020-04-18] MEDS: tiZANidine 4 MG TABLET. PO SCH (20:03)
[2020-04-18 23:00] VITALS: BP 137/60
--- NOTE | 2020-04-19 02:50 | NUR ---
When looking at eMAR, This RN noted that 2300 dose of pain medication did not record d/t issue w/bar code scanner. Manually entered record. Administered merrem, pain medication & combivent inh shortly after 2300. Issue w/scanning Combivent inh- believe RN forgot to scan pain medication.
[2020-04-19 03:00] VITALS: BP 138/74
[2020-04-19] MEDS: CALCIUM CARBONATE 500 MG TAB.CHEW PO PRN (03:16)
[2020-04-19] MEDS: HYDROcodone/APAP 7.5/325MG 1 TAB TABLET PO PRN (03:16)
[2020-04-19] MEDS: fentaNYL PF VIAL 100 MCG/2 ML VIAL IVP PRN ×2 (06:08→09:47)
[2020-04-19] MEDS: MEROPENEM 1 GM in IV NORMAL SALINE 100ML 100 ML IV SCH (06:09)
[2020-04-19 07:00] VITALS: BP 154/63
[2020-04-19] MEDS: PANTOPRAZOLE 40 MG TABLET.DR. PO SCH ×2 (07:30→08:25)
[2020-04-19] MEDS: IPRATRPIUM/ALBUTEROL 0.5/2.5MG 3 ML NEBU. NEB SCH ×3 (08:00→10:41)
[2020-04-19] MEDS: ASPIRIN CHEWABLE 81 MG TABLET. PO SCH (08:22)
[2020-04-19] MEDS: GABAPENTIN 300 MG CAPSULE. PO SCH ×2 (08:24→13:07)
[2020-04-19] MEDS: LACTOBACILLUS RHAMNOSUS GG 1 CAPSULE. PO SCH (08:24)
[2020-04-19] MEDS: ALPRAZolam 0.5 MG TABLET PO SCH (08:24)
[2020-04-19] MEDS: CARVEDILOL 12.5 MG TABLET. PO SCH (08:24)
[2020-04-19] MEDS: AZITHROMYCIN 250 MG TABLET. PO SCH (08:25)
[2020-04-19] MEDS: IPRATROPIUM/ALBUTEROL 20/100mcg/INH INHALER. INH SCH ×2 (08:29→11:01)
[2020-04-19] MEDS: NICOTINE 21MG PATCH. TD SCH (08:29)
[2020-04-19] MEDS: methylPREDNISolone SOD SUCC PF 40 MG/ML VIAL. IV SCH (08:30)
[2020-04-19 08:35] LABS: CALCIUM 9.3 mg/dL (8.5-10.1); CREATININE 0.8 mg/dL (0.6-1.0); GFR 72.7; POTASSIUM 3.5 mmol/L (3.5-5.1)
--- NOTE | 2020-04-19 08:39 | PDOC ---
PULMONARY PROGRESS NOTES DATE: 04/19/20 TIME: 08:39 Subjective Patient is resting comfortably on room air without any complaints of shortness of breath, chest pain or cough Reports increased acid reflux and wants to take her home Dexilant Status post T9 kyphoplasty on 04/18/2004/27/2020 with improvement in her back pain, reports a popping sound in her back that she is concerned about Vitals Vital Signs Date Time Temp Pulse Resp B/P (MAP) Pulse Ox O2 Delivery O2 Flow Rate FiO2 04/19/20 08:24 88 154/63 04/19/20 07:26 Room Air 04/19/20 07:00 97.9 16 94 97.9 04/18/20 12:15 2.0 ROS: No Nausea, No Chest Pain, No Abdominal Pain, No Increase Cough General: Alert, No acute distress Lungs: Clear Cardiovascular: S1, S2 Abdomen: Soft, Non-tender Neuro Exam: Alert, Oriented Extremities: No Edema Skin: Warm, Dry Labs Laboratory Tests Test 04/17/20 13:35 04/18/20 04:10 04/19/20 07:37 Coronavirus (PCR) Not detected (Not Detected) SARS-CoV-2 Antigen (Rapid) Negative (NEGATIVE) White Blood Count 7.5 x10^3/uL (4.0-11.0) Red Blood Count 3.53 x10^6/uL (3.50-5.40) Hemoglobin 11.5 g/dL (12.0-15.5) Hematocrit 33.5 % (36.0-47.0) Mean Corpuscular Volume 95 fL (79-100) Mean Corpuscular Hemoglobin 33 pg (25-35) Mean Corpuscular Hemoglobin Concent 34 g/dL (31-37) Red Cell Distribution Width 15.5 % (11.5-14.5) Platelet Count 183 x10^3/uL (140-400) Sodium Level 143 mmol/L (136-145) 145 mmol/L (136-145) Potassium Level 4.1 mmol/L (3.5-5.1) 3.5 mmol/L (3.5-5.1) Chloride Level 104 mmol/L (98-107) 106 mmol/L (98-107) Carbon Dioxide Level 31 mmol/L (21-32) 30 mmol/L (21-32) Anion Gap 8 (6-14) 9 (6-14) Blood Urea Nitrogen 14 mg/dL (7-20) 19 mg/dL (7-20) Creatinine 0.8 mg/dL (0.6-1.0) 0.8 mg/dL (0.6-1.0) Estimated GFR (Cockcroft-Gault) 72.7 72.7 BUN/Creatinine Ratio 18 (6-20) Glucose Level 245 mg/dL (70-99) 202 mg/dL (70-99) Calcium Level 8.9 mg/dL (8.5-10.1) 9.3 mg/dL (8.5-10.1) Total Bilirubin 0.4 mg/dL (0.2-1.0) Aspartate Amino Transf (AST/SGOT) 16 U/L (15-37) Alanine Aminotransferase (ALT/SGPT) 24 U/L (14-59) Alkaline Phosphatase 91 U/L (46-116) Total Protein 6.0 g/dL (6.4-8.2) Albumin 3.0 g/dL (3.4-5.0) Albumin/Globulin Ratio 1.0 (1.0-1.7) Laboratory Tests Test 04/19/20 07:37 Sodium Level 145 mmol/L (136-145) Potassium Level 3.5 mmol/L (3.5-5.1) Chloride Level 106 mmol/L (98-107) Carbon Dioxide Level 30 mmol/L (21-32) Anion Gap 9 (6-14) Blood Urea Nitrogen 19 mg/dL (7-20) Creatinine 0.8 mg/dL (0.6-1.0) Estimated GFR (Cockcroft-Gault) 72.7 Glucose Level 202 mg/dL (70-99) Calcium Level 9.3 mg/dL (8.5-10.1) Medications Active Scripts Medications Dose Route/Sig Max Daily Dose Days Date Category Buspirone Hcl 30 Mg Tablet 1 Tab PO DAILY 04/12/20 Reported Dexilant (Dexlansoprazole) 60 Mg Greg. 1 Cap PO DAILY 30 03/23/20 Reported Aspirin 81 Mg Tab.chew 1 Tab PO DAILY 03/23/20 Reported Hydrocodone-Apap 7.5-325 (Hydrocodone Bit/Acetaminophen) 1 Tab Tablet 1 Tab PO PRN Q6HRS PRN 03/23/20 Reported Artificial Tears (Polyvinyl Alcohol) 15 Ml Drops 1 Drop OU PRN Q15MIN PRN 30 11/08/19 Rx Gabapentin 300 Mg Capsule 300 Mg PO TID 30 11/08/19 Rx [Nicotine 21MG] 1 PATCH Patch 1 Patch TD DAILY 30 11/08/19 Rx Coreg (Carvedilol) 25 Mg Tablet 25 Mg PO DAILY 11/01/19 Reported Tizanidine Hcl 4 Mg Tablet 1 Tab PO QHS 02/26/16 Reported Impression . IMPRESSION: 1. Abnormal x-ray, possibly compatible with COVID-19 viral pneumonia versus bacterial pneumonia. 2. Acute on chronic hypoxemic respiratory failure. 3. Acute exacerbation of chronic obstructive pulmonary disease. 4. Elevated D-dimer, C-reactive protein. Plan . Continue supplemental oxygen to keep oxygen saturations greater than 92%, jelani mireles on room air Continue antibiotics, DC azithromycin and meropenem start doxycycline for 7-day course Continue steroids with slow taper--plan to transition to p.o. Status post T9 kyphoplasty 04/18/2004/27/2020 Anxiety and HTN per primary care physician COVID-19 negative Physical therapy/Occupational Therapy Okay to bring home Dexilant in DVT/GI prophylaxis, Protonix and Lovenox, Discussed with RN and VENKATA Dobson MD Apr 19, 2020 08:39
[2020-04-19] MEDS ORDERED: busPIRone 10 MG TABLET. PO SCH (09:00)
--- NOTE | 2020-04-19 09:27 | NUR ---
GRACIE following. Discussed with RN, pt from home alone, room air, regular diet, COVID-19 negative. Pt had surgery 04/18/2020. Pt still requring IV pain medication. GRACIE will continue to follow. Addendum: 04/19/20 at 1247 by BLADIMIR BOWMAN Pt interested in some home health at discharge. GRACIE met with pt (no isolation precautions at the time), she would like an RN to come out to her home. Pt reported she does not have a preference of provider, just someone in network with her insurance. Choice of vendor form completed. Pt discharging home today, her sister will collect her. RN notified. Addendum: 04/19/20 at 1431 by BLADIMIR BOWMAN GRACIE faxed referral to [facility], awaiting acceptance decision. Addendum: 04/20/20 at 1025 by BLADIMIR BOWMAN [facility] unable to accept. Pt is not in network with [facility]. Referral faxed to [facility] - they are able to accept pt and will see pt on Thursday04/23/2020. GRACIE left voicemail for pt, requesting call back.
[2020-04-19 11:00] VITALS: BP 153/63
[2020-04-19] MEDS ORDERED: DOXY100C2 PO (12:23)
--- NOTE | 2020-04-19 12:28 | SNU/HH DC ---
DISCHARGE WITH HOME HEALTH DISCHARGE INFORMATION: Discharge Date: Apr 19, 2020 Final Diagnosis: T10 compression fracture s/p vertebroplasty copd exacerbation Condition on Discharge: Stable CODE STATUS: Code Status: Full HOME HEALTH: Face to Face: I certify this patient is under my care and that I, or a nurse practitioner or physician's loan assistant working with me, had a face to face encounter that meets the physician face to face encounter requirements with this patient on 020 Medical Complications: Other Long-Term For: Admin/Educate Injections RN For Eval/Treatment: Yes Physical Therapy For: Evalulation/Treatment Occupational Therapy For: Evaluation/Treatment Pt Meets Homebound Status: Unsteady balance w/ amb, POST DISCHARGE ORDERS: Activity Instructions for Disc: Activity as tolerated, Avoid exertion Weight Bearing Status after Di: As tolerated Bathing Instructions: Shower-keep dressing dry, No Tub Bath until see Dr. MANDEL AFTER DISCHARGE: Regular Wound/Incision Care: Keep wound/cast CDI, Reinforce dressing PRN TREATMENT/EQUIPMENT ORDERS: Adaptive Equipment Issued: None CERTIFICATION STATEMENT: Certification Statement: Certification Statement: Based on the above finding, I certify that this patient is confined to the home and needs intermittent detention care, physical therapy and/or speech therapy, or continues to need occupational therapy.~ This patient is under my care, and I have initiated the establishment of the plan of care.~ This patient will be followed by myself or a community physician who will periodically review the plan of care. Home Meds Active Scripts Doxycycline Hyclate (DOXYCYCLINE HYCLATE) 100 Mg Capsule, 1 CAP PO BID for pneumonia for 7 Days, #14 CAP Prov:HILARY ACUNA MD 04/19/20 Polyvinyl Alcohol (ARTIFICIAL TEARS) 15 Ml Drops, 1 DROP OU PRN Q15MIN PRN for DRY EYE for 30 Days, #30 DROP Prov:CARTER AMBROSIO MD 11/08/19 Gabapentin (GABAPENTIN) 300 Mg Capsule, 300 MG PO TID for PAIN for 30 Days, #90 CAP Prov:CARTER AMBROSIO MD 11/08/19 [Nicotine 21MG] 1 PATCH PATCH No Conflict Check, 1 PATCH TD DAILY for CRAVING NICOTINE for 30 Days, #30 Prov:CARTER AMBROSIO MD 11/08/19 Reported Medications Alprazolam (XANAX) 0.5 Mg Tablet, 1 TAB PO DAILY for anxiety, #30 TAB 04/18/20 Buspirone Hcl (BUSPIRONE HCL) 15 Mg Tablet, 1 TAB PO BID for anxiety, #60 TAB 04/18/20 Dexlansoprazole (DEXILANT) 60 Mg Cap., 1 CAP PO DAILY for GERD for 30 Days, #30 CAP 0 Refills 03/23/20 Aspirin (ASPIRIN) 81 Mg Tab.chew, 1 TAB PO DAILY for heart health, #30 TAB 3 Refills 03/23/20 Hydrocodone Bit/Acetaminophen (HYDROCODONE-APAP 7.5-325 ) 1 Tab Tablet, 1 TAB PO PRN Q6HRS PRN for PAIN, TAB 0 Refills 03/23/20 Carvedilol (COREG) 25 Mg Tablet, 25 MG PO DAILY for CARDIAC, TAB 11/01/19 Tizanidine Hcl (TIZANIDINE HCL) 4 Mg Tablet, 1 TAB PO QHS, #30 TAB 02/26/16 Discontinued Reported Medications Phenylephrine/Acetaminophen/Cp (NOREL AD TABLET) 1 Each Tablet, 1 TAB PO Q4-6HRS for cold symptoms for 10 Days, #60 TAB 0 Refills 03/23/20 Tramadol HCl (Tramadol HCl) 100 Mg Tablet, 50 MG PO PRN for pain, TAB 11/01/19 HILARY ACUNA MD Apr 19, 2020 12:28
--- NOTE | 2020-04-19 12:51 | DS ---
DATE OF DISCHARGE: 04/19/2020 HOSPITAL COURSE: The patient is a 64-year-old female patient who was admitted with severe back pain due to T10 compression fracture. She was also found to have pneumonia and COPD exacerbation and was treated with IV antibiotic. She was seen in consultation by the c 40a crew chief and underwent vertebroplasty successfully and her pain has completely resolved. She has no problem now taking a deep breath and has no shortness of breath and therefore a decision was made to discharge her home to finish treatment with antibiotic. She was advised not to work for the next 2 weeks and avoid lifting more than 25 pounds. PHYSICAL EXAMINATION: GENERAL: When I examined her this afternoon, she looked well and was clearly in no apparent respiratory distress. She was pale, no jaundice, cyanosis or thyromegaly. No jugular venous distention. No limb edema. VITAL SIGNS: Her heart rate was 83, blood pressure was 153/63, temperature 97.8, respiratory rate was 18 and oxygen saturation was 96%. HEAD, EYES, EARS, NOSE AND THROAT: Showed normocephalic, atraumatic. NECK: Supple. HEART: Showed normal first and second heart sounds. No gallop, rub or murmur. CHEST: Clear to auscultation. No crepitation or rhonchi. ABDOMEN: Distended, soft, nontender. NEUROLOGIC: She is grossly intact. LABORATORY DATA: Showed a white cell count 7500, hemoglobin 11.5, hematocrit 33.5, MCV 95, and platelet count of 183,000. Serum sodium 145, potassium 3.5, chloride 106, bicarbonate 30, anion gap of 9, BUN 19, creatinine 0.8, estimated GFR was 72 mL per minute. Her glucose was 102 and calcium was 9.3. DISCHARGE MEDICATIONS: She was discharged home to continue on doxycycline 100 mg twice a day for 7 days, alprazolam for Xanax 0.5 mg 1 tablet once a day, aspirin 81 mg once a day, buspirone 15 mg twice a day, carvedilol 25 mg daily, Dexilant 60 mg once a day, gabapentin 300 mg 3 times a day, hydrocodone/APAP 7.5/325 one tablet every 6 hours. She was also discharged on artificial tears 1 drop to both eyes every 15 minutes as needed and tizanidine 4 mg at bedtime. FINAL DISCHARGE DIAGNOSES: 1. T9 compression fracture, status post fluoroscopically guided kyphoplasty done successfully. 2. Osteoporosis. 3. Chronic obstructive pulmonary disease exacerbation. 4. Pneumonia, hypertension, hyperlipidemia, headache, vertigo and nicotine dependence. The patient was discharged home with home health. HILARY ACUNA MD DR: FLAKITA/néstor JOB#: [id number] / [id number]
--- NOTE | 2020-04-19 13:35 | NUR ---
Discharge Note: [facility] Discharge instructions and discharge home medications reviewed with Patient and a copy given. All questions have been answered and understanding verbalized. The following instructions and handouts were given: information about medications, incisional care, follow up appointment, etc. Discontinued lines and drains: IV line in left wrist removed, catheter tip intact. Patient discharged to home with home health with sister, wheelchair used for mobility to discharge vehicle.
[2020-04-19] MEDS ORDERED: DOXYCYCLINE HYCLATE 100 MG TABLET PO SCH (21:00)
[2020-04-19] MEDS ORDERED: FAMOTIDINE 20 MG TABLET. PO SCH (21:00)
[2020-04-20 00:11] LABS: HEMOGLOBIN A1C 7.1 % (4.8-5.6)
[2020-04-20] MEDS ORDERED: methylPREDNISolone SOD SUCC PF 40 MG/ML VIAL. IV SCH (09:00)
== END 2020-04-19 13:35 | disposition home health service (06) | DRG 515 ==
LOC: 4 NORTH 05:56 → 6 SOUTH 14:50 → 4 NORTH 04-18 15:53
PROVIDERS: ADMIT Internal Medicine; ATTEND Internal Medicine
PROC: 0PU43JZ Supplement Thoracic Vertebra with Synthetic Substitute, Percutaneous Approach (ICD-10-PCS; 2020-04-18)
PROC: 0PS43ZZ Reposition Thoracic Vertebra, Percutaneous Approach (ICD-10-PCS; principal; 2020-04-18 13:00)
DX: M48.54XA Collapsed vertebra, not elsewhere classified, thoracic region, initial encounter for fracture (principal); J15.6 Pneumonia due to other Gram-negative bacteria; J96.21 Acute and chronic respiratory failure with hypoxia; J96.22 Acute and chronic respiratory failure with hypercapnia; J44.0 Chronic obstructive pulmonary disease with (acute) lower respiratory infection; J44.1 Chronic obstructive pulmonary disease with (acute) exacerbation; Z20.828 Contact with and (suspected) exposure to other viral communicable diseases; G89.29 Other chronic pain; K21.9 Gastro-esophageal reflux disease without esophagitis; M19.90 Unspecified osteoarthritis, unspecified site; I10 Essential (primary) hypertension; E78.5 Hyperlipidemia, unspecified; R79.82 Elevated C-reactive protein (CRP); F41.9 Anxiety disorder, unspecified; M81.0 Age-related osteoporosis without current pathological fracture; F17.210 Nicotine dependence, cigarettes, uncomplicated; Z88.2 Allergy status to sulfonamides; Z88.8 Allergy status to other drugs, medicaments and biological substances; Z91.041 Radiographic dye allergy status; Z91.012 Allergy to eggs; Z91.011 Allergy to milk products; Z98.42 Cataract extraction status, left eye; Z98.41 Cataract extraction status, right eye; Z83.3 Family history of diabetes mellitus; Z82.5 Family history of asthma and other chronic lower respiratory diseases; Z80.1 Family history of malignant neoplasm of trachea, bronchus and lung; Z82.49 Family history of ischemic heart disease and other diseases of the circulatory system
CPT/HCPCS: 22513; 22514; 36415; 80048; 80053; 83036; 85027; 87426; 94640; 94760; 99406; A9575; C1713; J1650; J2185; J2920; J3010; J3370; J3490; J7120; U0003; G0378

== ENCOUNTER → 2020-04-24 | Outpatient (CLI) | payer BC ==
[2020-04-19 11:00] VITALS: BP 153/63
[~2020-04-24] MED LIST changes: +ALPR0.5T PO; +BUSP15TA PO
--- NOTE | 2020-04-24 10:38 | PDOC ---
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 Patient also reports he recently had a thoracic kyphoplasty and overall is about 60% better the last injection was about 90% better for the first week or so and the pain began return she eventually had kyphoplasty the T10 vertebral body and is doing better. Patient ports he still has some radicular pain radiating around the right and left side but it is improved and that she had recently is recovering from a pneumonia like to wait on any further injections at this time. Patient ports her pain is a 10 on scale 10 is worse over the past week 6 on average 6 at its least and is a 6 today. Patient describes pain as aching and constant radiating around the ribs bilaterally. Patient reports no loss of motor function no new bowel or bladder incontinence or other complaints. She would like to return to work but would like some restrictions and we will provide this for her today as well with no lifting greater than 10 pounds repetitive stooping bending lifting twisting pushing or pulling. Physical Exam: VS: Blood pressure is 179/102 pulse 88 respirations 18 temperature is 90.7 F height is 5 foot weight is 119 pounds PE: PHYSICAL EXAMINATION: GENERAL: The patient is awake, alert, oriented, appropriate, very pleasant demeanor HEENT: Shows normocephalic, atraumatic. Extraocular movements are intact and symmetrical. Oral cavity: Mucous membranes moist and pink. Dentition is intact. NECK: Shows anterior throat supple without palpable lymphadenopathy noted. Swallow reflex symmetrical. CHEST: Shows normal on inspection. Breath sounds are clear bilaterally, distant but no rales rhonchi or wheezes. HEART: Shows S1, S2 clear. No murmurs auscultated. ABDOMEN: Soft, nontender, nondistended obese. No palpable organomegaly is noted. No rebound or guarding demonstrated. BACK: Shows spine grossly in the midline. Normal-appearing cervical lordotic curvature. There is slightly increased thoracic kyphosis, some minor flattening of the lumbar lordotic curvature. Thoracic paraspinous muscles show some moderate tenderness diffusely in the mid to low distribution of the thoracic paraspinous muscles very firm very tender bilaterally but without specific radiation on palpation. Lumbar paraspinous muscles show symmetrical on inspection, on palpation shows some moderate tenderness diffusely throughout the upper, middle and lower distribution of the paraspinous muscles but without specific trigger points, without radiation of pain. The patient has good rotational motion of the lumbar spine, both laterally as well as extension and flexion without significant difficulty. No tenderness over the spinous processes, sacrum or sacroiliac regions. EXTREMITIES: Lower extremities show deep tendon reflexes 2 in the patellar and tendo calcaneus tendons. Motor exam is 4 on a scale of 5 with right dorsiflexion, extension, quadriceps and hamstring flexion and 5/5 on the left. Peripheral pulses are 1+ posterior tibial. No peripheral edema is noted bilaterally. Lower extremities are warm and dry to touch, equal in color and appearance. SKIN: Shows warm and dry, good turgor. No edema. No sores, rashes or bruising throughout. Procedure: Procedure: Options were discussed with the patient. Patient's old chart was reviewed as her current medication regimen updated current review of systems updated today as well. As patient doing much better after the last 2 injections and kyphoplasty and is recently recovering from pneumonia, we will wait on any further injections at this time. Patient will maintain work activities with restrictions as noted and return as needed if radicular pain increases for third thoracic epidural steroid injection at that time. Medication Injected: Med Injected: None Condition at Discharge: Condition at Discharge: Condition at discharge is stable. BAUDILIO SCHWARTZ MD Apr 24, 2020 10:38
== END | disposition home or self-care (01) ==
LOC: PNCL 09:23
PROVIDERS: ATTEND Anesthesiology
DX: M51.16 Intervertebral disc disorders with radiculopathy, lumbar region (principal); M51.14 Intervertebral disc disorders with radiculopathy, thoracic region; I10 Essential (primary) hypertension; J44.9 Chronic obstructive pulmonary disease, unspecified; F41.9 Anxiety disorder, unspecified; Z79.899 Other long term (current) drug therapy; Z98.890 Other specified postprocedural states; F17.210 Nicotine dependence, cigarettes, uncomplicated; Z79.82 Long term (current) use of aspirin; Z88.1 Allergy status to other antibiotic agents; Z88.2 Allergy status to sulfonamides; Z88.8 Allergy status to other drugs, medicaments and biological substances
CPT/HCPCS: 99212; G0463